=== PATIENT | male | born 1945 | race Caucasian/White ===

== ENCOUNTER 2024-08-22 10:24 | Outpatient (AMB) | payer OTHER, SELFPAY ==
--- NOTE | 2024-08-22 10:26 | MHC.OFFVIS ---
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 for Right Great toe wound Intake Note: SUSTAINABILITY PROJECT COORDINATOR/ PV Rehab referral for non-healing wounds bilateral LE, pt unsure how long he's had them General Repair Mechanic Required: No Accompanied by: ambulance drivers Allergies benzalkonium Allergy (Mild, Verified 08/22/24 10:41) Unknown brimonidine Allergy (Mild, Verified 08/22/24 10:41) Unknown clindamycin Allergy (Mild, Verified 08/22/24 10:45) Unknown dorzolamide [From Trusopt] Allergy (Mild, Verified 08/22/24 10:48) Unknown gabapentin Allergy (Mild, Verified 08/22/24 10:45) Unknown heparin Allergy (Mild, Verified 08/22/24 10:48) Unknown ketoconazole [From Nizoral] Allergy (Mild, Verified 08/22/24 10:48) unknown lamotrigine Allergy (Mild, Verified 08/22/24 10:48) Unknown penicillin G Allergy (Mild, Verified 08/22/24 10:33) Unknown prednisone Allergy (Mild, Verified 08/22/24 10:45) Unknown pyridoxine Allergy (Mild, Verified 08/22/24 10:45) Unknown rivaroxaban Allergy (Mild, Verified 08/22/24 10:45) Unknown sulfamethoxazole [From Sulfamethoxazole-Trimethoprim] Allergy (Mild, Verified 08/22/24 10:48) Unknown timolol Allergy (Mild, Verified 08/22/24 10:48) Unknown travoprost [From Travatan Z] Allergy (Mild, Verified 08/22/24 10:48) Unknown trimethoprim [From Sulfamethoxazole-Trimethoprim] Allergy (Mild, Verified 08/22/24 10:48) Unknown vancomycin Allergy (Mild, Verified 08/22/24 10:48) Unknown HPI HPI SUSTAINABILITY PROJECT COORDINATOR/PV Rehab for Right Great toe wound: Details: The patient is a 79-year-old male presenting with a nonhealing ulcer and leg swelling. The ulcer has been present for an undetermined length of time but reflects a chronic issue exacerbated by past and recent trauma. The patient's medical history includes Type 2 Diabetes Mellitus, managed with Metformin, and historical tobacco use, ceased decades ago. He recalls a history of deep vein thrombosis and pulmonary embolism, now managed with anticoagulation therapy, with Arthur. Now for evaluation regarding right great toe ulcer and leg swelling. [facility] Medical History (Updated 08/22/24 @ 12:07 by Alhaji Cool MD) Venous thrombosis and embolism Edema Anemia PTSD (post-traumatic stress disorder) Hypercholesteremia Hypothyroidism Diabetes Review of Systems Const All systems reviewed & are unremarkable except as noted in HPI and below Reports no additional complaints ENT Reports Normal hearing present Card Denies chest pain, Denies chest pain at rest, Denies chest pain with activity and Denies pedal edema Resp Denies cough GI Denies abdominal pain Musc Denies abnormal gait, Denies muscle cramps and Denies radiating pain into limb Skin/Breast Denies skin ulcer and Denies wounds Neuro Reports Normal hearing present and Denies abnormal gait Psych Reports no additional complaints Physical Exam Vital Signs: BMI result Body Mass Index 30.4 Const General: cooperative, healthy appearing and comfortable Orientation/consciousness: oriented to person, oriented to place and oriented to time HEENT Head: Yes normal to inspection Neck Neck: Yes normal visual inspection Carotids: no bruits Chest Chest palpation & inspection: normal inspection of the chest Resp Effort & Inspection: normal respiratory effort and able to speak in complete sentences Auscultation: clear to auscultation bilaterally, no crackles, no rales, no rhonchi and no wheezes Cardio Other: Palpable DP and PT pulses bilaterally Rate: regular rate Rhythm: regular rhythm Heart sounds: S1 normal heart sound present and S2 normal heart sound present Bruits: no carotid bruits Peripheral pulses: Peripheral pulses 2+ throughout GI Inspection: Yes normal to inspection Skin Other: Right great toe looks like underlying hematoma and appears to be more traumatic. Wounds: no wounds Hair: normal Neuro General: oriented to person, oriented to place and oriented to time Cranial nerves: Yes CN's II-XII intact bilaterally and Yes Normal hearing present Cognition (Neuro): normal cognition Motor exam (neuro): 5/5 motor strength present throughout Extrem Other: Plus two edema with nonhealing ulcers bilaterally. General: No clubbing, No cyanosis and Yes edema Psych Appearance: grossly normal Mental Status: mental status grossly normal Speech and movement: Normal speech and movement present Office Procedures Vascular Office Procedure Details Details: Wound debridement note: Preoperative diagnosis: Nonhealing right great toe ulcer Postoperative diagnosis: Nonhealing right great toe ulcer Procedure: Excisional debridement into muscle Anesthesia: None Estimated blood loss: Minimal Pre-procedure measurement and appearance dry necrotic eschar with hematoma 0.3 x 0.3 by 0.1 cm Postprocedure measurement and appearance: Clean granulation tissue with good bleeding 0.4 x 0.4 x 0.2 cm Procedure in detail: Excisional debridement of the right great toe was carried out.. Necrotic devitalized and nonviable tissue was removed. We debrided into muscle using pickups Metzenbaum scissors and curette. Wound was thoroughly irrigated. At the conclusion wound appeared clean with good bleeding. Hemostasis had to be achieved with silver nitrate sticks. Clean and sterile dressing was applied. Patient tolerated the procedure well. Instructions were given to the patient. Follow-up was suggested. This note is constructed using voice recognition software. While every effort has been made to ensure accuracy, aircraft life support fitter errors may have been included. Thank you for allowing me to participate in the care of your patient. Yours sincerely, Alhaji Cool MD, FACS, R.P.V.I. [id number] Debridement, muscle and or fascia (lst 20 sq cm or less) All charges added?: Procedure code (CPT) selection complete Assessment & Plan Assessment & Plan (1) Chronic ulcer of right great toe: Code(s): L97.519 - Non-pressure chronic ulcer of other part of right foot with unspecified severity Category: Medical Qualifiers: Non-pressure ulcer stage: with fat layer exposed Qualified Code(s): L97.512 - Non-pressure chronic ulcer of other part of right foot with fat layer exposed Plan: In short patient has nonhealing ulcer of right great toe. This appears to be more traumatic in nature and has developed underlying hematoma. This was debrided and cleaned. I do suspect this will heal as he does have palpable arterial pulses. (2) Varicose veins of right lower extremity with inflammation: Code(s): I83.11 - Varicose veins of right lower extremity with inflammation Category: Medical Plan: In short, the patient has evidence of venous insufficiency. I have discussed the pathophysiology with the patient. In addition I have provided informational material regarding venous disease to the patient. We have discussed conservative measures including compression, elevation, and exercise. I have also provided a handout regarding appropriate use of compression stockings and where to purchase good compression stockings as well. I have taken the liberty of ordering venous insufficiency testing with the patient. They will follow up with me after testing. The patient had an opportunity to ask questions regarding the treatment plan. All questions were answered. Imaging studies, laboratory studies and physical exam results were discussed and reviewed in detail. No major barriers to understanding were identified. The patient expressed understanding and agreement with the above treatment plan. The patient is aware they should contact our office by phone for worsening of the current condition or the appearance of new symptoms. Thank you for allowing me to participate in the vascular care of this patient. If you have any questions or concerns regarding the treatment for the above condition please do not hesitate to contact me. The office telephone contact is [phone]. This note is constructed using voice recognition software. While every effort has been made to ensure accuracy, aircraft life support fitter errors may have been included. Thank you for allowing me to participate in the care of your patient. Yours sincerely, Alhaji Cool MD, FACS, R.P.V.I. Plan Patient was informed and verbally consented to the use of an ambient scribe for clinic note documentation during this visit. Patient Instructions: - Elevate legs regularly to reduce swelling. - Continue using compression wraps as instructed. - Engage in light physical activity to maintain circulation. - Attend scheduled venous ultrasound. - Follow-up regularly with healthcare provider. - Report any worsening symptoms or new concerns to the medical team promptly. Coding Level of Care Code New Pt Level 4 (44636) Complex EM visit Add On G2211 Diagnoses Chronic ulcer of great toe of right foot with fat layer exposed L97.512 Non-pressure ulcer stage: with fat layer exposed Varicose veins of right lower extremity with inflammation I83.11
[2024-08-22 10:29] VITALS: BMI 30.4
--- OUTSIDE RECORDS SUMMARY | 2024-08-22 12:00 | XMS_ITS | Encounter Summary ---
Author Organization [facility] Address [address] [place] [address] Care Team Providers Care Search Planner Name Role Phone Sandra Horn ABHIJIT Primary Care Provider Encounter Details Date Type Department Care Team (Late st Contact Info) Description 03/11/[address] [facility] Lab [address] [facility] [place] [address] Lida Jules MD [address] [address] Hypothyroidism, unspecified Social History Tobacco Use Types Packs/Day Years Used Date Smoking Tobacco: Never Assessed Sex and Gender Information Value Date Recorded Sex Assigned at Not on file Legal Sex Male 8:12 PM EST Gender Identity Not on file Sexual Orientation Not on file documented as of this encounter Plan of Treatment Not on file documented as of this encounter Procedures Procedure Name Priority Date/Time Associated Diagnosis Comments THYROID STIMULATING HORMONE WITH REFLEX TO FREE T4 AND FREE T3 Routine 03/13/2024 7:05 AM EST Hypothyroidism, unspecified FREE THYROXINE WITH REFLEX TO FREE TRIIODOTHYRONINE Routine 03/13/2024 7:05 AM EST Hypothyroidism, unspecified TRIIODOTHYRONINE FREE Routine 03/13/2024 7:05 AM EST Hypothyroidism, unspecified FOLATE Routine 03/13/2024 7:05 AM EST Hypothyroidism, unspecified VITAMIN B12 Routine 03/13/2024 7:05 AM EST Hypothyroidism, unspecified documented in this encounter Results * Triiodothyronine free (03/13/2024 7:05 AM EST) T3, Free 412 230 - 420 pcg/dL LAB CHEMISTRY METHOD 03/13/2024 11:[address] [facility] Blood Venous blood specimen / Unknown Venipuncture / Unknown 03/13/2024 7:05 AM EST 03/13/2024 8:32 AM EST Lida Jules MD LAB BLOOD ORDERABLES Fin al Result Performing Organization Address City/[facility]/ZIP Co de Phone Number [facility] [address] [place] [address], [place] [phone] * Free thyroxine with reflex to free triiodothyronine (03/13/2024 7:05 AM EST) Free T4 1.15 0.70 - 1.80 ng/dL LAB CHEMISTRY METHOD 03/13/2024 10:[address] [facility] Blood Venous blood specimen / Unknown Venipuncture / Unknown 03/13/2024 7:05 AM EST 03/13/2024 8:32 AM EST Lida Jules MD LAB BLOOD ORDERABLES Fin al Result Performing Organization Address [facility]/ZIP Co de Phone Number [facility] [address] [place] [address], [place] [phone] * (ABNORMAL) Folate (03/13/2024 7:05 AM EST) Folate >20.0(H) 2.8 - 17.0 ng/ml LAB CHEMISTRY METHOD 03/13/2024 10:[address] [facility] Blood Venous blood specimen / Unknown Venipuncture / Unknown 03/13/2024 7:05 AM EST 03/13/2024 8:32 AM EST Lida Jules MD LAB BLOOD ORDERABLES Fin al Result Performing Organization Address [facility]/ZIP Co de Phone Number [facility] [address] [place] [address], [place] [phone] * Vitamin B12 (03/13/2024 7:05 AM EST) Vitamin B-12 464 250 - 900 pcg/mL LAB CHEMISTRY METHOD 03/13/2024 10:[address] [facility] Blood Venous blood specimen / Unknown Venipuncture / Unknown 03/13/2024 7:05 AM EST 03/13/2024 8:32 AM EST Lida Jules MD LAB BLOOD ORDERABLES Fin al Result Performing Organization Address [facility] Co de Phone Number [facility] [address] [place] [address], [place] [phone] * (ABNORMAL) Thyroid stimulating hormone with reflex to free t4 and free t3 (03/13/2024 7:05 AM EST) TSH 4.06(H) 0.40 - 4.00 mcIU/mL LAB CHEMISTRY METHOD 03/13/2024 10:[address] [facility] Blood Venous blood specimen / Unknown Venipuncture / Unknown 03/13/2024 7:05 AM EST 03/13/2024 8:32 AM EST Lida Jules MD LAB BLOOD ORDERABLES Fin al Result Performing Organization Address [facility]/ZIP Co de Phone Number [facility] [address] [place] [address], [place] [phone] documented in this encounter Visit Diagnoses Diagnosis Hypothyroidism, unspecified documented in this encounter Care Teams Search Planner Relationship Specialty Start Date End Date Sandra Horn NP [address] [place] [address] PCP - General Nurse Practitioner 06/29/24 documented as of this encounter
--- OUTSIDE RECORDS SUMMARY | 2024-08-22 12:00 | XMS_ITS | Encounter Summary ---
Author Organization [facility] Address [address] [place] [address] Care Team Providers Care Educational Psychology Teacher Name Role Phone Sandra Horn NP Primary Care Provider [phone] Encounter Details Date Type Department Care Team (Latest Contact Info) Description 06/29/2024 Lab Requisition [facility] [address] [place] [address] Sandra Horn NP [address] [place] [address] Type 2 diabetes mellitus without complications (CMS/HCC V24, CMS/HCC V28) Social History Tobacco Use Types Packs/Day Years [...] Procedure Name Priority Date/Time Associated Diagnosis Comments COMPLETE BLOOD COUNT Routine 06/29/2024 6:45 AM EST Type 2 diabetes mellitus without complications (CMS/HCC) HEMOGLOBIN A1C Routine 06/29/2024 6:45 AM EST Type 2 diabetes mellitus without complications (CMS/HCC) BASIC METABOLIC PANEL Routine 06/29/2024 6:45 AM EST Type 2 diabetes mellitus without complications (CMS/HCC) documented in this encounter Results * (ABNORMAL) Hemoglobin A1c (06/29/2024 6:45 AM EST) Hemoglobin A1C 8.2(H) <6.5 % LAB CHEMISTRY METHOD 06/29/2024 9:23 PM EST [facility] Mean Bld Glu Estim. 189 mg/dL LAB CHEMISTRY METHOD 06/29/2024 9:23 PM [facility] Blood Venous blood specimen / Unknown Venipuncture / Unknown 06/29/2024 6:45 AM EST 06/29/2024 10:45 AM EST us Sandra Horn NP LAB BLOOD ORDERABLES Final Resul t [facility] [address] [place] [address], * (ABNORMAL) Basic metabolic panel (06/29/2024 6:45 AM EST) Sodium 139 133 - 145 mmol/L LAB CHEMISTRY METHOD 06/29/2024 11:42 AM [facility] Potassium 3.8 3.5 - 5.5 mmol/L LAB CHEMISTRY METHOD 06/29/2024 11:42 AM [facility] Chloride 104 96 - 110 mmol/L LAB CHEMISTRY METHOD 06/29/2024 11:42 AM [facility] CO2 25 21 - 32 mmol/L LAB CHEMISTRY METHOD 06/29/2024 11:42 AM [facility] Anion Gap 10 3 - 11 LAB CHEMISTRY METHOD 06/29/2024 11:42 AM [facility] Glucose 179(H) 70 - 100 mg/dL LAB CHEMISTRY METHOD 06/29/2024 11:42 AM [facility] BUN 15 5 - 25 mg/dL LAB CHEMISTRY METHOD 06/29/2024 11:42 AM [facility] Creatinine 0.70 0.70 - 1.30 mg/dL LAB CHEMISTRY METHOD 06/29/2024 11:42 AM [facility] eGFR 94 >=60 mL/min/1. 73m2 LAB CHEMISTRY METHOD 06/29/2024 11:42 AM [facility] Comment:Calculation based on the??Chronic Kidney Disease Epidemiology Collaboration (CKD-EPI) equation refit??without adjustment for race. BUN/Creatinine Ratio 21.4 LAB CHEMISTRY METHOD 06/29/2024 11:42 AM [facility] Calcium 8.5 8.5 - 10.5 mg/dL LAB CHEMISTRY METHOD 06/29/2024 11:42 AM [facility] Blood Venous blood specimen / Unknown Venipuncture / Unknown 06/29/2024 6:45 AM EST 06/29/2024 10:45 AM EST us Sandra Horn INFORMATICS EDUCATOR LAB BLOOD ORDERABLES Final Resul t [facility] [address] [place] [address], * (ABNORMAL) Complete blood count (06/29/2024 6:45 AM EST) WBC 3.0(L) 4.8 - 10.8 K/mcL LAB HEMETOLOGY METHOD 06/29/2024 11:18 AM [facility] RBC 3.10(L) 4.50 - 5.50 M/mcL LAB HEMETOLOGY METHOD 06/29/2024 11:18 AM [facility] Hemoglobin 9.3(L) 13.5 - 17.5 g/dL LAB HEMETOLOGY METHOD 06/29/2024 11:18 AM [facility] Hematocrit 28.6(L) 42.0 - 54.0 % LAB HEMETOLOGY METHOD 06/29/2024 11:18 AM [facility] MCV 92.3 79.0 - 98.0 FL LAB HEMETOLOGY METHOD 06/29/2024 11:18 AM [facility] MCH 30.0 27.0 - 32.0 pcg LAB HEMETOLOGY METHOD 06/29/2024 11:18 AM [facility] MCHC 32.5 32.0 - 37.0 g/dL LAB HEMETOLOGY METHOD 06/29/2024 11:18 AM EST [facility] RDW 16.0(H) 11.0 - 15.0 % LAB HEMETOLOGY METHOD 06/29/2024 11:18 AM [facility] Platelets 114(L) 130 - 400 K/mcL LAB HEMETOLOGY METHOD 06/29/2024 11:18 AM [facility] MPV 10.9 7.0 - 11.0 FL LAB HEMETOLOGY METHOD 06/29/2024 11:18 AM EST [facility] NRBC 0.0 <1.0 % LAB HEMETOLOGY METHOD 06/29/2024 11:18 AM [facility] NRBC Absolute 0.00 <0.10 K/mcL LAB HEMETOLOGY METHOD 06/29/2024 11:18 AM [facility] Blood Venous blood specimen / Unknown Venipuncture / Unknown 06/29/2024 6:45 AM EST 06/29/2024 10:45 AM EST Sandra Horn NP LAB BLOOD ORDERABLES Final Resul t [facility] [address] [place] [address], documented in this encounter Visit Diagnoses Diagnosis Type 2 diabetes mellitus without complications (CMS/HCC V24, CMS/HCC V28) documented in this encounter Care Teams Educational Psychology Teacher Relationship Specialty Start Date End Date Sandra Horn NP [address] [place] [address] PCP - General Nurse Practitioner 06/29/24 documented as of this encounter
--- OUTSIDE RECORDS SUMMARY | 2024-08-22 12:01 | XMS_ITS | Clinical Summary ---
Author Organization [address] [facility] Address [address] [place] [address] Phone Care Team Providers Care Mc Kay Machine Operator Name Role Phone Sandra Horn NP Primary Care Provider [phone] Encounters Date Type Department Care Team Description 06/29/2024 Lab Requisition [facility] - Main Lab [address] [facility] [place] [address] Sandra Horn NP Type 2 diabetes mellitus without complications (CMS/HCC V24, CMS/HCC V28) from Last 3 Months Social History Tobacco Use Types Packs/Day Years Used Date Smoking Tobacco: Never Assessed Sex and Gender Information Value Date Recorded Sex Assigned at Not on file Legal Sex Male 8:12 PM EST Gender Identity Not on file Sexual Orientation Not on file Plan of Treatment Health Maintenance Due Date Last Done Comments Diabetes: Annual Foot Exam 1955 Diabetes: Annual Retina Eye Exam 1955 RSV Immunization Adult Patients (1 - 1-dose 75+ series) 2021 Cholesterol Screening (Lipid Panel) 05/20/2023 Depression Screening 05/20/2023 Falls Risk Assessment 05/20/2023 Hepatitis C Screening 05/20/2023 Medicare Annual Wellness Visit 05/20/2023 Social Influencers of Health Screening 05/20/2023 COVID-19 Vaccine ( season) 2023 07/31/2021, 03/08/2021, 06/12/2020, Additional history exists Diabetes: Annual Urine Albumin-Creatinine Ratio (uACR) 03/03/2024 DTaP,Tdap,and Td Vaccines (4 - Td or Tdap) 11/19/2024 11/19/2014, 12/25/2008, 11/28/2008 Diabetes: Blood Sugar Control Test (HGBA1C) 12/30/2024 06/29/2024, 03/21/2023 Diabetes: Annual GFR (Glomerular Filtration Rate) 06/29/2025 06/29/2024, 02/15/2024, 02/15/2024, Additional history exists Hypertension/CHF/CAD Annual BMP Blood Test 06/29/2025 06/29/2024, 02/15/2024, 02/15/2024, Additional history exists MMR Vaccines Aged Out 04/30/2000 No longer eligi ble based on patient's age to complete this topic Pneumococcal Vaccine: 50+ Years Completed 10/21/2015, 10/17/2014, 04/24/2010, Additional history exists Zoster Vaccines Completed 09/15/2017, 06/25, 11/19/2014, Additional history exists Influenza Vaccine Completed 02/23/2024, , 01/08/2021, Additional history exists HIB Vaccines Aged Out No longer eligi ble based on patient's age to complete this topic HPV Vaccines Aged Out No longer eligi ble based on patient's age to complete this topic Hepatitis A Vaccines Aged Out No long er eligible based on patient's age to complete this topic Hepatitis B Vaccines Aged Out No long er eligible based on patient's age to complete this topic IPV Vaccines Aged Out No longer eligi ble based on patient's age to complete this topic Meningococcal ACWY Vaccine Aged Out N o longer eligible based on patient's age to complete this topic Meningococcal B Vaccine Aged Out No l onger eligible based on patient's age to complete this topic RSV Immunization Patients Under 20 months Aged Out No longer eligible based on patient's age to complete this topic Varicella Vaccines Aged Out No longer eligible based on patient's age to complete this topic Procedures Procedure Name Priority Date/Time Associated Diagnosis Comments HEMOGLOBIN A1C Routine 06/29/2024 6:45 AM EST Type 2 diabetes mellitus without complications (CMS/HCC) BASIC METABOLIC PANEL Routine 06/29/2024 6:45 AM EST Type 2 diabetes mellitus without complications (CMS/HCC) COMPLETE BLOOD COUNT Routine 06/29/2024 6:45 AM EST Type 2 diabetes mellitus without complications (CMS/HCC) from Last 3 Months Results * (ABNORMAL) Complete blood count (06/29/2024 6:45 AM EST) [facility] WBC 3.0(L) 4.8 - 10.8 K/mcL LAB HEMETOLOGY METHOD 06/29/2024 11:18 AM [facility] RBC 3.10(L) 4.50 - 5.50 M/mcL LAB HEMETOLOGY METHOD 06/29/2024 11:18 AM [facility] Hemoglobin 9.3(L) 13.5 - 17.5 g/dL LAB HEMETOLOGY METHOD 06/29/2024 11:18 AM [facility] Hematocrit 28.6(L) 42.0 - 54.0 % LAB HEMETOLOGY METHOD 06/29/2024 11:18 AM [facility] MCV 92.3 79.0 - 98.0 FL LAB HEMETOLOGY METHOD 06/29/2024 11:18 AM [facility] MCH 30.0 27.0 - 32.0 pcg LAB HEMETOLOGY METHOD 06/29/2024 11:18 AM [facility] MCHC 32.5 32.0 - 37.0 g/dL LAB HEMETOLOGY METHOD 06/29/2024 11:18 AM [facility] RDW 16.0(H) 11.0 - 15.0 % LAB HEMETOLOGY METHOD 06/29/2024 11:18 AM [facility] Platelets 114(L) 130 - 400 K/mcL LAB HEMETOLOGY METHOD 06/29/2024 11:18 AM [facility] MPV 10.9 7.0 - 11.0 FL LAB HEMETOLOGY METHOD 06/29/2024 11:18 AM [facility] NRBC 0.0 <1.0 % LAB HEMETOLOGY METHOD 06/29/2024 11:18 AM [facility] NRBC Absolute 0.00 <0.10 [facility] LAB HEMETOLOGY METHOD 06/29/2024 11:18 AM EST [facility] Blood Venous blood specimen / Unknown Venipuncture / Unknown 06/29/2024 6:45 AM EST 06/29/2024 10:45 AM EST [facility] LAB BLOOD ORDERABLES Final Resul t Performing Organization Address [facility]/ZIP Co de Phone Number [facility] [address] [place] [address], [place] [phone] * (ABNORMAL) Hemoglobin A1c (06/29/2024 6:45 AM EST) Hemoglobin A1C 8.2(H) <6.5 % LAB CHEMISTRY METHOD 06/29/2024 9:23 PM EST [facility] Mean Bld Glu Estim. 189 mg/dL LAB CHEMISTRY METHOD 06/29/2024 9:23 PM EST [facility] Blood Venous blood specimen / Unknown Venipuncture / Unknown 06/29/2024 6:45 AM EST 06/29/2024 10:45 AM EST [facility] LAB BLOOD ORDERABLES Final Resul t Performing Organization Address [facility] Co de Phone Number [facility] [address] [place] [address], * (ABNORMAL) Basic metabolic panel (06/29/2024 6:45 AM EST) Sodium 139 133 - 145 mmol/L LAB CHEMISTRY METHOD 06/29/2024 11:42 AM EST [facility] Potassium 3.8 3.5 - 5.5 mmol/L LAB CHEMISTRY METHOD 06/29/2024 11:42 AM EST [facility] Chloride 104 96 - 110 mmol/L LAB CHEMISTRY METHOD 06/29/2024 11:42 AM EST [facility] CO2 25 21 - 32 mmol/L LAB CHEMISTRY METHOD 06/29/2024 11:42 AM [facility] Anion Gap 10 3 - 11 LAB CHEMISTRY METHOD 06/29/2024 11:42 AM [facility] Glucose 179(H) 70 - 100 mg/dL LAB CHEMISTRY METHOD 06/29/2024 11:42 AM [facility] BUN 15 5 - 25 mg/dL LAB CHEMISTRY METHOD 06/29/2024 11:42 AM [facility] Creatinine 0.70 0.70 - 1.30 mg/dL LAB CHEMISTRY METHOD 06/29/2024 11:42 AM [facility] eGFR 94 >=60 mL/min/1. 73m2 LAB CHEMISTRY METHOD 06/29/2024 11:42 AM [facility] Comment:Calculation based on the??Chronic Kidney Disease Epidemiology Collaboration (CKD-EPI) equation refit??without adjustment for race. BUN/Creatinine Ratio 21.4 LAB CHEMISTRY METHOD 06/29/2024 11:42 AM [facility] Calcium 8.5 8.5 - 10.5 mg/dL LAB CHEMISTRY METHOD 06/29/2024 11:42 AM [facility] Blood Venous blood specimen / Unknown Venipuncture / Unknown 06/29/2024 6:45 AM EST 06/29/2024 10:45 AM EST us Sandra Horn FINANCIAL PLANNING ASSISTANT LAB BLOOD ORDERABLES Final Resul t [facility] [address] [place] [address], from Last 3 Months Insurance MEDICARE MEDICAID - [place] Care Teams Mc Kay Machine Operator Relationship Specialty Start Date End Date Sandra Horn NP [address] [place] [address] PCP - General Nurse Practitioner 06/29/24
--- OUTSIDE RECORDS SUMMARY | 2024-08-22 12:01 | XMS_ITS | Encounter Summary ---
Author Name [facility] [place] Organization [facility] [place] Address [address] [place] [address] Care Team Providers Care Babbitt Spinner Name Role Phone BTETINA SMALL Primary Care Provider Unavailabl e Insurance Providers: All historical and current Section Date Range: From patient's date of to the date document was created. This section includes the names of all active insurance providers for the patient. Insurance Provider Type of Coverage Plan Name Start of Policy Coverage End of Policy Coverage Group Number Member ID Insurance Provider's Telephone Number Policy Sen's Name Patient's Relationship to Policy Sen [facility] MEDICAID MEDICAID MEDIC AID Apr 26, 2018 MEDICAI D [id number] ZAID REYNOLDS PATIENT MEDICAID MEDICAID [facility] [place] Jul 25, 2018 MEDICAI D [id number] ZAID REYNOLDS PATIENT MEDICARE (WNR) MEDICARE (M) PART B Mar 26, 2019 PART B [id number] ZAID REYNOLDS PATIENT MEDICARE (WNR) MEDICARE (M) PART B Mar 26, 2019 PART B [id number] ZAID REYNOLDS PATIENT MEDICARE (WNR) MEDICARE (M) PART A Jul 25, 2018 PART A [id number] ZAID REYNOLDS PATIENT Selected Encounter This section includes the information on record at [place] for the Encounter. Date/Time Encounter Type Encounter Description Reason Pro vider Source September 24, 2023 02:00 PM Outpatient Encounter AUDIOLOGY IHE Encounter Template Text not used by [place] Plan of Treatment: Future Appointments (+ 6 months) and Future Tests (+/- 45 days) The Plan of Treatment section includes future care activities for the patient from all [place] treatmentfacilities. This section includes future appointments and future orders which are active, pending or scheduled. Future Appointments This section includes appointments that were scheduled to occur 6 months from the date of the Encounter, up to a maximum of 20 appointments. The data comes from all [place] treatment facilities. Appointment Date/Time Appointment Type Appointme nt Facility Name Jan 06, 2024 03:00 PM AMBULATORY - MEDICINE [facility] [place] [facility] Jan 12, 2024 02:30 PM AMBULAT[facility] - [facility] Social History: Smoking Status (Most current) and Tobacco Use (All prior to encounter date) This section includes the most current, and the historical, smoking and tobacco- related health factors from the VA facility where the Encounter took place. Current Smoking Status This section includes the most current smoking, or tobacco-related health factor, from the VA facility where the Encounter took place. Date/Time Current Smoking Status Comment Facil it September 04, 2022 03:00 PM VA-TOBACCO FORMER USER IN [facility] [place] [facility] Tobacco Use History This section includes a history of the smoking, or tobacco-related health factors, that were collected on or before the date of the Encounter. The data comes from the [place] facility where the Encounter took place. Date/Time Smoking Status/Tobac co Use Comment Facility September 04, 2022 03:00 PM VA-TOBACCO QUIT 15 YRS OR MORE IN [facility] [place] [facility] September 10, 2021 01:30 PM VA-TOBACCO FORMER USER IN [facility] [place] [facility] September 10, 2021 01:30 PM VA-TOBACCO QUIT 5 TO < 15 YRS IN [facility] [place] [facility] September 10, 2020 01:00 PM VA-TOBACCO FORMER USER IN [facility] [place] [facility] September 10, 2020 01:00 PM VA-TOBACCO QUIT [facility]RS OR [facility] Mar 08, 2019 12:57 PM [facility] Mar 08, 2019 12:57 PM VA-TOBACCO QUIT 15 YRS OR MORE [facility] Jan 20, 2018 10:13 AM [facility] Jan 20, 2018 10:13 AM VA-TOBACCO QUIT 15 YRS OR MORE [facility] Jan 20, 2018 10:13 AM VA-TOBACCO QUIT 5 TO < 15 YRS [facility] Apr 23, 2017 04:20 PM QUIT TOBACCO USE > 7 YEARS AGO Vet quit 50 years ago. [facility] Mar 23, 2016 08:41 AM QUIT TOBACCO USE > 7 YEARS AGO quit in 1970 [facility] Apr 11, 2015 03:59 PM QUIT TOBACCO USE > 7 YEARS AGO He quit 40 years ago. [facility] Jan 24, 2004 02:41 PM HISTORY OF SMOKING Quit in 1970 [facility] May 24, 2002 10:31 AM HISTORY OF SMOKING Smoke free 31+years [facility] Aug 16, 2001 03:17 PM QUIT TOBACCO USE > 7 YEARS AGO [facility] May 17, 2001 03:35 PM NON-TOBACCO USER [facility] Feb 15, 2001 04:14 PM HISTORY OF SMOKING [facility] Advance Directives: All historical and current Section Date Range: From patient's date of to the date document was created. This section includes ALL of a patient's completed or amended [place] Advance and Rescinded Directives. The entries below indicate that a directive exists for the patient, but an actual copy is not included with this document. The data comes from all [place] facilities. Date Advance Directives Provider Source Aug 06, 2022 ADVANCE DIRECTIVE [facility] Mar 14, 2012 ADVANCE DIRECTIVE IGOR PIZARRO [facility] Encounter Notes: All associated encounter notes This section contains the clinical notes associated to the Encounter. Date/Time Encounter Note(s) Provider Source September 24, 2023 02:41 PM CLERICAL NOTE: LOCAL TITLE: APPOINTMENT NO SHOW STANDARD TITLE: CLERICAL NOTE DATE OF NOTE: SEPTEMBER 24, 2023@14:41 ENTRY DATE: SEPTEMBER 24, 2023@14:41:52 AUTHOR: LISA GRANADOS EXP COSIGNER: URGENCY: STATUS: COMPLETED Patient Name: ZAID REYNOLDS Patient SSN: [id number] Date and time of Appointment No show : 09/24/23 14:00 PATIENT PHONE - NONE FOUND PHONE NUMBER [CELLULAR] - Patient's medical record was reviewed. Follow-up actions were determined and initiated: Please check/complete as applies: [ ]Telephoned Directly [ ]Re-scheduled for next available appt [X]Sent a N0-show letter ( must call for appointment) [ ]Other (Emergent/Overbook, etc.): Additional Comments: Future Clinic Visits No data available /neo/ Dominique SÁNCHEZ, [facility]-A STAFF MONORAIL CHARGER OPERATOR Signed: 09/24/2023 14:42 Receipt Acknowledged By: 09/24/2023 14:51 /neo/ JANELLE JOHN LEAD CONTRACT NEGOTIATION SPECIALIST LISA GRANADOS [facility]
--- OUTSIDE RECORDS SUMMARY | 2024-08-22 12:01 | XMS_ITS | Encounter Summary ---
Author Name [facility] [place] Organization [place] Address [address] [place] [address] Care Team Providers Care Pro Shop Attendant Name Role Phone BETTINA SMALL Primary Care Provider Unavailabl e Insurance [...] Sen's Name Patient's Relationship to Policy Sen [facility] MEDICAID MEDICAID MEDIC AID Apr 26, 2018 MEDICAI D [id number] ZAID REYNOLDS PATIENT MEDICAID MEDICAID [facility] [place] Jul 25, 2018 MEDICAI D [id number] ZAID REYNOLDS PATIENT MEDICARE (WNR) MEDICARE (M) PART B Mar 26, 2019 PART B [id number] [phone] ZAID REYNOLDS PATIENT MEDICARE (WNR) MEDICARE (M) PART B Mar 26, 2019 PART B [id number] ZAID REYNOLDS PATIENT MEDICARE (WNR) MEDICARE (M) PART A Jul 25, 2018 PART A [id number] ANACATHRYN ZAID PATIENT Selected Encounter This section includes the information on record at [place] for the Encounter. Date/Time Encounter Type Encounter Description Reason Pro vider Source IHE Encounter Template Text not used by [place] Advance Directives: All historical and current Section Date Range: From patient's date of to the date document was created. This section includes ALL of a patient's completed or amended [place] Advance and Rescinded Directives. The entries below indicate that a directive exists for the patient, but an actual copy is not included with this document. The data comes from all [place] facilities. Date Advance Directives Provider Source Aug 06, 2022 ADVANCE DIRECTIVE MYNOR AVENDANO [place] [facility] Mar 14, 2012 ADVANCE DIRECTIVE IGOR PIZARRO
--- OUTSIDE RECORDS SUMMARY | 2024-08-22 12:02 | XMS_ITS ---
Author Name [facility] [place] Organization [facility] [place] Address [address] [place] [address] Care Team Providers Care Postdoctoral Research Associate Name Role Phone BETTINA SMALL Primary Care [...] Sen's Name Patient's Relationship to Policy Sen [facility] MEDICAID MEDICAID MEDIC AID Apr 26, 2018 MEDICAI D [id number] ZAID REYNOLDS PATIENT MEDICAID MEDICAID [facility] [place] Jul 25, 2018 MEDICAI D [id number] ZAID REYNOLDS PATIENT MEDICARE (WNR) MEDICARE (M) PART B Mar 26, 2019 PART B [id number] ZAID REYNOLDS PATIENT MEDICARE (WNR) MEDICARE (M) PART B Mar 26, 2019 PART B [id number] ZAID REYNOLDS PATIENT MEDICARE (WNR) MEDICARE (M) PART A Jul 25, 2018 PART A [id number] ZAID REYNOLDS PATIENT Selected Encounter This section includes the information on record at [place] for the Encounter. Date/Time Encounter Type Encounter Description Reason Pro vider Source Feb 14, 2024 11:00 AM Outpatient Encounter AUDIOLOGY IHE Encounter Template Text not used by MD Social History: Smoking Status (Most current) and Tobacco Use (All prior to encounter date) This section includes the most current, and the historical, smoking and tobacco- related health factors from the [place] facility where the Encounter took place. Current Smoking Status This section includes the most current smoking, or tobacco-related health factor, from the [place] facility where the Encounter took place. Date/Time Current Smoking Status Comment [facility] September 04, 2022 03:00 PM VA-TOBACCO FORMER USER [place] [facility] [place] [facility] Tobacco Use History This section includes a history of the smoking, or tobacco-related health factors, that were collected on or before the date of the Encounter. The data comes from the [place] facility where the Encounter took place. Date/Time Smoking Status/Tobac co Use Comment Facility September 04, 2022 03:00 PM VA-TOBACCO QUIT 15 YRS OR MORE [facility] [place] [facility] September 10, 2021 01:30 PM VA-TOBACCO FORMER USER [facility] [place] [facility] September 10, 2021 01:30 PM VA-TOBACCO QUIT 5 TO < 15 YRS [facility] [place] [facility] September 10, 2020 01:00 PM VA-TOBACCO FORMER USER [facility] [place] [facility] September 10, 2020 01:00 PM VA-TOBACCO QUIT 15 YRS OR MORE [facility] [place] [facility] Mar 08, 2019 12:57 PM VA-TOBACCO FORMER USER [facility] [place] [facility] Mar 08, 2019 12:57 PM VA-TOBACCO QUIT 15 YRS OR MORE [facility] [place] [facility] Jan 20, 2018 10:13 AM VA-TOBACCO FORMER USER [facility] [place] [facility] Jan 20, 2018 10:13 AM VA-TOBACCO QUIT 15 YRS OR MORE [facility] [place] [facility] Jan 20, 2018 10:13 AM VA-TOBACCO QUIT 5 TO < 15 YRS [facility] [place] [facility] Apr 23, 2017 04:20 PM QUIT TOBACCO USE > 7 YEARS AGO Vet quit 50 years ago. [facility] Mar 23, 2016 08:41 AM QUIT TOBACCO USE > 7 YEARS AGO quit in 1970 [facility] Apr 11, 2015 03:59 PM QUIT TOBACCO USE > 7 YEARS AGO He quit 40 years ago. [facility] Jan 24, 2004 02:41 PM HISTORY OF SMOKING Quit in 1970 [facility] May 24, 2002 10:31 AM HISTORY OF SMOKING Smoke free 31+years [facility] Aug 16, 2001 03:17 PM QUIT TOBACCO USE > 7 YEARS AGO [facility] May 17, 2001 03:35 PM NON-TOBACCO USER [facility] Feb 15, 2001 04:14 PM HISTORY OF SMOKING [facility] Advance Directives: All historical and current Section Date Range: From patient's date of to the date document was created. This section includes ALL of a patient's completed or amended [place] Advance and Rescinded Directives. The entries below indicate that a directive exists for the patient, but an actual copy is not included with this document. The data comes from all [place] facilities. Date Advance Directives Provider Source Aug 06, 2022 ADVANCE DIRECTIVE MYNOR AVENDANO [facility] Mar 14, 2012 ADVANCE DIRECTIVE IGOR PIZARRO [facility] Encounter Notes: All associated encounter notes This section contains the clinical notes associated to the Encounter. Date/Time Encounter Note(s) Provider Source Feb 14, 2024 11:35 AM CLERICAL NOTE: LOCAL TITLE: APPOINTMENT NO SHOW STANDARD TITLE: CLERICAL NOTE DATE OF NOTE: FEB 14, 2024@11:35 ENTRY DATE: FEB 14, 2024@11:36:04 AUTHOR: LISA GRANADOS COSIGNER: URGENCY: STATUS: COMPLETED APPOINTMENT NO SHOW Has ADDENDA Patient Name: ZAID REYNOLDS Patient SSN: [id number] Date and time of Appointment No show : 02/14/24 11:00 PATIENT PHONE - PHONE NUMBER [CELLULAR] - Patient's medical record was reviewed. Follow-up actions were determined and initiated: Please check/complete as applies: [ ]Telephoned Directly [ ]Re-scheduled for next available appt [X]Sent a N0-show letter ( must call for appointment) [ ]Other (Emergent/Overbook, etc.): Additional Comments: Future Clinic Visits 05/01/2024 14:00 CWM/NO/PACT TIMOTEO /Dominique Ferrara, [facility]-A STAFF RESEARCH QUALITY ASSURANCE SPECIALIST Signed: 02/14/2024 11:36 Receipt Acknowledged By: 02/14/2024 14:21 /neo/ JOY PABLO SUPERVISORY ENDOSCOPY TECHNICAN 02/14/2024 ADDENDUM STATUS: COMPLETED left voicemail at 1:30 pm unable to make appointment today. Called and no voicemail on his line. Sending letter. /neo/ JOY PABLO SUPERVISORY ENDOSCOPY TECHNICAN Signed: 02/14/2024 14:21 LISA GRANADOS [facility]
--- OUTSIDE RECORDS SUMMARY | 2024-08-22 12:02 | XMS_ITS ---
Author Name [facility] [place] Organization [place] Address [address] [place] [address] Care Team Providers Care Reed Polisher Name Role Phone BETTINA SMALL Primary Care [...] Sen's Name Patient's Relationship to Policy Sen [facility] MEDICAID MEDICAID MEDIC AID Apr 26, 2018 MEDICAI D [id number] ZAID REYNOLDS PATIENT MEDICAID MEDICAID [facility] [place] Jul 25, 2018 MEDICAI D [id number] ZAID REYNOLDS PATIENT MEDICARE (WNR) MEDICARE (M) PART B Mar 26, 2019 PART B [id number] ZAID REYNOLDS PATIENT MEDICARE (WNR) MEDICARE (M) PART B Mar 26, 2019 PART B [id number] [phone] [id number] ZAID REYNOLDS PATIENT MEDICARE (WNR) MEDICARE (M) PART A Jul 25, 2018 PART A [id number] [phone] [id number] ZAID REYNOLDS PATIENT Selected Encounter This section includes the information on record at [place] for the Encounter. Date/Time Encounter Type Encounter Description Reason Pro vider Source Oct 08, 2023 12:59 PM Outpatient Encounter PRIMARY CARE/MEDICINE IHE Encounter Template Text not used by [place] Plan of Treatment: Future Appointments (+ 6 months) and Future Tests (+/- 45 days) The Plan of Treatment section includes future care activities for the patient from all [place] treatmentfacilities. This section includes future appointments and future orders which are active, pending or scheduled. Future Appointments This section includes appointments that were scheduled to occur 6 months from the date of the Encounter, up to a maximum of 20 appointments. The data comes from all [place] treatment facilities. Appointment Date/Time Appointment Type Appointme nt Facility Name Jan 06, 2024 03:00 PM AMBULATORY - MEDICINE [facility] [place] [facility] Jan 12, 2024 02:30 PM AMBULATORY - REHAB MEDICIN E [place] [facility] [place] [facility] Social History: Smoking Status (Most current) and Tobacco Use (All prior to encounter date) This section includes the most current, and the historical, smoking and tobacco- related health factors from the [facility] facility where the Encounter took place. Current Smoking Status This section includes the most current smoking, or tobacco-related health factor, from the [place] facility where the Encounter took place. Date/Time Current Smoking Status Comment Facil it September 04, 2022 03:00 PM VA-TOBACCO FORMER USER [place] [facility] [place] [facility] Tobacco Use History This section includes a history of the smoking, or tobacco-related health factors, that were collected on or before the date of the Encounter. The data comes from the [place] facility where the Encounter took place. Date/Time Smoking Status/Tobac co Use Comment Facility September 04, 2022 03:00 PM VA-TOBACCO QUIT 15 YRS OR MORE [place] [facility] [place] [facility] September 10, 2021 01:30 PM VA-TOBACCO FORMER USER [place] [facility] [place] [facility] September 10, 2021 01:30 PM VA-TOBACCO QUIT 5 TO < 15 YRS [place] [facility] [place] [facility] September 10, 2020 01:00 PM VA-TOBACCO FORMER USER [place] [facility] [place] [facility] September 10, 2020 01:00 PM VA-TOBACCO QUIT 15 YRS OR MORE [facility] Mar 08, 2019 12:57 PM [facility] Mar 08, 2019 12:57 PM VA-TOBACCO QUIT 15 YRS OR MORE [facility] Jan 20, 2018 10:13 AM [facility] Jan 20, 2018 10:13 AM VA-TOBACCO QUIT 15 YRS OR MORE [facility] Jan 20, 2018 10:13 AM VA-TOBACCO QUIT 5 TO < 15 YRS [facility] Apr 23, 2017 04:20 PM QUIT TOBACCO USE > 7 YEARS AGO [facility]et [facility] 50 years [facility]. [facility] Mar 23, 2016 08:41 AM QUIT TOBACCO USE > 7 YEARS AGO quit in 1970 [facility] Apr 11, 2015 03:59 PM QUIT TOBACCO USE > 7 YEARS AGO He [facility] 40 years ago. [facility] Jan 24, 2004 02:41 PM HISTORY OF SMOKING Quit in 1971 [facility] May 24, 2002 10:31 AM HISTORY OF SMOKING Smoke free 31+years [facility] Aug 16, 2001 03:17 PM QUIT TOBACCO USE > 7 YEARS AGO [facility] May 17, 2001 03:35 PM NON-TOBACCO USER [facility] Feb 15, 2001 04:14 PM HISTORY OF SMOKING [facility] Advance Directives: All historical and current Section Date Range: From patient's date of to the date document was created. This section includes ALL of a patient's completed or amended [place] Advance and Rescinded Directives. The entries below indicate that a directive exists for the patient, but an actual copy is not included with this document. The data comes from all [place] facilities. Date Advance Directives Provider Source Aug 06, 2022 ADVANCE DIRECTIVE [facility] Mar 14, 2012 ADVANCE DIRECTIVE IGOR PIZARRO [facility] Encounter Notes: All associated encounter notes This section contains the clinical notes associated to the Encounter. Date/Time Encounter Note(s) Provider Source Oct 08, 2023 12:59 PM SOCIAL WORK NOTE: LOCAL TITLE: SOCIAL WORK NOTE STANDARD TITLE: SOCIAL WORK NOTE DATE OF NOTE: OCT 08, 2023@12:59 ENTRY DATE: OCT 08, 2023@12:59:44 AUTHOR: EVE ABAD EXP COSIGNER: URGENCY: STATUS: COMPLETED SOCIAL WORK NOTE Has ADDENDA Cardiothoracic Icu Rn spoke with Ivory (shiraz) who reported he is aware they empty, clean or refill liter box, he had a crisis and that would contribute to his crisis. I will deal with cat issue we have someone that will take care of this she continued my brother has a cat that is sickly and the cat is living a good life, I can't see changing that right now as in my brother going into assisted living where he could not have his cat. I just can't do that but I will take your suggestion and talk to [employer] service officre about [employer] terminologist care application .Verbalized appreciation. Encouraged to contact marketing copywriter and VA prn. /neo/ SATNAM PLATA LICENSED INDEPENDENT CLINICAL SUPERANNUATION CLERK Signed: 10/08/2023 13:37 10/11/2023 ADDENDUM STATUS: COMPLETED correction Ivory (shiraz) stated he is aware they do not empty, clean or fill litter box /es/ SATNAM PLATA LICENSED INDEPENDENT CLINICAL SUPERANNUATION CLERK Signed: 10/11/2023 12:52 EVE ABAD [place] [facility]
--- OUTSIDE RECORDS SUMMARY | 2024-08-22 12:02 | XMS_ITS | Encounter Summary ---
Author Name Department [place] Organization Department of [place] Address [address] [place] [address] Care Team Prov[address] Care [address] Design Draftsperson Name Role Phone BETTINA SMALL Primary Care [...] Sen's Name Patient's Relationship to Policy Sen [facility] MEDICAID MEDICAID MEDIC AID Apr 26, 2018 MEDICAI D [id number] ZAID REYNOLDS PATIENT MEDICAID MEDICAID [facility] [place] Jul 25, 2018 MEDICAI D [id number] ZAID REYNOLDS PATIENT MEDICARE (WNR) MEDICARE (M) PART B Mar 26, 2019 PART B [id number] ZAID REYNOLDS PATIENT MEDICARE (WNR) MEDICARE (M) PART B Mar 26, 2019 PART B [id number] ZAID REYNOLDS PATIENT MEDICARE (WNR) MEDICARE (M) PART A Jul 25, 2018 PART A [id number] RODOLFO ZAID PATIENT Selected Encounter This section includes the information on record at [place] for the Encounter. Date/Time Encounter Type Encounter Description Reason Pro vider Source Jan 12, 2024 02:30 PM Outpatient Encounter AUDIOLOGY IHE Encounter Template Text not used by [place] Social History: Smoking Status (Most current) and Tobacco Use (All prior to encounter date) This section includes the most current, and the historical, smoking and tobacco- related health factors from the [place] facility where the Encounter took place. Current Smoking Status This section includes the most current smoking, or tobacco-related health factor, from the [place] facility where the Encounter took place. Date/Time Current Smoking Status Comment [facility] it September 04, 2022 03:00 PM VA-TOBACCO FORMER USER [place] [facility] [place] [facility] Tobacco Use History This section includes a history of the smoking, or tobacco-related health factors, that were collected on or before the date of the Encounter. The data comes from the [place] facility where the Encounter took place. Date/Time Smoking Status/Tobac co Use Comment Facility September 04, 2022 03:00 PM VA-TOBACCO QUIT 15 YRS OR MORE [facility] [place] [facility] September 10, 2021 01:30 PM VA-TOBACCO FORMER USER [facility] [place] [facility] September 10, 2021 01:30 PM VA-TOBACCO QUIT 5 TO < 15 YRS [facility] [place] [facility] September 10, 2020 01:00 PM VA-TOBACCO FORMER USER [facility] [place] [facility] September 10, 2020 01:00 PM VA-TOBACCO QUIT 15 YRS OR MORE [facility] [place] [facility] Mar 08, 2019 12:57 PM VA-TOBACCO FORMER USER [facility] [place] [facility] Mar 08, 2019 12:57 PM VA-TOBACCO QUIT 15 YRS OR MORE [facility] [place] [facility] Jan 20, 2018 10:13 AM VA-TOBACCO FORMER USER [facility] [place] [facility] Jan 20, 2018 10:13 AM VA-TOBACCO QUIT 15 YRS OR MORE [facility] [place] [facility] Jan 20, 2018 10:13 AM VA-TOBACCO QUIT 5 TO < 15 YRS [facility] [place] [facility] Apr 23, 2017 04:20 PM QUIT TOBACCO USE > 7 YEARS AGO Vet quit 50 years ago. [facility] Mar 23, 2016 08:41 AM QUIT TOBACCO USE > 7 YEARS AGO quit in 1970 [facility] Apr 11, 2015 03:59 PM QUIT TOBACCO USE > 7 YEARS AGO He quit 40 years ago. [facility] Jan 24, 2004 02:41 PM HISTORY OF SMOKING [facility] May 24, 2002 10:31 AM HISTORY OF SMOKING Smoke free 31+years [facility] Aug 16, 2001 03:17 PM QUIT TOBACCO USE > 7 YEARS AGO [facility] May 17, 2001 03:35 PM NON-TOBACCO USER [facility] Feb 15, 2001 04:14 PM HISTORY OF SMOKING [facility] Advance Directives: All historical and current Section Date Range: From patient's date of to the date document was created. This section includes ALL of a patient's completed or amended [place] Advance and Rescinded Directives. The entries below indicate that a directive exists for the patient, but an actual copy is not included with this document. The data comes from all [place] facilities. Date Advance Directives Provider Source Aug 06, 2022 ADVANCE DIRECTIVE MYNOR AVENDANO [facility] Mar 14, 2012 ADVANCE DIRECTIVE [facility] Encounter Notes: All associated encounter notes This section contains the clinical notes associated to the Encounter. Date/Time Encounter Note(s) Provider Source Jan 12, 2024 02:54 PM CLERICAL NOTE: LOCAL TITLE: APPOINTMENT NO SHOW STANDARD TITLE: CLERICAL NOTE DATE OF NOTE: JAN 12, 2024@14:54 ENTRY DATE: JAN 12, 2024@14:55:04 AUTHOR: MERI FLORENCE COSIGNER: URGENCY: STATUS: COMPLETED Patient Name: ZAID REYNOLDS Patient SSN: [id number] Date and time of Appointment No show : 01/12/24 14:30 PATIENT PHONE - PHONE NUMBER [CELLULAR] - Patient's medical record was reviewed. Follow-up actions were determined and initiated: Please check/complete as applies: [ ]Telephoned Directly [ ]Re-scheduled for next available appt [X]Sent a N0-show letter ( must call for appointment) [ ]Other (Emergent/Overbook, etc.): Additional Comments: Future Clinic Visits 01/26/2024 13:30 CWM/NO/PACT EIGHT /es/ Ashia Tubbs, [facility]-A Web Operations Specialist Signed: 01/12/2024 14:55 Receipt Acknowledged By: 01/12/2024 15:05 /neo/ JANELLE JOHN LEAD DIELECTRIC MACHINE OPERATOR MERI FLORENCE [place] [facility]
--- OUTSIDE RECORDS SUMMARY | 2024-08-22 12:02 | XMS_ITS | Encounter Summary ---
Author Name Department of Vetera [place] Organization Department of [place] Address [address] [place] [address] Care Team Providers Care Equipment Services Associate Name Role Phone BETTINA SMALL Primary [...] Sen's Name Patient's Relationship to Policy Sen [facility] MEDICAID MEDICAID MEDIC AID Apr 26, 2018 MEDICAI D [id number] ZAID REYNOLDS PATIENT MEDICAID MEDICAID [facility] [place] Jul 25, 2018 MEDICAI D [id number] ZAID REYNOLDS PATIENT MEDICARE (WNR) MEDICARE (M) PART B Mar 26, 2019 PART B [id number] ZAID REYNOLDS PATIENT MEDICARE (WNR) MEDICARE (M) PART B Mar 26, 2019 PART B [id number] ZAID REYNOLDS PATIENT MEDICARE (WNR) MEDICARE (M) PART A Jul 25, 2018 PART A [id number] ZAID REYNOLDS PATIENT Selected Encounter This section includes the information on record at [place] for the Encounter. Date/Time Encounter Type Encounter Description Reason Provider Source Dec 31, 2023 03:56 PM CASE MANAGEMENT PRIMARY CARE/MEDICINE ICD-10-CM Z71.9 Counseling, unspecified NICHOLAS ABAD IHMarissa Encounter Template Text not used by [place] Assessments - Encounter Diagnoses This section includes the primary and secondary diagnoses documented for the Encounter. Date/Time Primary/Secondary Diagnosis Diagnosis Name Provider Source Dec 31, 2023 04:05 PM PRIMARY Counseling, unspecified SHENA ABAD [facility] Plan of Treatment: Future Appointments (+ 6 months) and Future Tests (+/- 45 days) The Plan of Treatment section includes future care activities for the patient from all [place] treatmentfacilities. This section includes future appointments and future orders which are active, pending or scheduled. Future Appointments This section includes appointments that were scheduled to occur 6 months from the date of the Encounter, up to a maximum of 20 appointments. The data comes from all [place] treatment facilities. Appointment Date/Time Appointment Type Appointme nt Facility Name Jan 06, 2024 03:00 PM [facility] Jan 12, 2024 02:30 PM AMBULATORY - RE[facility]AB MEDIC[facility] E [facility] Social History: Smoking Status (Most current) and Tobacco Use (All prior to encounter date) This section includes the most current, and the historical, smoking and tobacco- related health factors from the [place] facility where the Encounter took place. Current Smoking Status This section includes the most current smoking, or tobacco-related health factor, from the [place] facility where the Encounter took place. Date/Time Current Smoking Status Comment [facility] it September 04, 2022 03:00 PM VA-TOBACCO FORMER USER [facility] Tobacco Use History This section includes a history of the smoking, or tobacco-related health factors, that were collected on or before the date of the Encounter. The data comes from the [place] facility where the Encounter took place. Date/Time Smoking Status/Tobac co Use Comment Facility September 04, 2022 03:00 PM PR-TOBACCO QUIT 15 YRS OR MORE [facility] September 10, 2021 01:30 PM VA-TOBACCO FORMER USER [place] [facility] [place] [facility] September 10, 2021 01:30 PM VA-TOBACCO QUIT 5 TO < 15 YRS [place] [facility] [place] [facility] September 10, 2020 01:00 PM VA-TOBACCO FORMER USER [place] [facility] [place] [facility] September 10, 2020 01:00 PM VA-TOBACCO QUIT 15 YRS OR MORE [place] [facility] [place] [facility] Mar 08, 2019 12:57 PM VA-TOBACCO FORMER USER [place] [facility] [place] [facility] Mar 08, 2019 12:57 PM VA-TOBACCO QUIT 15 YRS OR MORE [place] [facility] [place] [facility] Jan 20, 2018 10:13 AM VA-TOBACCO FORMER USER [place] [facility] [place] [facility] Jan 20, 2018 10:13 AM VA-TOBACCO QUIT 15 YRS OR MORE [place] [facility] [place] [facility] Jan 20, 2018 10:13 AM VA-TOBACCO QUIT 5 TO < 15 YRS [place] [facility] [place] [facility] Apr 23, 2017 04:20 PM QUIT TOBACCO USE > 7 YEARS AGO Vet quit 50 years ago. [place] [facility] [place] [facility] Mar 23, 2016 08:41 AM QUIT TOBACCO USE > 7 YEARS AGO quit in 1970 [place] [facility] [place] [facility] Apr 11, 2015 03:59 PM QUIT TOBACCO USE > 7 YEARS AGO He quit 40 years ago. [place] [facility] [place] [facility] Jan 24, 2004 02:41 PM HISTORY OF SMOKING Quit in 1970 [place] [facility] [place] [facility] May 24, 2002 10:31 AM HISTORY OF SMOKING Smoke free 31+years [place] [facility] [place] [facility] Aug 16, 2001 03:17 PM QUIT TOBACCO USE > 7 YEARS AGO [place] [facility] [place] [facility] May 17, 2001 03:35 PM NON-TOBACCO USER [place] [facility] [place] [facility] Feb 15, 2001 04:14 PM HISTORY OF SMOKING [facility] [place] [facility] Advance Directives: All historical and current Section Date Range: From patient's date of to the date document was created. This section includes ALL of a patient's completed or amended [place] Advance and Rescinded Directives. The entries below indicate that a directive exists for the patient, but an actual copy is not included with this document. The data comes from all [place] facilities. Date Advance Directives Provider Source Aug 06, 2022 ADVANCE DIRECTIVE MYNOR AVENDANO [facility] Mar 14, 2012 ADVANCE DIRECTIVE IGOR PIZARRO [facility] Encounter Notes: All associated encounter notes This section contains the clinical notes associated to the Encounter. Date/Time Encounter Note(s) Provider Source Dec 31, 2023 03:56 PM SOCIAL WORK NOTE: LOCAL TITLE: SOCIAL WORK NOTE STANDARD TITLE: SOCIAL WORK NOTE DATE OF NOTE: DEC 31, 2023@15:56 ENTRY DATE: DEC 31, 2023@15:57:11 AUTHOR: EVE ABAD EXP COSIGNER: URGENCY: STATUS: COMPLETED Thread Puller reached out to check in. [place] seemed confused after self introcduction asking where do I know you from? . Reviewed the notes. [place] reported I spoke t my sister once, twice a week.e talked a few days ago . Talkative about life events, , family and travel. Verbalized appreciation for call. Encouraged to contact [place] prn. /neo/ SATNAM PLATA LICENSED INDEPENDENT CLINICAL MARKETING SUPPORT MANAGER Signed: 12/31/2023 16:05 EVE ABAD [place] [facility]
--- OUTSIDE RECORDS SUMMARY | 2024-08-22 12:03 | XMS_ITS ---
Author Name [facility] [place] [facility] [place] Address [address] [place] [address] Care Team Providers Care Marketing And Public Relations Manager Name Role Phone BETTINA SMALL Primary Care [...] Sen's Name Patient's Relationship to Policy Sen [facility] MEDICAID MEDICAID MEDIC AID Apr 26, 2018 MEDICAI D [id number] ZAID ELLIS PATIENT MEDICAID MEDICAID [facility] Jul 25, 2018 MEDICAI D [id number] ZAID ELLIS PATIENT MEDICARE (WNR) MEDICARE (M) PART B Mar 26, 2019 PART B [id number] ZAID ELLIS PATIENT MEDICARE (WNR) MEDICARE (M) PART B Mar 26, 2019 PART B [id number] ZAID ELLIS PATIENT MEDICARE (WNR) MEDICARE (M) PART A Jul 25, 2018 PART A [id number] ZAID ELLIS PATIENT Selected Encounter This section includes the information on record at [place] for the Encounter. Date/Time Encounter Type Encounter Description Reason Pro vider Source Jan 26, 2024 01:30 PM Outpatient Encounter PRIMARY CARE/MEDICINE IHE Encounter Template Text not used by PA Social History: Smoking Status (Most current) and Tobacco Use (All prior to encounter date) This section includes the most current, and the historical, smoking and tobacco- related health factors from the [place] facility where the Encounter took place. Current Smoking Status This section includes the most current smoking, or tobacco-related health factor, from the [place] facility where the Encounter took place. Date/Time Current Smoking Status Comment [facility] it September 04, 2022 03:00 PM VA-TOBACCO FORMER USER [place] [facility] [place] [facility] Tobacco Use History This section includes a history of the smoking, or tobacco-related health factors, that were collected on or before the date of the Encounter. The data comes from the [place] facility where the Encounter took place. Date/Time Smoking Status/Tobac co Use Comment Facility September 04, 2022 03:00 PM VA-TOBACCO QUIT 15 YRS OR MORE [facility] [place] [facility] September 10, 2021 01:30 PM VA-TOBACCO FORMER USER [facility] [place] [facility] September 10, 2021 01:30 PM VA-TOBACCO QUIT 5 TO < 15 YRS [facility] [place] [facility] September 10, 2020 01:00 PM VA-TOBACCO FORMER USER [facility] [place] [facility] September 10, 2020 01:00 PM VA-TOBACCO QUIT 15 YRS OR MORE [facility] [place] [facility] Mar 08, 2019 12:57 PM VA-TOBACCO FORMER USER [facility] [place] [facility] Mar 08, 2019 12:57 PM VA-TOBACCO QUIT 15 YRS OR MORE [facility] [place] [facility] Jan 20, 2018 10:13 AM VA-TOBACCO FORMER USER [facility] [place] [facility] Jan 20, 2018 10:13 AM VA-TOBACCO QUIT 15 YRS OR MORE [facility] [place] [facility] Jan 20, 2018 10:13 AM VA-TOBACCO QUIT 5 TO < 15 YRS [facility] [place] [facility] Apr 23, 2017 04:20 PM QUIT TOBACCO USE > 7 YEARS AGO Vet quit 50 years ago. [facility] Mar 23, 2016 08:41 AM QUIT TOBACCO USE > 7 YEARS AGO quit in 1970 [facility] Apr 11, 2015 03:59 PM QUIT TOBACCO USE > 7 YEARS AGO He quit 40 years ago. [facility] Jan 24, 2004 02:41 PM HISTORY OF SMOKING Quit in 1971 [facility] May 24, 2002 10:31 AM HISTORY OF SMOKING Smoke free 31+years [facility] Aug 16, 2001 03:17 PM QUIT TOBACCO USE > 7 YEARS AGO [facility] May 17, 2001 03:35 PM NON-TOBACCO USER [facility] Feb 15, 2001 04:14 PM HISTORY OF SMOKING [facility] Advance Directives: All historical and current Section Date Range: From patient's date of to the date document was created. This section includes ALL of a patient's completed or amended [place] Advance and Rescinded Directives. The entries below indicate that a directive exists for the patient, but an actual copy is not included with this document. The data comes from all [place] facilities. Date Advance Directives Provider Source Aug 06, 2022 ADVANCE DIRECTIVE MYNOR AVENDANO [facility] Mar 14, 2012 ADVANCE DIRECTIVE IGOR PIZARRO [facility] Encounter Notes: All associated encounter notes This section contains the clinical notes associated to the Encounter. Date/Time Encounter Note(s) Provider Source Jan 21, 2024 08:14 AM ADDENDUM: LOCAL TITLE: Addendum STANDARD TITLE: ADDENDUM DATE OF NOTE: JAN 21, 2024@08:14:19 ENTRY DATE: JAN 21, 2024@08:14:20 AUTHOR: BETTINA SMALL EXP COSIGNER: URGENCY: STATUS: COMPLETED please fax letter to [facility]: FAX [phone] /neo/ BETTINA SMALL D.O. PHYSICIAN Signed: 01/21/2024 08:14 Receipt Acknowledged By: 01/21/2024 08:30 /neo/ JOJO Daniel COREAS AMSA --- Original Document --- 01/14/24 PATIENT LETTER (T): Date: 01/14/24 To: [facility], KEENAN Monica Jas FAX: [phone] Re: Zaid Ellis, [address] [address] I have been the Primary Care Provider for Mr. Ellis at [facility] since Jan 2023. He has advanced dementia and lives at home with home health aides and home-based primary care services through [facility]. His health care proxy has been invoked and his HCP is his sister Ivory Ellis, who lives out of state. It is my medical opinion that his needs are progressing and he needs intermediate designer care that is able to provide 24 hour care. He frequently refuses to let home health aides in his home or is combative with them and they refuse to be involved in his care. He is not safe to be alone and will frequently call our office multiple times in an agitated state with confusion and fear. This letter is to support moving Mr. Ellis to a higher level of care. Thank you for your consideration in this matter. Dr. Bettina Small [facility] Tele: [phone] BETTINA SMALL [facility] Jan 14, 2024 02:18 PM LETTERS: LOCAL TITLE: PATIENT LETTER (T) STANDARD TITLE: LETTERS DATE OF NOTE: JAN 14, 2024@14:18 ENTRY DATE: JAN 14, 2024@14:18:55 AUTHOR: BETTINA SMALL EXP COSIGNER: URGENCY: STATUS: COMPLETED PATIENT LETTER (T) Has ADDENDA DEPARTMENT OF [facility] Toll Free Number Primary Care Telephone Assistance can be reached at extension [phone] [facility] scheduling can be reached at extension [phone] [facility] scheduling can be reached at ext [phone] Date: 01/14/24 To: [facility], KEENAN Mark FAX: [phone] Re: Zaid Ellis, [address] [facility] I have been the Primary Care Provider for Mr. Ellis at [facility] since Jan 2023. He has advanced dementia and lives at home with home health aides and home-based primary care services through [facility] [employer]. His health care proxy has been invoked and his HCP is his sister Ivory Ellis, who lives out of state. It is my medical opinion that his needs are progressing and he needs usp care that is able to provide 24 hour care. He frequently refuses to let home health aides in his home or is combative with them and they refuse to be involved in his care. He is not safe to be alone and will frequently call our office multiple times in an agitated state with confusion and fear. This letter is to support moving Mr. Ellis to a higher level of care. Thank you for your consideration in this matter. Dr. Bettina Small [facility] Tele: [phone] 01/21/2024 ADDENDUM STATUS: COMPLETED please fax letter to [facility]: FAX [phone] /es/ BETTINA SMALL D.O. PHYSICIAN Signed: 01/21/2024 08:14 Receipt Acknowledged By: * AWAITING SIGNATURE * JOJO COREAS Sincerely, Your Primary Care Team [facility] [address] [facility] [address] [place] [address] [place] [address] [phone] [facility] [address] [place] [address] [place] [address] [phone] [facility] [address] [facility] [place] [address] [place], [place] [id number] [phone] BETTINA SMALL [facility]
--- OUTSIDE RECORDS SUMMARY | 2024-08-22 12:03 | XMS_ITS | Clinical Summary ---
Author Organization [facility] Address [address] [place] [address] Care Team Providers Care Fermenter Name Role Phone Karin London MD Primary Care Provider [phone] Allergies Active Allergy Reactions Criticality Noted Date Comments Sulfamethoxazole-Trim ethoprim Thrombocytopenia High 03/22/2023 Benzalkonium Unknown/Patient and Family Unable to Define Medium 03/22/2017 Other reaction(s): Itching of eye Brimonidine Unknown/Patient and Family Unable to Define Medium 02/02/2017 Other reaction(s): Itching of eye Cephalosporins Unknown/Patient and Family Unable to Define Medium 08/31/1995 Clindamycin Itching Low 03/21/2023 Dorzolamide Unknown/Patient and Family Unable to Define Medium 09/13/2008 Other reaction(s): Itching of eye, Red eye, Watery eye Gabapentin Unknown/Patient and Family Unable to Define,Nausea And Vomiting Medium 12/24/2016 Other reaction(s): Drowsy Heparin Unknown/Patient and Family Unable to Define Medium 03/31/2012 Other reaction(s): Weakness present Other reaction(s): Weakness present Ketoconazole Unknown/Patient and Family Unable to Define Medium 09/03/2016 Lamotrigine Palpitations High 05/17/2014 Other reaction(s): Tachycardia Penicillins Unknown/Patient and Family Unable to Define Medium 03/21/2023 Prednisone Delirium/Confusion/P syc hosis Low 04/11/2014 Other reaction(s): Altered mental status Rivaroxaban Itching Low 04/20/2012 Timolol Unknown/Patient and Family Unable to Define Medium 10/31/2008 Other reaction(s): Itching of eye Travoprost Unknown/Patient and Family Unable to Define,Other (See Comments) Medium 09/13/2008 Other reaction(s): Itching of eye, Red eye, Watery eye Pyridoxine Unknown/Patient and Family Unable to Define Medium 03/21/2023 Warfarin Unknown/Patient and Family Unable to Define Medium 03/31/2012 Medications atorvastatin (LIPITOR) 40 MG tablet Take 0.5 tablets (20 mg total) by mouth. Active acetaminophen (TYLENOL) 325 MG tablet Take 2 tablets (650 mg total) by mouth 4 times daily (every 6 hours) as needed for mild pain. Active latanoprost (XALATAN) 0.005 % ophthalmic solution Administer 1 drop to both eyes nightly. Active diclofenac (VOLTAREN) 1 % gel Apply 4 g topically 4 (four) times a day. Use dosing card to measure dose. Apply to entire affect area. Active lidocaine (LIDODERM) 5 % patch Place 2 patches on the skin daily. Apply patch for shoulder pain and leave on for 12 hours then remove. Patch may remain on skin for 12 hours per day. Active albuterol (PROAIR RESPICLICK) 108 (90 Base) MCG/ACT inhaler Inhale 2 puffs 4 times daily (every 6 hours) as needed for wheezing. Active ascorbic acid (VITAMIN C) 500 MG tablet Take 1 tablet (500 mg total) by mouth 2 (two) times a day. Active QUEtiapine (SEROquel) 25 MG tablet Take 0.5 tablets (12.5 mg total) by mouth nightly. Active venlafaxine (EFFEXOR-XR) 150 MG 24 hr capsuleIndicatio ns:Depression, unspecified depression type Take 1 capsule (150 mg total) by mouth daily. 3 Active levothyroxine (SYNTHROID, LEVOTHROID) 137 MCG tabletIndication s:Hypothyroidism , unspecified type Take 137 mcg by mouth daily on an empty stomach. 3 Active Active Problems Problem Noted Date Diagnosed Date GI bleed 03/21/2023 Social History Tobacco Use Types Packs/Day Years Used Date Smoking Tobacco: Never Assessed [facility] Utilities Answer Date Recorded In the past 12 months has [employer], oil, or water uFaber threatened to shut off services in your home? No 03/22/2023 AUDIT-C Answer Date Recorded Q1: How often do you have a drink containing alcohol? Never 03/21/2023 Q2: How many drinks containi ng alcohol do you have on a typical day when you are drinking? Patient does not drink Q3: How often do you have si x or more drinks on one occasion? Never 03/21/2023 Hunger Vital Sign Answer Date Recorded Within the past 12 months, y ou worried that your food would run out before you got the money to buy more. Never true 03/22/20 23 Within the past 12 months, t he food you bought just didn't last and you didn't have money to get more. Never true 03/22/2023 PRAPARE - Transportation Answer Date Re corded In the past 12 months, has l ack of transportation kept you from medical appointments or from getting medications? No 02/25 In the past 12 months, has l ack of transportation kept you from meetings, work, or from getting things needed for daily living? No 03/22/2023 Housing Stability Vital Sign Answer Ashu e Recorded In the last 12 months, was t here a time when you were not able to pay the mortgage or rent on time? No 03/22/2023 In the last 12 months, how many places have you lived? 1 03/22/2023 In the last 12 months, was t here a time when you did not have a steady place to sleep or slept in a long-term (including now)? No 03/22/2023 Sex and Gender Information Value Date Recorded Sex Assigned at Male 03/21/2023 3:04 PM EST Legal Sex Male 12:47 PM EST Gender Identity Male 03/21/2023 3:04 PM EST Sexual Orientation Choose not to disclose 2022 3:04 PM EST Last Filed Vital Signs Vital Sign Reading Time Taken Comments Blood Pressure 122/74 03/25/2023 12:37 PM EST Pulse 86 03/25/2023 12:37 PM EST Temperature 36.4 ??C (97.5 ??F) 03/25/2023 8:11 AM ES T Respiratory Rate 18 03/25/2023 4:00 AM EST Oxygen Saturation 96% 03/25/2023 12:37 PM EST Inhaled Oxygen Concentration - - Weight 116 kg (256 lb 2.8 oz) 03/25/2023 6:23 AM EST Height 177.8 cm (5' 10 ) 03/21/2023 9:00 PM EST Body Mass Index 36.76 03/21/2023 9:00 PM EST Plan of Treatment Health Maintenance Due Date Last Done Comments Hepatitis C Virus Screening 1945 DTaP/Tdap/Td Vaccines (1 - Tdap) 1965 Pneumococcal Vaccines 50+ (1 of 1 - PCV) 1996 Zoster (Shingles) Vaccine (1 of 2) 1996 RSV Vaccine 60 years and older and Patients (1 - 1-dose 75+ series) 2021 Influenza Vaccine 11/25/2023 01/08/2021, , 06/09/2019, Additional history exists COVID-19 Vaccine ( season) 2023 07/31/2021, 03/08/2021, 06/12/2020, Additional history exists Hemoglobin A1C Discontinued 03/21/2023, 02/25, 12/03/2021 Hepatitis B Vaccines Aged Out No long er eligible based on patient's age to complete this topic Procedures Procedure Name Priority Date/Time Associated Diagnosis Comments HEMOGLOBIN A1C WITH ESTIMATED AVERAGE GLUCOSE Routine 03/21/2023 8:21 PM EST from Last 3 Months or Most Recently Relevant to Health Maintenance Results * Hemoglobin A1c with Estimated Average Glucose (Routine) (03/21/2023 8:21 PM EST) Hemoglobin A1C Specimen clotted. Test not performed. <5.7 % 03/21/2023 9:33 PM EST [facility] Estimated Average Glucose Specimen clotted. Test not performed. mg/dL 03/21/2023 9:33 PM EST [facility] Blood specimen (specimen) Blood specimen / Unknown 03/21/2023 8:21 PM EST 03/21/2023 9:17 PM EST us [facility] BLOOD ORDERABLES Evie gonzalez Result [facility] [address] [place] [address], [facility] [address] [place] [address] from Last 3 Months or Most Recently Relevant to Health Maintenance Insurance [facility] MEDICARE PART A & B [facility]IC[place] [address] [facility] Advance Directives Documents on File Type Date Recorded Patient Mussel Farmer Expl anation Advance Directive-Scan 03/23/2023 Healt h Care Proxy ([place]) * Full Code (Latest Code Status on File) Date Activated Date Inactivated Comments 03/21/2023 5:42 PM Healthcare Agents on File Name Relationship Healthcare Agent Relationshi p Communication Ivory Ellis Adult sibling 1. Health Care Represent ative Care Teams Fermenter Relationship Specialty Start Date End Date Karin London MD [address] [place] [address] PCP - General Family Medicine 03/21/23
--- OUTSIDE RECORDS SUMMARY | 2024-08-22 12:03 | XMS_ITS | Continuity of Care Document ---
Author Name [facility] Organization [facility] Care Team Providers Care It Integration Architect Name Role Phone [facility] Unavailable Unavailable Problems Combined list of problems from Department of Defense and Veterans Affairs facilities. It does not include entries that were removed or entered in error. Problem Status Onset Date Problem Type Date of Resolution Comments Source History of polyp of colon Inactive 04/26/18 99 Condition 04/06/2023 May 25, 2022 Entered By: JACQUELINE ECHEVARRIA Comment: Last Colonoscopy 2008, declined scheduling efforts for 10 year f/u in 2019. [facility] Acute Venous Embolism and Thrombosis of Deep Vessels of Proximal lower Extremity Active Condition [facility] Acute Venous Embolism and Thrombosis of unspecified Deep Vessels of lower Extrem Active Condition [facility] Asthma (SNOMED CT 651617788) Active Condition Jul 15, 2017 Entered By: MAURIZIO SINHA Comment: 02/09 pfts mild restrictive disease. [facility] Attention deficit hyperactivity disorder (SNOMED CT 824610633) Active Condition [facility] Chronic post-traumatic stress disorder Active Condition [facility] Complex posttraumatic stress disorder Active [facility] Cyclothymia Active [facility] Deep vein thrombosis Active Condition [facility] Dementia Active Condition May 24 Entered By: BETTINA SMALL Comment: HCP INVOKED: Ivory Ellis ([facility] in 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 [facility] Low testosterone Active [facility] Morbid Obesity * (ICD-9-CM 278.01) Active Condition [facility] Neutropenia Active Condition [facility] Neutropenia, unspecified (ICD-9-CM 288.00) Active [facility] Obesity Active Condition [facility] Osteoarthritis (SNOMED CT 471387910) Active Condition Mar 23, 2016 Entered By: MAURIZIO SINHA Comment: advanced R shoulder degen changes 02/2016 xray [facility] 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 in [facility]- home based elderly care. [facility]. 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: Rusty [phone] an 2023 Entered By: BETTINA SMALL Comment: [place] ordered home health aides M-F 12: [facility] Pulmonary embolism Active Condition S ep 2020 Entered By: ANTONIO JAVIER Comment: b/l PE 12/29/20 [facility] Pulmonary embolism Active Condition [facility] SENSORNEUR HEARING LOSS Active Condition [facility] Supraventricular tachycardia Active Condition August 28, 2016 Entered By: MAURIZIO SINHA Comment: 09/09 need ablationMay 2016 Entered By: MAURIZIO SINHA Comment: echo 08/27/16 - nl systolic fxn EF60-65%, mildly abnl diastolic function. trace TR [facility] TINNITUS Active Condition [facility] Treatment Compliance Problem * (ICD-9-CM V62.6) Active Condition [facility] Type 2 diabetes mellitus Active Condition [facility] Unspecified idiopathic peripheral neuropathy (ICD-9-CM 356.9) Active Condition [facility] Venous Insufficiency * (ICD-9-CM 459.81) Active Condition [facility] Allergic Rhinitis NEC Inactive Condition 04/06/2023 [facility] Animal Bite (ICD-9-CM E906.3) Inactive Condition 12/16/2012 [facility] BIPOL AFF, MIXED-UNSPEC Inactive Condition 12/07/2002 [facility] Bipolar 11 disorder Inactive Condition 12/07/2002 [facility] BIPOLAR AFFEC, DEPR-MOD Inactive Condition 12/07/2002 [facility] Cataract, Cortical (Senile) Inactive Condition 12/16/2012 Oct 01, 2004 Entered By: DAVID ECKERT OD Comment: left eye [facility] 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 Inactive Condition 04/06/2023 [facility] DEPRESSIVE DISORDER NEC Inactive Condition 12/07/2002 [facility] NEUROTIC DEPRESSION Inactive Condition 12/07/2002 [facility] 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 Inactive Condition 04/16/2008 [facility] Open Angle, Glaucoma Unspec Inactive Condition 12/16/2012 [facility] Prostatitis * (ICD-9-CM 601.9) Inactive Condition 04/02/2013 [facility] Thrombosis, Venous (ICD-9-CM 453.9) Inactive Condition 03/14/2013 [facility] Diagnosis: ICD-10-CM F03.90 Unsp dementia, unsp severity, without beh/psych/mood/anx Active Diagnosis [facility] Diagnosis: ICD-10-CM F32.A Depression, unspecified Active Diagnosis [facility] Diagnosis: ICD-10-CM Z71.9 Counseling, unspecified [facility] Diagnosis: ICD-10-CM Z71.89 Other specified counseling Active Diagnosis [facility] Diagnosis: ICD-10-CM F39 Unspecified mood [affective] disorder Active Diagnosis [facility] Diagnosis: ICD-10-CM R41.3 Other amnesia Active Diagnosis [facility] Diagnosis: ICD-10-CM F43.12 Post-traumatic stress disorder, chronic Active Diagnosis [facility] Diagnosis: ICD-10-CM I95.9 Hypotension, unspecified Active Diagnosis [facility] Diagnosis: ICD-10-CM 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 Medication Details Route Status Patient Instructions Prescription Expires Prescription Number Last Dispense Date Ordering Provider Order Date Order Qty Source ACETAMINOPH EN 325MG TAB TAKE TWO TABLETS BY MOUTH THREE TIMES A DAY NEEDED ORAL ACTIVE DIA MCFARLANE 2018 [facility] APIXABAN 5MG TAB TAKE ONE TABLET BY MOUTH EVERY 12 HOURS ORAL ACTIVE FURCOLO,T TREV 2023 [facility] ATORVASTATI N CA 40MG TAB TAKE ONE-HALF TABLET BY MOUTH ONCE DAILY ORAL ACTIVE FURCOLO,T TREV 2023 [facility] DEXTROAMPHE TAMINE SO4 5MG TAB TAKE ONE TABLET BY MOUTH THREE TIMES A DAY ORAL ACTIVE FURCOLO,T TREV 2023 [facility] DULAGLUTIDE 0.75MG/0.5M L INJ,SOLN,PE N INJECT 0.75MG SUBCUTAN EOUSLY ONCE A WEEK SUBCUT ANEOUS ACTIVE FURCOLO,T TREV 2023 [facility] LEVOTHYROXI NE NA 25MCG TAB (SYNTHROID) TAKE ONE TABLET BY MOUTH EVERY MORNING 30 MINUTES BEFORE BREAKFAS T ORAL ACTIVE FURCOLO,T 2023 [facility] LISINOPRIL 5MG TAB TAKE ONE TABLET BY MOUTH ONCE DAILY ORAL ACTIVE FURCOLO,T 2023 [facility] METFORMIN HCL 1000MG TAB TAKE ONE TABLET BY MOUTH TWICE DAILY ORAL ACTIVE FURCOLO,T TREV 2023 [facility] MULTIVITAMI NS CAP/TAB TAKE ONE TABLET BY MOUTH ONCE DAILY ORAL ACTIVE DIA MCFARLANE 2018 [facility] QUETIAPINE FUMARATE 25MG TAB TAKE ONE-HALF TABLET BY MOUTH TWICE DAILY (1/2 TABLET AT 5 PM, AND 1/2 TABLETS AT BEDTIME) ORAL 03/24/2024 [id number] CARMEN MUNIZ 2023 15 [facility] QUETIAPINE FUMARATE 25MG TAB TAKE ONE-HALF TABLET BY MOUTH AT BEDTIME ORAL ACTIVE FURCOLO,T 2023 [facility] SULFAMETHOX AZOLE 800MG/TRIME THOPRIM 160MG TAB TAKE 1 TABLET BY MOUTH TWICE DAILY FOR 10 DAYS ORAL DISCONT INUED 07/28/2023 [id number] ESTRELLA,WILL ANA 2023 20 [facility] TAMSULOSIN HCL 0.4MG CAP TAKE 1 CAPSULE BY MOUTH ONCE DAILY ORAL ACTIVE FURCOLO,T TREV 2023 [facility] TESTOSTERON E (EQV-ANDROG EL) 1% 5GM/PKT GEL,TOP APPLY 1 PACKET TOPICALL Y ONCE DAILY TOPICA L ACTIVE FURCOLO,T TREV 2023 [facility] VENLAFAXINE HCL 37.5MG 24HR CAP,SA TAKE 1 CAPSULE BY MOUTH ONCE DAILY ORAL ACTIVE FURCOLO,T TREV 2023 [facility] VITAMIN B COMPLEX CAP TAKE 1 CAPSULE BY MOUTH ONCE DAILY ORAL ACTIVE DIA MCFARLANE 2018 [facility] Allergies, Adverse Reactions, Alerts Combined list of allergies from Department of Defense and Veterans Affairs facilities. It does not include entries that were removed or entered in error. Substance Category Reaction Severity Reaction type Status Date Reported Comments Source BENZALKONIUM Propensity to adverse reactions to drug (finding) Itching of eye active 7 [facility] BRIMONIDINE Propensity to adverse reactions to drug (finding) Itching of eye active 7 [facility] CEPHALOSPORI N 1ST GENERATION Propensity to adverse reactions to drug (finding) Erythema active 2 [facility] CEPHALOSPORI NS Propensity to adverse reactions to drug (finding) active 6 [facility] CLINDAMYCIN Propensity to adverse reactions to drug (finding) Itching, Anxiety active 4 [facility] GABAPENTIN Propensity to adverse reactions to drug (finding) Drowsy, Nausea and vomiting active 7 [facility] HEPARIN Propensity to adverse reactions to drug (finding) Weakness present active 2 [facility] [place] IBUPROFEN Propensity to adverse reactions to drug (finding) Nausea and vomiting active 9 [facility] [place] KETOCONAZOLE Propensity to adverse reactions to drug (finding) Erythema active 2 [facility] KETOCONAZOLE Propensity to adverse reactions to drug (finding) active 7 [facility] LAMICTAL Propensity to adverse reactions to drug (finding) Tachycardia SEVERE active 5 [facility] LOVENOX Propensity to adverse reactions to drug (finding) Itching active 2 [facility] METFORMIN Propensity to adverse reactions to drug (finding) Diarrhea active 9 [facility] PENICILLIN Propensity to adverse reactions to drug (finding) active 6 [facility] PENICILLIN Propensity to adverse reactions to drug (finding) Eruption active 1 [facility] PENICILLIN Propensity to adverse reactions to drug (finding) Erythema active 2 [facility] PREDNISONE Propensity to adverse reactions to drug (finding) Altered mental status active 4 [facility] RIVAROXABAN Propensity to adverse reactions to drug (finding) Itching active 2 [facility] TIMOLOL Propensity to adverse reactions to drug (finding) Itching of eye active 9 [facility] TRAVATAN 0.004% OPTH Propensity to adverse reactions to drug (finding) Red eye, Watery eye active 9 [facility] TRAVATAN Z Propensity to adverse reactions to drug (finding) Red eye, Watery eye active 9 [facility] TRAVOPROST Propensity to adverse reactions to drug (finding) Itching of eye active 9 [facility] TRUSOPT 2% EYE DROP Propensity to adverse reactions to drug (finding) Red eye, Watery eye active 9 [facility] TRUSOPT 2% EYE DROP Propensity to adverse reactions to drug (finding) Itching of eye active 9 [facility] VITAMIN B6 100MG SUSTAINED ACTION Propensity to adverse reactions to drug (finding) active 3 [facility] WARFARIN Propensity to adverse reactions to drug (finding) Weakness present active 2 [facility] Immunizations Combined list of available immunizations from the Department of Defense and Veterans Affairs facilities. Immunization Series Date Given Administered By Site Reaction Lot Number CVX Code Drug Venue Manager Status Comments Source COVID-19 (MODERNA), MRNA, LNP-S, PF, 100 MCG/0.5ML DOSE OR 50 MCG/0.25ML DOSE 4 2021 207 complet ed MOD; [id number]; 2 [facility] COVID-19 (MODERNA), MRNA, LNP-S, PF, 100 MCG/0.5 ML DOSE 3 2020 207 complet ed MOD; [id number]; 1 [facility] INFLUENZA VACCINE, QUADRIVALENT, ADJUVANTED 2020 205 complet ed [facility] COVID-19 (MODERNA), MRNA, LNP-S, PF, 100 MCG/0.5 ML DOSE 2 2020 207 complet ed MOD; [id number]; 1 [facility] COVID-19 (MODERNA), MRNA, LNP-S, PF, 100 MCG/0.5 ML DOSE 1 2020 207 complet ed MOD; [id number]; 1 [facility] INFLUENZA, INJECTABLE, QUADRIVALENT, PRESERVATIVE FREE 2019 150 complet ed [facility] INFLUENZA, INJECTABLE, QUADRIVALENT, PRESERVATIVE FREE 2019 150 complet ed Site: Left Deltoid [facility] INFLUENZA, SEASONAL, INJECTABLE 2017 141 complet ed Site: Left Deltoid [facility] ZOSTER RECOMBINANT 2 2017 187 complet ed [facility] ZOSTER RECOMBINANT 1 2017 187 complet ed [facility] INFLUENZA, SEASONAL, INJECTABLE 2016 141 complet ed Site: Left Deltoid [facility] FLU,3 YRS (HISTORICAL) 2015 88 complet ed Site: Left Deltoid [facility] PNEUMOCOCCAL POLYSACCHARID E PPV23 2015 33 complet ed [facility] FLU,3 YRS (HISTORICAL) 2014 88 complet ed Site: Left Deltoid [facility] DTAP, UNSPECIFIED FORMULATION 2014 107 complet ed Site: Right Deltoid [facility] ZOSTER (SHINGLES) (HISTORICAL) 2014 121 complet ed Proximal Left Arm [facility] PNEUMOCOCCAL CONJUGATE PCV 13 2014 133 complet ed [facility] FLU,3 YRS (HISTORICAL) 2013 88 complet ed Site: Left Deltoid [facility] FLU,3 YRS (HISTORICAL) 2012 88 complet ed [facility] FLU,3 YRS (HISTORICAL) 2011 88 complet ed Site: Left Deltoid [facility] FLU,3 YRS (HISTORICAL) 2011 88 complet ed [facility] FLU,3 YRS (HISTORICAL) 2009 88 complet ed Site: Left Deltoid [facility] PNEUMOCOCCAL, UNSPECIFIED FORMULATION 2009 109 complet ed Site: Right Deltoid [facility] ZOSTER LIVE 2009 DALIA GONZALEZ 121 complet ed [facility] NOVEL INFLUENZA-H1N 1-09, ALL FORMULATIONS 2008 128 complet ed [facility] DTAP, UNSPECIFIED FORMULATION 2008 107 complet ed [facility] FLU,3 YRS (HISTORICAL) 2008 88 complet ed [facility] TD(ADULT) UNSPECIFIED FORMULATION 2008 139 complet ed [facility] FLU,3 YRS (HISTORICAL) 2007 88 complet ed Site: Right Deltoid [facility] FLU,3 YRS (HISTORICAL) 2006 88 complet ed Site: Right Deltoid [facility] FLU VACCINE (HISTORICAL) 2005 88 complet ed [facility] FLU,3 YRS (HISTORICAL) 2004 JAYLYN LOPES 88 complet ed [facility] FLU,3 YRS (HISTORICAL) 2003 JAYLYN LOPES 88 complet ed [facility] FLU,3 YRS (HISTORICAL) 2002 JAYLYN LOPES 88 complet ed [facility] FLU,3 YRS (HISTORICAL) 2000 JENNIFER BURGOS 88 complet ed [facility] RABIES, INTRAMUSCULAR INJECTION 2000 JENNIFER BURGOS 18 complet ed [facility] PNEUMOCOCCAL, UNSPECIFIED FORMULATION 2000 ARJUN MANZANO 109 complet ed [facility] MMR 2000 AUDREY HARE T 03 complet ed [facility] FLU,3 YRS (HISTORICAL) 1999 DALIA GONZALEZ 88 complet ed [facility] FLU,3 YRS (HISTORICAL) 1998 ASHISH BHARDWAJ 88 complet ed [facility] INFLUENZA, UNSPECIFIED FORMULATION 1997 LORE ROSAS 88 complet ed [facility] INFLUENZA, UNSPECIFIED FORMULATION 1996 KENY GONZALEZ MD 88 complet ed [facility] INFLUENZA, UNSPECIFIED FORMULATION 1995 AUDREY HARE 88 complet ed [facility] Results Combined list of recent chemistry, hematology and other laboratory results from Department of Defense and Veterans Affairs, ranging from 15 months to all on record, depending upon the facility. Order Name Results Value Reference Range Date Interpretation Specimen Comments Source MAGNSHAHBAZU M MAGNESIUM [MASS/VOLU ME] IN SERUM OR PLASMA 1.6 mg/dL 1.6 - 2.6 05/06 Specimen Type: SERUM No comment entered. Ordering Provider: FURCOLO,TIN A Report Released Date/Time: Apr 15, 2023 03:36 PM Reporting Lab: [facility] [place] [facility] [address] [facility] [address] Performing Lab: [facility] [place] [address] [address] [facility] HEMOGLOB IN A1C PANEL HEMOGLOBIN A1C/HEMOGL OBIN.TOTAL IN BLOOD BY HPLC 8.8 4.0 - 5.6 05/06 H Specimen Type: BLOOD Comment: Values obtained from A1C measurement s can vary. For atypical A1C assays, a reported value of 7.0 could actually be between 6.72 and 7.28 if measured by a reference method. A reported value of 9.0 could actually be between 8.73 and 9.27. Ref: http://www. ngsp.org/[place] Pdata.asp Ordering Provider: ASHLEY SMALL Report Released Date/Time: May 05, 2023 09:37 AM Reporting Lab: [facility] [place] [address] [address] Performing Lab: [facility] [place] [address] [address] [facility] LIVER FUNCTION PROTEIN [MASS/VOLU ME] IN SERUM OR PLASMA 6.7 g/dL 6.0 - 8.3 05/06 Specimen Type: SERUM No comment entered. Ordering Provider: ASHLEY SMALL Report Released Date/Time: May 05, 2023 09:37 AM Reporting Lab: [facility] [place] [facility] [address] [facility] [address] Performing Lab: [facility] [place] [address] [address] [facility] LIVER FUNCTION ALBUMIN [MASS/VOLU ME] IN SERUM OR PLASMA 4.1 g/dL 3.5 - 5.0 05/06 Specimen Type: SERUM No comment entered. Ordering Provider: ASHLEY SMALL Report Released Date/Time: May 05, 2023 09:37 AM Reporting Lab: [facility] [place] [address] [address] Performing Lab: [facility] [place] [facility] [address] [facility] [address] [facility] LIVER FUNCTION ALKALINE PHOSPHATAS E [ENZYMATIC ACTIVITY/V OLUME] IN SERUM OR PLASMA 77 U/L 40 - 150 05/06 Specimen Type: SERUM No comment entered. Ordering Provider: ASHLEY SMALL Report Released Date/Time: May 05, 2023 09:37 AM Reporting Lab: [facility] [place] [facility] [address] [facility] [address] Performing Lab: [facility] [place] [facility] [address] [facility] [address] [facility] [place] [facility] LIVER FUNCTION ASPARTATE AMINOTRANS FERASE [ENZYMATIC ACTIVITY/V OLUME] IN SERUM OR PLASMA 10 U/L 5 - 34 05/06 Specimen Type: SERUM No comment entered. Ordering Provider: ASHLEY SMALL Report Released Date/Time: May 05, 2023 09:37 AM Reporting Lab: [facility] [place] [facility] [address] [facility] [address] Performing Lab: [facility] [place] [address] [address] [facility] [place] [facility] LIVER FUNCTION ALANINE AMINOTRANS FERASE [ENZYMATIC ACTIVITY/V OLUME] IN SERUM OR PLASMA 13 U/L 05/06 Specimen Type: SERUM No comment entered. Ordering Provider: ASHLEY SMALL Report Released Date/Time: May 05, 2023 09:37 AM Reporting Lab: [facility] [place] [facility] [address] [facility] [address] Performing Lab: [facility] [place] [address] [address] [facility] [place] [facility] LIVER FUNCTION BILIRUBIN. TOTAL [MASS/VOLU ME] IN SERUM OR PLASMA 0.9 mg/dL 0.2 - 1.2 05/06 Specimen Type: SERUM No comment entered. Ordering Provider: ASHLEY SMALL Report Released Date/Time: May 05, 2023 09:37 AM Reporting Lab: [facility] [place] [facility] [address] [facility] [address] Performing Lab: [facility] [place] [facility] [address] [facility] [address] [facility] [place] [facility] LIPID PANEL FASTING CHOLESTERO L [MASS/VOLU ME] IN SERUM OR PLASMA 99 mg/dL 05/06 Specimen Type: SERUM No comment entered. Ordering Provider: ASHLEY SMALL Report Released Date/Time: May 05, 2023 09:37 AM Reporting Lab: [facility] [place] [facility] [address] [facility] [address] Performing Lab: [facility] [place] [facility] [address] [facility] [address] [facility] [place] [facility] LIPID PANEL FASTING TRIGLYCERI DE [MASS/VOLU ME] IN SERUM OR PLASMA 203 mg/dL 0 - 150 05/06 H Specimen Type: SERUM No comment entered. Ordering Provider: ASHLEY SMALL Report Released Date/Time: May 05, 2023 09:37 AM Reporting Lab: [facility] [place] [facility] [address] [facility] [address] Performing Lab: [facility] [place] [facility] [address] [facility] [address] [facility] [place] [facility] LIPID PANEL FASTING CHOLESTERO L IN LDL [MASS/VOLU ME] IN SERUM OR PLASMA BY ALEX Barillas 32 mg/dL 0 - 129 05/06 Specimen Type: SERUM No comment entered. Ordering Provider: ASHLEY SMALL Report Released Date/Time: May 05, 2023 09:37 AM Reporting Lab: [facility] [place] [facility] [address] [facility] [address] Performing Lab: [facility] [place] [facility] [address] [facility] [address] [facility] [place] [facility] LIPID PANEL FASTING CHOLESTERO L.TOTAL/CH OLESTEROL IN HDL [MASS RATIO] IN SERUM OR PLASMA 3.8 05/06 Specimen Type: SERUM No comment entered. Ordering Provider: ASHLEY SMALL Report Released Date/Time: May 05, 2023 09:37 AM Reporting Lab: [facility] [place] [facility] [address] [facility] [address] Performing Lab: [facility] [place] [facility] [address] [facility] [address] [facility] [place] [facility] LIPID PANEL FASTING CHOLESTERO L IN HDL [MASS/VOLU ME] IN SERUM OR PLASMA 26 mg/dL 40 - 60 05/06 L Specimen Type: SERUM No comment entered. Ordering Provider: ASHLEY SMALL Report Released Date/Time: May 05, 2023 09:37 AM Reporting Lab: [facility] [place] [facility] [address] [facility] [address] Performing Lab: [facility] [place] [address] [address] [facility] [place] [facility] BASIC METABOLI C PANEL (fasting ) UREA NITROGEN [MASS/VOLU ME] IN SERUM OR PLASMA 14 mg/dL 7 - 25 05/06 Specimen Type: SERUM No comment entered. Ordering Provider: ASHLEY SMALL Report Released Date/Time: May 05, 2023 09:37 AM Reporting Lab: [facility] [place] [facility] [address] [facility] [address] Performing Lab: [facility] [place] [facility] [address] [facility] [address] [facility] [place] [facility] BASIC METABOLI C PANEL (fasting ) GLUCOSE [MASS/VOLU ME] IN SERUM OR PLASMA 325 mg/dL 65 - 100 05/06 H Specimen Type: SERUM No comment entered. Ordering Provider: ASHLEY SMALL Report Released Date/Time: May 05, 2023 09:37 AM Reporting Lab: [facility] [place] [facility] [address] [facility] [address] Performing Lab: [facility] [place] [address] [address] [facility] [place] [facility] BASIC METABOLI C PANEL (fasting ) SODIUM [MOLES/VOL UME] IN SERUM OR PLASMA 134 mmol/L 135 - 145 05/06 L Specimen Type: SERUM No comment entered. Ordering Provider: ASHLEY SMALL Report Released Date/Time: May 05, 2023 09:37 AM Reporting Lab: [facility]TRN [facility]ENTERUSETS [facility] [address] [facility] [address] Performing Lab: [facility] [address] [address] [facility]ITALRLAUREL [facility]ENTERTRN [facility]ENTERUSE [facility] BASIC METABOLI C PANEL (fasting ) POTASSIUM [MOLES/VOL UME] IN SERUM OR PLASMA 4.4 mmol/L 3.5 - 5.0 05/06 Specimen Type: SERUM No comment entered. Ordering Provider: ASHLEY SMALL Report Released Date/Time: May 05, 2023 09:37 AM Reporting Lab: [facility]N [address] [address] Performing Lab: [facility]ITALRLAUREL [facility] CENTERTRN [facility] CENTERUSE[address] [address] [facility] BASIC METABOLI C PANEL (fasting ) CHLORIDE [MOLES/VOL UME] IN SERUM OR PLASMA 102 mmol/L 100 - 110 05/06 Specimen Type: SERUM No comment entered. Ordering Provider: ASHLEY SMALL Report Released Date/Time: May 05, 2023 09:37 AM Reporting Lab: [facility]OS[facility]ITALN [facility]ENTERUSE[address] [address] Performing Lab: [facility]ITALRLAUREL [facility] CENTERTRN [facility]ENTERUSE[address] [address] [facility]ITAL[facility]OSPITALN [facility]ENTERUSE [facility] BASIC METABOLI C PANEL (fasting ) CARBON DIOXIDE, TOTAL [MOLES/VOL UME] IN SERUM OR PLASMA 21 meq/L 20 - 30 05/06 Specimen Type: SERUM No comment entered. Ordering Provider: ASHLEY SMALL Report Released Date/Time: May 05, 2023 09:37 AM Reporting Lab: [facility]ITALN [address] [address] Performing Lab: [facility]ITAL[facility]OSPITALN [facility] [address] [facility] BASIC METABOLI C PANEL (fasting ) CREATININE [MASS/VOLU ME] IN SERUM OR PLASMA 0.94 mg/dL 0.50 - 1.40 05/06 Specimen Type: SERUM No comment entered. Ordering Provider: ASHLEY SMALL Report Released Date/Time: May 05, 2023 09:37 AM Reporting Lab: [facility] [address] [address] Performing Lab: [facility] [address] [address] [facility] BASIC METABOLI C PANEL (fasting ) GLOMERULAR FILTRATION RATE/1.73 SQ M.PREDICTE D [VOLUME RATE/AREA] IN SERUM, PLASMA OR BLOOD BY CREATININE -BASED FORMULA (CKD-EPI 2020) 83 mL/min 60 05/06 Specimen Type: SERUM No comment entered. Ordering Provider: ASHLEY SMALL Report Released Date/Time: May 05, 2023 09:37 AM Reporting Lab: [address] [address] Performing Lab: [address] [address] [facility] CBC AND DIFF (AUTO) LEUKOCYTES [#/VOLUME] IN BLOOD BY AUTOMATED COUNT 3.82 10*3/uL 4.50 - 11.00 05/06 L Specimen Type: BLOOD No comment entered. Ordering Provider: ASHLEY SMALL Report Released Date/Time: May 05, 2023 09:37 AM Reporting Lab: [address] [address] Performing Lab: [address] [address] [facility] CBC AND DIFF (AUTO) ERYTHROCYT ES [#/VOLUME] IN BLOOD BY AUTOMATED COUNT 3.79 10*6/uL 4.23 - 5.66 05/06 L Specimen Type: BLOOD No comment entered. Ordering Provider: ASHLEY SMALL Report Released Date/Time: May 05, 2023 09:37 AM Reporting Lab: [facility] [place] [facility] [address] [facility] [address] Performing Lab: [facility] [place] [facility] [address] [facility] [address] [facility] [place] [facility] CBC AND DIFF (AUTO) HEMOGLOBIN [MASS/VOLU ME] IN BLOOD 11.9 g/dL 12.8 - 17 05/06 L Specimen Type: BLOOD No comment entered. Ordering Provider: ASHLEY SMALL Report Released Date/Time: May 05, 2023 09:37 AM Reporting Lab: [facility] [place] [facility] [address] [facility] [address] Performing Lab: [facility] [place] [facility] [address] [facility] [address] [facility] [place] [facility] CBC AND DIFF (AUTO) HEMATOCRIT [VOLUME FRACTION] OF BLOOD BY AUTOMATED COUNT 34.9 39.2 - 50.4 05/06 L Specimen Type: BLOOD No comment entered. Ordering Provider: ASHLEY SMALL Report Released Date/Time: May 05, 2023 09:37 AM Reporting Lab: [facility] [place] [facility] [address] [facility] [address] Performing Lab: [facility] [place] [facility] [address] [facility] [address] [facility] [place] [facility] CBC AND DIFF (AUTO) MCV [ENTITIC VOLUME] BY AUTOMATED COUNT 92.1 fL 82 - 99 05/06 Specimen Type: BLOOD No comment entered. Ordering Provider: ASHLEY SMALL Report Released Date/Time: May 05, 2023 09:37 AM Reporting Lab: [facility] [place] [facility] [address] [facility] [address] Performing Lab: [facility] [place] [facility] [address] [facility] [address] [facility] [place] [facility] CBC AND DIFF (AUTO) MCHC [MASS/VOLU ME] BY AUTOMATED COUNT 34.1 g/dL 30.8 - 35.1 05/06 Specimen Type: BLOOD No comment entered. Ordering Provider: ASHLEY SMALL Report Released Date/Time: May 05, 2023 09:37 AM Reporting Lab: [facility] [place] [facility] [address] [facility] [address] Performing Lab: [facility] [place] [facility] [address] [facility] [address] [facility] [place] [facility] CBC AND DIFF (AUTO) PLATELETS [#/VOLUME] IN BLOOD BY AUTOMATED COUNT 133 10*3/uL 140 - 360 05/06 L Specimen Type: BLOOD No comment entered. Ordering Provider: ASHLEY SMALL Report Released Date/Time: May 05, 2023 09:37 AM Reporting Lab: [facility] [place] [facility] [address] [facility] [address] Performing Lab: [facility] [place] [address] [address] [facility] TS [facility] CBC AND DIFF (AUTO) ERYTHROCYT E DISTRIBUTI ON WIDTH [RATIO] BY AUTOMATED COUNT 16.1 12.0 - 16.0 05/06 H Specimen Type: BLOOD No comment entered. Ordering Provider: ASHLEY SMALL Report Released Date/Time: May 05, 2023 09:37 AM Reporting Lab: [facility] [place] [place] [address] [address] Performing Lab: [facility] [place] [facility] [address] [facility] [address] [facility] [place] [facility] CBC AND DIFF (AUTO) MONOCYTES [#/VOLUME] IN BLOOD BY AUTOMATED COUNT 0.79 10*3/uL 0.30 - 1.10 05/06 Specimen Type: BLOOD No comment entered. Ordering Provider: ASHLEY SMALL Report Released Date/Time: May 05, 2023 09:37 AM Reporting Lab: [facility] [place] [place] [address] [address] Performing Lab: [facility] [place] [place] [address] [address] [facility] [place] [facility] CBC AND DIFF (AUTO) MCH [ENTITIC MASS] BY AUTOMATED COUNT 31.4 pg 26.2 - 32.6 05/06 Specimen Type: BLOOD No comment entered. Ordering Provider: ASHLEY SMALL Report Released Date/Time: May 05, 2023 09:37 AM Reporting Lab: [facility] [place] [facility] [address] [facility] [address] Performing Lab: [facility] [place] [facility] [address] [facility] [address] [facility] [place] [facility] CBC AND DIFF (AUTO) NEUTROPHIL S/100 LEUKOCYTES IN BLOOD BY AUTOMATED COUNT 49.2 43.7 - 75.8 05/06 Specimen Type: BLOOD No comment entered. Ordering Provider: ASHLEY SMALL Report Released Date/Time: May 05, 2023 09:37 AM Reporting Lab: [facility] [place] [facility] [address] [place] [address] Performing Lab: [facility] [place] [address] [address] [facility] [place] [facility] CBC AND DIFF (AUTO) LYMPHOCYTE S/100 LEUKOCYTES IN BLOOD BY AUTOMATED COUNT 26.7 14.0 - 42.3 05/06 Specimen Type: BLOOD No comment entered. Ordering Provider: ASHLEY SMALL Report Released Date/Time: May 05, 2023 09:37 AM Reporting Lab: [facility] [place] [address] [address] Performing Lab: [facility] [place] [facility] [address] [facility] [address] [facility] [place] [facility] CBC AND DIFF (AUTO) MONOCYTES/ 100 LEUKOCYTES IN BLOOD BY AUTOMATED COUNT 20.7 5.1 - 13.7 05/06 H Specimen Type: BLOOD No comment entered. Ordering Provider: ASHLEY SMALL Report Released Date/Time: May 05, 2023 09:37 AM Reporting Lab: [facility] [place] [facility] [address] [place] [address] Performing Lab: [facility] [place] [facility] [address] [facility] [address] [facility] [place] [place] [facility] CBC AND DIFF (AUTO) EOSINOPHIL S/100 LEUKOCYTES IN BLOOD BY AUTOMATED COUNT 1.0 0.4 - 6.8 05/06 Specimen Type: BLOOD No comment entered. Ordering Provider: ASHLEY SMALL Report Released Date/Time: May 05, 2023 09:37 AM Reporting Lab: [facility] [place] [facility] [address] [facility] [address] Performing Lab: [facility] [place] [facility] [address] [facility] [address] [facility] [place] [facility] CBC AND DIFF (AUTO) BASOPHILS/ 100 LEUKOCYTES IN BLOOD BY AUTOMATED COUNT 0.3 0.1 - 2.0 05/06 Specimen Type: BLOOD No comment entered. Ordering Provider: ASHLEY SMALL Report Released Date/Time: May 05, 2023 09:37 AM Reporting Lab: [facility] [place] [address] [address] Performing Lab: [facility] [place] [facility] [address] [facility] [address] [facility] [place] [facility] CBC AND DIFF (AUTO) NEUTROPHIL S [#/VOLUME] IN BLOOD BY AUTOMATED COUNT 1.88 10*3/uL 2.20 - 7.60 05/06 L Specimen Type: BLOOD No comment entered. Ordering Provider: ASHLEY SMALL Report Released Date/Time: May 05, 2023 09:37 AM Reporting Lab: [facility] [place] [facility] [address] [facility] [address] Performing Lab: [facility] [place] [address] [address] [facility] [place] [facility] CBC AND DIFF (AUTO) LYMPHOCYTE S [#/VOLUME] IN BLOOD BY AUTOMATED COUNT 1.02 10*3/uL 1.00 - 3.20 05/06 Specimen Type: BLOOD No comment entered. Ordering Provider: ASHLEY SMALL Report Released Date/Time: May 05, 2023 09:37 AM Reporting Lab: [facility] [place] [facility] [address] [facility] [address] Performing Lab: [facility] [place] [facility] [address] [facility] [address] [facility] [place] [facility] CBC AND DIFF (AUTO) EOSINOPHIL S [#/VOLUME] IN BLOOD BY AUTOMATED COUNT 0.04 10*3/uL 0.03 - 0.44 05/06 Specimen Type: BLOOD No comment entered. Ordering Provider: ASHLEY SMALL Report Released Date/Time: May 05, 2023 09:37 AM Reporting Lab: [facility] [place] [place] [facility] [address] [facility] [address] Performing Lab: [facility] [place] [place] [facility] [address] [facility] [address] [facility] [place] [place] [facility] CBC AND DIFF (AUTO) BASOPHILS [#/VOLUME] IN BLOOD BY AUTOMATED COUNT 0.01 10*3/uL 0.01 - 0.13 05/06 Specimen Type: BLOOD No comment entered. Ordering Provider: ASHLEY SMALL Report Released Date/Time: May 05, 2023 09:37 AM Reporting Lab: [facility] [place] [facility] [address] [facility] [address] Performing Lab: [facility] [place] [address] [address] [facility] [place] [facility] CBC AND DIFF (AUTO) IMMATURE GRANULOCYT ES/100 LEUKOCYTES IN BLOOD BY AUTOMATED COUNT 2.1 0.0 - 0.7 05/06 H Specimen Type: BLOOD No comment entered. Ordering Provider: ASHLEY SMALL Report Released Date/Time: May 05, 2023 09:37 AM Reporting Lab: [facility] [place] [place] [facility] [address] [facility] [address] Performing Lab: [facility] [place] [facility] [address] [facility] [address] [facility] [place] [facility] CBC AND DIFF (AUTO) IMMATURE GRANULOCYT ES [#/VOLUME] IN BLOOD 0.08 10*3/uL 0.00 - 0.06 05/06 H Specimen Type: BLOOD No comment entered. Ordering Provider: ASHLEY SMALL Report Released Date/Time: May 05, 2023 09:37 AM Reporting Lab: [address] [address] Performing Lab: [address] [address] [facility] TSH THYROTROPI N [UNITS/VOL UME] IN SERUM OR PLASMA 9.46 u[IU]/mL 0.35 - 5.00 05/06 H Specimen Type: SERUM No comment entered. Ordering Provider: ASHLEY SMALL Report Released Date/Time: May 06, 2023 03:44 PM Reporting Lab: [address] [address] Performing Lab: [address] [address] [facility] VITAMIN B12 COBALAMIN (VITAMIN B12) [MASS/VOLU ME] IN SERUM OR PLASMA 621 pg/mL 200 - 900 05/06 Specimen Type: SERUM No comment entered. Ordering Provider: ASHLEY SMALL Report Released Date/Time: May 06, 2023 03:44 PM Reporting Lab: [address] [address] Performing Lab: [address] [address] [facility] COVID-19 FLU/RSV DIAGNOST IC PANEL SARS-COV-2 (COVID-19) RNA [PRESENCE] IN RESPIRATOR Y SPECIMEN BY FELIPA WITH PROBE DETECTION POSITIVE 04/06 Specimen Type: NASOPHARYNX Comment: This test is authorized for emergency use only. False negative results may occur if virus is present at levels below the analytical limit of detection.N egative results do not preclude SARS-CoV-2, influenza or RSV infection and should not be used as the sole basis for treatment or other patient management decisions.C epheid FLUVID: HCPs: https://www .[facility].gov/ky bhaskar/354540/ download. Patients: https://www .fda.gov/me bhaskar/145024/ download NOTIFIED DR DORADO 04/06/23@16 48 BY Ordering Provider: RYAN DORADO Report Released Date/Time: Apr 06, 2023 03:39 PM Reporting Lab: [address] [address] Performing Lab: [address] [address] [facility] COVID-19 FLU/RSV DIAGNOST IC PANEL FLU A PCR (FLUVID) NEGATIVE 04/06 Specimen Type: NASOPHARYNX Comment: This test is authorized for emergency use only. False negative results may occur if virus is present at levels below the analytical limit of detection.N egative results do not preclude SARS-CoV-2, influenza or RSV infection and should not be used as the sole basis for treatment or other patient management decisions.C epheid FLUVID: HCPs: https://www .[facility].gov/ky bhaskar/831744/ download. Patients: https://www .fda.gov/me bhaskar/197476/ download NOTIFIED DR DORADO 04/06/23@16 48 BY Ordering Provider: RYAN DORADO Report Released Date/Time: Apr 06, 2023 03:39 PM Reporting Lab: [address] [address] Performing Lab: [address] [address] [facility] COVID-19 FLU/RSV DIAGNOST IC PANEL FLU B PCR (FLUVID) NEGATIVE 04/06 Specimen Type: NASOPHARYNX Comment: This test is authorized for emergency use only. False negative results may occur if virus is present at levels below the analytical limit of detection.N egative results do not preclude SARS-CoV-2, influenza or RSV infection and should not be used as the sole basis for treatment or other patient management decisions.C epheid FLUVID: HCPs: https://www .fda.gov/me bhaskar/185577/ download. Patients: https://www .fda.gov/me bhaskar/855606/ download NOTIFIED DR DORADO 04/06/23@16 48 BY Ordering Provider: RYAN DORADO Report Released Date/Time: Apr 06, 2023 03:39 PM Reporting Lab: [facility] [address] [facility] [address] Performing Lab: [facility] [address] [facility] [address] [facility] COVID-19 FLU/RSV DIAGNOST IC PANEL RSV PCR (FLUVID) NEGATIVE 04/06 Specimen Type: NASOPHARYNX Comment: This test is authorized for emergency use only. False negative results may occur if virus is present at levels below the analytical limit of detection.N egative results do not preclude SARS-CoV-2, influenza or RSV infection and should not be used as the sole basis for treatment or other patient management decisions.C epheid FLUVID: HCPs: https://www .fda.gov/ky bhaskar/997797/ download. Patients: https://www .fda.gov/ky bhaskar/173879/ download NOTIFIED DR DORADO 04/06/23@16 48 BY Ordering Provider: RYAN DORADO Report Released Date/Time: Apr 06, 2023 03:39 PM Reporting Lab: [facility] [address] [facility] [address] Performing Lab: [facility] [address] [facility] [address] [facility] SARS-COV -2 VARIANT SEQ PNL(WHV) SARS-COV-2 (COVID-19) LINEAGE [IDENTIFIE R] IN SPECIMEN BY MOLECULAR GENETICS METHOD JN.1 04/06 Specimen Type: NASOPHARYNX Comment: -Pangolin version 4.3.1 (data version ) -Nextclade version 2.14.0 (data version 2023-03-28) https://www .cdc.gov/co ronavirus/2 019-ncov/ca ses-updates /variant- surveillanc e/variant-i nfo.html The healthfinch AmpliSeq SARS CoV 2 Insight Research Assay-GX is a next-genera tion sequencing (NGS) assay that determines the complete genome sequence of the SARS-CoV-2 virus. The assay contains variant-kaleb erant primers to broaden and improve the coverage for variant detection and increase the sensitivity of the panel to enable detection from lower viral titer samples. The assay is run on the Linksify Sequencer, which performs automated library preparation , sequencing, analysis, and reporting. The sequence analysis includes determinati on of viral phylogeneti c lineage by comparison to the reference strain Wuhan-Hu-1, GenBank: [id number]. Sequence determinati on may not be possible owing to inadequate quantity or quality of the viral RNA in the original specimen. Sequencing will not be attempted if the SARS-CoV-2 PCR assay result has a Ct > 30. Note that phylogeneti c lineage assignment in some cases may blemish remover time for the same sequence as the virus continues to evolve and new sub lineages are created. The reported result will reflect the lineage assignment only at the time of initial sequence determinati on. This test was developed, and its performance characteris tics determined by the [facility], which is certified under the Clinical Laboratory Improvement Amendments (CLIA) as qualified to perform high complexity clinical laboratory testing. This test is validated for clinical use at [facility] and should not be regarded as investigati onal or for research. The FDA does not require this test to go through premarket FDA review, and therefore it has not been cleared or approved by the FDA. This report was reviewed and approved by the on-service pathologist . Ordering Provider: RYAN DORADO Report Released Date/Time: Apr 08, 2023 12:00 PM Reporting Lab: [facility] [address] [facility] [address] Performing Lab: [facility] [address] [address] [facility] SARS-COV -2 VARIANT SEQ PNL(WHV) SARS-COV-2 (COVID-19) CLADE [TYPE] IN SPECIMEN BY MOLECULAR GENETICS METHOD 23I (Wheretoget ) 04/06 Specimen Type: NASOPHARYNX Comment: -Pangolin version 4.3.1 (data version ) -Nextclade version 2.14.0 (data version 2023-03-28) https://www .cdc.gov/co ronavirus/2 019-ncov/ca ses-updates /variant- surveillanc e/variant-i nfo.html The HypeSpark SARS CoV 2 MYOMO Research Assay-GX is a next-genera tion sequencing (NGS) assay that determines the complete genome sequence of the SARS-CoV-2 virus. The assay contains variant-kaleb erant primers to broaden and improve the coverage for variant detection and increase the sensitivity of the panel to enable detection from lower viral titer samples. The assay is run on the Linksify Sequencer, which performs automated library preparation , sequencing, analysis, and reporting. The sequence analysis includes determinati on of viral phylogeneti c lineage by comparison to the reference strain Wuhan-Hu-1, GenBank: [id number]. Sequence determinati on may not be possible owing to inadequate quantity or quality of the viral RNA in the original specimen. Sequencing will not be attempted if the SARS-CoV-2 PCR assay result has a Ct > 30. Note that phylogeneti c lineage assignment in some cases may blemish remover time for the same sequence as the virus continues to evolve and new sub lineages are created. The reported result will reflect the lineage assignment only at the time of initial sequence determinati on. This test was developed, and its performance characteris tics determined by the [facility], which is certified under the Clinical Laboratory Improvement Amendments (CLIA) as qualified to perform high complexity clinical laboratory testing. This test is validated for clinical use at [facility] and should not be regarded as investigati onal or for research. The FDA does not require this test to go through premarket FDA review, and therefore it has not been cleared or approved by the FDA. This report was reviewed and approved by the on-service pathologist . Ordering Provider: RYAN DORADO Report Released Date/Time: Apr 08, 2023 12:00 PM Reporting Lab: [facility] [address] [facility] [address] Performing Lab: [address] [address] [facility] Encounters Combined list of: 1) Encounters from [facility] facilities going backup to the last 18 months, not all [facility] inpatient encounters are included; 2) Encounters from the Department of Defense facilities going backup to 280 months. Location Location Details Encounter Type Encounter Number Reason For Visit Attending Provider ADM Date DC Date Status Disposition Source [facility] Encounter [id number] 02[facility]15 [facility] [id number] Diagnos is: ICD-10- CM Z74.1 Need for assista nce with persona NADJA Carranza SE 02[facility]22 [facility] En[facility] [id number] 02/22 [facility] [id number] 02/24 [facility] [id number] 02/24 [facility] En[facility] [id number] 02/24 [facility] En[facility] [id number] 02/24 [facility] [id number] 02/25 [facility] En[facility] [id number] 02/25 [facility] Outpatient Encounter [id number] 03/01 [facility] QNHP OL DIG ASSMT&MGMT 5-10 [id number] Diagnos is: ICD-10- CM 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 KELLIE Ramirez 03/01 [facility] Outpatient Encounter [id number] 03/01 [facility] Out[facility]counter [id number] 03/02 [facility] Outpatient [facility]counter [id number] 03/04 [facility] Out[facility]counter [id number] 03/08 [facility] Out[facility]counter [id number] 03/09 [facility] Out[facility] Encounter [id number] MALOU MADDOX 03/09 [facility] Outpatient Encounter [id number] 03/11 [facility] Out[facility]counter [id number] 03[facility]11 [facility] Outpatient Encounter [id number] 03/11 [facility] Out[facility]counter [id number] 03/12 [facility] Out[facility]counter [id number] 03/15 [facility] Out[facility]counter [id number] 03/17 [facility] Out[facility]counter [id number] 03/21 [facility] Outpatient Encounter [id number] 03/22 [facility] Out[facility]counter [id number] 03/23 [facility] En[facility] [id number] CHARLES COREAS 03/23 [facility] Out[facility] Encounter [id number] 03/24 [facility] Out[facility]counter [id number] 03/25 [facility] Out[facility]counter [id number] 03/29 [facility] Out[facility]counter [id number] 03/29 [facility] Out[facility]counter [id number] 03/31 [facility] Outpatient [facility]counter [id number] 04/01 [facility] Out[facility]counter [id number] 04/01 [facility] Out[facility] Encounter [id number] 04/02 [facility] Out[facility] Encounter [id number] 04/05 [facility] PSYTX W PT 45 MINUTES [id number] Diagnos is: ICD-10- CM F43.12 Post-tr aumatic stress disorde r, chronic COOK,ALLIS ON A 04/05 [facility] Out[facility] Encounter [id number] 04/06 [facility] OFF/OP EST MAY X REQ PHY/QHP [id number] Diagnos is: ICD-10- CM I95.9 Hypoten shiraz, unspeci fiRIGOBERTO Borja 04/06 [facility] Outpatient Encounter [id number] 04/06 [facility] Out[facility]counter [id number] 04/07 [facility] Out[facility]counter [id number] 04/07 [facility] Outpatient [facility]counter [id number] 04/07 [facility] Outpatient [facility]counter [id number] 04/08 [facility] Out[facility]counter [id number] 04/09 [facility] Outpatient Encounter [id number] 04/12 [facility] Outpatient Encounter [id number] 04/12 [facility] Outpatient Encounter [id number] 04/12 [facility] Out[facility]counter [id number] 04/13 [facility] Out[facility]counter [id number] 04/13 [facility] HC PRO PHONE CALL 5-10 MIN [id number] Diagnos is: ICD-10- CM 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 SHAWANDA Pardo 04/14 [facility] Out[facility] Encounter [id number] 04/14 [facility] Outpatient Encounter [id number] Diagnos is: ICD-10- CM F43.12 Post-tr aumatic stress disorde r, chronic BROWN,GEOF LINDA 04/15 [facility] HC PRO PHONE CALL 5-10 MIN [id number] Diagnos is: ICD-10- CM 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 CHSAIDY Vicente 04/15 [facility] Outpatient Encounter [id number] 04[facility]15 [facility] Outpatient [facility]counter [id number] 04/21 [facility] Outpatient Encounter [id number] 04/22 [facility] Out[facility]counter [id number] 04/22 [facility] Out[facility]counter [id number] 04/28 [facility] Outpatient Encounter [id number] [place] 05/04 [facility] Outpatient Encounter [id number] 05/04 [facility] Out[facility]counter [id number] 05/04 [facility] Outpatient Encounter [id number] 05/05 [facility] HC PRO PHONE CALL 11-20 MIN [id number] Diagnos is: ICD-10- CM 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 DANTE Ibrahim 05/05 [facility] OFFICE O/P EST HI 40 MIN [id number] Diagnos is: ICD-10- CM R41.3 Other amnesia FURCOLO,TI NA 05/06 [facility] Out[facility]counter [id number] 05[facility]07 [facility] Outpatient Encounter [id number] 05/10 [facility] Out[facility]counter [id number] 05[facility]11 [facility] Outpatient Encounter [id number] 05/13 [facility] Outpatient Encounter [id number] 05/13 [facility] Out[facility] Encounter [id number] 05[facility]13 [facility] Outpatient [facility]counter [id number] 05/24 [facility] Out[facility]counter [id number] 05[facility]25 [facility] Out[facility]counter [id number] 05/26 [facility] Out[facility]counter [id number] 05/26 [facility] Out[facility] Encounter [id number] 05/28 [facility] PSYTX W PT 30 MINUTES [id number] Diagnos is: ICD-10- CM F39 Unspeci fied mood [affect chaz] disorde LEXIE Cullen ON A 06/02 [facility] PRO PHONE CALL 5-10 MIN [id number] Diagnos is: ICD-10- CM 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, 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 EVE ABAD 06/02 [facility] Out[facility] Encounter [id number] 06/03 [facility] Out[facility]counter [id number] 06/09 [facility] Out[facility]counter [id number] 06/15 [facility] Out[facility] Encounter [id number] 06/21 [facility] OFFICE O/[place] HI 40 MIN [id number] Diagnos is: ICD-10- CM F03.90 Unsp dementi a, unsp severit y, without beh/psy ch/mood /anx FURCOLO,TI NA [facility] CASE MANAGEMENT [id number] Diagnos is: ICD-10- CM F03.90 Unsp dementi a, unsp severit y, without beh/psy ch/mood /anx HENDERSON,JANNETTE N [facility] Outpatient Encounter [id number] Rebecca MONTALVO 06/25 [facility] Out[facility]counter [id number] 06/27 [facility] Outpatient Encounter [id number] 06/28 [facility] HC PRO PHONE CALL 21-30 MIN [id number] Diagnos is: ICD-10- CM 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 ELIZABET Pennington TATA 06/29 [facility] HC PRO PHONE CALL 21-30 MIN [id number] Diagnos is: ICD-10- CM F03.90 Unsp dementi a, unsp severit y, without beh/psy ch/mood /anx HENDERSON,JANNETTE N 06/30 [facility] Outpatient Encounter [id number] 07/05 [facility] HC PRO PHONE CALL 5-10 MIN [id number] Diagnos is: ICD-10- CM 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 ELIZABET Pennington 07/05 [facility] Out[facility] Encounter [id number] 07/18 [facility] Outpatient Encounter [id number] 07/20 [facility] CASE MANAGEMENT [id number] Diagnos is: ICD-10- CM F03.90 Unsp dementi a, unsp severit y, without beh/psy ch/mood /anx SANTIAGO,JANNETTE N 08/09 [facility] [id number] Brady RODRIGUEZ 08/16 [facility] Out[facility] Encounter [id number] 08/29 [facility] HC PRO PHONE CALL 21-30 MIN [id number] Diagnos is: ICD-10- CM F03.90 Unsp dementi a, unsp severit y, without beh/psy ch/mood /anx HENDERSON,JANNETTE N 09/16 [facility] HC PRO PHONE CALL 21-30 MIN [id number] Diagnos is: ICD-10- CM F03.90 Unsp dementi a, unsp severit y, without beh/psy ch/mood /anx HENDERSON,JANNETTE N 09/16 [facility] Outpatient Encounter [id number] 09/22 [facility] Out[facility]counter [id number] 09/23 [facility] Out[facility] Encounter [id number] 09/23 [facility] Outpatient [facility]counter [id number] 09/27 [facility] Outpatient [facility]counter [id number] 09/27 [facility] Outpatient [facility]counter [id number] 09/27 [facility] Outpatient [facility]counter [id number] 09/27 [facility] HC PRO PHONE CALL 21-30 MIN [id number] Diagnos is: ICD-10- CM F03.90 Unsp dementi a, unsp severit y, without beh/psy ch/mood /anx JANNETTE HENDERSON N 09/27 [facility] Out[facility] Encounter [id number] 09/28 [facility] Out[facility] Encounter [id number] 10/07 [facility] Outpatient [facility]counter [id number] 10/07 [facility] Outpatient Encounter [id number] 10/07 [facility] HC PRO PHONE CALL 11-20 MIN [id number] Diagnos is: ICD-10- CM F03.90 Unsp dementi a, unsp severit y, without beh/psy ch/mood /anx JANNETTE HENDERSON N 10/10 [facility] Outpatient Encounter [id number] 10/10 [facility] Out[facility]counter [id number] 10/17 [facility] Outpatient [facility]counter [id number] 10/25 [facility] Outpatient [facility]counter [id number] 11/01 [facility] Outpatient [facility]counter [id number] 11/02 [facility] Outpatient [facility]counter [id number] 11[facility]02 [facility] Out[facility]counter [id number] 11/03 [facility] Outpatient Encounter [id number] 11/21 [facility] Out[facility] Encounter [id number] 11/27 [facility] HC PRO PHONE CALL 11-20 MIN [id number] 1. 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 SHAWANDA Pardo 12/08 [facility] Outpatient Encounter [id number] 1.12/19 [facility] Outpatient Encounter [id number] 1.12/19 [facility] Out[facility] Encounter [id number] 1.12/19 [facility] Outpatient Encounter [id number] 1.12/20 [facility] Outpatient [facility]counter [id number] 12/27 [facility] Outpatient Encounter [id number] 1.12/27 [facility] HC PRO PHONE CALL 11-20 MIN [id number] Diagnos is: ICD-10- CM F03.90 Unsp dementi a, unsp severit y, without beh/psy ch/mood /anx JANNETTE HENDERSON N 12/29 [facility] Outpatient Encounter [id number]/29 [facility] Outpatient Encounter [id number] 12/30 [facility] CASE MANAGEMENT [id number] Diagnos is: ICD-10- CM 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, 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 EVE ABAD 12/30 [facility] HC PRO PHONE CALL 5-10 MIN [id number] Diagnos is: ICD-10- CM F03.90 Unsp dementi a, unsp severit y, without beh/psy ch/mood /anx HENDERSON,JANNETTE N 01/04 [facility] Outpatient Encounter [id number] 01/04 [facility] Outpatient Encounter [id number] 01/04 [facility] HC PRO PHONE CALL 11-20 MIN [id number] Diagnos is: ICD-10- CM F03.90 Unsp dementi a, unsp severit y, without beh/psy ch/mood /anx HENDERSON,JANNETTE N 01/05 [facility] Outpatient Encounter [id number] Diagnos is: ICD-10- CM F32.A Depress ion, 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,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 01/05 [facility] Out[facility] Encounter [id number]/06 [facility] Outpatient [facility]counter [id number] 01/11 [facility] Outpatient [facility]counter [id number] 01/13 [facility] Out[facility]counter [id number] 01/16 [facility] Outpatient Encounter [id number] 01/24 [facility] Outpatient [facility]counter [id number] 01/25 [facility] Outpatient [facility]counter [id number] 02/07 [facility] Outpatient Encounter [id number] 02/10 [facility] Outpatient [facility]counter [id number] 02/13 [facility] HC PRO PHONE CALL 5-10 MIN [id number] Diagnos is: ICD-10- CM F03.90 Unsp dementi a, unsp severit y, without beh/psy ch/mood /anx JANNETTE HENDERSON N 02/14 [facility] Out[facility]counter [id number] 02/16 [facility] Out[facility] Encounter [id number] 04/11 [facility] Social History Combined list of available smoking, tobacco, and other social history from Department of Defense and Veterans Affairs facilities. Social History Type Response Date Comment Source Tobacco smoking status [facility] VA-TOBACCO FORMER USER 09/04/2022 [facility] History [facility] tobacco use VA-TOBACCO QUIT 15 YRS OR MORE 09/04/2022 [facility] History of tobacco use VA-TOBACCO FORMER USER 09/10/2021 [facility] History of tobacco use AL-TOBACCO FORMER USER 09/10/2020 [facility]/20[facility]2018 [facility] History of tobacco use QUIT TOBACCO USE > 7 YEARS AGO 04/23/2017 Vet quit 50 years ago. [facility] History of tobacco use QUIT TOBACCO USE > 7 YEARS AGO 03/23/2016 quit in 1971 [facility] History of tobacco use QUIT TOBACCO USE > 7 YEARS AGO 04/11/2015 He quit 40 years ago. [facility] History of tobacco use QUIT TOBACCO USE > 7 YEARS AGO 04/10/2015 [facility] History of tobacco use HISTORY OF SMOKING 01/24/2004 Quit in 1971 [facility] History of tobacco use HISTORY OF SMOKING 05/24/2002 Smoke free 31+years [facility] History of tobacco use QUIT TOBACCO USE > 7 YEARS AGO 08/16/2001 [facility] History of tobacco use NON-TOBACCO USER 05/17/2001 [facility] History of tobacco use HISTORY OF SMOKING 02/15/2001 [facility] Advance Directives List of completed, amended, or rescinded Advance Directives on record at [facility] facilities. An actual copy of the Directive is not included. Date Advance Directive Provider Source 08/06/2022 [facility] MYNOR AVENDANO [facility] 03/14/2012 ADVANCE DIRECTIVE IGOR PIZARRO
--- OUTSIDE RECORDS SUMMARY | 2024-08-22 12:03 | XMS_ITS ---
Author Name [facility] Organization Unknown Encounters Encounter Type Encounter Reason Primary Diagnosis Location Date Inpatient Anemia, unspecified Anemia, unspecified [facility] [place] 03/21/[address] [facility] 03/21/[address] [facility] 03/21/2023 Care Team Organization Name Specialty Phone Email Start Date End [place] [facility] [place] 03/21/2023 07/12/2024 [facility] [employer] KRAIG JAVIER Primary Care 03/21/20232022
== END 2024-08-22 10:59 | disposition home or self-care (01) ==
LOC: HO.HVS 10:25
PROVIDERS: PCP Family Medicine; Visit Provider Surgery Vascular Surgery
DX: L97.512 Non-pressure chronic ulcer of other part of right foot with fat layer exposed (principal); I83.11 Varicose veins of right lower extremity with inflammation
CPT/HCPCS: 99204; G2211

== ENCOUNTER → 2024-08-22 10:24 | Outpatient (BNVA) | payer OTHER, SELFPAY | PROVIDERS: PCP Family Medicine; Visit Provider Surgery Vascular Surgery | DX: I83.11 Varicose veins of right lower extremity with inflammation (principal); L97.512 Non-pressure chronic ulcer of other part of right foot with fat layer exposed | CPT/HCPCS: 99202 ==

== ENCOUNTER 2024-09-20 13:13 | Outpatient (REF) | payer OTHER, MEDICARE, SELFPAY ==
--- NOTE | ~2024-09-20 | US_ITS ---
EXAMINATION: US LOWER EXTREMITY VENOUS (REFLUX EXAM), BILATERAL CLINICAL INFORMATION: Varices. COMPARISON: None. TECHNIQUE: Color flow triplex imaging and compression Doppler was performed to evaluate both the deep and the superficial systems bilaterally. To evaluate the superficial system, the examination was performed in the upright position. Color-flow Doppler ultrasound and compression ultrasound were utilized. In addition, maneuvers were utilized to demonstrate reflux. FINDINGS: 1. DEEP VENOUS ULTRASOUND OF THE RIGHT LOWER EXTREMITY: Common Femoral Vein: Compressible, normal respiratory variation and augmented flow. Femoral Vein: Compressible, normal color flow and augmentation. Popliteal Vein: Compressible, normal augmentation. Deep Reflux: There is no evidence of reflux in the deep system in either the common femoral vein, superficial femoral or the popliteal vein. There is a lobulated well-defined 4 cm anechoic lesion in the popliteal fossa without septations or flow on color Doppler interrogation. 2. SUPERFICIAL ULTRASOUND WITH DOPPLER OF RIGHT LOWER EXTREMITY: GREAT SAPHENOUS VEIN: Saphenofemoral Junction: 0.6 cm; Reflux: 0 ms Proximal Thigh: 0.5 cm; Reflux: 0 ms Mid Thigh: 0.4 cm; Reflux: 0 ms Distal Thigh: 0.3 cm; Reflux: 0 ms At Knee: 0.3 cm; Reflux: 0 ms Proximal Calf: 0.2 cm; Reflux: 0 ms Mid Calf: Not evaluated. Distal Calf: Not evaluated. DUPLICATED MEDIAL GREAT SAPHENOUS VEIN: Diameter: None imaged Reflux: NA DUPLICATED LATERAL GREAT SAPHENOUS VEIN: Diameter: 0.3 cm. Reflux: NA SMALL SAPHENOUS VEIN: Saphenopopliteal Junction: 0.3 cm; Reflux: 0 ms Proximal: 0.2 cm; Reflux: 0 ms Distal: Not seen. VEIN OF GIACOMINI: Size: NA Reflux: NA PERFORATORS: Location: Mid thigh. Size: 0.2 cm. Reflux: NA VARICOSITIES: Location: None imaged. Size: NA Reflux: NA 3. DEEP VENOUS ULTRASOUND OF THE LEFT LOWER EXTREMITY: Common Femoral Vein: Compressible, normal respiratory variation and augmented flow. Femoral Vein: Compressible, normal color flow and augmentation. Popliteal Vein: Compressible, normal augmentation. Deep Reflux: There is 1248 ms reflux, common femoral vein. There is a 2228 ms reflux, the popliteal vein. There is a 4.7 cm lobulated anechoic lesion with probable minimal septations and no flow on color Doppler interrogation centered at the popliteal fossa. 4. SUPERFICIAL ULTRASOUND WITH DOPPLER OF LEFT LOWER EXTREMITY: GREAT SAPHENOUS VEIN: Saphenofemoral Junction: 0.6 cm; Reflux: 0 ms Proximal Thigh: 0.3 cm; Reflux: 0 ms Mid Thigh: 0.2 cm; Reflux: 0 ms Distal Thigh: 0.3 cm; Reflux: 0 ms At Knee: 0.3 cm; Reflux: 0 ms Proximal Calf: 0.4 cm; Reflux: 0 ms Mid Calf: Not seen. Distal Calf: Not seen. DUPLICATED MEDIAL GREAT SAPHENOUS VEIN: Diameter: None imaged Reflux: NA DUPLICATED LATERAL GREAT SAPHENOUS VEIN: Diameter: 0.4 cm. Reflux: NA SMALL SAPHENOUS VEIN: Saphenopopliteal Junction: 0.3 cm; Reflux: 0 ms Proximal: 0.3 cm; Reflux: 0 ms Distal: Not seen. VEIN OF GIACOMINI: Size: NA Reflux: NA PERFORATORS: Location: None imaged Size: NA Reflux: NA VARICOSITIES: Location: None Imaged Size: NA Reflux: NA US/US venous insuf bilat IMPRESSION: Right: No venous insufficiency. No gross varices. Perforators without reflux, mid thigh. 4 cm right popliteal cyst. Left: Deep venous reflux in the common femoral vein and popliteal vein. No varices. No perforators. 4.7 cm complex popliteal cyst. Electronically signed by: Willian Da Silva MD 09/20/2024 02:34 PM EDT
== END 2024-09-20 13:14 | disposition home or self-care (01) ==
LOC: HO.US 13:13
PROVIDERS: PCP Family Medicine; Visit Provider Surgery Vascular Surgery
DX: I83.11 Varicose veins of right lower extremity with inflammation (principal)
CPT/HCPCS: 93970

== ENCOUNTER → 2024-09-20 13:14 | Outpatient (BNV) | payer MEDICARE, MEDICAID, SELFPAY | PROVIDERS: PCP Family Medicine; Visit Provider Radiology Diagnostic Radiology | DX: I83.11 Varicose veins of right lower extremity with inflammation (principal) | CPT/HCPCS: 93970 ==

== ENCOUNTER 2024-09-26 09:34 | Outpatient (AMB) | payer MEDICARE, MEDICAID, SELFPAY ==
[2024-09-26 09:55] VITALS: BMI 30.4
--- NOTE | 2024-09-26 09:55 | MHC.OFFVIS ---
Vital Signs 09/26/24 09:55 Height 5 ft 10 in Weight 212 lb BMI 30.4 Intake Visit Reasons: follow up s/p [facility] 09/20/24 Intake Note: follow up [facility] 09/20/24 Flight Technician Required: No Accompanied by: Self / Same As Patient Allergies benzalkonium Allergy (Mild, Verified 09/26/24 10:00) Unknown brimonidine Allergy (Mild, Verified 09/26/24 10:00) Unknown clindamycin Allergy (Mild, Verified 09/26/24 10:00) Unknown dorzolamide [From Trusopt] Allergy (Mild, Verified 09/26/24 10:00) Unknown gabapentin Allergy (Mild, Verified 09/26/24 10:00) Unknown heparin Allergy (Mild, Verified 09/26/24 10:00) Unknown ketoconazole [From Nizoral] Allergy (Mild, Verified 09/26/24 10:00) unknown lamotrigine Allergy (Mild, Verified 09/26/24 10:00) Unknown penicillin G Allergy (Mild, Verified 09/26/24 10:00) Unknown prednisone Allergy (Mild, Verified 09/26/24 10:00) Unknown pyridoxine Allergy (Mild, Verified 09/26/24 10:00) Unknown rivaroxaban Allergy (Mild, Verified 09/26/24 10:00) Unknown sulfamethoxazole [From Sulfamethoxazole-Trimethoprim] Allergy (Mild, Verified 09/26/24 10:00) Unknown timolol Allergy (Mild, Verified 09/26/24 10:00) Unknown travoprost [From Travatan Z] Allergy (Mild, Verified 09/26/24 10:00) Unknown trimethoprim [From Sulfamethoxazole-Trimethoprim] Allergy (Mild, Verified 09/26/24 10:00) Unknown vancomycin Allergy (Mild, Verified 09/26/24 10:00) Unknown HPI HPI follow up s/p [facility] 09/20/24: Details: Arnaud is presenting today on a follow up to [facility], performed on 09/20/24 due to a nonhealing ulcer on the right great toe. He had an in-office debridement of the right great toe on 08/[address] Cool. The pt has no complaints/concerns today. He denies any pain in the right leg/foot. He states the right toe ulcer is completely healed. [facility] Medical History Venous thrombosis and embolism Edema Anemia PTSD (post-traumatic stress disorder) Hypercholesteremia Hypothyroidism Diabetes Review of Systems Const Reports as per HPI and Denies weakness ENT Reports Normal hearing present and Denies dizziness Card Reports as per HPI, Denies chest pain, Denies chest pain at rest, Denies chest pain with activity, Denies dyspnea and Denies dyspnea on exertion Resp Reports as per HPI, Denies cough, Denies dyspnea and Denies dyspnea on exertion GI Reports as per HPI, Denies abdominal pain, Denies nausea and Denies vomiting Musc Denies numbness Skin/Breast Reports as per HPI, Denies erythema and Denies wounds Neuro Reports Normal hearing present, Denies dizziness, Denies numbness, Denies Sensory deficit (Neuro) and Denies weakness Psych Reports no additional complaints Endo Reports no additional complaints Physical Exam Vital Signs: BMI result Body Mass Index 30.4 Const General: healthy appearing and no acute distress Orientation/consciousness: patient oriented x3 HEENT Head: Yes normal to inspection Ears: hearing grossly normal bilaterally Mouth: Normal oral and palatal mucosa present Resp Effort & Inspection: normal respiratory effort and able to speak in complete sentences Auscultation: clear to auscultation bilaterally Cardio Jugular venous distension: no JVD Rate: regular rate Rhythm: regular rhythm Heart sounds: S1 normal heart sound present and S2 normal heart sound present Bruits: no abdominal aortic bruits, no carotid bruits, no femoral bruits and no renal bruits Peripheral pulses: Peripheral pulses 2+ throughout GI Inspection: Yes normal to inspection Palpation (GI): No Abdominal aortic bruit present Skin General skin exam: no rashes or lesions noted Wounds: no wounds Hair: normal Neuro General: patient oriented x3 Cranial nerves: Yes Normal hearing present Cognition (Neuro): normal cognition Gait exam (Neuro): Normal gait present Motor exam (neuro): 5/5 motor strength present throughout Sensory Exam: No Sensory deficit (Neuro) Extrem Other: Right great toe: small amount of dry eschar on the tip of the toe. Not painful to palpation. Unable to peel off. Slight erythema noted throughout the toe, but no wounds/ulcers noted. Not warm to the touch. General: Yes normal to inspection, Yes full ROM, Yes capillary refill normal and Yes normal gait Results Reviewed Results Reviewed: Brief summary of venous insufficiency testing is as follows: right great saphenous vein: negative right small saphenous vein: negative right accessory vein: none present left great saphenous vein: negative left small saphenous vein: negative left accessory vein: none present Please note there is no evidence of any venous aneurysms or significant tortuosity Per US, they are unable to evaluate bilaterally in the mid/distal calves due to wound wrapping. Assessment & Plan Assessment & Plan (1) Varicose veins of right lower extremity with inflammation: Code(s): I83.11 - Varicose veins of right lower extremity with inflammation Category: Medical Plan: Arnaud is presenting today on a follow up to US, performed on 09/20/24. There was no insufficiency found on the US. The pt is s/p debridement of the right great toe ulcer by Dr Cool on 08/22. The ulcer has since completely healed and there is only a small amt of dry eschar at the tip of the toe. The pt denies any pain or discomfort in the right foot. The ulcer has healed. We discussed that he will not need to follow up with us again, unless there are any vascular concerns that occur. Thank you for allowing us to participate in the patient's care. If there are any questions or concerns, please do not hesitate to reach out to us. Coding Level of Care Code Est Pt Level 4 (93781) Diagnoses Varicose veins of right lower extremity with inflammation I83.11 Comment review of US
--- OUTSIDE RECORDS SUMMARY | 2024-09-26 10:41 | XMS_ITS | Encounter Summary ---
Author Organization [facility] Address [address] [place] [address] Care Team Providers Care Acute Care Registered Nurse Name Role Phone Sandra Horn NP Primary Care Provider [phone] Encounter Details Date Type Department Care Team (Latest Contact Info) Description 06/29/2024 Lab Requisition [facility] Lab [address] [place] [address] Sandra Horn NP [address] [place] [address] Type 2 diabetes mellitus without [...] LAB CHEMISTRY METHOD 06/29/2024 9:23 PM EST [facility] Mean Bld Glu Estim. 189 mg/dL LAB CHEMISTRY METHOD 06/29/2024 9:23 PM [facility] Blood Venous blood specimen / Unknown Venipuncture / Unknown 06/29/2024 6:45 AM EST 06/29/2024 10:45 AM EST us Sandra Horn NP LAB BLOOD ORDERABLES Final Resul t [facility] [address] [place] [address], * (ABNORMAL) Basic metabolic panel (06/29/2024 6:45 AM EST) Sodium 139 133 - 145 mmol/L LAB CHEMISTRY METHOD 06/29/2024 11:42 AM [facility] Potassium 3.8 3.5 - 5.5 mmol/L LAB CHEMISTRY METHOD 06/29/2024 11:42 AM [facility] Chloride 104 96 - 110 mmol/L LAB CHEMISTRY METHOD 06/29/2024 11:42 AM [facility] CO2 25 21 - 32 mmol/L LAB CHEMISTRY METHOD 06/29/2024 11:42 AM [facility] Anion Gap 10 3 - 11 LAB CHEMISTRY METHOD 06/29/2024 11:42 AM [facility] Glucose 179(H) 70 - 100 mg/dL LAB CHEMISTRY METHOD 06/29/2024 11:42 AM [facility] BUN 15 5 - 25 mg/dL LAB CHEMISTRY METHOD 06/29/2024 11:42 AM [facility] Creatinine 0.70 0.70 - 1.30 mg/dL LAB CHEMISTRY METHOD 06/29/2024 11:42 AM [facility] eGFR 94 >=60 mL/min/1. 73m2 LAB CHEMISTRY METHOD 06/29/2024 11:42 AM [facility] Comment:Calculation based on the??Chronic Kidney Disease Epidemiology Collaboration (CKD-EPI) equation refit??without adjustment for race. BUN/Creatinine Ratio 21.4 LAB CHEMISTRY METHOD 06/29/2024 11:42 AM [facility] Calcium 8.5 8.5 - 10.5 mg/dL LAB CHEMISTRY METHOD 06/29/2024 11:42 AM [facility] Blood Venous blood specimen / Unknown Venipuncture / Unknown 06/29/2024 6:45 AM EST 06/29/2024 10:45 AM EST us Sandra Horn [employer] LAB BLOOD ORDERABLES Final Resul t [facility] [address] [place] [address], * (ABNORMAL) Complete blood count (06/29/2024 6:45 AM EST) WBC 3.0(L) 4.8 - 10.8 K/mcL LAB HEMETOLOGY METHOD 06/29/2024 11:18 AM [facility] RBC 3.10(L) 4.50 - 5.50 M/mcL LAB HEMETOLOGY METHOD 06/29/2024 11:18 AM [facility] Hemoglobin 9.3(L) 13.5 - 17.5 g/dL LAB HEMETOLOGY METHOD 06/29/2024 11:18 AM [facility] Hematocrit 28.6(L) 42.0 - 54.0 % LAB HEMETOLOGY METHOD 06/29/2024 11:18 AM [facility] MCV 92.3 79.0 - 98.0 FL LAB HEMETOLOGY METHOD 06/29/2024 11:18 AM [facility] MCH 30.0 27.0 - 32.0 pcg LAB HEMETOLOGY METHOD 06/29/2024 11:18 AM [facility] MCHC 32.5 32.0 - 37.0 g/dL LAB HEMETOLOGY METHOD 06/29/2024 11:18 AM EST [facility] RDW 16.0(H) 11.0 - 15.0 % LAB HEMETOLOGY METHOD 06/29/2024 11:18 AM [facility] Platelets 114(L) 130 - 400 K/mcL LAB HEMETOLOGY METHOD 06/29/2024 11:18 AM [facility] MPV 10.9 7.0 - 11.0 FL LAB HEMETOLOGY METHOD 06/29/2024 11:18 AM EST [facility] NRBC 0.0 <1.0 % LAB HEMETOLOGY METHOD 06/29/2024 11:18 AM [facility] NRBC Absolute 0.00 <0.10 K/mcL LAB HEMETOLOGY METHOD 06/29/2024 11:18 AM [facility] Blood Venous blood specimen / Unknown Venipuncture / Unknown 06/29/2024 6:45 AM EST 06/29/2024 10:45 AM EST Sandra Horn NP LAB BLOOD ORDERABLES Final Resul t [facility] [address] [place] [address], documented in this encounter Visit Diagnoses Diagnosis Type 2 diabetes mellitus without complications (CMS/HCC V24, CMS/HCC V28) documented in this encounter Care Teams Acute Care Registered Nurse Relationship Specialty Start Date End Date Sandra Horn NP [address] [place] [address] PCP - General Nurse Practitioner 06/29/24 documented as of this encounter
== END 2024-09-26 10:16 | disposition home or self-care (01) ==
LOC: HO.HVS 09:35
PROVIDERS: PCP Family Medicine; Visit Provider Physician Assistant Surgical
DX: I83.11 Varicose veins of right lower extremity with inflammation (principal)
CPT/HCPCS: 99214

== ENCOUNTER → 2024-09-26 09:34 | Outpatient (BNVA) | payer MEDICARE, SELFPAY | PROVIDERS: PCP Family Medicine; Visit Provider Physician Assistant Surgical | DX: I83.11 Varicose veins of right lower extremity with inflammation (principal) | CPT/HCPCS: 99212 ==

== ENCOUNTER 2025-02-21 12:52 | Emergency (ER) | payer MEDICARE, MEDICAID, SELFPAY ==
[2025-02-21] VITALS (9 sets, daily range): BP systolic 98–140; BP diastolic 49–82; PULSE 70–85; RESP 14–20; TEMP 36.4–37; O2SAT 96–98; BMI 40.1
--- NOTE | 2025-02-21 | ECG_ITS ---
Test Reason : fatigue Blood Pressure : */* mmHG Vent. Rate : 84 BPM Atrial Rate : * BPM P-R Int : * ms QRS Dur : 100 ms QT Int : 388 ms P-R-T Axes : * -5 2 degrees QTcB Int : 458 ms Normal sinus rhythm Low voltage QRS Borderline ECG No previous ECGs available Referred By: Generic ED Physician Electronically Signed By: NELI CORONA
[2025-02-21 14:22] LABS: Hematocrit 24.7 % (42.0-52.0); Hemoglobin 7.4 g/dl (14.0-18.0); Imm Gran Abs Auto 0.11 X10*3/uL (0.00-0.03); Imm Gran Pct Auto 4.2 % (0.0-0.4); Lymphocytes Absolute Auto 0.6 X10*3/uL (1.2-4.9); MANUAL DIFF FLAG SCAN; Mean Corpuscular HGB Conc 30.0 g/dl (31.0-36.0); Mean Corpuscular Hemoglobin 25.1 pg (27.0-33.0); Mean Corpuscular Volume 83.7 fL (80.0-98.0); NRBC Abs Auto 0.000 X10*3/uL (0.0-0.012); NRBC Pct Auto 0.0 /100WBC (0.0-0.2); Platelet Count 121 X10*3/uL (160-400); Red Blood Count 2.95 X10*6/uL (4.60-5.80); SCAN SMEAR FLAG 1; White Blood Count 2.6 X10*3/uL (4.8-10.8)
[2025-02-21 14:35] LABS: Anion Gap 11 (12-20); Blood Urea Nitrogen 15 mg/dL (9-16); Calcium 8.6 mg/dL (8.4-10.2); Carbon Dioxide 24 mmol/L (22-29); Chloride 106 mmol/L (96-108); Creatinine Clr Calc Pharmacy 115.8; Estimated Glomerular Filt Rate > 60; Magnesium 1.8 mg/dL (1.6-2.6); Potassium 4.1 mmol/L (3.3-5.1); Sodium 137 mmol/L (135-145)
--- NOTE | 2025-02-21 14:59 | ED_ITS ---
HPI - General Adult General Chief complaint: Recheck/Abnormal Lab/Rx Stated complaint: coming from snf, abnormal labs Time Seen by Provider: 02/21/25 14:42 Source: EMS Mode of arrival: EMS Limitations: other (dementia) History of Present Illness HPI narrative: This is 79 years old with history of dementia sent from intermediate because of anemia. the intermediate documented in the his hemoglobin was 6.9. No reported bleeding. The patient is unable to give any history because of the dementia Onset (ago): day(s) (1) Radiation: non-radiation Severity: moderate Relieving factors: none Exacerbating factors: none Associated symptoms: denies other symptoms Related Data Home Medications ?Medication ?Instructions ?Recorded ?Confirmed apixaban 5 mg tablet (Eliquis) 5 mg PO BID 08/22/24 atorvastatin 20 mg tablet 20 mg PO DAILY 08/22/24 doxycycline hyclate 100 mg tablet 100 mg PO BID duloxetine 20 mg capsule,delayed 20 mg PO BID 08/22/24 release insulin glargine 100 unit/mL unit subcut 08/22/24 subcutaneous solution (Lantus U-100 Insulin) insulin lispro 100 unit/mL subcut 08/22/24 subcutaneous pen (Humalog KwikPen (U-100) Insulin) levothyroxine 137 mcg tablet 137 mcg PO DAILY 08/22/24 metformin 1,000 mg tablet 1,000 mg PO BID 08/22/24 tamsulosin 0.4 mg capsule mg PO 08/22/24 topiramate 25 mg tablet 25 mg PO BID 08/22/24 venlafaxine 37.5 mg mg PO 08/22/24 capsule,extended release 24 hr Allergies Allergy/AdvReac Type Severity Reaction Status Date / Time benzalkonium Allergy Mild Unknown Verified 02/21/25 13:35 brimonidine Allergy Mild Unknown Verified 02/21/25 13:35 clindamycin Allergy Mild Unknown Verified 02/21/25 13:35 dorzolamide (From Trusopt) Allergy Mild Unknown Verified 02/21/25 13:35 gabapentin Allergy Mild Unknown Verified 02/21/25 13:35 heparin Allergy Mild Unknown Verified 02/21/25 13:35 ketoconazole (From Nizoral) Allergy Mild unknown Verified 02/21/25 13:35 lamotrigine Allergy Mild Unknown Verified 02/21/25 13:35 penicillin G Allergy Mild Unknown Verified 02/21/25 13:35 prednisone Allergy Mild Unknown Verified 02/21/25 13:35 pyridoxine Allergy Mild Unknown Verified 09/26/24 10:00 rivaroxaban Allergy Mild Unknown Verified 09/26/24 10:00 sulfamethoxazole (From Allergy Mild Unknown Verified 09/26/24 10:00 Sulfamethoxazole-Trimethoprim) timolol Allergy Mild Unknown Verified 09/26/24 10:00 travoprost (From Travatan Z) Allergy Mild Unknown Verified 09/26/24 10:00 trimethoprim (From Allergy Mild Unknown Verified 09/26/24 10:00 Sulfamethoxazole-Trimethoprim) vancomycin Allergy Mild Unknown Verified 09/26/24 10:00 Review of Systems 2 Review of Systems: Yes Unobtainable due to mental status (dementia) [facility] Past Medical History [facility] Narrative: Patient has a history of alcohol abuse in the past, he has a history of BPH, he has a history of hypothyroidism he has a history of frequent fall and he has a history of anemia. He has a an order for DNR DNI Do not transfer to the hospital Medical History Venous thrombosis and embolism Edema Anemia PTSD (post-traumatic stress disorder) Hypercholesteremia Hypothyroidism Diabetes Social History Social History Smoked in Last 30 Days: No Use of substances other than those prescribed or required for medical reasons: No Advance Directives: No Advance Directives Information Provided: Yes Do you have a plan to hurt others: No Plan Physical Exam ED Exam Exam: No no acute distress awake and alert Vital Signs: Vital Signs - 24 hr 02/21/25 13:32 02/21/25 14:00 02/21/25 16:43 Temperature 98.1 F 97.5 F Pulse Rate 85 85 79 Respiratory Rate 14 20 16 Blood Pressure 117/62 124/53 L 121/76 Pulse Oximetry 97 97 97 Oxygen Delivery Method Room Air Room Air Room Air 02/21/25 18:14 02/21/25 18:27 02/21/25 18:43 Temperature 98.1 F 97.5 F 98.6 F Pulse Rate 79 75 72 Respiratory Rate 16 16 16 Blood Pressure 115/61 115/61 123/59 L Pulse Oximetry 98 Oxygen Delivery Method Room Air 02/21/25 18:48 02/21/25 23:50 02/22/25 00:06 Temperature 98.1 F 98.1 F Pulse Rate 76 70 70 Respiratory Rate 16 20 18 Blood Pressure 110/53 L 98/49 L 120/60 Pulse Oximetry 96 96 96 Oxygen Delivery Method Room Air Room Air Room Air 02/22/25 00:07 Temperature 98.1 F Pulse Rate 70 Respiratory Rate 18 Blood Pressure 120/60 Pulse Oximetry 96 Oxygen Delivery Method Room Air BMI result Body Mass Index 40.1 Const General: cooperative and comfortable Nutritional Appearance: average body habitus [facility] Head: Yes normal to inspection Ears: hearing grossly normal bilaterally General nose exam: Normal external nose present Mouth: Normal oral and palatal mucosa present Neck Neck: Yes normal visual inspection and Yes full ROM Chest Chest palpation & inspection: normal inspection of the chest Resp Effort & Inspection: normal respiratory effort Auscultation: clear to auscultation bilaterally Cardio Jugular venous distension: no JVD Rate: regular rate Rhythm: regular rhythm GI Inspection: Yes normal to inspection Palpation (GI): Soft to palpation and not firm Auscultation: normal bowel sounds Rectal Exam - Male: Yes visual inspection normal, Yes heme negative stool and Yes other (His stools are brown heme negative) Skin General skin exam: no rashes or lesions noted Course Reevaluation(s) Reevaluation #1: I spoke with the sister [facility] proxy she gave me verbal consent for blood transfusion, she confirmed that the patient is DNR DNI Time: 15:04 Reevaluation #2: Time: 00:15 Date: 02/22/25 Provider: Ryan Vasquez MD I assumed care of this patient from my colleague, Dr. Hawthorne at 16:00 hours, pending completion of the patient's transfusion of 1 packed red blood cells. Patient was transfused without any complications. The patient was discharged back to his nursing facility. Medical Decision Making Medical Decision Making MDM Narrative: Patient was sent by the intermediate because of anemia 6.9 hemoglobin here is 7.4, it is reasonable to give the patient a blood transfusion. He is no bleeding rectal exam showed brown stool heme negative, I spoke with the sister Ivory she gave me consent for blood transfusion Differential Diagnosis Differential Diagnoses: The differential diagnosis associated with the presentation includes Anemia/GI bleeding Admission/Observation Consideration of admission/observation: Escalation of care including admission/observation considered Lab Data MDM Lab Attestation statement: I reviewed the patient's lab results. 02/21/25 14:09 02/21/25 14:09 Labs: Lab Results 02/21/25 Range/Units 14:09 WBC 2.6 L (4.8-10.8) X10*3/uL RBC 2.95 L (4.60-5.80) X10*6/uL Hgb 7.4 L (14.0-18.0) g/dl Hct 24.7 L (42.0-52.0) % MCV 83.7 (80.0-98.0) fL MCH 25.1 L (27.0-33.0) pg MCHC 30.0 L (31.0-36.0) g/dl RDW 17.2 H (11.0-16.0) % Plt Count 121 L (160-400) X10*3/uL MPV 10.9 (9.4-12.4) fL Immature Gran % (Auto) 4.2 H (0.0-0.4) % Neut % (Auto) 41.9 L (45-73) % Lymph % (Auto) 23.5 (20-40) % Clark % (Auto) 29.6 H (2-11) % Eos % (Auto) 0.8 (0-4) % Baso % (Auto) 0.0 (0-2) % Lymph # (Auto) 0.6 L (1.2-4.9) X10*3/uL Clark # (Auto) 0.8 (0.1-1.2) X10*3/uL Eos # (Auto) 0.0 (0.0-0.4) X10*3/uL Baso # (Auto) 0.0 (0.0-0.2) X10*3/uL Abs Immat Gran (auto) 0.11 H (0.00-0.03) X10*3/uL Absolute Neuts (auto) 1.1 L (2.0-8.3) x10*3/uL Absolute Nucleated RBC 0.000 (0.0-0.012) X10*3/uL Nucleated RBC % (auto) 0.0 (0.0-0.2) /100WBC Smear Tech's Comments VERIFIED Sodium 137 (135-145) mmol/L Potassium 4.1 (3.3-5.1) mmol/L Chloride 106 (96-108) mmol/L Carbon Dioxide 24 (22-29) mmol/L Anion Gap 11 L (12-20) BUN 15 (9-16) mg/dL Creatinine 0.64 (0.5-1.4) mg/dL Estim Creat Clear Calc 115.8 Estimated GFR > 60 Random Glucose 123 H (60-115) mg/dL Calcium 8.6 (8.4-10.2) mg/dL Magnesium 1.8 (1.6-2.6) mg/dL Blood Type O Positive Antibody Screen NEGATIVE Crossmatch See Detail Critical Care Time Critical Care Time Critical Care Time: Yes Total Critical Care Time: 60 Attestation: blood transfusion Discharge Plan Discharge Clinical Impression: Anemia Qualifiers: Anemia type: unspecified type Qualified Code(s): D64.9 - Anemia, unspecified Dementia Qualifiers: Dementia type: unspecified type Dementia severity: unspecified severity D ementia behavioral or psychological symptom: without behavioral, psychotic, or mood disturbance or anxiety Qualified Code(s): F03.90 - Unspecified dementia, unspecified severity, without behavioral disturbance, psychotic disturbance, mood disturbance, and anxiety Patient Disposition: Home, Self-Care Additional Instructions: You were transfused 1 unit of packed red blood cells Continue taking medications as prescribed by your providers. Follow-up with your doctor in 2 days. Please return to the emergency department if your symptoms get worse or if you develop any symptoms that are concerning to you. Prescriptions: No Action Eliquis 5 mg tablet 5 mg PO BID duloxetine 20 mg capsule,delayed release(DR/EC) 20 mg PO BID atorvastatin 20 mg tablet 20 mg PO DAILY insulin glargine [Lantus U-100 Insulin] 100 unit/mL solution subcut tamsulosin 0.4 mg capsule PO metformin 1,000 mg tablet 1,000 mg PO BID levothyroxine 137 mcg tablet 137 mcg PO DAILY topiramate 25 mg tablet 25 mg PO BID insulin lispro [Humalog KwikPen Insulin] 100 unit/mL insulin pen subcut venlafaxine 37.5 mg capsule,extended release 24hr PO doxycycline hyclate 100 mg tablet 100 mg PO BID Interventions: ED Discharge Assessment Last Done: 02/22/25 00:07 Discharge Date/Time: 02/22/25 00:14 Print Language: Slovak
--- OUTSIDE RECORDS SUMMARY | 2025-02-21 18:16 | XMS_ITS | Encounter Summary ---
Author Organization Located Within [facility] Address [address] [facility] [address] [place] [address] Phone Care Team Providers Care Automotive Designer Name Role Phone Jovanna London MD Unavailable [phone] Manolo Tamayo MD Primary Care Provider [phone] Aleja Madrid NP Primary Care Provider [phone] Encounter Details Date Type Department Care Team (Late st Contact Info) Description 10/31/2023 Procedure Pass [facility], Ct Scan - [address] [id number] Social History Tobacco Use Types Packs/Day Years Used Date Smoking Tobacco: Former Cigarettes Q uit: 1973 Smokeless Tobacco: Never Alcohol Use Standard Drinks/Week Comments Not Currently 0 (1 standard drink = 0.6 oz pur e alcohol) Home Health Assessment: Transportation Answer Date Recorded Lack of Transportation (Medical) No 08/22/2022 Lack of Transportation (Non-Medical) No 08/22/2022 Patient Unable or Declines to Respond No 08/22/2022 Education Answer Date Recorded Are you interested in more education? Not on desi e 08/20/2022 Are you concerned about learning? Not on file 08/20/2022 No 08/20/2022 No 08/20/2022 Digital Access Answer Date Recorded No 09/19/2022 No 09/19/2022 Reliable internet access at home? Not on file 09/19/2022 Device with a working camera? 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 Wish to be (Past 1 Month) No 10/31/2023 1:02 AM EDT Aure Kerr RN 2. Non-Specific Active Suicidal Thoughts (Past 1 Month) No 10/31/2023 1:02 AM EDT Aure Kerr RN 6. Suicidal Behavior (Lifetime) No 10/31/2023 1:02 AM EDT Aure Kerr RN documented as of this encounter Plan of Treatment Not on file documented as of this encounter Visit Diagnoses Not on filedocumented in this encounter Additional Health Concerns Infection Onset Date Last Indicated Resolved Time CoV-Risk 10/31/2023 10/31/2023 11/01/2023 11:2 1 AM EDT documented as of this encounter Care Teams Automotive Designer Relationship Specialty Start Date End Date Manolo Tamayo MD [address] [place] [address] [email or web address] PCP - General Internal Medicine 03/26/2311/02/23 Aleja Madrid NP [address] [address] PCP - General Nurse Practitioner 11/03/23 Jovanna London MD [facility] [place] [address] Family Medicine 03/21/23 documented as of this encounter Additional Source Comments The information contained in this document represents components of the legal health record. It is not the complete legal health record.Located Within [facility]
--- OUTSIDE RECORDS SUMMARY | 2025-02-21 18:16 | XMS_ITS | Encounter Summary ---
Author Organization [facility] Address [address] [facility] [address] [place] [address] Phone Care Team Providers Care Plate Developer Name Role Phone Jovanna London MD Unavailable [phone] Manolo Meléndez MD Primary Care Provider + Manolo Tamayo MD Primary Care Provider [phone] Aleja Madrid NP Primary Care Provider [phone] Encounter Details Date Type Department Care Team (Late st Contact Info) Description 03/21/2023 Procedure Pass [facility], Ct Scan - [facility] [address] [place] [address] Social History Tobacco Use Types Packs/Day Years [...] Job Start Date Job End Date 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 Wish to be (Past 1 Month) No 03/21/2023 4:24 AM Emerald Damian RN 2. Non-Specific Active Suici will Thoughts (Past 1 Month) No 03/21/2023 4:24 AM Emerald Damian RN 6. Suicidal Behavior (Lifetime) No 4:24 AM Emerald Damian, VASILIY documented as of this encounter Plan of Treatment Not on file documented as of this encounter Visit Diagnoses Not on filedocumented in this encounter Additional Health Concerns Infection Onset Date Last Indicated Resolved Time CoV-Risk Comment:Neg covid 03/21/2023 03/21/2023 03/26/2023 6:[address] CoV-Risk 04/06/2023 04/06/2023 04/06/2023 5:27 PM EST COVID-19 04/06/2023 04/06/2023 04/27/2023 1:22 AM EST CoV-Risk 10/31/2023 10/31/2023 11/01/2023 11:2 1 AM EDT documented as of this encounter Care Teams Plate Developer Relationship Specialty Start Date End Date Manolo Meléndez MD [address] [place] [address] [email or web address] PCP - General Rheumatology 03/21/23 03/25/23 Manolo Tamayo MD [address] [address] [email or web address] PCP - General Internal Medicine 03/26/2311/02/23 Aleja Madrid NP [address] [id number] PCP - General Nurse Practitioner 11/03/23 Jovanna London MD [address] [place] [address] Family Medicine 03/21/23 documented as of this encounter Additional Source Comments The information contained in this document represents components of the legal health record. It is not the complete legal health record.[facility]
--- OUTSIDE RECORDS SUMMARY | 2025-02-21 18:16 | XMS_ITS | Clinical Summary ---
Author Organization [address] [facility] Address [address] [place] [address] Phone Care Team Providers Care Dye And Chemical Coordinator Name Role Phone Sandra Horn ABHIJIT Primary Care Provider [phone] Encounters Date Type Department Care Team Description 02/21/2025 Lab Requisition [facility] [address] [place] [address] Lida Jules MD Anemia, unspecified 02/19/2025 Lab Requisition [facility] [address] [place] [address] Lida Jules MD Essential (primary) hypertension; Type 2 diabetes mellitus with unspecified complications (CMS/HCC V24, CMS/HCC V28) from Last [...] Patients (1 - 1-dose 75+ series) 2021 Falls Risk Assessment 05/20/2023 Hepatitis C Screening 05/20/2023 Medicare Annual Wellness Visit 05/20/2023 Social Influencers of Health Screening 05/20/2023 Diabetes: Annual Urine Albumin-Creatinine Ratio (uACR) 03/03/2024 Depression Screening 04/26/2024 DTaP,Tdap,and Td Vaccines (4 - Td or Tdap) 11/19/2024 11/19/2014, 12/25/2008, 11/28/2008 COVID-19 Vaccine ( season) 2024 07/31/2021, 03/08/2021, 06/12/2020, Additional history exists Influenza Vaccine (#1) 2024 , 03/27/2023, 01/08/2021, Additional history exists Diabetes: Blood Sugar Control Test (HGBA1C) 08/20/2025 02/19/2025, 06/29/2024, 03/21/2023 Diabetes: Annual GFR (Glomerular Filtration Rate) 02/19/2026 02/19/2025, 06/29/2024, 02/15/2024, Additional history exists Hypertension/CHF/CAD Annual BMP Blood Test 02/19/2026 02/19/2025, 06/29/2024, 02/15/2024, Additional history exists Cholesterol Screening (Lipid Panel) 02/19/2030 02/19/2025 MMR Vaccines Aged Out 04/30/2000 No longer eligi ble based on patient's age to complete this topic Pneumococcal Vaccine: 50+ Years Completed 10/21/2015, 10/17/2014, 04/24/2010, Additional history exists Zoster Vaccines Completed 09/15/2017, 06/25, 11/19/2014, Additional history exists HIB Vaccines Aged Out [...] Associated Diagnosis Comments COMPLETE BLOOD COUNT Routine 02/21/2025 4:50 AM EDT Anemia, unspecified THYROXINE FREE Routine 02/19/2025 8:42 AM EDT Essential (primary) hypertension Type 2 diabetes mellitus with unspecified complications (CMS/HCC V24, CMS/HCC V28) THYROID STIMULATING HORMONE Routine 02/19/2025 8:42 AM EDT Essential (primary) hypertension Type 2 diabetes mellitus with unspecified complications (CMS/HCC V24, CMS/HCC V28) HEMOGLOBIN A1C Routine 02/19/2025 8:42 AM EDT Essential (primary) hypertension Type 2 diabetes mellitus with unspecified complications (CMS/HCC V24, CMS/HCC V28) LIPID PANEL WITH REFLEX TO DIRECT LDL Routine 02/19/2025 8:42 AM EDT Essential (primary) hypertension Type 2 diabetes mellitus with unspecified complications (CMS/HCC V24, CMS/HCC V28) COMPREHENSIVE METABOLIC PANEL Routine 02/19/2025 8:42 AM EDT Essential (primary) hypertension Type 2 diabetes mellitus with unspecified complications (CMS/HCC V24, CMS/HCC V28) COMPLETE BLOOD COUNT Routine 02/19/2025 8:42 AM EDT Essential (primary) hypertension Type 2 diabetes mellitus with unspecified complications (CMS/HCC V24, CMS/HCC V28) from Last 3 Months Results * (ABNORMAL) Complete blood count (02/21/2025 4:50 AM EDT) Only the most recent of2 resultswithin the time period is included. WBC 2.8(L) 4.8 - 10.8 K/mcL LAB HEMETOLOGY METHOD 02/21/2025 11:27 AM EDT [facility] RBC 2.60(L) 4.50 - 5.50 M/mcL LAB HEMETOLOGY METHOD 02/21/2025 11:27 AM EDT [facility] Hemoglobin 6.6(L) 13.5 - 17.5 g/dL LAB HEMETOLOGY METHOD 02/21/2025 11:27 AM [facility] Hematocrit 21.9(L) 42.0 - 54.0 % LAB HEMETOLOGY METHOD 02/21/2025 11:27 AM [facility] MCV 83.3 79.0 - 98.0 FL LAB HEMETOLOGY METHOD 02/21/2025 11:27 AM [facility] MCH 25.1(L) 27.0 - 32.0 pcg LAB HEMETOLOGY METHOD 02/21/2025 11:27 AM [facility] MCHC 30.1(L) 32.0 - 37.0 g/dL LAB HEMETOLOGY METHOD 02/21/2025 11:27 AM [facility] RDW 17.5(H) 11.0 - 15.0 % LAB HEMETOLOGY METHOD 02/21/2025 11:27 AM [facility] Platelets 118(L) 130 - 400 K/mcL LAB HEMETOLOGY METHOD 02/21/2025 11:27 AM [facility] MPV 10.9 7.0 - 11.0 FL LAB HEMETOLOGY METHOD 02/21/2025 11:27 AM [facility] NRBC 0.0 <1.0 % LAB HEMETOLOGY METHOD 02/21/2025 11:27 AM [facility] NRBC Absolute 0.00 <0.10 K/mcL LAB HEMETOLOGY METHOD 02/21/2025 11:27 AM [facility] Blood Venous blood specimen / Unknown Venipuncture / Unknown 02/21/2025 4:50 AM EDT 02/21/2025 10:24 AM EDT us Lida Jules MD LAB BLOOD ORDERABLES Fin al Result [facility] [address] [place] [address], [place] [phone] * (ABNORMAL) Lipid panel with reflex to direct LDL (02/19/2025 8:42 AM EDT) Cholesterol 80 0 - 200 mg/dL LAB CHEMISTRY METHOD 02/19/2025 12:12 PM EDT [facility] Triglycerides 95 0 - 150 mg/dL LAB CHEMISTRY METHOD 02/19/2025 12:12 PM EDT [facility] HDL 22(L) >=40 mg/dL LAB CHEMISTRY METHOD 02/19/2025 12:12 PM EDT [facility] LDL Calculated 39 0 - 100 mg/dL LAB CHEMISTRY METHOD 02/19/2025 12:12 PM EDT [facility] Comment:Estimated LDL Calcul ated using equation: Total cholesterol - HDL cholesterol - (Triglycerides/5) VLDL Cholesterol Steven 19 mg/dL LAB CHEMISTRY METHOD 02/19/2025 12:12 PM EDT [facility] Non HDL Chol. (LDL+VLDL) 58 <145 mg/dL LAB CHEMISTRY METHOD 02/19/2025 12:12 PM EDT [facility] Chol/HDL Ratio 3.6 0.0 - 4.4 LAB CHEMISTRY METHOD 02/19/2025 12:12 PM [facility] Blood Venous blood specimen / Unknown Venipuncture / Unknown 02/19/2025 8:42 AM EDT 02/19/2025 10:48 AM EDT us Lida Jules MD LAB BLOOD ORDERABLES Fin al Result [facility] [address] [place] [address], [place] [phone] * (ABNORMAL) Thyroid stimulating hormone (02/19/2025 8:42 AM EDT) TSH 4.99(H) 0.40 - 4.00 mcIU/mL LAB CHEMISTRY METHOD 02/19/2025 1:25 PM EDT [facility] Blood Venous blood specimen / Unknown Venipuncture / Unknown 02/19/2025 8:42 AM EDT 02/19/2025 10:48 AM EDT Lida Jules MD LAB BLOOD ORDERABLES Fin al Result Performing Organization Address City/[facility]/ZIP Co de Phone Number [facility] [address] [place] [address], [place] [phone] * Thyroxine free (02/19/2025 8:42 AM EDT) Free T4 0.82 0.70 - 1.80 ng/dL LAB CHEMISTRY METHOD 02/19/2025 1:25 PM EDT [facility] Blood Venous blood specimen / Unknown Venipuncture / Unknown 02/19/2025 8:42 AM EDT 02/19/2025 10:48 AM EDT Lida Jules MD LAB BLOOD ORDERABLES Fin al Result Performing Organization Address [facility] de Phone Number [facility] [address] [place] [address], [place] [phone] * Hemoglobin A1c (02/19/2025 8:42 AM EDT) Hemoglobin A1C 6.1 <6.5 % LAB CHEMISTRY METHOD 02/19/2025 9:42 PM EDT [facility] Mean Bld Glu Estim. 128 mg/dL LAB CHEMISTRY METHOD 02/19/2025 9:42 PM EDT [facility] Blood Venous blood specimen / Unknown Venipuncture / Unknown 02/19/2025 8:42 AM EDT 02/19/2025 10:48 AM EDT Lida Jules MD LAB BLOOD ORDERABLES Fin al Result [facility] [address] [place] [address], * (ABNORMAL) Comprehensive metabolic panel (02/19/2025 8:42 AM EDT) Sodium 136 133 - 145 mmol/L LAB CHEMISTRY METHOD 02/19/2025 12:12 PM [facility] Potassium 4.0 3.5 - 5.5 mmol/L LAB CHEMISTRY METHOD 02/19/2025 12:12 PM [facility] Chloride 104 96 - 110 mmol/L LAB CHEMISTRY METHOD 02/19/2025 12:12 PM [facility] CO2 25 21 - 32 mmol/L LAB CHEMISTRY METHOD 02/19/2025 12:12 PM [facility] Anion Gap 7 3 - 11 LAB CHEMISTRY METHOD 02/19/2025 12:12 PM [facility] Glucose 155(H) 70 - 100 mg/dL LAB CHEMISTRY METHOD 02/19/2025 12:12 PM [facility] BUN 15 5 - 25 mg/dL LAB CHEMISTRY METHOD 02/19/2025 12:12 PM [facility] Creatinine 0.81 0.70 - 1.30 mg/dL LAB CHEMISTRY METHOD 02/19/2025 12:12 PM [facility] eGFR 90 >=60 mL/min/1. 73m2 LAB CHEMISTRY METHOD 02/19/2025 12:12 PM [facility] Comment:Calculation based on the Chronic Kidney Disease Epidemiology Collaboration (CKD-EPI) equation refit without adjustment for race. BUN/Creatinine Ratio 18.5 LAB CHEMISTRY METHOD 02/19/2025 12:12 PM [facility] Calcium 8.7 8.5 - 10.5 mg/dL LAB CHEMISTRY METHOD 02/19/2025 12:12 PM [facility] AST (SGOT) 8(L) 10 - 42 unit/L LAB CHEMISTRY METHOD 02/19/2025 12:12 PM EDT [facility] ALT (SGPT) 8(L) 10 - 60 unit/L LAB CHEMISTRY METHOD 02/19/2025 12:12 PM EDT [facility] Alkaline Phosphatase 75 42 - 121 unit/L LAB CHEMISTRY METHOD 02/19/2025 12:12 PM EDT [facility] Total Protein 6.0 6.0 - 8.0 g/dL LAB CHEMISTRY METHOD 02/19/2025 12:12 PM EDT [facility] Albumin 3.2 3.2 - 5.0 g/dL LAB CHE[facility]STRY METHOD 02/19/2025 [facility] Total Bilirubin 0.4 0.0 - 1.4 mg/dL LAB CHEMISTRY METHOD 02/19/2025 12:12 PM EDT [facility] Blood Venous blood specimen / Unknown Venipuncture / Unknown 02/19/2025 8:42 AM EDT 02/19/2025 10:48 AM EDT Lida Jules MD LAB BLOOD ORDERABLES Fin al Result [facility] [address] [place] [address], from Last 3 Months Insurance MEDICARE MEDICAID - [place] Care Teams Dye And Chemical Coordinator Relationship Specialty Start Date End Date Sandra Horn NP [address] [place] [id number] PCP - General Nurse Practitioner 06/29/24
--- OUTSIDE RECORDS SUMMARY | 2025-02-21 18:16 | XMS_ITS | Encounter Summary ---
Author Organization [facility] Address [address] [place] [address] Care Team Providers Care Pig Iron Loader Name Role Phone Sandra Horn ABHIJIT Primary Care Provider [phone] Encounter Details Date Type Department Care Team (Late st Contact Info) Description 03/11/2024 Lab Requisition [facility] [address] [facility] [place] [address] Lida Jules MD [address] [id number] Hypothyroidism, unspecified Social History Tobacco Use Types [...] LAB CHEMISTRY METHOD 03/13/2024 11:04 AM EST [facility] Blood Venous blood specimen / Unknown Venipuncture / Unknown 03/13/2024 7:05 AM EST 03/13/2024 8:32 AM EST Lida Jules MD LAB BLOOD ORDERABLES Fin al Result Performing Organization Address [facility]/ZIP Co de Phone Number [facility] [address] [place] [address], [place] [phone] * Free thyroxine with reflex to free triiodothyronine (03/13/2024 7:05 AM EST) Free T4 1.15 0.70 - 1.80 ng/dL LAB CHEMISTRY METHOD 03/13/2024 10:38 AM EST [facility] Blood Venous blood specimen / Unknown Venipuncture / Unknown 03/13/2024 7:05 AM EST 03/13/2024 8:32 AM EST Lida Jules MD LAB BLOOD ORDERABLES Fin al Result Performing Organization Address City/[facility]/ZIP Co de Phone Number [facility] [address] [place] [address], [place] [phone] * (ABNORMAL) Folate (03/13/2024 7:05 AM EST) Folate >20.0(H) 2.8 - 17.0 ng/ml LAB CHEMISTRY METHOD 03/13/2024 10:28 AM EST [facility] Blood Venous blood specimen / Unknown Venipuncture / Unknown 03/13/2024 7:05 AM EST 03/13/2024 8:32 AM EST Lida Jules MD LAB BLOOD ORDERABLES Fin al Result Performing Organization Address [facility]/ZIP Co de Phone Number [facility] [address] [place] [address], * Vitamin B12 (03/13/2024 7:05 AM EST) Vitamin B-12 464 250 - 900 pcg/mL LAB CHEMISTRY METHOD 03/13/2024 10:28 AM EST [facility] Blood Venous blood specimen / Unknown Venipuncture / Unknown 03/13/2024 7:05 AM EST 03/13/2024 8:32 AM EST Lida Jules MD LAB BLOOD ORDERABLES Fin al Result Performing Organization Address [facility] de Phone Number [facility] [address] [place] [address], * (ABNORMAL) Thyroid stimulating hormone with reflex to free t4 and free t3 (03/13/2024 7:05 AM EST) TSH 4.06(H) 0.40 - 4.00 mcIU/mL LAB CHEMISTRY METHOD 03/13/2024 10:11 AM EST [facility] Blood Venous blood specimen / Unknown Venipuncture / Unknown 03/13/2024 7:05 AM EST 03/13/2024 8:32 AM EST Lida Jules MD LAB BLOOD ORDERABLES Fin al Result Performing Organization Address [facility] Co de Phone Number [facility] [address] [place] [address], documented in this encounter Visit Diagnoses Diagnosis Hypothyroidism, unspecified documented in this encounter Additional Health Concerns Infection Onset Date Last Indicated Resolved Time Respiratory Rule-Out 10/20/2024 10/20/2024 025 2:54 PM EDT documented as of this encounter Care Teams Pig Iron Loader Relationship Specialty Start Date End Date Sandra Horn NP [address] [place] [address] PCP - General Nurse Practitioner 06/29/24 documented as of this encounter
--- OUTSIDE RECORDS SUMMARY | 2025-02-21 18:16 | XMS_ITS | Encounter Summary ---
Author Organization [facility] Address [address] [place] [address] Care Team Providers Care Budget Examiner Name Role Phone Sandra Horn PROPERTY INSURANCE AGENT Primary Care Provider [phone] Encounter Details Date Type Department Care Team (Latest Contact Info) Description 06/29/2024 Lab Requisition [facility] - Main Lab [address] [facility] [place] [address] Sandra Horn NP [address] [place] [address] Type 2 diabetes mellitus without [...] EST Type 2 diabetes mellitus without complications ([facility]/HCC) HEMOGLOBIN A1C Routine 06/29/2024 6:45 AM EST Type 2 diabetes mellitus without complications ([facility]/HCC) BASIC METABOLIC PANEL Routine 06/29/2024 6:45 AM EST Type 2 diabetes mellitus without complications (CMS/HCC) documented in this encounter Results * (ABNORMAL) Hemoglobin A1c (06/29/2024 6:45 AM EST) Hemoglobin A1C 8.2(H) <6.5 % LAB CHEMISTRY METHOD 06/29/2024 9:[address] [facility] Mean Bld Glu Estim. 189 mg/dL LAB CHEMISTRY METHOD 06/29/2024 9:23 PM [facility] Blood Venous blood specimen / Unknown Venipuncture / Unknown 06/29/2024 6:45 AM EST 06/29/2024 10:45 AM EST us Sandra Horn PROPERTY INSURANCE AGENT LAB BLOOD ORDERABLES Final Resul t [facility] [address] [place] [address], * (ABNORMAL) Basic metabolic panel (06/29/2024 6:45 AM EST) Sodium 139 133 - 145 mmol/L LAB CHEMISTRY METHOD 06/29/2024 11:42 AM [facility] Potassium 3.8 3.5 - 5.5 mmol/L LAB CHEMISTRY METHOD 06/29/2024 11:42 AM [facility] Chloride 104 96 - 110 mmol/L LAB CHEMISTRY METHOD 06/29/2024 11:42 AM [facility] CO2 25 21 - 32 mmol/L LAB CHEMISTRY METHOD 06/29/2024 11:42 AM [facility] Anion Gap 10 3 - 11 LAB CHEMISTRY METHOD 06/29/2024 11:42 AM [facility] Glucose 179(H) 70 - 100 mg/dL LAB CHEMISTRY METHOD 06/29/2024 11:42 AM [facility] BUN 15 5 - 25 mg/dL LAB CHEMISTRY METHOD 06/29/2024 11:42 AM [facility] Creatinine 0.70 0.70 - 1.30 mg/dL LAB CHEMISTRY METHOD 06/29/2024 11:42 AM [facility] eGFR 94 >=60 mL/min/1. 73m2 LAB CHEMISTRY METHOD 06/29/2024 11:42 AM [facility] Comment:Calculation based on the Chronic Kidney Disease Epidemiology Collaboration (CKD-EPI) equation refit without adjustment for race. BUN/Creatinine Ratio 21.4 LAB CHEMISTRY METHOD 06/29/2024 11:42 AM [facility] Calcium 8.5 8.5 - 10.5 mg/dL LAB CHEMISTRY METHOD 06/29/2024 11:42 AM [facility] Blood Venous blood specimen / Unknown Venipuncture / Unknown 06/29/2024 6:45 AM EST 06/29/2024 10:45 AM EST us Sandra Horn PROPERTY INSURANCE AGENT LAB BLOOD ORDERABLES Final Resul t [facility] [address] [place] [address], * (ABNORMAL) Complete blood count (06/29/2024 6:45 AM EST) WBC 3.0(L) 4.8 - 10.8 K/mcL LAB HEMETOLOGY METHOD 06/29/2024 11:18 AM [facility] RBC 3.10(L) 4.50 - 5.50 M/mcL LAB HEMETOLOGY METHOD 06/29/2024 11:18 AM [facility] Hemoglobin 9.3(L) 13.5 - 17.5 g/dL LAB HEMETOLOGY METHOD 06/29/2024 11:18 AM [facility] Hematocrit 28.6(L) 42.0 - 54.0 % LAB HEMETOLOGY METHOD 06/29/2024 11:18 AM [facility] MCV 92.3 79.0 - 98.0 FL LAB HEMETOLOGY METHOD 06/29/2024 11:18 AM [facility] MCH 30.0 27.0 - 32.0 pcg LAB HEMETOLOGY METHOD 06/29/2024 11:18 AM [facility] MCHC 32.5 32.0 - 37.0 g/dL LAB HEMETOLOGY METHOD 06/29/2024 11:18 AM [facility] RDW 16.0(H) 11.0 - 15.0 % LAB HEMETOLOGY METHOD 06/29/2024 11:18 AM [facility] Platelets 114(L) 130 - 400 K/mcL LAB HEMETOLOGY METHOD 06/29/2024 11:18 AM [facility] MPV 10.9 7.0 - 11.0 FL LAB HEMETOLOGY METHOD 06/29/2024 11:18 AM [facility] NRBC 0.0 <1.0 % LAB HEMETOLOGY METHOD 06/29/2024 11:18 AM [facility] NRBC Absolute 0.00 <0.10 K/mcL LAB HEMETOLOGY METHOD 06/29/2024 11:18 AM [facility] Blood Venous blood specimen / Unknown Venipuncture / Unknown 06/29/2024 6:45 AM EST 06/29/2024 10:45 AM EST Sandra Horn NP LAB BLOOD ORDERABLES Final Resul t [facility] [address] [place] [address], documented in this encounter Visit Diagnoses Diagnosis Type 2 diabetes mellitus without complications (CMS/HCC V24, CMS/HCC V28) documented in this encounter Additional Health Concerns Infection Onset Date Last Indicated Resolved Time Respiratory Rule-Out 10/20/2024 10/20/2024 025 2:54 PM EDT documented as of this encounter Care Teams Budget Examiner Relationship Specialty Start Date End Date Sandra Horn NP [address] [place] [address] PCP - General Nurse Practitioner 06/29/24 documented as of this encounter
--- OUTSIDE RECORDS SUMMARY | 2025-02-21 18:16 | XMS_ITS ---
Author Name [facility] ([place], [place]) Organization Unknown Encounters Encounter Type Encounter Reason Primary Diagnosis Location Date Inpatient Anemia, unspecified Anemia, unspecified [facility] 03/21/2023 [facility] 03/21/2023 [facility] 03/21/2023 Care Team Organization Name Specialty Phone Email Start Date End [facility] 05/16/2023 [facility] 03/21/2023 07/12/2024 [facility] [employer] KRAIG JAVIER Primary Care 03/21/20232022
--- OUTSIDE RECORDS SUMMARY | 2025-02-21 18:17 | XMS_ITS | Encounter Summary ---
Author Organization [facility] Address [address] [address] Phone Care Team Providers Care Geriatric Physician Name Role Phone Mirna Sanchez Primary Care Provider [phone] Arnaud Spence NP Primary Care Provide r Jovanna London MD Primary Care Provider + [phone] Jovanna London MD Unavailable [phone] Manolo Meléndez MD Primary Care Provider + Manolo Tamayo MD Primary Care Provider [phone] Aleja Madrid NP Primary Care Provider [phone] Reason for Referral * Cardiac Rehab (Elective) - Closed Specialty Diagnoses / Procedures Referred By Contac t Referred To Contact Cardiac Rehabilitation Diagnoses Dyspnea on exertion Carlos Patel MD Phone: tel: fax: [address] [address] Phone: tel: Referral ID Status Reason Start Date Expiration Date Visits Re quested Visits Authorized [id number] Closed 05/13/2017 08/23/2017 36 36 Encounter Details Date Type Department Care Team (Latest Contact Info) Description 05/13/2017 Transcribe Orders Virtual Department [address] [place] [address] Carlos Patel MD [address] [place] [id number] Dyspnea on exertion (Primary Dx) Social History Tobacco Use Types Packs/Day Years Used Date Smoking Tobacco: Never Assessed Sex and Gender Information Value Date Recorded Sex Assigned at Male 12/09/2018 12:10 AM EDT Legal Sex Male 10:07 PM EDT Gender Identity Male 12/09/2018 12:10 AM EDT Sexual Orientation Straight 12/09/2018 12 :10 AM EDT documented as of this encounter Plan of Treatment Scheduled Referrals Name Type Priority Associated Diagnoses Order Schedule Ambulatory referral to [facility] Cardiac Rehab Outpatient Referral Routine Dyspnea on exertion Ordered: 05/13/2017 documented as of this encounter Visit Diagnoses Diagnosis Dyspnea on exertion- Primary Other dyspnea and respiratory abnormality documented in this encounter Additional Health Concerns Infection Onset Date Last Indicated Resolved Time CoV-Risk Comment:Per note documentation 12/29/2020 12/29/2020 2:45 AM EDT CoV-Risk 05/04/2021 05/04/2021 05/04/2021 9:46 PM EST COVID-19 05/04/2021 05/04/2021 05/25/2021 1:22 AM EST CoV-Risk 07/04/2022 07/04/2022 07/05/2022 9:31 AM EDT Influenza A 07/04/2022 07/04/2022 07/18/2022 1:22 AM EDT CoV-Risk Comment:Per note documentation 07/11/2022 07/11/2022 8:00 AM EDT CoV-Risk Comment:Neg covid 03/21/2023 03/21/2023 03/26/2023 6:[address] CoV-Risk 04/06/2023 04/06/2023 04/06/2023 5:27 PM EST COVID-19 04/06/2023 04/06/2023 04/27/2023 1:22 AM EST CoV-Risk 10/31/2023 10/31/2023 11/01/2023 11:2 1 AM EDT documented as of this encounter Care Teams Geriatric Physician Relationship Specialty Start Date End Date Mirna Sanchez DO [address] [place] [address] PCP - General Internal Medicine 03/05/17 01/02/18 Arnaud Spence NP [address] [place] [address] PCP - General Family Medicine 01/03/18 09/29/18 Jovanna London MD [address] [place] [address] PCP - General Family Medicine 09/30/18 03/20/23 Manolo Meléndez MD [address] [place] [address] [email or web address] PCP - General Rheumatology 03/21/23 03/25/23 Manolo Tamayo MD [address] [place] [address] [email or web address] PCP - General Internal Medicine 03/26/2311/02/23 Aleja Madrid NP [address] [address] PCP - General Nurse Practitioner 11/03/23 Jovanna London MD [address] [place] [address] Family Medicine 03/21/23 documented as of this encounter Additional Source Comments The information contained in this document represents components of the legal health record. It is not the complete legal health record.[facility]
--- OUTSIDE RECORDS SUMMARY | 2025-02-21 18:17 | XMS_ITS | Encounter Summary ---
Author Organization [facility] Address [address] [address] Phone Care Team Providers Care Electronics Scale Tester Name Role Phone Arnaud Spence NP Primary Care Provide r Jovanna London MD Primary Care Provider [phone] Jovanna London MD Unavailable Manolo Meléndez MD Primary Care Provider + Manolo Tamayo MD Primary Care Provider [phone] Aleja Madrid RURAL CARRIER Primary Care Provider Encounter Details Date Type Department Care Team (Latest Contact Info) Description 01/03/2018 Transcribe Orders Virtual Department [address] [place] [address] Destiny Jain MD [address] [place] [address] [email or web address] Encounter for cardiac rehabilitation (Primary Dx) Social History Tobacco Use Types [...] on file documented as of this encounter Results * ECG 12-LEAD (01/03/2018 2:51 PM EDT) Ventricular Rate EKG/MIN 89 BPM [facility] Atrial Rate 89 BPM [facility] RI Interval 170 ms [facility] QRS Duration 90 ms [facility] QT Interval 350 ms [facility] QTC Interval 425 ms [facility] P [place] 51 degrees [facility] R Wave [place] 6 degrees [facility] T Wave [place] 20 degrees [facility] 01/03/2018 2:51 PM EDT 01/04/2018 9:04 AM EDT Narrative [facility] - 01/04/2018 9:04 AM EDT Normal sinus rhythm 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) Abnormal ECG When compared with ECG of 12-FEB-2017 12:41, No significant change was found Confirmed by DESTINY JAIN MD ([id number]) on 01/04/2018 9:04:15 AM us Destiny Jain MD ECG ORDERABLES Final Res ult [facility] documented in this encounter Visit Diagnoses Diagnosis Encounter for cardiac rehabilitation Encounter for cardiac rehabilitation- Primary documented in this encounter Additional Health Concerns [...] documented as of this encounter Care Teams Electronics Scale Tester Relationship Specialty Start Date End Date Arnaud Spence NP [address] [place] [address] PCP - General Family Medicine 01/03/18 09/29/18 Jovanna London MD [address] [place] [address] PCP - General Family Medicine 09/30/18 03/20/23 Manolo Meléndez MD [address] [place] [address] [email or web address] PCP - General Rheumatology 03/21/23 03/25/23 Manolo Tamayo MD [address] [place] [address] [email or web address] PCP - General Internal Medicine 03/26/2311/02/23 Aleja Madrid NP [address] [address] PCP - General Nurse Practitioner 11/03/23 Jovanna London MD [address] [place] [address] Family Medicine 03/21/23 documented as of this encounter Additional Source Comments The information contained in this document represents components of the legal health record. It is not the complete legal health record.[facility]
--- OUTSIDE RECORDS SUMMARY | 2025-02-21 18:17 | XMS_ITS | Encounter Summary ---
Author Organization [facility] Address [address] [employer] [facility] [address] [place] [address] Phone Care Team Providers Care Air Grinder Name Role Phone Jovanna London MD Unavailable [phone] Aleja Madrid NP Primary Care Provider [phone] Encounter Details Date Type Department Care Team (Latest Contact Info) Description 11/10/2023 Transcribe Orders [facility] Specimen Processing [address] [place] [address] [email or web address] [email or web address] Type 2 diabetes mellitus with hyperosmolarity without coma, without long-term current use of insulin (Primary Dx); Weakness generalized Social History Tobacco Use Types Packs/Day Years [...] you interested in more education? Not on dsei e 08/20/2022 Are you concerned about learning? 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 Not on file Not on file Not on file documented as of this encounter Plan of Treatment Not on file documented as of this encounter Results * (ABNORMAL) Hemoglobin A1c (11/10/2023 7:14 AM EDT) HEMOGLOBIN A1C 11.0(H) 4.3 - 5.8 % [facility] Blood 11/10/2023 7:14 AM EDT 11/10/2023 9:50 AM EDT Felicia Zepeda MD LAB BLOOD ORDERABLES Evie gonzalez Result [facility] [address] [place] [address] * (ABNORMAL) CBC (11/10/2023 7:14 AM EDT) WBC 2.49(L) 4.00 - 11.00 K/uL [facility] RBC 3.61(L) 3.90 - 5.69 M/uL [facility] HGB 10.7(L) 12.4 - 17.3 g/dL [facility] HCT 32.7(L) 37.0 - 51.0 % [facility] PLT 156 140 - 430 K/uL [facility] MCV 90.6 78.0 - 97.0 fL [facility] MCH 29.6 25.0 - 33.0 pg [facility] MCHC 32.7 32.0 - 36.0 g/dL [facility] RDW 16.5(H) 11.0 - 15.0 % [facility] MPV 10.9 8.4 - 12.8 fl [facility] Blood 11/10/2023 7:14 AM EDT 11/10/2023 9:50 AM EDT us Felicia Zepeda MD LAB BLOOD ORDERABLES Evie gonzalez Result [facility] [address] [place] [address] * (ABNORMAL) Comprehensive metabolic panel (11/10/2023 7:14 AM EDT) SODIUM 137 133 - 146 mmol/L [facility] POTASSIUM 4.3 3.3 - 5.1 mmol/L [facility] CHLORIDE 101 96 - 108 mmol/L [facility] CO2 26 21 - 35 mmol/L [facility] BUN 15 6 - 19 mg/dL [facility] CREATININE 0.70 0.5 - 1.5 mg/dL [facility] GLUCOSE 141(H) 70 - 99 mg/dL [facility] ALBUMIN 3.6(L) 3.9 - 4.8 g/dL [facility] TOTAL PROTEIN 5.8(L) 6.5 - 8.0 g/dL [facility] CALCIUM 9.0 8.4 - 10.3 mg/dL [facility] ALKALINE PHOSPHATASE 86 39 - 117 U/L [facility] TOTAL BILIRUBIN 0.6 0.0 - 1.2 mg/dL [facility] AST 9 0 - 37 U/L [facility] ALT <5 0 - 40 U/L [facility] GLOBULIN 2.2 1 - 4.8 g/dL [facility] EGFR 95 >59 mL/min/1.7 3m2 [facility] Comment:Estimated glomerular filtration rate calculated using the CKD-EPI refit equation. ANION GAP 14 10 - 20 mmol/L [facility] Blood 11/10/2023 7:14 AM EDT 11/10/2023 9:50 AM EDT Felicia Zepeda MD LAB BLOOD ORDERABLES Evie gonzalez Result [address] [address] documented in this encounter Visit Diagnoses Diagnosis Type 2 diabetes mellitus with hyperosmolarity without coma, without long-term current use of insulin- Primary Weakness generalized Other malaise and fatigue documented in this encounter Care Teams Air Grinder Relationship Specialty Start Date End Date Aleja Madrid NP [address] [address] PCP - General Nurse Practitioner 11/03/23 Jovanna London MD [facility] [place] [address] Family Medicine 03/21/23 documented as of this encounter Additional Source Comments The information contained in this document represents components of the legal health record. It is not the complete legal health record.[facility]
--- OUTSIDE RECORDS SUMMARY | 2025-02-21 18:17 | XMS_ITS | Clinical Summary ---
Author Organization [facility] Address [address] [address] Phone Care Team Providers Care Reporting Process Consultant Name Role Phone Jovanna London MD Unavailable [phone] Aleja Madrid SUBSCRIPTION CLERK Primary Care Provider [phone] Allergies Active Allergy Reactions Criticality Noted Date Comments Benzalkonium 03/22/2017 Other reaction(s): Itching of eye Brimonidine 02/02/2017 Other reaction(s): Itching of eye Clindamycin Anxiety,Itching Low 01/05/2014 Gabapentin Nausea And Vomiting 12/24/2016 Other reaction(s): Drowsy Heparin 03/31/2012 Other reaction(s): Weakness present Lamotrigine High 05/17/2014 Other reaction(s): Tachycardia Ketoconazole 05/20/2018 Penicillins 01/30/2018 Prednisone 04/11/2014 Other reaction(s): Altered mental status Rivaroxaban Itching 04/20/2012 Sulfamethoxazole-Tri methoprim Thrombocytopenia High 06/29/2023 Timolol 10/31/2008 Other reaction(s): Itching of eye Travoprost (Benzalkonium) 09/13/2008 Other reaction(s): Red eye, Watery eye Travoprost 09/13/2008 Other reaction(s): Itching of eye, Red eye, Watery eye Dorzolamide 09/13/2008 Other reaction(s): Itching of eye, Red eye, Watery eye Vancomycin Nausea and/or Vomiting 02/15/2024 02/15/2024 severe nausea 5 minutes after IV vanco started Vitamin B6 Preparations - Pyridoxine 04/11/2013 Medications atorvastatin (LIPITOR) 40 MG tablet Take 20 mg by mouth daily. Active albuterol 90 mcg/actuation inhaler Inhale 2 puffs into the lungs every 6 (six) hours as needed for wheezing. 1 g 8 2 Active ascorbic acid, vitamin C, (VITAMIN C) 500 MG tablet Take 500 mg by mouth 2 (two) times a day. Active metFORMIN (GLUCOPHAGE) 500 MG tablet Take 2 tablets (1,000 mg total) by mouth 2 (two) times a day with meals. 3 Active tamsulosin (FLOMAX) 0.4 mg Cap Take 1 capsule (0.4 mg total) by mouth daily. 3 Active apixaban (ELIQUIS) 5 mg tablet Take 5 mg by mouth 2 (two) times a day. Active venlafaxine (EFFEXOR-XR) 37.5 MG 24 hr capsule Take 112.5 mg by mouth daily. Take 3 capsules (112.5) mg with breakfast daily for mood Active insulin glargine (LANTUS) 100 unit/mL injection vial Inject 40 Units under the skin nightly at bedtime. 4 Active ferrous gluconate 324 mg (38 mg elemental) tablet Take 1 tablet (324 mg total) by mouth daily. 4 Active QUEtiapine (SEROQUEL) 25 MG tablet Take 0.5 tablets (12.5 mg total) by mouth nightly at bedtime. 12.5 mg once daily at 5 pm for mood 15 tablet 4 Active levothyroxine (SYNTHROID, LEVOTHROID) 137 MCG tablet Take 1 tablet (137 mcg total) by mouth every morning. Take 1 tablet daily 4 Active cloNIDine HCL (CATAPRES) 0.1 MG tabletIndicatio ns:hypertension Take 0.1 mg by mouth daily. Once daily in AM for BP Indications: high blood pressure 12/06/19 22 Discontinu ed(Therapy Completed/ No Longer Necessary) Active Problems Problem Noted Date Diagnosed Date Acute memory impairment 02/14/2024 Peripheral edema 11/01/2023 Assessment & Plan (11/08/2023 4:43 PM EDT): - exacerbated by IV hydration here - UA did not show protein - LFTS only mild hypoalbuminemia - echo was essentially normal, EF 65% but diastolic function not well determined so remains a possibility - lasix 40mg IV on 11/01 helped with hand edema, legs still edematous Edema is down to trace amounts with no further diuresis. - Encourage leg elevation. Type 2 diabetes mellitus wit h hyperosmolarity without coma, without long-term current use of insulin 10/31/2023 Assessment & Plan (02/20/2024 9:47 AM EDT): Difficult to determine if patient is currently on metformin/Trulicity/and Lantus. According to the last discharge summary, he was discharged on Lantus 40 units nightly. -Will continue basal bolus insulin regimen. -Lantus started at lower dose on admission, slowly increasing while monitoring POC. Lantus increased to 30 units oxigwqs05/25, with further increased to 35 units on 02/19. Continuing low-dose insulin sliding scale with [id number] testing. -Consistent carb/cardiac diet -Hold metformin -Hgb A1c 8.6% Assessment & Plan (11/08/2023 4:41 PM EDT): HYPEROSMOLAR HYPERGLYCEMIC STATE - with metabolic encephalopathy (baseline unknown) Presented with weakness, falls, thirst and blood glucose was over 713 - has been on trulicity,has not been taking prescribed metformin recently - hemoglobin Ac1 11.8 - Now on 40 units of Lantus at bedtime and metformin 1000 mg twice daily. Blood sugars are now well-controlled - aside from med compliance, considered other etiologies for hyperglycemia, no fevers, covid swab negative, check troponin flat, utox negative - head CT no acute changes Discharge planning issues 03/26/2023 Assessment & Plan (02/18/2024 10:16 AM EDT): Patient's healthcare proxy questions his ability to live independently and care for himself. He does have frequent home care but she does not think it is sufficient. Patient asks repetitive questions and does not seem to recall events of the prior day during admission. - HCP was activated at admission, his sister Ivory - As per Ivory patient has been struggling with the [facility] program managing his medications and he calls her 20-30 times a day. - Ivory has to order meals to be delivered to him as well. Pt with poor personal hygiene. - CM/SW consulted plan for LTC placement. Assessment & Plan (11/08/2023 4:43 PM EDT): From previous admissions there were questions about whether he was able to care for himself and was unable to manage his meds - HCP was activated at admission, his sister Ivory - see CM note, has been struggling with [facility] program managing his medications - PT/OT/CM/SW involved--PT recs STR - pt now does not want STR, given his risk at home and inability to care for himself with diabetes his healthcare proxy Sister Ivory has been involved and agrees with short-term rehab. - Medically ready when available. Assessment & Plan (03/26/2023 2:51 PM EST): Initially transferred back to [facility] for case management/placement, however he is much better today and PT thinks he may be able to be discharged home by tomorrow with home PT Atrial flutter 12/12/2022 Assessment & Plan (02/20/2024 9:45 AM EDT): Rate controlled. Also has a history of DVT. Continue Eliquis 5 mg twice daily. Assessment & Plan (12/12/2022 10:14 PM EDT): Patient was noted to be in symptomatic tachycardia suspected atypical a flutter with RVR with heart rates in the 130s. Improved with IV diltiazem 15 mg x 1 along with 120 mg of extended release diltiazem. Initially mild hypotension with systolics in the 90s improved with IV fluid and rate control. No signs or symptoms of acute infection contributing to his heart rate. Upon reviewing his PDMP it appears that he is being prescribed dextroamphetamine 5 mg 3 times daily which may contribute to his tachycardia. Unfortunately I am unable to confirm his other home medications at this time. -Patient will be observed on telemetry -Patient tolerated diltiazem and may consider discharging on diltiazem 120 mg daily -Continue Eliquis 5 mg twice daily (although unclear if patient is taking it). -Echocardiogram in the morning -Cardiology consult History of DVT (deep vein thrombosis) 12/12/2022 Assessment & Plan (11/08/2023 4:42 PM EDT): Previously on Eliquis, but this was held in the setting of thrombocytopenia in 2022. Platelet count now normalized. - appears eliquis was resumed in outpatient setting, continued on admission. Assessment & Plan (03/26/2023 2:50 PM EST): -Eliquis on hold due to profound thrombocytopenia and anemia -Can potentially resume at DC now that plts are improving Assessment & Plan (12/12/2022 9:38 PM EDT): Continue Eliquis 5 mg twice daily Mild cognitive impairment 12/12/2022 Assessment & Plan (02/22/2024 4:45 PM EDT): According to previous records, patient has a history of cognitive impairment with poor memory and difficult recall. As it appears he cannot form any new short- term memories. Patient has a history of mild cognitive impairment who presented for antegrade amnesia. Patient had no recollection of day events on admission and was very repetitive in his questioning. No focal neurological deficits appreciated on exam. Patient's healthcare proxy endorses that these memory issues date back several years and have been steadily worsening over the past year. Seen by psych who determined that he does not have capacity to make placement decision. CT head: No acute intracranial abnormality Pt unable to tolerate MRI brain due to claustrophobia discussed with teleneurology will need outpatient follow up with neurology EEG normal TSH, B12, folate wnl RPR non reactive - Pt will need outpatient valdemar psych follow up - Case management and social work teams involved. PASSR likely needed. Healthcare proxy activated. Awaiting placement decisions. -He DOES NOT have capacity to make placement decision per psych -Continue his home Seroquel 12.5 mg nightly -Delirium protocol with frequent reorientation, avoid excessive overnight interruptions. Assessment & Plan (03/26/2023 2:55 PM EST): Interactions with him today reveal some degree of cognitive impairment. Will need VNA upon discharge and would suggest outpatient geriatrics consult. Assessment & Plan (12/12/2022 9:42 PM EDT): Patient has significant cognitive impairment as patient has poor memory and cannot recall recent events. Chart review noted previous admission in June for cellulitis noted concern for sundowning in the evening. He was prescribed Seroquel 12.5 mg nightly. -We will continue Seroquel 12.5 mg nightly for now -Frequent reorientation, avoid frequent interruptions overnight -Social work consultation and concern for inability to care for himself appropriately. Penicillin allergy 06/27/2022 Assessment & Plan (06/27/2022 2:26 PM EST): Consider antibiotic test dose to ceftriaxone based on penicillin allergy protocol. Sleep apnea 06/24/2022 Assessment & Plan (06/27/2022 2:12 PM EST): Patient reports he does not use CPAP Cellulitis of right lower extremity 06/24/2022 Assessment & Plan (02/22/2024 4:41 PM EDT): Resolved Initially started on Vancomycin for RLE cellulitis 02/14 but he developed severe nausea and vomiting causing a vagal event. Pt changed to Doxycycline which he tolerated well. He has completed 7 days of Doxy. - ESR nrml, CRP downtrending - MRSA negative - US RLE no DVT Assessment & Plan (06/29/2022 3:16 PM EST): Continue on vancomycin. Surgical consult for evaluation of draining wound placed. Patient has been tentatively scheduled for a washout in the OR tomorrow. Encouraged patient to elevate leg. Assessment & Plan (07/14/2022 11:18 AM EDT): Severe right lower extremity cellulitis with purulence from anterior arrington wound. Also large toe ingrown toenail and wound and paronychia. Underwent I&D on 07/[address] Villagomez. Golshan wounds had tunneling. He has paronychia of the right first toe Cardiology consulted for vascular eval. they did not think there was any arterial disease Suggested Doppler to rule out DVT. This was ordered and neg. They will arrange for outpatient evaluation for venous disease Completed antibiotics 07/04/2022 West issue at this point is wound healing. There continues to be a significant amount of drainage. He would benefit from compression wraps but will not be a safe option if he is trying to remove them -- Continue wound care as scheduled. We are trialing Coban 2 compression wraps to see if patient able to tolerate, he has taken them off once or twice --Keep legs elevated when up --Case management working on discharge plan that will allow him to have wound care at home. This is complicated by recent cognitive decline as well as the fact that the [facility]and [facility] cannot provide [facility] care) Homicidal thoughts 12/03/2021 Assessment & Plan (12/03/2021 8:17 AM EDT): Concerning thoughts expressed to the computer applications developer, regarding the patient's sister, which was communicated to the nurse. Social work team now involved with [facility] consult requested. Sister is afar in [place] with no urgent threat. Generalized weakness 12/01/2021 Assessment & Plan (12/03/2021 11:10 AM EDT): Unclear etiology of the patient's weakness but he does have thrombocytopenia as well as a leukopenia and he was hypothermic raising the suspicion for potential infection. Tickborne illness also on the differential. Contributing factors include cardiac dysrhythmia, insomnia, depression. Still with downtrending leukopenia and thrombocytopenia, slight increase in LFTs today. High concern for anaplasmosis. Infectious disease consult appreciated. -Started on IV doxycycline today twice daily. Levaquin discontinued -Anaplasmosis smear requested. Patient very suspicious about this diagnosis with little exposure to nature. Pet (cat) never leaves the house. -Hematology consult requested -Following blood cultures which are so far negative. -D-dimer was elevated but CTPA showed no evidence of PE. 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 -No DVT on bilateral lower extremity venous duplex study. -CT abdomen pelvis negative for acute abdominal pelvic findings. -Continue daily CBC, LFT and BMP monitoring -Echocardiogram pending, troponins not indicated per cardiology. Brief SVT suspected by cardiology, not likely contributing to his symptoms. -IV fluids discontinued 12/02 with concern for mild volume overload on exam. -Social work consult requested -PT/OT evaluations ongoing Anemia 12/31/2020 Assessment & Plan (02/20/2024 9:44 AM EDT): Chronic anemia since 2022 with intermittent leukopenia as far back as 2020 - Also intermittent thrombocytopenia back to 2017 - Iron studies ferritin 39, Fe sat low Fe supplementation ordered - Retic count elevated 4.5%, will need outpatient hematology. - FIT test pending, no bowel movement on 02/18 Assessment & Plan (03/25/2023 4:56 PM EST): -Patient initially presented with hemoglobin of 4.7 and received 3 units of blood in the ED at [facility] and over the course of his hospitalization at [place] received 3 more units. He was evaluated by GI and it was felt that he did not require EGD/colonoscopy but should have follow-up with outpatient GI Assessment & Plan (07/07/2022 11:32 AM EDT): Mild pancytopenia, chronic -- Has been seen by Dr. Ruiz in the past. Plan surveillance Hypothyroidism 12/30/2020 Assessment & Plan (10/31/2023 1:41 PM EDT): - tsh elevated, med compliance unclear, cont current levothyroxine dose, will need follow up labs in 4 weeks Assessment & Plan (12/12/2022 9:40 PM EDT): We will need to confirm his dosage in the morning. Obtaining TSH with reflex Assessment & Plan (07/06/2022 11:45 AM EDT): TSH 19 in April, rechecked TSH, now 8. He may be missing doses of medication at home -- Sister working on getting him additional supervision Assessment & Plan (12/03/2021 12:16 PM EDT): TSH elevated, free T4 normal -Continue levothyroxine. Will need outpatient follow-up with his PCP for repeat monitoring and possible up titration of his levothyroxine dose as an outpatient. Acute pain of right shoulder 10/03/2018 Assessment & Plan (02/20/2024 9:44 AM EDT): Chronic right shoulder pain likely rotator cuff. -Lidocaine patch, Tylenol as needed, heat as needed Assessment & Plan (11/08/2023 4:42 PM EDT): Initially had complaints of right shoulder and elbow xrays - no acute fractures. Patient notes right shoulder pain is has improved is able to rotate it and use it without difficulties today. Assessment & Plan (03/25/2023 4:53 PM EST): -Chronic from an injury 20 years ago, continue lidocaine patch Resolved Problems Problem Noted Date Diagnosed Date Resolved Date Amnesia 02/14/2024 02/21/2024 Assessment & Plan (02/20/2024 10:59 AM EDT): Patient has a history of mild cognitive impairment who presented for antegrade amnesia. Patient had no recollection of day events on admission and was very repetitive in his questioning. No focal neurological deficits appreciated on exam. Patient's healthcare proxy endorses that these memory issues date back several years and have been steadily worsening over the past year. - Patient observed on telemetry, no concerning ectopy - Cardiac/consistent carb diet well-tolerated - CT head: No acute intracranial abnormality - Pt unable to tolerate MRI brain due to claustrophobia discussed with teleneurology will need outpatient follow up with neurology - EEG normal - TSH, B12, folate wnl - RPR non reactive - Pt will need outpatient valdemar psych follow up - Case management and social work teams involved. PASSR likely needed. Healthcare proxy activated. Awaiting placement decisions. Hypomagnesemia 10/31/2023 11/05/2023 Assessment & Plan (11/04/2023 11:27 AM EDT): - repleted - improved to 1.8 Thrombocytopenia 03/25/2023 10/31/2023 Assessment & Plan (03/26/2023 2:51 PM EST): -Patient was transfused a total of 4 units of platelets between the ED at [facility] and [facility]. -Eliquis on hold for now, may be able to resume at [facility] -Thrombocytopenia likely secondary to Bactrim, now improving Ingrown nail 08/14/2022 10/31/2023 Multiple open wounds of lower leg 07/20/2022 10/31/2023 Fever 07/11/2022 10/31/2023 Assessment & Plan (07/14/2022 11:18 AM EDT): After several days with no antibiotics, and having completed treatment for influenza, he has once again spiking fevers. By morning of 07/11 had rigors and profound chills. No symptoms to help localize a possible source of infection. Wound is continuing to heal well without any concerns for repeat infection, no new respiratory symptoms and he denies urinary symptoms as well. Repeat UA and covid negative, no chest symptoms to be concerned about viral illness. No diarrhea. Is now afebrile off of antibiotics Will monitor for now Influenza A 07/05/2022 10/31/2023 Assessment & Plan (07/11/2022 1:42 PM EDT): 07/04 influenza a positive started Tamiflu on 07/05 He is subjectively feeling better. Afebrile Completed oseltamavir x5-day course Atrial tachycardia 12/01/2021 Assessment & Plan (07/06/2022 11:41 AM EDT): Patient admitted 11/2021 had an atypical atrial flutter,. He was already on anticoagulation at that time due to prior VTE/PE history. Echocardiogram in 11/2021 normal LV and RV function, EF 60 to 65%, no hemodynamically significant valvular heart disease. No new concerns -Eliquis was held for surgery and has been restarted Assessment & Plan (12/03/2021 8:20 AM EDT): Cardiology consult appreciated. EKG monitoring reviewed. Patient felt to have sudden onset, sudden offset tachycardia, most likely SVT rather than a junctional rhythm. Fixed rate suggestive of atrial flutter. Most consistent with an atypical left- sided atrial flutter. He is appropriately anticoagulated due to prior VTE history, with elevated [id number] score of 2. -Echocardiogram planned for today -Continued on apixaban 5 mg twice daily, both for VTE management and for added indication of potential atrial flutter -30-day event monitor recommended at discharge Acute pulmonary embolism 12/30/202010/2023 Hypertensive disorder 12/30/20202023 Assessment & Plan (02/14/2024 10:47 PM EDT): Assessment & Plan (03/26/2023 2:50 PM EST): -Blood pressure is currently controlled and in fact on the lower side with SBP of 102. He is not currently on any antihypertensive medications but was previously on lisinopril 5 mg daily and clonidine 0.1 mg daily these were held during his hospitalization at [place] due to hypotension -continue to hold Assessment & Plan (07/11/2022 1:41 PM EDT): Holding antihypertensives due to normal to low blood pressures. Assessment & Plan (12/03/2021 8:28 AM EDT): Patient remains relatively hypotensive with systolic blood pressure 107-113. -Holding IV fluids for now as patient does appear mildly volume overloaded. Concern for cardiomyopathy with echocardiogram pending. -Hold clonidine -Encourage oral fluids, closely monitor vital signs per unit protocol Acute hypoxemic respiratory failure 12/30/2020 10/31/2023 Acute deep vein thrombosis ( DVT) of distal vein of right lower extremity 12/30/2020 10/31/2023 Assessment & Plan (12/02/2021 10:57 AM EDT): Chronic history of DVT/PE, Eliquis continued. Immunizations Immunization Administration Dates Next Due COVID-19 (Pre-02/15) Moderna Vaccine, mRNA, PF 06/12/2020,05/15/2020 DTaP, unspecified formulation 11/19/2014, 009 [id number] FORMULATION 03/26/2009 INFLUENZA, SPLIT VIRUS, TRIV ALENT W/ PRESERVATIVE IM 01/19/2018,02/10/2017,01/25/2016 Influenza High-Dose Quadriva lent Preservative Free IM 03/27/2023 Influenza High-Dose Trivalen t Preservative Free IM 02/23/2024 Influenza Quadrivalent Prese rvative Free IM 02/09/2020,06/09/2019 Influenza, Unspecified Formulation 01/26,01/17/2015,04/13/2014,01/24,01/05/2012,04/26/2011,04/24/2010 ,12/25/2008,02/06/2008,01/26/2007,02/24,03/06/2005,03/06/2004, 3,02/15/2001,02/03/2000,02/07/1999,,02/15/1997,02/21/1996 MMR 04/30/2000 Pneumococcal conjugate PCV13 10/17/2014 Pneumococcal polysaccharide PPSV23 10/21/2015 Pneumococcal, Unspecified Formulation 04/24/2010 ,08/19/2000 Rabies-im 02/15/2001 Td, unspecified formulation 11/28/2008 Zoster live 11/19/2014,05/16/2009 Zoster recombinant 09/15/2017,07/15/2017 Family History Medical History Relation Comments CV disease Father Diabetes mellitus Father Diabetes mellitus Mother Relation Status Comments Father Mother Social History Tobacco Use Types Packs/Day Years Used Date Smoking Tobacco: Former Cigarettes Q uit: 1973 Smokeless Tobacco: Never Tobacco Cessation:Counseling Given: Not Answered Alcohol Use Standard Drinks/Week Comments Not Currently [...] on file 08/20/2022 No 08/20/2022 No 08/20/2022 Food Answer Date Recorded Within the past 6 months we worried whether our food would run out before we got money to buy more. Never True 02/14/2024 Within the past 6 months the food we bought just didn't last and we didn't have enough money to get more. Never True Residential Stability Answer Date Recor ded What is your housing situation today? I have olegario sing 02/14/2024 How many times have you move d in the past 12 months? Zero (I did not move) 02/14/2024 Paying for Meds Answer Date Recorded Do you have trouble paying for medicines? No 02/14/2024 Paying Utility Bills Answer Date Record ed Do you have trouble paying your heating or elect ricity bill? No 02/14/2024 Transportation Answer Date Recorded Has the lack of transportati on kept you from medical appointments or from getting medications? No 02/14/2024 Digital Access Answer Date Recorded No 02/14/2024 Yes 02/14/2024 Do you have reliable internet access at home? Ye s 02/14/2024 Do you have a device (e.g., phone, tablet, computer) with a working camera? Yes 02/14/2024 Intimate Partner Violence Answer Date R ecorded Are you denied basic needs s uch as food, clothing, or medical care? Patient unable to respond 02/14/2024 In the past 12 months have y ou been in a relationship with a person who hurts, threatens, or tries to control you? Patient unable to respond 02/14/2024 Are you denied basic needs s uch as food, clothing, or medical care? Patient unable to respond 02/14/2024 In the past 12 months have y ou been in a relationship with a person who hurts, threatens, or tries to control you? 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 Not on file Not on file Not on file Last Filed Vital Signs Vital Sign Reading Time Taken Comments Blood Pressure 115/73 02/23/2024 10:00 AM EDT Pulse 67 02/23/2024 10:00 AM EDT Temperature 36.7 C (98.1 F) 02/23/2024 10:00 AM EDT Respiratory Rate 18 02/23/2024 10:0 0 AM EDT Oxygen Saturation 93% 02/23/2024 10: 00 AM EDT Inhaled Oxygen Concentration - - Weight 113.4 kg (250 lb 1.6 oz) 02/22/2024 4:10 AM EDT Height 177.8 cm (5' 10 ) 02/14/2024 9:58 PM EDT Body Mass Index 35.89 02/14/2024 9:58 PM EDT Plan of Treatment Health Maintenance Due Date Last Done Comments DEPRESSION SCREENING 1958 SMOKING Hx and SMOKELESS TOBACCO SCREENING 1959 HEPATITIS C SCREENING 1964 Adult Td,Tdap Booster 11/28/2018 11/28/2008 DIABETIC EYE EXAM 12/30/2020 URINE MICROALBUMIN/CREATININE RATIO 12/30/2020 RSV VACCINE (1 - 1-dose 75+ series) 2021 BLOOD PRESSURE 02/21/2023 08/22/2022 HEMOGLOBIN A1C 05/20/2024 02/18/2024, 07/1 10/2023, 10/31/2023, Additional history exists INFLUENZA VACCINE (#1) 2024 , 03/27/2023, 01/08/2021, Additional history exists COVID-19 VACCINE ( season) 2024 07/31/2021, 03/08/2021, 06/12/2020, Additional history exists TSH LEVEL 02/15/2025 02/16/2024, 07/0 10/2023, 03/21/2023, Additional history exists CREATININE LEVEL 02/21/2025 02/22/2024, , 02/18/2024, Additional history exists PNEUMOCOCCAL VACCINES (50+ years) Completed 10/21/2015, 10/17/2014 ZOSTER VACCINES Completed 09/15/2017, 06/25, 11/19/2014, Additional history exists HEPATITIS A VACCINES Aged Out No long er eligible based on patient's age to complete this topic HIB VACCINES Aged Out No longer eligi ble based on patient's age to complete this topic MENINGOCOCCAL VACCINES (ACWY) Aged Out No longer eligible based on patient's age to complete this topic MENINGOCOCCAL VACCINES (B) Aged Out N o longer eligible based on patient's age to complete this topic Medical Devices Not on file Procedures Procedure Name Priority Date/Time Associated Diagnosis Comments BASIC METABOLIC PANEL Routine 02/22/2024 6:03 AM EDT HEMOGLOBIN A1C Routine 02/18/2024 6:16 AM EDT TSH WITH REFLEX Routine 02/16/2024 6:13 AM EDT from Last 3 Months or Most Recently Relevant to Health Maintenance Results * (ABNORMAL) Basic metabolic panel (02/22/2024 6:03 AM EDT) SODIUM 140 133 - 146 mmol/L [facility] CHLORIDE 104 96 - 108 mmol/L [facility] POTASSIUM 3.8 3.3 - 5.1 mmol/L [facility] CO2 24 21 - 35 mmol/L [facility] BUN 13 6 - 19 mg/dL [facility] CREATININE 0.60 0.5 - 1.5 mg/dL [facility] GLUCOSE 139(H) 70 - 99 mg/dL [facility] CALCIUM 8.8 8.4 - 10.3 mg/dL [facility] EGFR 99 >59 mL/min/1.7 3m2 [facility] Comment:Estimated glomerular filtration rate calculated using the CKD-EPI refit equation. ANION GAP 16 10 - 20 mmol/L [facility] Blood 02/22/2024 6:03 AM EDT 02/22/2024 6:24 AM EDT Liv Brady Sheikh DO LAB BLOOD ORDERABLES Final Result Performing Organization Address [facility] Co de Phone Number [address] [address] * (ABNORMAL) Hemoglobin A1c (02/18/2024 6:16 AM EDT) HEMOGLOBIN A1C 8.6(H) 4.3 - 5.8 % [facility] 02/18/2024 6:16 AM EDT 02/18/2024 6:39 AM EDT Chandrika Medina Everette SUBSCRIPTION CLERK LAB BLOOD ORDERABLES Fin al Result Performing Organization Address [facility] Co de Phone Number [address] [address] * TSH with reflex (02/16/2024 6:13 AM EDT) TSH 2.23 0.27 - 4.20 uIU/mL [facility] Blood 02/16/2024 6:13 AM EDT 02/16/2024 6:17 AM EDT Chandrika Medina Everette SUBSCRIPTION CLERK LAB BLOOD ORDERABLES Fin al Result Performing Organization Address [facility] Co de Phone Number [address] [address] from Last 3 Months or Most Recently Relevant to Health Maintenance [place] [address] [place] [address] [employer] GENERIC MEDICARE REPLACEMENT [place] [address] GENERIC MEDICARE REPLACEMENT [facility] GENERIC MEDICARE REPLACEMENT [facility] GENERIC MEDICARE REPLACEMENT [facility] GENERIC MEDICARE REPLACEMENT [place] [address] GENERIC MEDICARE REPLACEMENT [facility] Advance Directives For more information, please contact: [phone] (9AM - 5PM [place], Wednesday-Wednesday) Documents on File Type Date Recorded Patient Planner Intern Expl anation Healthcare Proxy 01/03/2021 4:55 PM * Full Code (Latest Code Status on File) Date Activated Date Inactivated Comments 02/14/2024 9:52 PM Question Answer Comments Code Status Confirmed With: Patient Code Status Communicated To: Inpatient Attending * Full Code Date Activated Date Inactivated Comments 10/31/2023 2:39 AM 02/14/2024 9:52 PM Question Answer Comments Code Status Confirmed With: Patient * Full Code Date Activated Date Inactivated Comments 03/25/2023 4:48 PM 10/31/2023 2:39 AM Question Answer Comments Code Status Confirmed With: Patient * Full Code Date Activated Date Inactivated Comments 12/12/2022 9:33 PM 03/25/2023 4:48 PM Question Answer Comments Code Status Confirmed With: Patient Code Status Communicated To: Inpatient Attending * Full Code Date Activated Date Inactivated Comments 06/24/2022 6:36 PM 12/12/2022 9:33 PM Question Answer Comments Code Status Confirmed With: Patient Healthcare Agents on File Name Relationship Healthcare Agent Relationshi p Communication Ivory Ellis Sister .Primary Health Care Agent (Proxy form on file) Jarek Carroll Friend Alternate Health care Agent (Proxy form on file) Care Teams Reporting Process Consultant Relationship Specialty Start Date End Date Aleja Madrid NP [address] [address] PCP - General Nurse Practitioner 11/03/23 Jovanna London MD [address] [place] [address] Family Medicine 03/21/23 Additional Source Comments The information contained in this document represents components of the legal health record. It is not the complete legal health record.[facility]
--- OUTSIDE RECORDS SUMMARY | 2025-02-21 18:17 | XMS_ITS | Encounter Summary ---
Author Organization [facility] Address [address] [place] [address] Care Team Providers Care Air Commodore Name Role Phone Sandra Horn ABHIJIT Primary Care Provider [phone] Encounter Details Date Type Department Care Team (Late st Contact Info) Description 02/21/2025 Lab Requisition [facility] - Main Lab [address] [facility] [place] [address] Lida Jules MD [address] [id number] Anemia, unspecified Social History Tobacco Use Types Packs/Day [...] Routine 02/21/2025 4:50 AM EDT Anemia, unspecified documented in this encounter Results * (ABNORMAL) Complete blood count (02/21/2025 4:50 AM EDT) WBC 2.8(L) 4.8 - 10.8 K/mcL LAB HEMETOLOGY METHOD 02/21/2025 11:27 AM EDT [facility] RBC 2.60(L) 4.50 - 5.50 M/mcL LAB HEMETOLOGY METHOD 02/21/2025 11:27 AM EDT [facility] Hemoglobin 6.6(L) 13.5 - 17.5 g/dL LAB HEMETOLOGY METHOD 02/21/2025 11:27 AM [facility] Hematocrit 21.9(L) 42.0 - 54.0 % LAB HEMETOLOGY METHOD 02/21/2025 11:27 AM [facility] MCV 83.3 79.0 - 98.0 FL LAB HEMETOLOGY METHOD 02/21/2025 11:27 AM [facility] MCH 25.1(L) 27.0 - 32.0 pcg LAB HEMETOLOGY METHOD 02/21/2025 11:27 AM [facility] MCHC 30.1(L) 32.0 - 37.0 g/dL LAB HEMETOLOGY METHOD 02/21/2025 11:27 AM [facility] RDW 17.5(H) 11.0 - 15.0 % LAB HEMETOLOGY METHOD 02/21/2025 11:27 AM [facility] Platelets 118(L) 130 - 400 K/mcL LAB HEMETOLOGY METHOD 02/21/2025 11:27 AM [facility] MPV 10.9 7.0 - 11.0 FL LAB HEMETOLOGY METHOD 02/21/2025 11:27 AM [facility] NRBC 0.0 <1.0 % LAB HEMETOLOGY METHOD 02/21/2025 11:27 AM [facility] NRBC Absolute 0.00 <0.10 K/mcL LAB HEMETOLOGY METHOD 02/21/2025 11:27 AM [facility] Blood Venous blood specimen / Unknown Venipuncture / Unknown 02/21/2025 4:50 AM EDT 02/21/2025 10:24 AM EDT us Lida Jules MD LAB BLOOD ORDERABLES Fin al Result [facility] [address] [place] [address], documented in this encounter Visit Diagnoses Diagnosis Anemia, unspecified documented in this encounter Care Teams Air Commodore Relationship Specialty Start Date End Date Sandra Horn NP [address] [place] [id number] PCP - General Nurse Practitioner 06/29/24 documented as of this encounter
--- OUTSIDE RECORDS SUMMARY | 2025-02-21 18:17 | XMS_ITS | Encounter Summary ---
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 Not on file Not on file documented as of this encounter Plan of Treatment Not on file documented as of this encounter Visit Diagnoses Not on filedocumented in this encounter Additional Health Concerns Infection Onset Date Last Indicated Resolved Time CoV-Risk 10/31/2023 10/31/2023 11/01/2023 11:2 1 AM EDT documented as of this encounter Care Teams Fence Setter Relationship Specialty Start Date End Date Manolo Tamayo MD [address] [place] [address] [email or web address] PCP - General Internal Medicine 03/26/2311/02/23 Aleja Madird NP [address] [address] PCP - General Nurse Practitioner 11/03/23 Jovanna London MD [address] [place] [address] Family Medicine 03/21/23 documented as of this encounter Additional Source Comments The information contained in this document represents components of the legal health record. It is not the complete legal health record.[facility]
--- OUTSIDE RECORDS SUMMARY | 2025-02-21 18:17 | XMS_ITS | Encounter Summary ---
Author Organization [facility] Address [address] [address] Phone Care Team Providers Care Trench Digging Machine Operator Name Role Phone Mirna Sanchez Primary Care Provider [phone] Arnaud Spence NP Primary Care Provide r Jovanna London MD Primary Care Provider + [phone] Jovanna London MD Unavailable [phone] Manolo Meléndez MD Primary Care Provider + Manolo Tamayo MD Primary Care Provider [phone] Aleja Madrid NP Primary Care Provider [phone] Reason for Referral * Consultation (Routine) - Closed Specialty Diagnoses / Procedures Referred By Contalbina t Referred To Contact Cardiac Rehabilitation Diagnoses Calf pain, unspecified laterality Carlos Patel MD Phone: tel: fax: [address] [address] Phone: tel: Referral ID Status Reason Start Date Expiration Date Visits Re quested Visits Authorized [id number] Closed 12/09/2017 05/26/2018 36 36 Encounter Details Date Type Department Care Team (Latest Contact Info) Description 12/31/2017 Transcribe Orders Virtual Department [address] [place] [address] Carlos Patel MD [address] [place] [address] Calf pain, unspecified laterality (Primary Dx) Social History Tobacco Use Types [...] Scheduled Referrals Name Type Priority Associated Diagnoses Orde r Schedule Ambulatory referral to [facility] Cardiac Rehab Outpatient Referral Routine Calf pain, unspecified laterality Ordered: 12/31/2017 documented as of this encounter Visit Diagnoses Diagnosis Calf pain, unspecified laterality- Primary documented in this encounter Additional Health [...] documented as of this encounter Care Teams Trench Digging Machine Operator Relationship Specialty Start Date End Date Mirna Sanchez DO [address] [place] [address] PCP - General Internal Medicine 03/05/17 01/02/18 Arnaud Spence NP [address] [place] [address] PCP - General Family Medicine 01/03/18 09/29/18 Jovanna London MD [address] [place] [address] PCP - General Family Medicine 09/30/18 03/20/23 Manolo Meléndez MD [address] [place] [address] [email or web address] PCP - General Rheumatology 03/21/23 03/25/23 Manolo Tamayo MD [address] [place] [address] [email or web address] PCP - General Internal Medicine 03/26/2311/02/23 Aleja Madrid, ABHIJIT [address] [address] PCP - General Nurse Practitioner 11/03/23 Jovanna London MD [address] [place] [address] (work) Family Medicine 03/21/23 documented as of this encounter Additional Source Comments The information contained in this document represents components of the legal health record. It is not the complete legal health record.[facility]
--- OUTSIDE RECORDS SUMMARY | 2025-02-21 18:17 | XMS_ITS | Encounter Summary ---
Author Organization [facility] Address [address] [employer] [facility] [address] [place] [address] Phone Care Team Providers Care Housing Installer Name Role Phone Jovanna London MD Primary Care Provider [phone] Jovanna London MD Unavailable Manolo Meléndez MD Primary Care Provider + Manolo Tamayo MD Primary Care Provider [phone] Aleja Madrid NP Primary Care Provider [phone] Encounter Details Date Type Department Care Team (Late st Contact Info) Description 12/02/2021 Procedure Pass [facility] [address] [place] [address] Social History Tobacco Use Types Packs/Day Years Used Date Smoking Tobacco: Former Smokeless Tobacco: Never Alcohol Use Standard Drinks/Week Comments No 0 (1 standard drink = 0.6 oz pur e alcohol) Sex and Gender Information Value Date Recorded [...] Onset Date Last Indicated Resolved Time CoV-Risk 07/04/2022 07/04/2022 07/05/2022 9:31 AM EDT Influenza A 07/04/2022 07/04/2022 07/18/2022 1:22 AM EDT CoV-Risk Comment:Per note documentation 07/11/2022 07/11/2022 8:00 AM EDT CoV-Risk Comment:Neg covid 03/21/2023 03/21/2023 03/26/2023 6:[address] CoV-Risk 04/06/2023 04/06/2023 04/06/2023 5:27 PM EST COVID-19 04/06/2023 04/06/2023 04/27/2023 1:22 AM EST CoV-Risk 10/31/2023 10/31/2023 11/01/2023 11:2 1 AM EDT documented as of this encounter Care Teams Housing Installer Relationship Specialty Start Date End Date Jovanna London MD [address] [place] [address] PCP - General Family Medicine 09/30/18 03/20/23 Manolo Meléndez MD [address] [place] [address] [email or web address] PCP - General Rheumatology 03/21/23 03/25/23 Manolo Tamayo MD [address] [place] [address] [email or web address] PCP - General Internal Medicine 03/26/2311/02/23 Aleja Madrid NP [address] [address] PCP - General Nurse Practitioner 11/03/23 Jovanna London MD [address] [place] [address] Family Medicine 03/21/23 documented as of this encounter Additional Source Comments The information contained in this document represents components of the legal health record. It is not the complete legal health record.[facility]
--- OUTSIDE RECORDS SUMMARY | 2025-02-21 18:17 | XMS_ITS | Encounter Summary ---
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 Wish to be (Past 1 Month) No 02/14/2024 4:56 PM EDT Sarah Ridley RN 2. Non-Specific Active Suici will Thoughts (Past 1 Month) No 02/14/2024 4:56 PM EDT Sarai Ridley RN 6. Suicidal Behavior (Lifetime) No 4:56 PM EDT Sharlene Ridley RN documented as of this encounter Plan of Treatment Not on file documented as of this encounter Visit Diagnoses Not on filedocumented in this encounter Care Teams Cage Shift Manager Relationship Specialty Start Date End Date Aleja Madrid NP [address] [address] PCP - General Nurse Practitioner 11/03/23 Jovanna London MD [address] [place] [address] Family Medicine 03/21/23 documented as of this encounter Additional Source Comments The information contained in this document represents components of the legal health record. It is not the complete legal health record.[facility]
--- OUTSIDE RECORDS SUMMARY | 2025-02-21 18:17 | XMS_ITS | Encounter Summary ---
Author Organization [facility] Address [address] [employer] [facility] [address] [place] [address] Phone Care Team Providers Care Mirror Painter Name Role Phone Jovanna London MD Primary Care Provider [phone] Jovanna London MD Unavailable Manolo Meléndez MD Primary Care Provider + Manolo Tamayo MD Primary Care Provider [phone] Aleja Madrid NP Primary Care Provider [phone] Encounter Details Date Type Department Care Team (Late st Contact Info) Description 11/16/2021 Procedure Pass [facility], Ct Scan - [address] [address] Social History Tobacco Use Types Packs/Day Years [...] AM EDT documented as of this encounter Functional Status * Calculated C-SSRS Risk Score (Lifetime/Recent) Answer Date of Assessment Author No Risk Indicated 11/16/2021 7:49 AM EDT yRlan Herrera RN * [place] Suicide Severity Rating Scale (Screener/Recent Self-Report) Question Answer Date of Assessment Author 1. Wish to be (Past 1 Month) No 022 7:49 AM EDT Rylan Herrera RN 2. Non-Specific Active Suici will Thoughts (Past 1 Month) No 11/16/2021 7:49 AM EDT Rylan Herrera RN 6. Suicidal Behavior (Lifetime) No 7:49 AM EDT Rylan Herrera RN documented as of this encounter Plan [...] documented as of this encounter Care Teams Mirror Painter Relationship Specialty Start Date End Date Jovanna London MD [address] [place] [address] PCP - General Family Medicine 09/30/18 03/20/23 Manolo Meléndez MD [address] [place] [address] [email or web address] PCP - General Rheumatology 03/21/23 03/25/23 Manolo Tamayo MD [address] [address] [email or web address] PCP - General Internal Medicine 03/26/2311/02/23 Aleja Madrid NP [address] [address] PCP - General Nurse Practitioner 11/03/23 Jovanna London MD [address] [place] [address] Family Medicine 03/21/23 documented as of this encounter Additional Source Comments The information contained in this document represents components of the legal health record. It is not the complete legal health record.[facility]
--- OUTSIDE RECORDS SUMMARY | 2025-02-21 18:17 | XMS_ITS | Encounter Summary ---
Author Organization [facility] Address [address] [employer] [facility] [address] [place] [address] Phone Care Team Providers Care Detonator Assembler Name Role Phone Jovanna London MD Primary Care Provider [phone] Jovanna London MD Unavailable [phone] Manolo Meléndez MD Primary Care Provider + Manolo Tamayo MD Primary Care Provider [phone] Aleja Madrid NP Primary Care Provider [phone] Encounter Details Date Type Department Care Team (Late st Contact Info) Description 07/24/2022 Transcribe Orders [facility] [address] [place] [address] Jovanna London MD [address] [place], [place] [id number] Dysuria Social History Tobacco Use Types Packs/Day Years [...] 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 file Not on file Not on file documented as of this encounter Plan of Treatment Not on file documented as of this encounter Results * (ABNORMAL) Urinalysis w/reflex Urine Culture (07/24/2022 12:25 PM EDT) COLOR Yellow Yellow [facility] CLARITY Clear [facility] GLUCOSE 1+(A) Negative [facility] BILI Negative Negative [facility] KETONES Negative Negative [facility] SPECIFIC GRAVITY 1.015 1.005 - 1.030 [facility] BLOOD Negative Negative [facility] PH 5.5 5.0 - 8.0 [facility] Protein-UA Negative Negative [facility] NITRITE Negative Negative [facility] Leukocyte esterase, ur Negative Negative [facility] Urine (Urine) 07/24/2022 12: 25 PM EDT 07/24/2022 12:27 PM EDT us Jovanna London MD URINE ORDERABLES Final Res ult Performing Organization Address [facility] Co de Phone Number [address] [address] * Urine culture (07/24/2022 12:25 PM EDT) Special Requests None 07/24/2022 12:25 PM EDT [facility] Urine Culture NO GROWTH 48HRS 07/26/2022 8:03 AM EDT [facility] Urine (Urine) 07/24/2022 12: 25 PM EDT 07/24/2022 12:26 PM EDT Comment:URINE us Jovanna London MD MICROBIOLOGY - GENERAL ORD ERABLES Final Result Performing Organization Address City/[facility]/ZIP Co de Phone Number [address] [address] documented in this encounter Visit Diagnoses Diagnosis Dysuria documented in this encounter Additional Health Concerns Infection Onset Date Last Indicated Resolved Time CoV-Risk Comment:Neg covid 03/21/2023 03/21/2023 03/26/2023 6:[address] CoV-Risk 04/06/2023 04/06/2023 04/06/2023 5:27 PM EST COVID-19 04/06/2023 04/06/2023 04/27/2023 1:22 AM EST CoV-Risk 10/31/2023 10/31/2023 11/01/2023 11:2 1 AM EDT documented as of this encounter Care Teams Detonator Assembler Relationship Specialty Start Date End Date Jovanna London MD [address] [place] [address] PCP - General Family Medicine 09/30/18 03/20/23 Manolo Meléndez MD [address] [place] [address] [email or web address] PCP - General Rheumatology 03/21/23 03/25/23 Manolo Tamayo MD [address] [place] [address] [email or web address] PCP - General Internal Medicine 03/26/2311/02/23 Aleja Madrid NP [address] [address] PCP - General Nurse Practitioner 11/03/23 Jovanna London MD [address] [place] [address] Family Medicine 03/21/23 documented as of this encounter Additional Source Comments The information contained in this document represents components of the legal health record. It is not the complete legal health record.[facility]
--- OUTSIDE RECORDS SUMMARY | 2025-02-21 18:17 | XMS_ITS | Encounter Summary ---
Author Organization [facility] Address [address] [employer] [facility] [address] [place] [address] Phone Care Team Providers Care Cream Tester Name Role Phone Jovanna London MD Primary Care Provider [phone]- [phone] Jovanna London MD Unavailable [phone] Manolo Meléndez MD Primary Care Provider + Manolo Tamayo MD Primary Care Provider [phone] Aleja Madrid NP Primary Care Provider [phone] Encounter Details Date Type Department Care Team (Late st Contact Info) Description 12/01/2021 Procedure Pass [facility], Ct Scan - [address] [address] Social History Tobacco Use Types Packs/Day Years [...] Date of Assessment Author No Risk Indicated 12/01/2021 3:20 PM EDT Gaston Fontanez CNP * [place] Suicide Severity Rating Scale (Screener/Recent Self-Report) Question Answer Date of Assessment Author 1. Wish to be (Past 1 Month) No 12/01/2021 3:20 PM EDT Gaston Fontanez CNP 2. Non-Specific Active Suicidal Thoughts (Past 1 Month) No 12/01/2021 3:20 PM EDT Gaston Fontanez CNP 6. Suicidal Behavior (Lifetime) No 12/01/2021 3:20 PM EDT Gaston Fontanez CNP documented as of this encounter Plan of [...] documented as of this encounter Care Teams Cream Tester Relationship Specialty Start Date End Date Jovanna London MD [address] [place] [address] PCP - General Family Medicine 09/30/18 03/20/23 Manolo Meléndez MD [address] [place] [address] [email or web address] PCP - General Rheumatology 03/21/23 03/25/23 Manolo Tamayo MD [address] [address] [email or web address] PCP - General Internal Medicine 03/26/2311/02/23 Aleja Madrid NP [address] [id number] PCP - General Nurse Practitioner 11/03/23 Jovanna London MD [address] [place] [address] Family Medicine 03/21/23 documented as of this encounter Additional Source Comments The information contained in this document represents components of the legal health record. It is not the complete legal health record.[facility]
--- OUTSIDE RECORDS SUMMARY | 2025-02-21 18:17 | XMS_ITS | Encounter Summary ---
Author Organization [facility] Address [address] [address] Phone Care Team Providers Care Freelance Displayer Name Role Phone Mirna Sanchez Primary Care Provider Arnaud Spence NP Primary Care Provide r Jovanna London MD Primary Care Provider [phone] Jovanna London MD Unavailable Manolo Meléndez MD Primary Care Provider + Manolo Tamayo MD Primary Care Provider [phone] Aleja Madrid NP Primary Care Provider Encounter Details Date Type Department Care Team (Late st Contact Info) Description 07/07/2017 Transcribe Orders Non-Invasive Cardiology [address] [place] [address] Ricardo Watson MD [address] [facility], [address] [place] [address] [email or web address] Social History Tobacco Use Types Packs/Day Years [...] documented as of this encounter Care Teams Freelance Displayer Relationship Specialty Start Date End Date Mirna Sanchez DO [address] [place] [address] PCP - General Internal Medicine 03/05/17 01/02/18 Arnaud Spence NP [address] [place] [address] PCP - General Family Medicine 01/03/18 09/29/18 Jovanna London MD [address] [place] [address] PCP - General Family Medicine 09/30/18 03/20/23 Manolo Meléndez MD [address] [place] [address] [email or web address] PCP - General Rheumatology 03/21/23 03/25/23 Manolo Tamayo MD [address] [place] [address] [email or web address] PCP - General Internal Medicine 03/26/2311/02/23 Aleja Madrid NP [address] [address] PCP - General Nurse Practitioner 11/03/23 Jovanna London MD [address] [place] [address] Family Medicine 03/21/23 documented as of this encounter Additional Source Comments The information contained in this document represents components of the legal health record. It is not the complete legal health record.[facility]
--- OUTSIDE RECORDS SUMMARY | 2025-02-21 18:17 | XMS_ITS | Encounter Summary ---
Author Organization [facility] Address [address] [address] Phone Care Team Providers Care Roundsman Name Role Phone Jovanna London MD Primary Care Provider [phone] Jovanna London MD Unavailable [phone] Manolo Meléndez MD Primary Care Provider + Manolo Tamayo MD Primary Care Provider [phone] Aleja Madrid NP Primary Care Provider [phone] Encounter Details Date Type Department Care Team (Late st Contact Info) Description 12/20/2018 Ancillary Orders [facility] Orthopedics & Sports Medicine [address] [place] [address] Ryan Bullard DO 4 [facility] Orthopedics & Sports Medicine, [facility] [place] [address] [email or web address] Social History Tobacco Use Types Packs/Day Years [...] documented as of this encounter Care Teams Roundsman Relationship Specialty Start Date End Date Jovanna London MD [address] [facility] [place] [address] PCP - General Family Medicine 09/30/18 03/20/23 Manolo Meléndez MD [address] [place] [facility] [place] [address] [email or web address] PCP - General Rheumatology 03/21/23 03/25/23 Manolo Tamayo MD [address] [place] [address] [email or web address] PCP - General Internal Medicine 03/26/2311/02/23 Aleja Madrid NP [address] [address] PCP - General Nurse Practitioner 11/03/23 Jovanna London MD [address] [place] [address] Family Medicine 03/21/23 documented as of this encounter Additional Source Comments The information contained in this document represents components of the legal health record. It is not the complete legal health record.[facility]
--- OUTSIDE RECORDS SUMMARY | 2025-02-21 18:17 | XMS_ITS | Encounter Summary ---
Author Organization [facility] Address [address] [address] Phone Care Team Providers Care Environmental Scientist Name Role Phone Jovanna London MD Primary Care Provider [phone] Jovanna London MD Unavailable [phone] Manolo Meléndez MD Primary Care Provider + Manolo Tamayo MD Primary Care Provider [phone] Aleja Madrid NP Primary Care Provider [phone] Encounter Details Date Type Department Care Team (Late st Contact Info) Description 12/20/2018 Ancillary Orders [address] [address] Ryan Bullard DO [address] [place] [address] Orthopedics & Sports Medicine, [place] [address] [email or web address] Right shoulder pain, unspecified chronicity Social History Tobacco Use Types Packs/Day Years [...] as of this encounter Plan of Treatment Pending Results Name Type Priority Associated Diagnoses Date /Time FL Guidance Needle Placement Non-Spine Imaging Routine Right shoulder pain, unspecified chronicity 12/21/2018 8:09 AM EDT Scheduled Orders Name Type Priority Associated Diagnoses Orde r Schedule FL Guidance Needle Placement Non-Spine Imaging Routine Right shoulder pain, unspecified chronicity 1 Occurrences starting 12/20/2018 until 03/22/2019 documented as of this encounter Visit Diagnoses Diagnosis Right shoulder pain, unspecified chronicity documented in this encounter Additional Health Concerns [...] documented as of this encounter Care Teams Environmental Scientist Relationship Specialty Start Date End Date Jovanna London MD [address] [place] [address] PCP - General Family Medicine 09/30/18 03/20/23 Manolo Meléndez MD [address] [place] [address] [email or web address] PCP - General Rheumatology 03/21/23 03/25/23 Manolo Tamayo MD [address] [place] [address] [email or web address] PCP - General Internal Medicine 03/26/2311/02/23 Aleja Madrid NP [address] [id number] PCP - General Nurse Practitioner 11/03/23 Jovanna London MD [address] [place] [address] Family Medicine 03/21/23 documented as of this encounter Additional Source Comments The information contained in this document represents components of the legal health record. It is not the complete legal health record.[facility]
--- OUTSIDE RECORDS SUMMARY | 2025-02-21 18:17 | XMS_ITS | Encounter Summary ---
Author Organization [facility] Address 399 [employer] [facility] [address] [place] [address] Phone Care Team Providers Care Pe Manager Name Role Phone Jovanna London MD Primary Care Provider [phone] Jovanna London MD Unavailable Manolo Meléndez MD Primary Care Provider + Manolo Tamayo MD Primary Care Provider [phone] Aleja Madrid NP Primary Care Provider [phone] Encounter Details Date Type Department Care Team (Late st Contact Info) Description 12/03/2021 Procedure Pass Non-Invasive Cardiology [address] [place] [address] Social History Tobacco Use Types Packs/Day Years [...] documented as of this encounter Care Teams Pe Manager Relationship Specialty Start Date End Date Jovanna London MD [address] [place] [address] PCP - General Family Medicine 09/30/18 03/20/23 Manolo Meléndez MD [address] [place] [address] [email or web address] PCP - General Rheumatology 03/21/23 03/25/23 Manolo Tamayo MD [address] [place] [address] [email or web address] PCP - General Internal Medicine 03/26/2311/02/23 Aleja Madrid NP [address] [address] PCP - General Nurse Practitioner 11/03/23 Jovanna London MD [address] [place] [address] Family Medicine 03/21/23 documented as of this encounter Additional Source Comments The information contained in this document represents components of the legal health record. It is not the complete legal health record.[facility]
--- OUTSIDE RECORDS SUMMARY | 2025-02-21 18:17 | XMS_ITS | Encounter Summary ---
Author Organization [facility] Address [address] [employer] [address] [address] Phone Care Team Providers Care Stationary Engineer Refrigeration Name Role Phone Jovanna London MD Primary Care Provider [phone] Jovanna London MD Unavailable [phone] Manolo Meléndez MD Primary Care Provider + Manolo Tamayo MD Primary Care Provider [phone] Aleja Madrid NP Primary Care Provider [phone] Encounter Details Date Type Department Care Team (Late st Contact Info) Description 07/01/2022 Procedure Pass [place] Admitting Dept - Virtual Department [address] [place] [address] Social History Tobacco Use Types Packs/Day Years [...] 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 Date 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 Not on file Not on file Not [...] documented as of this encounter Care Teams Stationary Engineer Refrigeration Relationship Specialty Start Date End Date Jovanna London MD [address] [place] [address] PCP - General Family Medicine 09/30/18 03/20/23 Manolo Meléndez MD [address] [place] [address] [email or web address] PCP - General Rheumatology 03/21/23 03/25/23 Manolo Tamayo MD [address] [place] [address] [email or web address] PCP - General Internal Medicine 03/26/2311/02/23 Aleja Madrid NP [address] [address] PCP - General Nurse Practitioner 11/03/23 Jovanna London MD [address] [place] [address] Family Medicine 03/21/23 documented as of this encounter Additional Source Comments The information contained in this document represents components of the legal health record. It is not the complete legal health record.[facility]
--- OUTSIDE RECORDS SUMMARY | 2025-02-21 18:17 | XMS_ITS | Encounter Summary ---
Author Organization [facility] Address 399 [employer] [facility] [address] [place] [address] Phone Care Team Providers Care Customer Resolution Specialist Name Role Phone Jovanna London MD Primary Care Provider [phone] Jovanna London MD Unavailable Manolo Meléndez MD Primary Care Provider + Manolo Tamayo MD Primary Care Provider [phone] Aleja Madrid NP Primary Care Provider [phone] Encounter Details Date Type Department Care Team (Late st Contact Info) Description 12/01/2021 Procedure Pass [facility], Ct Scan - [address] [address] Social History Tobacco Use Types Packs/Day Years [...] 3:20 PM EDT Gaston Fontanez CNP * [place] Suicide Severity Rating Scale (Screener/Recent Self-Report) Question [...] documented as of this encounter Care Teams Customer Resolution Specialist Relationship Specialty Start Date End Date Jovanna London MD [address] [place] [address] PCP - General Family Medicine 09/30/18 03/20/23 Manolo Meléndez MD [address] [place] [address] [email or web address] PCP - General Rheumatology 03/21/23 03/25/23 Manolo Tamayo MD [address] [address] [email or web address] PCP - General Internal Medicine 03/26/2311/02/23 Aleja Madrid NP [address] [id number] PCP - General Nurse Practitioner 11/03/23 Jovanna London MD [address] [place] [address] Family Medicine 03/21/23 documented as of this encounter Additional Source Comments The information contained in this document represents components of the legal health record. It is not the complete legal health record.[facility]
--- OUTSIDE RECORDS SUMMARY | 2025-02-21 18:17 | XMS_ITS | Encounter Summary ---
Author Organization [facility] Address [address] [place] [address] Care Team Providers Care Residential Construction Instructor Name Role Phone Sandra Horn [email or web address] Primary Care Provider [phone] Encounter Details Date Type Department Care Team (Late st Contact Info) Description 02/19/2025 Lab Requisition [facility] [address] [facility] [place] [address] Lida Jules MD [address] [id number] Essential (primary) hypertension; Type 2 diabetes mellitus with unspecified complications (CMS/HCC V24, CMS/HCC V28) Social History [...] Procedure Name Priority Date/Time Associated Diagnosis Comments LIPID PANEL WITH REFLEX TO DIRECT LDL [...] with unspecified complications (CMS/HCC V24, CMS/HCC V28) THYROXINE FREE Routine 02/19/2025 8:42 AM EDT [...] with unspecified complications (CMS/HCC V24, CMS/HCC V28) documented in this encounter Results * Thyroxine free (02/19/2025 8:42 AM EDT) Free T4 0.82 0.70 - 1.80 ng/dL LAB CHEMISTRY METHOD 02/19/2025 1:25 PM EDT [facility] Blood Venous blood specimen / Unknown Venipuncture / Unknown 02/19/2025 8:42 AM EDT 02/19/2025 10:48 AM EDT Lida Jules MD LAB BLOOD ORDERABLES Fin al Result [facility] [address] [place] [address], * (ABNORMAL) Thyroid stimulating hormone (02/19/2025 8:42 AM EDT) TSH 4.99(H) 0.40 - 4.00 mcIU/mL LAB CHEMISTRY METHOD 02/19/2025 1:25 PM EDT [facility] Blood Venous blood specimen / Unknown Venipuncture / Unknown 02/19/2025 8:42 AM EDT 02/19/2025 10:48 AM EDT Lida Jules MD LAB BLOOD ORDERABLES Fin al Result Performing Organization Address [facility]/ZIP Co de Phone Number [facility] [address] [place] [address], [place] [phone] * Hemoglobin A1c (02/19/2025 8:42 AM EDT) [facility] Hemoglobin A1C 6.1 <6.5 % LAB CHEMISTRY METHOD 02/19/2025 9:42 PM EDT [facility] Mean Bld Glu Estim. 128 mg/dL LAB CHEMISTRY METHOD 02/19/2025 9:42 PM EDT [facility] Blood Venous blood specimen / Unknown Venipuncture / Unknown 02/19/2025 8:42 AM EDT 02/19/2025 10:48 AM EDT Lida Jules MD LAB BLOOD ORDERABLES Fin al Result Performing Organization Address [facility]/ZIP Co de Phone Number [facility] [address] [place] [address], [place] [phone] * (ABNORMAL) Lipid panel with reflex to direct LDL (02/19/2025 8:42 AM EDT) [facility] Cholesterol 80 0 - 200 mg/dL LAB CHEMISTRY METHOD 02/19/2025 12:12 PM EDT [facility] Triglycerides 95 0 - 150 mg/dL LAB CHEMISTRY METHOD 02/19/2025 12:12 PM EDT [facility] HDL 22(L) >=40 mg/dL LAB CHEMISTRY METHOD 02/19/2025 12:12 PM EDT [facility] LDL Calculated 39 0 - 100 mg/dL LAB CHEMISTRY METHOD 02/19/2025 12:12 PM EDT [facility] Comment:Estimated LDL Calcul ated using equation: Total cholesterol - HDL cholesterol - (Triglycerides/5) VLDL Cholesterol Steven 19 mg/dL LAB CHEMISTRY METHOD 02/19/2025 12:12 PM EDT [facility] Non HDL Chol. (LDL+VLDL) 58 <145 mg/dL LAB CHEMISTRY METHOD 02/19/2025 12:12 PM [facility] Chol/HDL Ratio 3.6 0.0 - 4.4 LAB CHEMISTRY METHOD 02/19/2025 12:12 PM [facility] Blood Venous blood specimen / Unknown Venipuncture / Unknown 02/19/2025 8:42 AM EDT 02/19/2025 10:48 AM EDT us Lida Jules MD LAB BLOOD ORDERABLES Fin al Result [facility] [address] [place] [address], * (ABNORMAL) Comprehensive metabolic panel (02/19/2025 8:42 AM EDT) Sodium 136 133 - 145 mmol/L LAB CHEMISTRY METHOD 02/19/2025 12:12 PM [facility] Potassium 4.0 3.5 - 5.5 mmol/L LAB CHEMISTRY METHOD 02/19/2025 12:12 PM [facility] Chloride 104 96 - 110 mmol/L LAB CHEMISTRY METHOD 02/19/2025 12:12 PM [facility] CO2 25 21 - 32 mmol/L LAB CHEMISTRY METHOD 02/19/2025 12:12 PM [facility] Anion Gap 7 3 - 11 LAB CHEMISTRY METHOD 02/19/2025 12:12 PM [facility] Glucose 155(H) 70 - 100 mg/dL LAB CHEMISTRY METHOD 02/19/2025 12:12 PM [facility] BUN 15 5 - 25 mg/dL LAB CHEMISTRY METHOD 02/19/2025 12:12 PM [facility] Creatinine 0.81 0.70 - 1.30 mg/dL LAB CHEMISTRY METHOD 02/19/2025 12:12 PM [facility] eGFR 90 >=60 mL/min/1. 73m2 LAB CHEMISTRY METHOD 02/19/2025 12:12 PM [facility] Comment:Calculation based on the Chronic Kidney Disease Epidemiology Collaboration (CKD-EPI) equation refit without adjustment for race. BUN/Creatinine Ratio 18.5 LAB CHEMISTRY METHOD 02/19/2025 12:12 PM [facility] Calcium 8.7 8.5 - 10.5 mg/dL LAB CHEMISTRY METHOD 02/19/2025 12:12 PM [facility] AST (SGOT) 8(L) 10 - 42 unit/L LAB CHEMISTRY METHOD 02/19/2025 12:12 PM [facility] ALT (SGPT) 8(L) 10 - 60 unit/L LAB CHEMISTRY METHOD 02/19/2025 12:12 PM [facility] Alkaline Phosphatase 75 42 - 121 unit/L LAB CHEMISTRY METHOD 02/19/2025 12:12 PM [facility] Total Protein 6.0 6.0 - 8.0 g/dL LAB CHEMISTRY METHOD 02/19/2025 12:12 PM [facility] Albumin 3.2 3.2 - 5.0 g/dL LAB CHEMISTRY METHOD 02/19/2025 12:12 PM [facility] Total Bilirubin 0.4 0.0 - 1.4 mg/dL LAB CHEMISTRY METHOD 02/19/2025 12:12 PM [facility] Blood Venous blood specimen / Unknown Venipuncture / Unknown 02/19/2025 8:42 AM EDT 02/19/2025 10:48 AM EDT us Lida Jules MD LAB BLOOD ORDERABLES Fin al Result [facility] [address] [place] [address], * (ABNORMAL) Complete blood count (02/19/2025 8:42 AM EDT) [facility] Signature WBC 2.4(L) 4.8 - 10.8 K/mcL LAB HEMETOLOGY [facility] RBC 2.80(L) 4.50 - 5.50 M/mcL LAB HEMETOLOGY METHOD [facility]2025 [facility] Hemoglobin 6.9(L) 13.5 - 17.5 g/dL LAB HEMETOLOGY METHOD 02/19/2025 11:24 AM [facility] Hematocrit 23.4(L) 42.0 - 54.0 % LAB HEMETOLOGY METHOD 02/19/2025 11:24 AM [facility] MCV 83.9 79.0 - 98.0 FL LAB HEMETOLOGY METHOD 02/19/2025 11:24 AM [facility] MCH 24.7(L) 27.0 - 32.0 pcg LAB HEMETOLOGY METHOD 02/19/2025 11:24 AM [facility] MCHC 29.5(L) 32.0 - 37.0 g/dL LAB HEMETOLOGY METHOD 02/19/2025 11:24 AM [facility] RDW 17.5(H) 11.0 - 15.0 % LAB HEMETOLOGY METHOD 02/19/2025 11:24 AM [facility] Platelets 108(L) 130 - 400 K/mcL LAB HEMETOLOGY METHOD 02/19/2025 11:24 AM [facility] MPV 10.4 7.0 - 11.0 FL LAB HEMETOLOGY METHOD 02/19/2025 11:24 AM [facility] NRBC 0.0 <1.0 % LAB HEMETOLOGY METHOD 02/19/2025 11:24 AM EDT [facility] NRBC Absolute 0.00 <0.10 K/mcL LAB HEMETOLOGY METHOD 02/19/2025 11:24 AM EDT [facility] Blood Venous blood specimen / Unknown Venipuncture / Unknown 02/19/2025 8:42 AM EDT 02/19/2025 10:48 AM EDT us Lida Jules MD LAB BLOOD ORDERABLES Fin al Result [facility] [address] [place] [address], documented in this encounter Visit Diagnoses Diagnosis Essential (primary) hypertension Unspecified essential hypertension Type 2 diabetes mellitus with unspecified complications (CMS/HCC V24, CMS/HCC V28) documented in this encounter Care Teams Residential Construction Instructor Relationship Specialty Start Date End Date Sandra Horn NP [address] [place] [address] PCP - General Nurse Practitioner 06/29/24 documented as of this encounter
--- OUTSIDE RECORDS SUMMARY | 2025-02-21 18:17 | XMS_ITS | Encounter Summary ---
Author Organization [facility] Address [address] [place] [address] Care Team Providers Care Railway Signal Electrician Name Role Phone Sandra Horn COCOA MILL OPERATOR Primary Care Provider [phone] Encounter Details Date Type Department Care Team (Late st Contact Info) Description 10/20/2024 Lab Requisition [facility] - Main Lab [address] [place] [address] Lida Jules MD [address] [id number] Fever, unspecified; Cough, unspecified; Weakness Social History Tobacco Use Types Packs/Day Years [...] Procedure Name Priority Date/Time Associated Diagnosis Comments [id number], RSV, FLU A AND B QUALITATIVE RT-PCR, LOCAL REFERENCE LAB Routine 10/20/2024 11:28 AM EDT Fever, unspecified Cough, unspecified Weakness documented in this encounter Results * [id number], RSV, Influenza A and B qualitative RT-PCR (10/20/2024 11:28 AM EDT) SARS COV-2 Not Detected Not Detected LAB MOLECULAR DIAGNOSTICS METHOD 10/20/2024 2:54 PM EDT [facility] Comment: Disclaimer: The manner in which this information is used to guide patient care is the responsibility of the healthcare provider. Testing was performed using the [employer] m SARS-CoV-2 test. This test has been authorized by FDA under an Emergency Use Authorization (EUA). This test is only authorized for the duration of time the declaration that circumstances exist justifying the authorization of the emergency use of in vitro diagnostic tests for detection of SARS-CoV-2 virus and/or diagnosis of COVID-19 infection under section 564(b)(1) of the Act, 21 U.S.C. 360bbb- 3(b)(1), unless the authorization is terminated or revoked sooner. Fact sheet for Healthcare Providers can be found at: https://www.fda.gov/media/377719/download Fact sheet for Patients can be found at: https://www.fda.gov/media/381791/download Influenza A PCR Not Detected Not Detected LAB MOLECULAR DIAGNOSTICS METHOD 10/20/2024 2:54 PM EDT [facility] Influenza B PCR Not Detected Not Detected LAB MOLECULAR DIAGNOSTICS METHOD 10/20/2024 2:54 PM EDT [facility] RSV PCR Not Detected Not Detected LAB MOLECULAR DIAGNOSTICS METHOD 10/20/2024 2:54 PM EDT [facility] Swab Nasopharyngeal structure / Unknown Non-blood Collection / Unknown 10/20/2024 11:28 AM EDT 10/20/2024 11:35 AM EDT Lida Jules MD LAB MICROBIOLOGY - [facility] AL ORDERABLES Final Result Performing Organization Address City/State/[facility] Co de Phone Number [facility] [address] [place] [address], documented in this encounter Visit Diagnoses Diagnosis Fever, unspecified Cough, unspecified Weakness Other malaise and fatigue documented in this encounter Additional Health Concerns Infection Onset Date Last Indicated Resolved Time Respiratory Rule-Out 10/20/2024 10/20/2024 025 2:54 PM EDT documented as of this encounter Care Teams Railway Signal Electrician Relationship Specialty Start Date End Date Sandra Horn NP [address] [place] [address] PCP - General Nurse Practitioner 06/29/24 documented as of this encounter
--- OUTSIDE RECORDS SUMMARY | 2025-02-21 18:18 | XMS_ITS | Clinical Summary ---
Author Organization [facility] Address [address] [place] [address] Care Team Providers Care Visual Coordinator Name Role Phone Karin London MD Primary Care Provider [phone] Allergies Active Allergy Reactions Criticality Noted Date [...] Years Used Date Smoking Tobacco: Never Assessed [facility] Utilities Answer Date Recorded In the past 12 months has [employer], oil, or water [employer] threatened to shut off services in your [...] place to sleep or slept in a usp (including now)? No 03/22/2023 Sex and Gender [...] 87 03/25/2023 12:37 PM EST Temperature 36.4 C (97.5 F) 03/25/2023 8:11 AM EST Respiratory Rate 18 03/25/2023 4:00 AM EST [...] Vaccine (1 of 2) 1996 RSV Vaccine 50 years and older and Patients (1 - 1-dose 75+ series) 2021 Influenza Vaccine 11/24/2024 01/08/2021, , 06/09/2019, Additional history exists COVID-19 Vaccine ( - season) 2024 07/31/2021, 03/08/2021, 06/12/2020, Additional history exists Hemoglobin A1C Discontinued 03/21/2023, 02/25, 12/03/2021 Advance Care Planning Completed 03/23/2023 Hepatitis B Vaccines Aged Out No long [...] performed. <5.7 % 03/21/2023 9:33 PM EST [facility] Estimated Average Glucose Specimen clotted. Test not performed. mg/dL 03/21/2023 9:33 PM EST [facility] Blood specimen (specimen) Blood specimen / Unknown 03/21/2023 8:21 PM EST 03/21/2023 9:17 PM EST Marge WILLINGHAM LAB BLOOD ORDERABLES Evie gonzalez Result [facility] [address] [place] [address], [facility] [address] [place] [address] from Last 3 Months or Most Recently Relevant to Health Maintenance Insurance 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 Health Care Represent ative Care Teams Visual Coordinator Relationship Specialty Start Date End Date Karin London MD [address] [place] [address] PCP - General Family Medicine 03/21/23
--- OUTSIDE RECORDS SUMMARY | 2025-02-21 18:18 | XMS_ITS | Encounter Summary ---
Author Organization [facility] Address [address] [facility] [address] [place] [address] Phone Care Team Providers Care Operator Helper Name Role Phone Jovanna London MD Primary Care Provider [phone] Jovanna London MD Unavailable Manolo Meléndez MD Primary Care Provider + Manolo Tamayo MD Primary Care Provider [phone] Aleja Madrid NP Primary Care Provider [phone] Encounter Details Date Type Department Care Team (Late st Contact Info) Description 12/12/20[address] Procedure [address] [facility], Ct Scan - [address] [address] Social History Tobacco Use Types Packs/Day Years [...] 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 Wish to be (Past 1 Month) No 023 9:07 PM EDT Maria Bell RN 2. Non-Specific Active Suici will Thoughts (Past 1 Month) No 12/12/2022 9:07 PM EDT Pipe Bell RN 6. Suicidal Behavior (Lifetime) No 9:07 PM EDT Maria Bell RN documented as of this encounter Plan [...] documented as of this encounter Care Teams Operator Helper Relationship Specialty Start Date End Date Jovanna London MD [address] [place] [address] PCP - General Family Medicine 09/30/18 03/20/23 Manolo Meléndez MD [address] [place] [address] [email or web address] PCP - General Rheumatology 03/21/23 03/25/23 Manolo Tamayo MD [address] [place] [address] [email or web address] PCP - General Internal Medicine 03/26/2311/02/23 Aleja Madrid NP [address] [address] PCP - General Nurse Practitioner 11/03/23 Jovanna London MD [address] [place] [address] Family Medicine 03/21/23 documented as of this encounter Additional Source Comments The information contained in this document represents components of the legal health record. It is not the complete legal health record.[facility]
--- OUTSIDE RECORDS SUMMARY | 2025-02-21 18:18 | XMS_ITS | Encounter Summary ---
Author Organization [facility] Address [address] [facility] [address] [place] [address] Phone Care Team Providers Care Surgical Assistant Certified Name Role Phone Jovanna London MD Primary Care Provider [phone] Jovanna London MD Unavailable [phone] Manolo Meléndez MD Primary Care Provider + Manolo Tamayo MD Primary Care Provider [phone] Aleja Madrid NP Primary Care Provider [phone] Encounter Details Date Type Department Care Team (Late st Contact Info) Description 12/30/2020 Procedure Pass [facility] [address] [place] [address] Social History Tobacco Use Types Packs/Day Years [...] documented as of this encounter Care Teams Surgical Assistant Certified Relationship Specialty Start Date End Date Jovanna London MD [address] [place] [address] PCP - General Family Medicine 09/30/18 03/20/23 Manolo Meléndez MD [address] [place] [address] [email or web address] PCP - General Rheumatology 03/21/23 03/25/23 Manolo Tamayo MD [address] [place] [address] [email or web address] PCP - General Internal Medicine 03/26/2311/02/23 Aleja Madrid NP [address] [address] PCP - General Nurse Practitioner 11/03/23 Jovanna London MD [address] [place] [address] Family Medicine 03/21/23 documented as of this encounter Additional Source Comments The information contained in this document represents components of the legal health record. It is not the complete legal health record.[facility]
--- OUTSIDE RECORDS SUMMARY | 2025-02-21 18:18 | XMS_ITS | Encounter Summary ---
Author Organization [facility] Address [address] [facility] [address] [place] [address] Phone Care Team Providers Care Silk Folder Name Role Phone Jovanna London MD Primary Care Provider [phone] Jovanna London MD Unavailable Manolo Meléndez MD Primary Care Provider + Manolo Tamayo MD Primary Care Provider [phone] Aleja Madrid NP Primary Care Provider [phone] Encounter Details Date Type Department Care Team (Late st Contact Info) Description 12/14/2019 Procedure Pass [facility], Ct Scan - [address] [address] Social History Tobacco Use Types Packs/Day Years [...] documented as of this encounter Care Teams Silk Folder Relationship Specialty Start Date End Date Jovanna London MD [address] [place] [address] PCP - General Family Medicine 09/30/18 03/20/23 Manolo Meléndez MD [address] [place] [address] [email or web address] PCP - General Rheumatology 03/21/23 03/25/23 Manolo Tamayo MD [address] [address] [email or web address] PCP - General Internal Medicine 03/26/2311/02/23 Aleja Madrid NP [address] [address] PCP - General Nurse Practitioner 11/03/23 Jovanna London MD [address] [place] [address] Family Medicine 03/21/23 documented as of this encounter Additional Source Comments The information contained in this document represents components of the legal health record. It is not the complete legal health record.[facility]
--- OUTSIDE RECORDS SUMMARY | 2025-02-21 18:18 | XMS_ITS | Encounter Summary ---
Author Organization [facility] Address [address] [facility] [address] [place] [address] Phone Care Team Providers Care Pan Shover Name Role Phone Jovanna London MD Primary Care Provider [phone] Jovanna London MD Unavailable [phone] Manolo Meléndez MD Primary Care Provider + Manolo Tamayo MD Primary Care Provider [phone] Aleja Madrid NP Primary Care Provider [phone] Encounter Details Date Type Department Care Team (Late st Contact Info) Description 12/29/2020 Procedure Pass [facility], Ct Scan - [address] [address] Social History Tobacco Use Types Packs/Day Years [...] Date of Assessment Author No Risk Indicated 12/29/2020 7:34 PM EDT Jerardo Prado RN * [place] Suicide Severity Rating Scale (Screener/Recent Self-Report) Question Answer Date of Assessment Author 1. Wish to be (Past 1 Month) No 021 7:34 PM EDT Jerardo Prado RN 2. Non-Specific Active Suici will Thoughts (Past 1 Month) No 12/29/2020 7:34 PM EDT Joselo Prado RN 6. Suicidal Behavior (Lifetime) No 7:34 PM EDT Jerardo Prado RN documented as of this encounter Plan [...] documented as of this encounter Care Teams Pan Shover Relationship Specialty Start Date End Date Jovanna London MD [address] [place] [address] PCP - General Family Medicine 09/30/18 03/20/23 Manolo Meléndez MD [address] [place] [address] [email or web address] PCP - General Rheumatology 03/21/23 03/25/23 Manolo Tamayo MD [address] [place] [address] [email or web address] PCP - General Internal Medicine 03/26/2311/02/23 Aleja Madrid NP [address] [address] PCP - General Nurse Practitioner 11/03/23 Jovanna London MD [address] [place] [address] Family Medicine 03/21/23 documented as of this encounter Additional Source Comments The information contained in this document represents components of the legal health record. It is not the complete legal health record.[facility]
--- NOTE | 2025-02-21 23:53 | PC.NURSE ---
This RN assumed pt care @2300. Pt a&ox4, no signs of distress Pt denies pain at this time, besides my bottom from lying in this bed Plan of care ongoing.
[2025-02-22 00:06] VITALS: BP 120/60; PULSE 70; RESP 18; TEMP 36.7; O2SAT 96
[2025-02-22 00:07] VITALS: BP 120/60; PULSE 70; RESP 18; TEMP 36.7; O2SAT 96
--- NOTE | 2025-02-22 00:14 | PC.NURSE ---
[facility] called and nurse to nurse report given to
== END 2025-02-22 00:14 | disposition home or self-care (01) ==
PROVIDERS: Emergency Medicine; Emergency Provider Emergency Medicine Emergency Medical Services; PCP Internal Medicine
DX: D64.9 Anemia, unspecified (principal); F03.90 Unspecified dementia, unspecified severity, without behavioral disturbance, psychotic disturbance, mood disturbance, and anxiety; E11.9 Type 2 diabetes mellitus without complications; E03.9 Hypothyroidism, unspecified; Z91.81 History of falling; Z79.899 Other long term (current) drug therapy
CPT/HCPCS: 36415; 36430; 80048; 83735; 85025; 86850; 86900; 86901; 86923; 93005; 99285; P9016

== ENCOUNTER → 2025-02-21 14:02 | Outpatient (BNV) | payer MEDICARE, MEDICAID, SELFPAY | PROVIDERS: Emergency Provider Emergency Medicine Emergency Medical Services; PCP Internal Medicine; Visit Provider Internal Medicine | DX: R53.83 Other fatigue (principal) | CPT/HCPCS: 93010 ==

== ENCOUNTER 2025-03-03 01:48 | Emergency (ER) | payer MEDICARE, MEDICAID, SELFPAY ==
[2025-03-03 01:58] VITALS: BP 100/55; BP 111/57; PULSE 82; PULSE 85; RESP 17; TEMP 36.8; O2SAT 98; BMI 35.2
--- NOTE | 2025-03-03 02:02 | ED.GENADULT ---
HPI - General Adult General Chief complaint: Recheck/Abnormal Lab/Rx Stated complaint: Low Hemoglobin, HX Dementia, +Blood thinners Time Seen by Provider: 03/03/25 01:53 Source: EMS Mode of arrival: EMS Limitations: altered mental status (Baseline dementia) History of Present Illness ED Provider: Kemar WILLINGHAM HPI narrative: The patient is a 79-year-old male with a history of dementia presenting to the ED via EMS from [facility] for a report of ?low hemoglobin?. The patient is a poor historian secondary to dementia, unable to provide a reliable HPI. Majority of HPI was obtained from EMS and a phone call to the rehab facility. The patient arrived to the ED with reports of low hemoglobin, however labs demonstrating low hemoglobin were from February 19, patient was seen here on February 21 for evaluation of those labs. On 02/21 the patient had no source of bleeding, was transfused with 1 unit of blood, and discharged back to his facility. Upon call to the patient's facility by RN, it was clarify the patient has not had any repeat labs since the recent ED visit, however patient reportedly was noted to have tachycardia in the 130s around 22:00 tonight. It is unclear if the patient had any persistent tachycardia or was still tachycardic at time of EMS activation around 01:00. The patient arrives to the ED without any somatic complaint, in no acute distress, normotensive, without tachycardia, tachypnea, fever, or hypoxia. The patient denies any sources of bleeding. Related Data Home Medications ?Medication ?Instructions ?Recorded ?Confirmed apixaban 5 mg tablet (Eliquis) 5 mg PO BID 08/22/24 atorvastatin 20 mg tablet 20 mg PO DAILY 08/22/24 doxycycline hyclate 100 mg tablet 100 mg PO BID 08/22/24 duloxetine 20 mg capsule,delayed 20 mg PO BID 08/22/24 release insulin glargine 100 unit/mL unit subcut 08/22/24 subcutaneous solution (Lantus U-100 Insulin) insulin lispro 100 unit/mL subcut 08/22/24 subcutaneous pen (Humalog KwikPen (U-100) Insulin) levothyroxine 137 mcg tablet 137 mcg PO DAILY 08/22/24 metformin 1,000 mg tablet 1,000 mg PO BID 08/22/24 tamsulosin 0.4 mg capsule mg PO 08/22/24 topiramate 25 mg tablet 25 mg PO BID 08/22/24 venlafaxine 37.5 mg mg PO 08/22/24 capsule,extended release 24 hr Allergies Allergy/AdvReac Type Severity Reaction Status Date / Time benzalkonium Allergy Mild Unknown Verified 03/03/25 02:00 brimonidine Allergy Mild Unknown Verified 03/03/25 02:00 clindamycin Allergy Mild Unknown Verified 03/03/25 02:00 dorzolamide (From Trusopt) Allergy Mild Unknown Verified 03/03/25 02:00 gabapentin Allergy Mild Unknown Verified 03/03/25 02:00 heparin Allergy Mild Unknown Verified 03/03/25 02:00 ketoconazole (From Nizoral) Allergy Mild unknown Verified 03/03/25 02:00 lamotrigine Allergy Mild Unknown Verified 03/03/25 02:00 penicillin G Allergy Mild Unknown Verified 03/03/25 02:00 prednisone Allergy Mild Unknown Verified 03/03/25 02:00 pyridoxine Allergy Mild Unknown Verified 03/03/25 02:00 rivaroxaban Allergy Mild Unknown Verified 03/03/25 02:00 sulfamethoxazole (From Allergy Mild Unknown Verified 03/03/25 02:00 Sulfamethoxazole-Trimethoprim) timolol Allergy Mild Unknown Verified 03/03/25 02:00 travoprost (From Travatan Z) Allergy Mild Unknown Verified 03/03/25 02:00 trimethoprim (From Allergy Mild Unknown Verified 03/03/25 02:00 Sulfamethoxazole-Trimethoprim) vancomycin Allergy Mild Unknown Verified 03/03/25 02:00 Review of Systems Review of Systems: Yes all other systems are reviewed and are negative PMFSH Past Medical History Medical History Venous thrombosis and embolism Edema Anemia PTSD (post-traumatic stress disorder) Hypercholesteremia Hypothyroidism Diabetes Social History Social History Advance Directives: Yes Advance Directives on File: Yes Advance Directives Date on File: 02/21/25 Do you have a plan to hurt others: No Plan Physical Exam ED Vital Signs: Vital Signs - 24 hr 03/03/25 01:58 Temperature 98.3 F Pulse Rate 85 Respiratory Rate 17 Blood Pressure 111/57 L Pulse Oximetry 98 Oxygen Delivery Method Room Air BMI result Body Mass Index 35.2 CONSTITUTIONAL: The patient appears non-toxic, well nourished and in no acute distress. Vital signs as documented. HEAD: Atraumatic, normocephalic. EYES: EOMs grossly intact, pupils equal, conjunctiva clear, no exudate. ENT: Nares patent, no discharge. Airway patent, no audible stridor, visible mucosa is pink and moist without noted lesions. NECK: Trachea is midline, no obvious masses or gross abnormalities. CHEST: Symmetric movement, normal appearance. LUNGS: LS present and CTAB, no w/r/r. Non-labored work of breathing. CARDIAC: Regular Rhythm, S1/S2 appreciated, no murmurs, rubs or gallops. ABDOMEN: Abdomen soft and non-tender x4 quadrants, no palpable masses or organomegaly. : Deferred. EXTREMITIES: Normal tone, moves all extremities spontaneously without reported pain. No obvious acute injury or deformity noted. NEURO: Alert and pleasantly confused, CN II-XII appear grossly intact. Cerebellar Functioning grossly intact. No obvious sensory or motor deficits. Speech clear and appropriate. PSYCH: normal affect, appropriate eye contact, fluid speech, with appropriate response to questioning. No reported suicidality or homicidality. SKIN: Warm, dry, color appropriate, normal turgor. No rashes noted. Medical Decision Making Medical Decision Making MDM Narrative: 2:34 AM 03/03/2025 (Filemon WILLINGHAM): The patient is a 79-year-old male with a history of dementia presenting to the ED via EMS from [facility] for a report of ?low hemoglobin?. The patient is a poor historian secondary to dementia, unable to provide a reliable HPI. Majority of HPI was obtained from EMS and a phone call to the rehab facility. The patient arrived to the ED with reports of low hemoglobin, however labs demonstrating low hemoglobin were from February 19, patient was seen here on February 21 for evaluation of those labs. On 02/21 the patient had no source of bleeding, was transfused with 1 unit of blood, and discharged back to his facility. Upon call to the patient's facility by RN, it was clarify the patient has not had any repeat labs since the recent ED visit, however patient reportedly was noted to have tachycardia in the 130s around 22:00 tonight. It is unclear if the patient had any persistent tachycardia or was still tachycardic at time of EMS activation around 01:00. The patient arrives to the ED without any somatic complaint, in no acute distress, normotensive, without tachycardia, tachypnea, fever, or hypoxia. The patient denies any sources of bleeding. Exam is benign. The patient's labs were drawn and have now resulted with H&H of 8.6 and 27.6, markedly improved from previous of 7.4 and 24.7. Chemistry reveals no electrolyte abnormality or MARTINA, no LFT abnormalities. Seeing as patient's labs are improved compared to previous, and the patient does not have any active bleeding or vital sign abnormalities, the patient does not meet criteria for additional blood transfusion at this time. Seeing as the patient has no acute somatic complaint, blood counts are improved, patient has no active bleeding, and is hemodynamically stable, the patient will be discharged back to his facility for outpatient follow up. Lab Data 03/03/25 02:10 03/03/25 02:10 Labs: Lab Results 03/03/25 Range/Units 02:10 WBC 2.9 L (4.8-10.8) X10*3/uL RBC 3.36 L (4.60-5.80) X10*6/uL Hgb 8.6 L (14.0-18.0) g/dl Hct 27.6 L (42.0-52.0) % MCV 82.1 (80.0-98.0) fL MCH 25.6 L (27.0-33.0) pg MCHC 31.2 (31.0-36.0) g/dl RDW 18.8 H (11.0-16.0) % Plt Count 102 L (160-400) X10*3/uL MPV 10.5 (9.4-12.4) fL Discharge Plan Discharge Clinical Impression: Sinus tachycardia, Encounter for laboratory test Patient Disposition: Home, Self-Care Instructions: Tachycardia (ED) Additional Instructions: Thank you for choosing [facility]'s Emergency Department for your care today. Thankfully your high heart rate reported by your fpc resolved prior to arrival in the ED. Your heart rate today in the emergency department was normal. Additionally your laboratory evaluation shows a significant improvement in your blood levels compared to your most recent lab work. At this time there is no indication for a blood transfusion, admission to the hospital, or continued ED observation, and it is safe to discharge you home. Please stay well hydrated and get plenty of rest. Please follow up with your primary care physician for re-evaluation, additional management of your symptoms, and continued preventative care. If you do not have a primary care physician, please call the [facility] at [phone] to establish a new primary care physician. While waiting to establish your new primary care physician, you can call our Walk-in Care Clinic at [phone] for non-emergency needs. Please return to the emergency department if you develop a severe or sudden change in your symptoms, a fever over 100.4 that does not improve with Tylenol or Ibuprofen, recurrent vomiting, or any other new or worsening symptoms or concerns. Prescriptions: No Action Eliquis 5 mg tablet 5 mg PO BID duloxetine 20 mg capsule,delayed release(DR/EC) 20 mg PO BID atorvastatin 20 mg tablet 20 mg PO DAILY insulin glargine [Lantus U-100 Insulin] 100 unit/mL solution subcut tamsulosin 0.4 mg capsule PO metformin 1,000 mg tablet 1,000 mg PO BID levothyroxine 137 mcg tablet 137 mcg PO DAILY topiramate 25 mg tablet 25 mg PO BID insulin lispro [Humalog KwikPen Insulin] 100 unit/mL insulin pen subcut venlafaxine 37.5 mg capsule,extended release 24hr PO doxycycline hyclate 100 mg tablet 100 mg PO BID Referrals: Lida Jules MD [Primary Care Provider, Physical Medicine and Rehab] Clinical Impression: Sinus tachycardia; Encounter for laboratory test Print Language: Telugu
[2025-03-03 02:16] LABS: Hematocrit 27.6 % (42.0-52.0); Hemoglobin 8.6 g/dl (14.0-18.0); Imm Gran Abs Auto 0.11 X10*3/uL (0.00-0.03); Imm Gran Pct Auto 3.8 % (0.0-0.4); Lymphocytes Absolute Auto 0.8 X10*3/uL (1.2-4.9); MANUAL DIFF FLAG SCAN; Mean Corpuscular HGB Conc 31.2 g/dl (31.0-36.0); Mean Corpuscular Hemoglobin 25.6 pg (27.0-33.0); Mean Corpuscular Volume 82.1 fL (80.0-98.0); NRBC Abs Auto 0.000 X10*3/uL (0.0-0.012); NRBC Pct Auto 0.0 /100WBC (0.0-0.2); Platelet Count 102 X10*3/uL (160-400); Red Blood Count 3.36 X10*6/uL (4.60-5.80); SCAN SMEAR FLAG 1; White Blood Count 2.9 X10*3/uL (4.8-10.8)
--- OUTSIDE RECORDS SUMMARY | 2025-03-03 02:28 | XMS_ITS | Clinical Summary ---
Author Organization [facility] Address [address] [place] [address] Phone Care Team Providers Care Dining Room Attendant Name Role Phone Sandra Horn ABHIJIT Primary Care Provider [phone] Encounters Date Type Department Care Team Description 02/21/2025 Lab Requisition [facility] Lab [address] [place] [address] Lida Jules MD Anemia, unspecified 02/19/2025 Lab Requisition [facility] Lab [address] [place] [address] Lida Jules MD Essential (primary) [...] Tdap) 11/19/2024 11/19/2014, 12/25/2008, 11/28/2008 COVID-19 Vaccine (3 - 2024- season) 2024 06/12/2020, 05/15/2020 Influenza Vaccine (#1) 2024 , 03/27/2023, 02/09/2020, Additional history exists Diabetes: Blood Sugar Control [...] LAB HEMETOLOGY METHOD 02/21/2025 11:27 AM EDT [facility] RBC 2.60(L) 4.50 - 5.50 M/mcL LAB HEMETOLOGY METHOD 02/21/2025 11:27 AM T [facility] Hemoglobin 6.6(L) 13.5 - 17.5 g/dL LAB HEMETOLOGY METHOD 02/21/2025 11:27 AM T [facility] Hematocrit 21.9(L) 42.0 - 54.0 % LAB HEMETOLOGY METHOD 02/21/2025 11:27 AM EDT [facility] MCV 83.3 79.0 - 98.0 FL LAB HEMETOLOGY METHOD 02/21/2025 11:27 AM [facility] MCH 25.1(L) 27.0 - 32.0 pcg LAB HEMETOLOGY METHOD 02/21/2025 11:27 AM EDT [facility] MCHC 30.1(L) 32.0 - 37.0 g/dL LAB HEMETOLOGY METHOD 02/21/2025 11:27 AM [facility] RDW 17.5(H) 11.0 - 15.0 % LAB HEMETOLOGY METHOD 02/21/2025 11:27 AM [facility] Platelets 118(L) 130 - 400 K/mcL LAB HEMETOLOGY METHOD 02/21/2025 11:27 AM T [facility] MPV 10.9 7.0 - 11.0 FL LAB HEMETOLOGY METHOD 02/21/2025 11:27 AM [facility] NRBC 0.0 <1.0 % LAB HEMETOLOGY METHOD 02/21/2025 11:27 AM [facility] NRBC Absolute 0.00 <0.10 K/mcL LAB HEMETOLOGY METHOD 02/21/2025 11:27 AM [facility] Blood Venous blood specimen / Unknown Venipuncture / Unknown 02/21/2025 4:50 AM EDT 02/21/2025 10:24 AM EDT us Lida Jules MD LAB BLOOD ORDERABLES Fin al Result [facility] [address] [place] [address], * (ABNORMAL) Lipid panel with reflex to direct LDL (02/19/2025 8:42 AM EDT) Cholesterol 80 0 - 200 mg/dL LAB CHEMISTRY METHOD 02/19/2025 12:12 PM T [facility] Triglycerides 95 0 - 150 mg/dL LAB CHEMISTRY METHOD 02/19/2025 12:12 PM EDT [facility] HDL 22(L) >=40 mg/dL LAB CHEMISTRY METHOD 02/19/2025 12:12 PM EDT [facility] LDL Calculated 39 0 - 100 mg/dL LAB CHEMISTRY METHOD 02/19/2025 12:12 PM EDT [facility] Comment:Estimated LDL Calcul ated using equation: Total cholesterol - HDL cholesterol - (Triglycerides/5) VLDL Cholesterol Steven 19 mg/dL LAB CHEMISTRY METHOD 02/19/2025 12:12 PM EDT [facility] Non HDL Chol. (LDL+VLDL) 58 <145 mg/dL LAB CHEMISTRY METHOD 02/19/2025 12:12 PM [facility] Chol/HDL Ratio 3.6 0.0 - 4.4 LAB CHEMISTRY METHOD 02/19/2025 12:12 PM [facility] Blood Venous blood specimen / Unknown Venipuncture / Unknown 02/19/2025 8:42 AM EDT 02/19/2025 10:48 AM EDT us Lida Jules MD LAB BLOOD ORDERABLES Fin al Result [facility] [address] [place] [address], * (ABNORMAL) Thyroid stimulating hormone (02/19/2025 8:42 AM EDT) TSH 4.99(H) 0.40 - 4.00 mcIU/mL LAB CHEMISTRY METHOD 02/19/2025 1:25 PM EDT [facility] Blood Venous blood specimen / Unknown Venipuncture / Unknown 02/19/2025 8:42 AM EDT 02/19/2025 10:48 AM EDT Lida Jules MD LAB BLOOD ORDERABLES Fin al Result Performing Organization Address City/[facility]/ZIP Co de Phone Number [facility] [address] [place] [address], * Thyroxine free (02/19/2025 8:42 AM EDT) Free T4 0.82 0.70 - 1.80 ng/dL LAB CHEMISTRY METHOD 02/19/2025 1:25 PM EDT [facility] Blood Venous blood specimen / Unknown Venipuncture / Unknown 02/19/2025 8:42 AM EDT 02/19/2025 10:48 AM EDT Lida Jules MD LAB BLOOD ORDERABLES Fin al Result Performing Organization Address [facility] Co de Phone Number [facility] [address] [place] [address], * Hemoglobin A1c (02/19/2025 8:42 AM EDT) Hemoglobin A1C 6.1 <6.5 % LAB CHEMISTRY METHOD 02/19/2025 9:42 PM EDT [facility] Mean Bld Glu Estim. 128 mg/dL LAB CHEMISTRY METHOD 02/19/2025 9:42 PM EDT [facility] Blood Venous blood specimen / Unknown Venipuncture / Unknown 02/19/2025 8:42 AM EDT 02/19/2025 10:48 AM EDT Lida Jules MD LAB BLOOD ORDERABLES Fin al Result [facility] [address] [place] [address], * (ABNORMAL) Comprehensive metabolic panel (02/19/2025 8:42 AM EDT) Sodium 136 133 - 145 mmol/L LAB CHE[facility]STRY [facility] Potassium 4.0 3.5 - 5.5 mmol/L LAB CHEMISTRY METHOD 02/19/2025 12:12 PM [facility] Chloride 104 96 - 110 mmol/L LAB CHEMISTRY METHOD 02/19/2025 12:12 PM [facility] CO2 25 21 - 32 mmol/L LAB CHEMISTRY METHOD 02/19/2025 12:12 PM [facility] Anion Gap 7 3 - 11 LAB CHEMISTRY METHOD 02/19/2025 12:12 PM [facility] Glucose 155(H) 70 - 100 mg/dL LAB CHEMISTRY METHOD 02/19/2025 12:12 PM [facility] BUN 15 5 - 25 mg/dL LAB CHEMISTRY METHOD 02/19/2025 12:12 PM [facility] Creatinine 0.81 0.70 - 1.30 mg/dL LAB CHEMISTRY METHOD 02/19/2025 12:12 PM [facility] eGFR 90 >=60 mL/min/1. 73m2 LAB CHEMISTRY METHOD 02/19/2025 12:12 PM [facility] Comment:Calculation based on the Chronic Kidney Disease Epidemiology Collaboration (CKD-EPI) equation refit without adjustment for race. BUN/Creatinine Ratio 18.5 LAB CHEMISTRY METHOD 02/19/2025 12:12 PM [facility] Calcium 8.7 8.5 - 10.5 mg/dL LAB CHEMISTRY METHOD 02/19/2025 12:12 PM [facility] AST (SGOT) 8(L) 10 - 42 unit/L LAB CHEMISTRY METHOD 02/19/2025 12:12 PM EDT [facility] ALT (SGPT) 8(L) 10 - 60 unit/L LAB CHEMISTRY METHOD 02/19/2025 12:12 PM EDT [facility] Alkaline Phosphatase 75 42 - 121 unit/L LAB CHEMISTRY METHOD 02/19/2025 12:12 PM EDT [facility] Total Protein 6.0 6.0 - 8.0 g/dL LAB CHEMISTRY METHOD 02/19/2025 12:12 PM EDT [facility] Albumin 3.2 3.2 - 5.0 g/dL LAB CHEMISTRY METHOD 02/19/2025 12:12 PM EDT [facility] Total Bilirubin 0.4 0.0 - 1.4 mg/dL LAB CHEMISTRY METHOD 02/19/2025 12:12 PM EDT [facility] Blood Venous blood specimen / Unknown Venipuncture / Unknown 02/19/2025 8:42 AM EDT 02/19/2025 10:48 AM EDT Lida Jules MD LAB BLOOD ORDERABLES Fin al Result [facility] [address] [place] [address], from Last 3 Months Insurance MEDICARE MEDICAID - [place] Care Teams Dining Room Attendant Relationship Specialty Start Date End Date Sandra Horn NP [address] [place] [address] PCP - General Nurse Practitioner 06/29/24
--- OUTSIDE RECORDS SUMMARY | 2025-03-03 02:28 | XMS_ITS | Encounter Summary ---
Author Organization [facility] Address [address] [place] [address] Care Team Providers Care Executive Assistant Name Role Phone Sandra Horn ABHIJIT Primary Care Provider [phone] Encounter Details Date Type Department Care Team (Late st Contact Info) Description 03/11/2024 Lab Requisition [facility] - Main Lab [address] [facility] [place] [address] Lida Jules MD [address] [id number] Hypothyroidism, unspecified Social History Tobacco Use Types [...] LAB CHEMISTRY METHOD 03/13/2024 11:04 AM EST [facility] Blood Venous blood specimen / Unknown Venipuncture / Unknown 03/13/2024 7:05 AM EST 03/13/2024 8:32 AM EST Lida Jules MD LAB BLOOD ORDERABLES Fin al Result Performing Organization Address [facility]/ZIP Co de Phone Number [facility] [address] [place] [address], [place] [phone] * Free thyroxine with reflex to free triiodothyronine (03/13/2024 7:05 AM EST) Free T4 1.15 0.70 - 1.80 ng/dL LAB CHEMISTRY METHOD 03/13/2024 10:38 AM EST [facility] Blood Venous blood specimen / Unknown Venipuncture / Unknown 03/13/2024 7:05 AM EST 03/13/2024 8:32 AM EST Lida Jules MD LAB BLOOD ORDERABLES Fin al Result Performing Organization Address City/[facility]/ZIP Co de Phone Number [facility] [address] [place] [address], [place] [phone] * (ABNORMAL) Folate (03/13/2024 7:05 AM EST) Folate >20.0(H) 2.8 - 17.0 ng/ml LAB CHEMISTRY METHOD 03/13/2024 10:28 AM EST [facility] Blood Venous blood specimen / Unknown Venipuncture / Unknown 03/13/2024 7:05 AM EST 03/13/2024 8:32 AM EST Lida Jules MD LAB BLOOD ORDERABLES Fin al Result Performing Organization Address [facility]/ZIP Co de Phone Number [facility] [address] [place] [address], * Vitamin B12 (03/13/2024 7:05 AM EST) Vitamin B-12 464 250 - 900 pcg/mL LAB CHEMISTRY METHOD 03/13/2024 10:28 AM EST [facility] Blood Venous blood specimen / Unknown Venipuncture / Unknown 03/13/2024 7:05 AM EST 03/13/2024 8:32 AM EST Lida Jules MD LAB BLOOD ORDERABLES Fin al Result Performing Organization Address [facility] de Phone Number [facility] [address] [place] [address], * (ABNORMAL) Thyroid stimulating hormone with reflex to free t4 and free t3 (03/13/2024 7:05 AM EST) TSH 4.06(H) 0.40 - 4.00 mcIU/mL LAB CHEMISTRY METHOD 03/13/2024 10:11 AM EST [facility] Blood Venous blood specimen / Unknown Venipuncture / Unknown 03/13/2024 7:05 AM EST 03/13/2024 8:32 AM EST Lida Jules MD LAB BLOOD ORDERABLES Fin al Result Performing Organization Address [facility] Co de Phone Number [facility] [address] [place] [address], documented in this encounter Visit Diagnoses Diagnosis Hypothyroidism, unspecified documented in this encounter Additional Health Concerns Infection Onset Date Last Indicated Resolved Time Respiratory Rule-Out 10/20/2024 10/20/2024 025 2:54 PM EDT documented as of this encounter Care Teams Executive Assistant Relationship Specialty Start Date End Date Sandra Horn NP [address] [place] [address] PCP - General Nurse Practitioner 06/29/24 documented as of this encounter
--- OUTSIDE RECORDS SUMMARY | 2025-03-03 02:28 | XMS_ITS | Encounter Summary ---
Author Organization [facility] Address [address] [place] [address] Care Team Providers Care Lead Manufacturing Engineering Tech Name Role Phone Sandra Horn WRAPPER LAYER AND EXAMINER SOFT WORK Primary Care Provider [phone] Encounter Details Date Type Department Care Team (Latest Contact Info) Description 06/29/2024 Lab Requisition [facility] - Main Lab [address] [facility] [place] [address] Sandra Horn NP [address] [place] [address] Type 2 diabetes mellitus without [...] EST Type 2 diabetes mellitus without complications ([facility]/HCC) HEMOGLOBIN A1C Routine 06/29/2024 6:45 AM EST Type 2 diabetes mellitus without complications ([facility]/HCC) BASIC METABOLIC PANEL Routine 06/29/2024 6:45 AM EST Type 2 diabetes mellitus without complications (CMS/HCC) documented in this encounter Results * (ABNORMAL) Hemoglobin A1c (06/29/2024 6:45 AM EST) Hemoglobin A1C 8.2(H) <6.5 % LAB CHEMISTRY METHOD 06/29/2024 9:23 PM EST [facility] Mean Bld Glu Estim. 189 mg/dL LAB CHEMISTRY METHOD 06/29/2024 9:23 PM [facility] Blood Venous blood specimen / Unknown Venipuncture / Unknown 06/29/2024 6:45 AM EST 06/29/2024 10:45 AM EST us Sandra Horn WRAPPER LAYER AND EXAMINER SOFT WORK LAB BLOOD ORDERABLES Final Resul t [facility] [address] [place] [address], * (ABNORMAL) Basic metabolic panel (06/29/2024 6:45 [...] [facility] Comment:Calculation based on the Chronic [...] 06/29/2024 10:45 AM EST us Sandra Horn WRAPPER LAYER AND EXAMINER SOFT WORK LAB BLOOD ORDERABLES Final Resul t [facility] [address] [place] [address], * (ABNORMAL) Complete blood count (06/29/2024 6:45 [...] 11:18 AM [facility] RDW 16.0(H) 11.0 - 15.0 % LAB HEMETOLOGY METHOD 06/29/2024 11:18 AM [facility] Platelets 114(L) 130 - 400 K/mcL LAB HEMETOLOGY METHOD 06/29/2024 11:18 AM [facility] MPV 10.9 7.0 - 11.0 FL LAB HEMETOLOGY METHOD 06/29/2024 11:18 AM [facility] NRBC 0.0 <1.0 % LAB HEMETOLOGY METHOD 06/29/2024 11:18 AM [facility] NRBC Absolute 0.00 <0.10 K/mcL LAB HEMETOLOGY METHOD 06/29/2024 11:18 AM [facility] Blood Venous blood specimen / Unknown Venipuncture / Unknown 06/29/2024 6:45 AM EST 06/29/2024 10:45 AM EST Sandra Horn NP LAB BLOOD ORDERABLES Final Resul t [facility] [address] [place] [address], documented in this encounter Visit Diagnoses Diagnosis Type 2 diabetes mellitus without complications (CMS/HCC V24, CMS/HCC V28) documented in this encounter Additional Health Concerns Infection Onset Date Last Indicated Resolved Time Respiratory Rule-Out 10/20/2024 10/20/2024 025 2:54 PM EDT documented as of this encounter Care Teams Lead Manufacturing Engineering Tech Relationship Specialty Start Date End Date Sandra Horn NP [address] [place] [address] PCP - General Nurse Practitioner 06/29/24 documented as of this encounter
--- OUTSIDE RECORDS SUMMARY | 2025-03-03 02:28 | XMS_ITS | Encounter Summary ---
Author Organization [facility] Address [address] [email or web address] [facility] [address] [place] [address] Phone Care Team Providers Care Surgical Instrument Repair Specialist Name Role Phone Jovanna London MD Unavailable [phone] Manolo Tamayo MD Primary Care Provider [phone] Aleja Madrid NP Primary Care Provider [phone] Encounter Details Date Type Department Care Team (Late st Contact Info) Description 10/31/2023 Procedure Pass [facility], Ct Scan - [address] [id number] Social History Tobacco Use Types Packs/Day Years [...] 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 Not on file Not on file documented as of this encounter Functional Status * Calculated C-SSRS Risk Score (Lifetime/Recent) Answer Date of Assessment Author No Risk Indicated 10/31/2023 1:02 AM EDT Aure Caro RN * [place] Suicide Severity Rating Scale (Screener/Recent Self-Report) Question [...] as of this encounter Care Teams Surgical Instrument Repair Specialist Relationship Specialty Start Date End Date Manolo Tamayo MD [address] [place] [address] [email or web address] PCP - General Internal Medicine 03/26/2311/02/23 Aleja Madrid NP [address] [address] PCP - General Nurse Practitioner 11/03/23 Jovanna London MD [facility] [place] [address] Family Medicine 03/21/23 documented as of this encounter Additional Source Comments The information contained in this document represents components of the legal health record. It is not the complete legal health record.[facility]
--- OUTSIDE RECORDS SUMMARY | 2025-03-03 02:28 | XMS_ITS | Encounter Summary ---
Author Organization [facility] Address [address] [employer] [facility] [address] [place] [address] Phone Care Team Providers Care Synchronizer Name Role Phone Jovanna London MD Unavailable [phone] Manolo Meléndez MD Primary Care Provider + Manolo Tamayo MD Primary Care Provider [phone] Aleja Madrid NP Primary Care Provider [phone] Encounter Details Date Type Department Care Team (Late st Contact Info) Description 03/21/2023 Procedure Pass [facility], Ct Scan - [address] [address] Social History Tobacco Use Types Packs/Day Years [...] 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 Not on file Not on file documented as of this encounter Functional Status * Calculated C-SSRS Risk Score (Lifetime/Recent) Answer Date of Assessment Author No Risk Indicated 03/21/2023 4:24 AM Emerald Damian RN * [place] Suicide Severity Rating Scale (Screener/Recent Self-Report) Question [...] documented as of this encounter Care Teams Synchronizer Relationship Specialty Start Date End Date Manolo Meléndez MD [address] [place] [address] [email or web address] PCP - General Rheumatology 03/21/23 03/25/23 Manolo Tamayo MD [address] [address] [email or web address] PCP - General Internal Medicine 03/26/2311/02/23 Aleja Madrid NP [address] [place] [id number] PCP - General Nurse Practitioner 11/03/23 Jovanna London MD [address] [place] [address] Family Medicine 03/21/23 documented as of this encounter Additional Source Comments The information contained in this document represents components of the legal health record. It is not the complete legal health record.[facility]
--- OUTSIDE RECORDS SUMMARY | 2025-03-03 02:29 | XMS_ITS | Encounter Summary ---
Author Organization [facility] Address [address] [employer] [facility] [address] [place] [address] Phone Care Team Providers Care Air Hoist Operator Name Role Phone Jovanna London MD Primary Care Provider [phone] Jovanna London MD Unavailable [phone] Manolo Meléndez MD Primary Care Provider + Manolo Tamayo MD Primary Care Provider [phone] Aleja Madrid NP Primary Care Provider [phone] Encounter Details Date Type Department Care Team (Late st Contact Info) Description 12/14/2019 Procedure Pass [facility], Ct Scan - [address] [address] Social History Tobacco Use Types Packs/Day Years [...] documented as of this encounter Care Teams Air Hoist Operator Relationship Specialty Start Date End Date Jovanna London MD [address] [place] [address] PCP - General Family Medicine 09/30/18 03/20/23 Manolo Meléndez MD [address] [place] [address] [email or web address] PCP - General Rheumatology 03/21/23 03/25/23 Manolo Tamayo MD [address] [address] [email or web address] PCP - General Internal Medicine 03/26/2311/02/23 Aleja Madrid NP [address] [address] PCP - General Nurse Practitioner 11/03/23 Jovanna London MD [address] [place] [address] Family Medicine 03/21/23 documented as of this encounter Additional Source Comments The information contained in this document represents components of the legal health record. It is not the complete legal health record.[facility]
--- OUTSIDE RECORDS SUMMARY | 2025-03-03 02:29 | XMS_ITS | Encounter Summary ---
Author Organization [facility] Address [address] [employer] [address] [address] Phone Care Team Providers Care Dope And Fabric Worker Name Role Phone Jovanna London MD Primary Care Provider [phone] Jovanna London MD Unavailable Manolo Meléndez MD Primary Care Provider + Manolo Tamayo MD Primary Care Provider [phone] Aleja Madrid NP Primary Care Provider [phone] Encounter Details Date Type Department Care Team (Late st Contact Info) Description 07/24/2022 Transcribe Orders [address] [address] Jovanna London MD [address] [place] [address] Dysuria Social History Tobacco Use Types Packs/Day [...] 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 Not on file Not on file documented as of this encounter Plan of Treatment Not on file documented as of this encounter Results * (ABNORMAL) Urinalysis w/reflex Urine Culture (07/24/2022 12:25 PM EDT) COLOR Yellow Yellow [facility] CLARITY Clear [facility] GLUCOSE 1+(A) Negative [facility] BILI Negative Negative [facility] KETONES Negative Negative [facility] SPECIFIC GRAVITY 1.015 1.005 - 1.030 [facility] BLOOD Negative Negative [facility] PH 5.5 5.0 - 8.0 [facility] Protein-UA Negative Negative [facility] NITRITE Negative Negative [facility] Leukocyte esterase, ur Negative Negative [facility] Urine (Urine) 07/24/2022 12: 25 PM EDT 07/24/2022 12:27 PM EDT Jovanna London MD LAB URINE ORDERABLES Final Result Performing Organization Address [facility] Co de Phone Number [address] [address] * Urine culture (07/24/2022 12:25 PM EDT) Special Requests None 07/24/2022 12:25 PM EDT [facility] Urine Culture NO GROWTH 48HRS 07/26/2022 8:03 AM EDT [facility] Urine (Urine) 07/24/2022 12: 25 PM EDT 07/24/2022 12:26 PM EDT Comment:URINE Jovanna London MD LAB MICROBIOLOGY CULTURE O RDERABLES Final Result Performing Organization Address City/[facility]/ZIP Co de Phone Number [address] [address] documented in this encounter Visit Diagnoses Diagnosis Dysuria documented in this encounter Additional Health Concerns Infection Onset Date Last Indicated Resolved Time CoV-Risk Comment:Neg covid 03/21/2023 03/21/2023 03/26/2023 6:[address] CoV-Risk 04/06/2023 04/06/2023 04/06/2023 5:27 PM EST COVID-19 04/06/2023 04/06/2023 04/27/2023 1:22 AM EST CoV-Risk 10/31/2023 10/31/2023 11/01/2023 11:2 1 AM EDT documented as of this encounter Care Teams Dope And Fabric Worker Relationship Specialty Start Date End Date Jovanna London MD [address] [place] [address] PCP - General Family Medicine 09/30/18 03/20/23 Manolo Meléndez MD [address] [place] [address] [email or web address] PCP - General Rheumatology 03/21/23 03/25/23 Manolo Tamayo MD [address] [place] [address] [email or web address] PCP - General Internal Medicine 03/26/2311/02/23 Aleja Madrid NP [address] [phone] PCP - General Nurse Practitioner 11/03/23 Jovanna London MD [address] [place] [address] Family Medicine 03/21/23 documented as of this encounter Additional Source Comments The information contained in this document represents components of the legal health record. It is not the complete legal health record.[facility]
--- OUTSIDE RECORDS SUMMARY | 2025-03-03 02:29 | XMS_ITS | Encounter Summary ---
Author Organization [facility] Address 399 [employer] [facility] [address] [place] [address] Phone Care Team Providers Care Accessories Repairer Name Role Phone Jovanna London MD Primary Care Provider [phone]- [phone] Jovanna London MD Unavailable [phone] Manolo Meléndez MD Primary Care Provider + Manolo Tamayo MD Primary Care Provider [phone] Aleja Madrid NP Primary Care Provider [phone] Encounter Details Date Type Department Care Team (Late st Contact Info) Description 12/01/2021 Procedure Pass [facility], Ct Scan - [address] [address] Social History Tobacco Use Types Packs/Day Years [...] 3:20 PM EDT Gaston Fontanez CNP * [place] Suicide Severity Rating Scale (Screener/Recent Self-Report) Question [...] documented as of this encounter Care Teams Accessories Repairer Relationship Specialty Start Date End Date Jovanna London MD [address] [place] [address] PCP - General Family Medicine 09/30/18 03/20/23 Manolo Meléndez MD [address] [place] [address] [email or web address] PCP - General Rheumatology 03/21/23 03/25/23 Manolo Tamayo MD [address] [address] [email or web address] PCP - General Internal Medicine 03/26/2311/02/23 Aleja Madrid NP [address] [id number] PCP - General Nurse Practitioner 11/03/23 Jovanna London MD [address] [place] [address] Family Medicine 03/21/23 documented as of this encounter Additional Source Comments The information contained in this document represents components of the legal health record. It is not the complete legal health record.[facility]
--- OUTSIDE RECORDS SUMMARY | 2025-03-03 02:29 | XMS_ITS | Encounter Summary ---
Author Organization [facility] Address [address] [employer] [facility] [address] [place] [address] Phone Care Team Providers Care Blanchard Grinder Operator Name Role Phone Jovanna London MD Primary Care Provider [phone] Jovanna London MD Unavailable Manolo Meléndez MD Primary Care Provider + Manolo Tamayo MD Primary Care Provider [phone] Aleja Madrid NP Primary Care Provider Encounter Details Date Type Department Care Team (Late st Contact Info) Description 11/16/2021 Procedure Pass [facility], Ct Scan - [address] [address] Social History Tobacco Use Types Packs/Day Years [...] No Risk Indicated 11/16/2021 7:49 AM EDT Rylan Herrera RN * [place] Suicide Severity Rating Scale (Screener/Recent Self-Report) Question Answer Date of Assessment Author 1. Wish to be (Past 1 Month) No 022 7:49 AM EDT Rylan Herrera RN 2. Non-Specific Active Suici will Thoughts (Past 1 Month) No 11/16/2021 7:49 AM EDT Rylan eHrrera RN 6. Suicidal Behavior (Lifetime) No 7:49 [...] documented as of this encounter Care Teams Blanchard Grinder Operator Relationship Specialty Start Date End Date Jovanna London MD [address] [place] [address] PCP - General Family Medicine 09/30/18 03/20/23 Manolo Meléndez MD [address] [place] [address] [email or web address] PCP - General Rheumatology 03/21/23 03/25/23 Manolo Tamayo MD [address] [address] [email or web address] PCP - General Internal Medicine 03/26/2311/02/23 Aleja Madrid NP [address] [address] PCP - General Nurse Practitioner 11/03/23 Jovanna London MD [address] [place] [address] Family Medicine 03/21/23 documented as of this encounter Additional Source Comments The information contained in this document represents components of the legal health record. It is not the complete legal health record.[facility]
--- OUTSIDE RECORDS SUMMARY | 2025-03-03 02:29 | XMS_ITS | Encounter Summary ---
Author Organization [facility] Address 399 [employer] [facility] [address] [place] [address] Phone Care Team Providers Care Ice Skating Coach Name Role Phone Jovanna London MD Primary Care Provider [phone] Jovanna London MD Unavailable Manolo Meléndez MD Primary Care Provider + Manolo Tamayo MD Primary Care Provider [phone] Aleja Madrid NP Primary Care Provider [phone] Encounter Details Date Type Department Care Team (Late st Contact Info) Description 12/03/2021 Procedure Pass Non-Invasive Cardiology [address] [place] [address] Social History Tobacco Use Types Packs/Day Years [...] documented as of this encounter Care Teams Ice Skating Coach Relationship Specialty Start Date End Date Jovanna London MD [address] [place] [address] PCP - General Family Medicine 09/30/18 03/20/23 Manolo Meléndez MD [address] [place] [address] [email or web address] PCP - General Rheumatology 03/21/23 03/25/23 Manolo Tamayo MD [address] [place] [address] [email or web address] PCP - General Internal Medicine 03/26/2311/02/23 Aleja Madrid NP [address] [address] PCP - General Nurse Practitioner 11/03/23 Jovanna London MD [address] [place] [address] Family Medicine 03/21/23 documented as of this encounter Additional Source Comments The information contained in this document represents components of the legal health record. It is not the complete legal health record.[facility]
--- OUTSIDE RECORDS SUMMARY | 2025-03-03 02:29 | XMS_ITS | Encounter Summary ---
Author Organization [facility] Address [address] [address] Phone Care Team Providers Care Outpatient Coordinator Name Role Phone Arnaud Spence NP Primary Care Provide r Jovanna London MD Primary Care Provider [phone] Jovanna London MD Unavailable Manolo Meléndez MD Primary Care Provider + Manolo Tamayo MD Primary Care Provider [phone] Aleja Madrid SOLAR FABRICATION TECHNICIAN Primary Care Provider Encounter Details Date Type Department Care Team (Latest Contact Info) Description 01/03/2018 Transcribe Orders Virtual Department [address] [place] [address] Destiny Jain MD [address] [place] [address] [email or web address] Encounter for cardiac rehabilitation (Primary [...] BPM [facility] Atrial Rate 89 BPM [facility] CO Interval 170 ms [facility] QRS Duration 90 ms [facility] QT Interval 350 ms [facility] QTC Interval 425 ms [facility] P [place] 51 degrees [facility] R Wave [place] 6 degrees [facility] T Wave [place] 20 degrees [facility]USE_[facility] 01/03/2018 2:51 PM EDT [...] documented as of this encounter Care Teams Outpatient Coordinator Relationship Specialty Start Date End Date Arnaud Spence NP [address] [place] [address] PCP - General Family Medicine 01/03/18 09/29/18 Jovanna London MD [address] [place] [address] PCP - General Family Medicine 09/30/18 03/20/23 Manolo Meléndez MD [address] [place] [address] [email or web address] PCP - General Rheumatology 03/21/23 03/25/23 Manolo Tamayo MD [address] [place] [address] [email or web address] PCP - General Internal Medicine 03/26/2311/02/23 Aleja Madrid NP [address] [address] PCP - General Nurse Practitioner 11/03/23 Jovanna London MD [address] [place] [address] Family Medicine 03/21/23 documented as of this encounter Additional Source Comments The information contained in this document represents components of the legal health record. It is not the complete legal health record.[facility]
--- OUTSIDE RECORDS SUMMARY | 2025-03-03 02:29 | XMS_ITS | Encounter Summary ---
Author Organization [facility] Address 399 [facility] [address] [place] [address] Phone Care Team Providers Care Hardware Developer Name Role Phone Jovanna London MD Primary Care Provider [phone] Jovanna London MD Unavailable Manolo Meléndez MD Primary Care Provider + Manolo Tamayo MD Primary Care Provider [phone] Aleja Madrid NP Primary Care Provider [phone] Encounter Details Date Type Department Care Team (Late st Contact Info) Description 12/30/2020 Procedure Pass [facility] [address] [place] [address] Social History Tobacco Use Types Packs/Day Years [...] documented as of this encounter Care Teams Hardware Developer Relationship Specialty Start Date End Date Jovanna London MD [address] [place] [address] PCP - General Family Medicine 09/30/18 03/20/23 Manolo Meléndez MD [address] [place] [address] [email or web address] PCP - General Rheumatology 03/21/23 03/25/23 Manolo Tamayo MD [address] [place] [address] [email or web address] PCP - General Internal Medicine 03/26/2311/02/23 Aleja Madrid NP [address] [address] PCP - General Nurse Practitioner 11/03/23 Jovanna London MD [address] [place] [address] Family Medicine 03/21/23 documented as of this encounter Additional Source Comments The information contained in this document represents components of the legal health record. It is not the complete legal health record.[facility]
--- OUTSIDE RECORDS SUMMARY | 2025-03-03 02:29 | XMS_ITS | Encounter Summary ---
Author Organization [facility] Address [address] [address] Phone Care Team Providers Care Inclusion Intern Name Role Phone Mirna Sanchez Primary Care Provider [phone] Arnaud Spence NP Primary Care Provide r Jovanna London MD Primary Care Provider + [phone] Jovanna London MD Unavailable [phone] Manolo Meléndez MD Primary Care Provider + Manolo Tamayo MD Primary Care Provider [phone] Aleja Madrid NP Primary Care Provider [phone] Reason for Referral * Cardiac Rehab (Elective) - Closed Specialty Diagnoses / Procedures Referred By Contac t Referred To Contact Cardiac Rehabilitation Diagnoses Dyspnea on exertion Carlos Patel MD Phone: tel: fax: [address] [address] Phone: tel: Referral ID Status Reason Start Date Expiration Date Visits Re quested Visits Authorized [id number] Closed 05/13/2017 08/23/2017 36 36 Encounter Details Date Type Department Care Team (Latest Contact Info) Description 05/13/2017 Transcribe Orders Virtual Department [address] [place] [address] Carlos Patel MD [address] [place] [address] Dyspnea on exertion (Primary Dx) Social History [...] Associated Diagnoses Order Schedule Ambulatory referral to [facility] Cardiac Rehab Outpatient Referral Routine Dyspnea on [...] documented as of this encounter Care Teams Inclusion Intern Relationship Specialty Start Date End Date Mirna Sanchez DO [address] [place] [address] PCP - General Internal Medicine 03/05/17 01/02/18 Arnaud Spence NP [address] [place] [address] PCP - General Family Medicine 01/03/18 09/29/18 Jovanna London MD [address] [place] [address] PCP - General Family Medicine 09/30/18 03/20/23 Manolo Meléndez MD [address] [place] [address] [email or web address] PCP - General Rheumatology 03/21/23 03/25/23 Manolo Tamayo MD [address] [place] [address] [email or web address] PCP - General Internal Medicine 03/26/2311/02/23 Aleja Madrid NP [address] [address] PCP - General Nurse Practitioner 11/03/23 Jovanna London MD [address] [place] [address] Family Medicine 03/21/23 documented as of this encounter Additional Source Comments The information contained in this document represents components of the legal health record. It is not the complete legal health record.[facility]
--- OUTSIDE RECORDS SUMMARY | 2025-03-03 02:29 | XMS_ITS | Encounter Summary ---
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 file Not on file Not on file documented as of this encounter Functional Status * Calculated C-SSRS Risk Score (Lifetime/Recent) Answer Date of Assessment Author No Risk Indicated 02/14/2024 4:56 PM EDT Sharlene Martines RN * [place] Suicide Severity Rating Scale (Screener/Recent Self-Report) Question [...] on filedocumented in this encounter Care Teams 8Th Grade Teacher Relationship Specialty Start Date End Date Aleja Madrid NP [address] [address] PCP - General Nurse Practitioner 11/03/23 Jovanna London MD [address] [place] [address] Family Medicine 03/21/23 documented as of this encounter Additional Source Comments The information contained in this document represents components of the legal health record. It is not the complete legal health record.[facility]
--- OUTSIDE RECORDS SUMMARY | 2025-03-03 02:29 | XMS_ITS | Encounter Summary ---
Author Organization [facility] Address [address] [facility] [address] [place] [address] Phone Care Team Providers Care Organ Grinder Name Role Phone Jovanna London MD Primary Care Provider [phone] Jovanna London MD Unavailable [phone] Manolo Meléndez MD Primary Care Provider + Manolo Tamayo MD Primary Care Provider [phone] Aleja Madrid NP Primary Care Provider [phone] Encounter Details Date Type Department Care Team (Late st Contact Info) Description 12/02/2021 Procedure Pass [facility] [address] [place] [address] Social History Tobacco Use Types Packs/Day Years [...] documented as of this encounter Care Teams Organ Grinder Relationship Specialty Start Date End Date Jovanna London MD [address] [place] [address] PCP - General Family Medicine 09/30/18 03/20/23 Manolo Meléndez MD [address] [place] [address] [email or web address] PCP - General Rheumatology 03/21/23 03/25/23 Manolo Tamayo MD [address] [place] [address] [email or web address] PCP - General Internal Medicine 03/26/2311/02/23 Aleja Madrid NP [address] [address] PCP - General Nurse Practitioner 11/03/23 Jovanna London MD [address] [place] [address] Family Medicine 03/21/23 documented as of this encounter Additional Source Comments The information contained in this document represents components of the legal health record. It is not the complete legal health record.[facility]
--- OUTSIDE RECORDS SUMMARY | 2025-03-03 02:29 | XMS_ITS | Encounter Summary ---
Author Organization [facility] Address 399 [employer] [facility] [address] [place] [address] Phone Care Team Providers Care Field Marketer Name Role Phone Jovanna London MD Primary Care Provider [phone] Jovanna London MD Unavailable Manolo Meléndez MD Primary Care Provider + Manolo Tamayo MD Primary Care Provider [phone] Aleja Madrid NP Primary Care Provider [phone] Encounter Details Date Type Department Care Team (Late st Contact Info) Description 12/12/2022 Procedure Pass [facility], Ct Scan - [address] [address] Social History Tobacco Use Types Packs/Day Years [...] 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 Start 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 Not on file Not on file documented as of this encounter Functional Status * Calculated C-SSRS Risk Score (Lifetime/Recent) Answer Date of Assessment Author No Risk Indicated 12/12/2022 9:07 PM EDT Maria Bell RN * [place] Suicide Severity Rating Scale (Screener/Recent Self-Report) Question [...] documented as of this encounter Care Teams Field Marketer Relationship Specialty Start Date End Date Jovanna London MD [address] [place] [address] PCP - General Family Medicine 09/30/18 03/20/23 Manolo Meléndez MD [address] [place] [address] [email or web address] PCP - General Rheumatology 03/21/23 03/25/23 Manolo Tamayo MD [address] [place] [address] [email or web address] PCP - General Internal Medicine 03/26/2311/02/23 Aleja Madrid NP [address] [address] PCP - General Nurse Practitioner 11/03/23 Jovanna London MD [address] [place] [address] Family Medicine 03/21/23 documented as of this encounter Additional Source Comments The information contained in this document represents components of the legal health record. It is not the complete legal health record.[facility]
--- OUTSIDE RECORDS SUMMARY | 2025-03-03 02:29 | XMS_ITS | Encounter Summary ---
Author Organization [facility] Address [address] [address] Phone Care Team Providers Care Student Life Vice President Name Role Phone Jovanna London MD Primary Care Provider [phone] Jovanna London MD Unavailable Manolo Meléndez MD Primary Care Provider + Manolo Tamayo MD Primary Care Provider [phone] Aleja Madrid NP Primary Care Provider [phone] Encounter Details Date Type Department Care Team (Late st Contact Info) Description 12/20/2018 Ancillary Orders [facility] Orthopedics & Sports Medicine [address] [place] [address] Ryan Bullard DO 4 [facility] Orthopedics & Sports Medicine, [facility] [place] [address] [email or web address] Social History Tobacco Use Types Packs/Day Years [...] documented as of this encounter Care Teams Student Life Vice President Relationship Specialty Start Date End Date Jovanna London MD [address] [place] [facility] [place] [address] PCP - General Family Medicine 09/30/18 03/20/23 Manolo Meléndez MD [address] [place] [facility] [place] [address] [email or web address] PCP - General Rheumatology 03/21/23 03/25/23 Manolo Tamayo MD [address] [place] [address] [email or web address] PCP - General Internal Medicine 03/26/2311/02/23 Aleja Madrid NP [address] [address] PCP - General Nurse Practitioner 11/03/23 Jovanna London MD [address] [place] [address] Family Medicine 03/21/23 documented as of this encounter Additional Source Comments The information contained in this document represents components of the legal health record. It is not the complete legal health record.[facility]
--- OUTSIDE RECORDS SUMMARY | 2025-03-03 02:29 | XMS_ITS | Encounter Summary ---
Author Organization [facility] Address [address] [place] [address] Care Team Providers Care Hyperbaric Nurse Name Role Phone Sandra Horn ABHIJIT Primary Care Provider [phone] Encounter Details Date Type Department Care Team (Late st Contact Info) Description 02/21/2025 Lab Requisition [facility] - Main Lab [address] [facility] [place] [address] Lida Jules MD [address] [id number] Anemia, unspecified Social History Tobacco Use Types [...] AM EDT) WBC 2.8(L) 4.8 - 10.8 K/[facility] LAB HEMETOLOGY METHOD 02/21/2025 11:27 AM EDT [facility] RBC 2.60(L) 4.50 - 5.50 M/mcL LAB HEMETOLOGY METHOD 02/21/2025 11:27 AM EDT [facility] Hemoglobin 6.6(L) 13.5 - 17.5 g/dL LAB HEMETOLOGY METHOD 02/21/2025 11:27 AM [facility] Hematocrit 21.9(L) 42.0 - 54.0 % LAB HEMETOLOGY METHOD 02/21/2025 11:27 AM [facility] MCV 83.3 79.0 - 98.0 FL LAB HEMETOLOGY METHOD 02/21/2025 11:27 AM [facility] MCH 25.1(L) 27.0 - 32.0 pcg LAB HEMETOLOGY METHOD 02/21/2025 11:27 AM [facility] MCHC 30.1(L) 32.0 - 37.0 g/dL LAB HEMETOLOGY METHOD 02/21/2025 11:27 AM [facility] RDW 17.5(H) 11.0 - 15.0 % LAB HEMETOLOGY METHOD 02/21/2025 11:27 AM [facility] Platelets 118(L) 130 - 400 K/mcL LAB HEMETOLOGY METHOD 02/21/2025 11:27 AM [facility] MPV 10.9 7.0 - 11.0 FL LAB HEMETOLOGY METHOD 02/21/2025 11:27 AM [facility] NRBC 0.0 <1.0 % LAB HEMETOLOGY METHOD 02/21/2025 11:27 AM [facility] NRBC Absolute 0.00 <0.10 K/mcL LAB HEMETOLOGY METHOD 02/21/2025 11:27 AM [facility] Blood Venous blood specimen / Unknown Venipuncture / Unknown 02/21/2025 4:50 AM EDT 02/21/2025 10:24 AM EDT us Lida Jules MD LAB BLOOD ORDERABLES Fin al Result [facility] [address] [place] [address], documented in this encounter Visit Diagnoses Diagnosis Anemia, unspecified documented in this encounter Care Teams Hyperbaric Nurse Relationship Specialty Start Date End Date Sandra Horn NP [address] [place] [id number] PCP - General Nurse Practitioner 06/29/24 documented as of this encounter
--- OUTSIDE RECORDS SUMMARY | 2025-03-03 02:29 | XMS_ITS | Encounter Summary ---
Author Organization [facility] Address [address] [employer] [address] [address] Phone Care Team Providers Care Parking Lot Laborer Name Role Phone Jovanna London MD Primary Care Provider [phone] Jovanna London MD Unavailable Manolo Meléndez MD Primary Care Provider + Manolo Tamayo MD Primary Care Provider +[phone] Aleja Madrid NP Primary Care Provider [phone] Encounter Details Date Type Department Care Team (Late st Contact Info) Description 07/01/2022 Procedure Pass [place] Admitting Dept - Virtual Department [address] [place] [address] Social History Tobacco Use Types Packs/Day Years [...] 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[employer] Not on file Not on file Not [...] documented as of this encounter Care Teams Parking Lot Laborer Relationship Specialty Start Date End Date Jovanna London MD [address] [place] [address] PCP - General Family Medicine 09/30/18 03/20/23 Manolo Meléndez MD [address] [place] [address] [email or web address] PCP - General Rheumatology 03/21/23 03/25/23 Manolo Tamayo MD [address] [place] [address] [email or web address] PCP - General Internal Medicine 03/26/2311/02/23 Aleja Madrid NP [address] [address] PCP - General Nurse Practitioner 11/03/23 Jovanna London MD [address] [place] [address] Family Medicine 03/21/23 documented as of this encounter Additional Source Comments The information contained in this document represents components of the legal health record. It is not the complete legal health record.[facility]
--- OUTSIDE RECORDS SUMMARY | 2025-03-03 02:29 | XMS_ITS | Encounter Summary ---
Author Organization [facility] Address [address] [address] Phone Care Team Providers Care Cloth Finishing Range Operator Name Role Phone Mirna Sanchez Primary Care Provider [phone] Arnaud Spence NP Primary Care Provide r Jovanna London MD Primary Care Provider [phone] Jovanna London MD Unavailable [phone] Manolo Meléndez MD Primary Care Provider + Manolo Tamayo MD Primary Care Provider [phone] Aleja Madrid NP Primary Care Provider Encounter Details Date Type Department Care Team (Late st Contact Info) Description 07/07/2017 Transcribe Orders Non-Invasive Cardiology [address] [place] [address] Ricardo Watson MD [address] [facility], [address] [place] [address] [email or web address] Social History Tobacco Use Types Packs/Day Years [...] documented as of this encounter Care Teams Cloth Finishing Range Operator Relationship Specialty Start Date End Date Mirna Sanchez DO [address] [place] [address] PCP - General Internal Medicine 03/05/17 01/02/18 Arnaud Spence NP [address] [place] [address] PCP - General Family Medicine 01/03/18 09/29/18 Jovanna London MD [address] [place] [address] PCP - General Family Medicine 09/30/18 03/20/23 Manolo Meléndez MD [address] [place] [address] [email or web address] PCP - General Rheumatology 03/21/23 03/25/23 Manolo Tamayo MD [address] [place] [address] [email or web address] PCP - General Internal Medicine 03/26/2311/02/23 Aleja Madrid NP [address] [address] PCP - General Nurse Practitioner 11/03/23 Jovanna London MD [address] [place] [address] Family Medicine 03/21/23 documented as of this encounter Additional Source Comments The information contained in this document represents components of the legal health record. It is not the complete legal health record.[facility]
--- OUTSIDE RECORDS SUMMARY | 2025-03-03 02:29 | XMS_ITS | Encounter Summary ---
Author Organization [facility] Address [address] [place] [address] Care Team Providers Care Seismograph Supervisor Name Role Phone Sandra Horn LANDSCAPER HELPER Primary Care Provider [phone] Encounter Details Date Type Department Care Team (Late st Contact Info) Description 10/20/[address] [facility] [address] [place] [address] Lida Jules MD [address] [id number] Fever, unspecified; Cough, unspecified; Weakness Social History [...] Procedure Name Priority Date/Time Associated Diagnosis Comments [id number], RSV, FLU A AND B QUALITATIVE RT-PCR, LOCAL REFERENCE LAB Routine 10/20/2024 11:28 AM EDT Fever, unspecified Cough, unspecified Weakness documented in this encounter Results * [id number], RSV, Influenza A and B qualitative RT-PCR (10/20/2024 11:28 AM EDT) SARS COV-2 Not Detected Not Detected LAB MOLECULAR DIAGNOSTICS METHOD 10/20/2024 2:54 PM EDT [facility] ([facility] Comment: Disclaimer: The manner in which this information is used to guide patient care is the responsibility of the healthcare provider. Testing was performed using the [employer] m SARS-CoV-2 test. This test has been [...] for Healthcare Providers can be found at: https://www.fda.gov/media/688538/download Fact sheet for Patients can be found at: https://www.fda.gov/media/950329/download Influenza A PCR Not Detected Not Detected LAB MOLECULAR DIAGNOSTICS METHOD 10/20/2024 2:54 PM EDT [facility] Influenza B PCR Not Detected Not Detected LAB MOLECULAR DIAGNOSTICS METHOD 10/20/2024 2:54 PM EDT [facility] RSV PCR Not Detected Not Detected LAB MOLECULAR DIAGNOSTICS METHOD 10/20/2024 2:54 PM EDT [facility] Swab Nasopharyngeal structure / Unknown Non-blood Collection / Unknown 10/20/2024 11:28 AM EDT 10/20/2024 11:35 AM EDT Lida Jules MD LAB MICROBIOLOGY - [facility] AL ORDERABLES Final Result Performing Organization Address City/State/[facility] Co de Phone Number [facility] [address] [place] [address], documented in this encounter Visit Diagnoses Diagnosis Fever, unspecified Cough, unspecified Weakness Other malaise and fatigue documented in this encounter Additional Health Concerns Infection Onset Date Last Indicated Resolved Time Respiratory Rule-Out 10/20/2024 10/20/2024 025 2:54 PM EDT documented as of this encounter Care Teams Seismograph Supervisor Relationship Specialty Start Date End Date Sandra Horn NP [address] [place] [address] PCP - General Nurse Practitioner 06/29/24 documented as of this encounter
--- OUTSIDE RECORDS SUMMARY | 2025-03-03 02:29 | XMS_ITS | Clinical Summary ---
Author Organization [facility] Address [address] [address] Phone Care Team Providers Care Willow Machine Operator Name Role Phone Jovanna London MD Unavailable [phone] Aleja Madrid CONDITIONER TUMBLER Primary Care Provider [phone] Allergies Active Allergy Reactions Criticality Noted Date [...] monitoring POC. Lantus increased to 30 units [id number]/25, with further increased to 35 units on 02/19. Continuing low-dose insulin sliding scale with [id number] testing. -Consistent carb/cardiac diet -Hold metformin -Hgb [...] 2:51 PM EST): Initially transferred back to [facility] for case management/placement, however he is much [...] evaluation for venous disease Completed antibiotics 07/04/2022 [place] issue at this point is wound healing. [...] AM EDT): Concerning thoughts expressed to the pet nutrition specialist, regarding the patient's sister, which was communicated to the nurse. Social work team now involved with BHR consult requested. Sister is afar in [place] with no urgent threat. Generalized weakness 12/01/2021 [...] units of blood in the ED at [facility] and over the course of his hospitalization at [facility] received 3 more units. He was evaluated [...] units of platelets between the ED at [facility] and [facility]. -Eliquis on hold for now, may be able to resume at or -Thrombocytopenia likely secondary to Bactrim, now improving [...] due to prior VTE history, with elevated [id number]-DCKd score of 2. 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 Not on file Not on file Not [...] Date/Time Associated Diagnosis Comments BASIC METABOLIC PANEL (BMP) Routine 02/22/2024 6:03 AM EDT HEMOGLOBIN A1C Routine 02/18/2024 6:16 AM EDT TSH WITH REFLEX Routine 02/16/2024 6:13 AM EDT from Last 3 Months or Most Recently Relevant to Health Maintenance Results * (ABNORMAL) Basic metabolic panel (02/22/2024 6:03 AM EDT) SODIUM 140 133 - 146 mmol/L [facility] CHLORIDE 104 96 - 108 mmol/L [facility] POTASSIUM 3.8 3.3 - 5.1 mmol/L [facility] CO2 24 21 - 35 mmol/L [facility] BUN 13 6 - 19 mg/dL [facility] CREATININE 0.60 0.5 - 1.5 mg/dL [facility] GLUCOSE 139(H) 70 - 99 mg/dL [facility] CALCIUM 8.8 8.4 - 10.3 mg/dL [facility] EGFR 99 >59 mL/min/1.7 3m2 [facility] Comment:Estimated glomerular filtration rate calculated using the CKD-EPI refit equation. ANION GAP 16 10 - 20 mmol/L [facility] Blood 02/22/2024 6:03 AM EDT 02/22/2024 6:24 AM EDT us Liv Abreu Aguilar DO LAB BLOOD BKR ORDERABLES F inal Result Performing Organization Address [facility]/ZIP Co de Phone Number [address] [address] * (ABNORMAL) Hemoglobin A1c (02/18/2024 6:16 AM EDT) HEMOGLOBIN A1C 8.6(H) 4.3 - 5.8 % [facility] 02/18/2024 6:16 AM EDT 02/18/2024 6:39 AM EDT us Chandrika Collieralexei Gaviria CONDITIONER TUMBLER LAB BLOOD BKR ORDERABLES Final Result Performing Organization Address [facility] Co de Phone Number [address] [address] * TSH with reflex (02/16/2024 6:13 AM EDT) TSH 2.23 0.27 - 4.20 uIU/mL [facility] Blood 02/16/2024 6:13 AM EDT 02/16/2024 6:17 AM EDT us Chandrika Greenvel CONDITIONER TUMBLER LAB BLOOD BKR ORDERABLES Final Result Performing Organization Address [facility] Co de Phone Number [address] [address] from Last 3 Months or Most Recently Relevant to Health Maintenance Insurance [facility] GENERIC MEDICARE REPLACEMENT [address] [place] [address] GENERIC MEDICARE REPLACEMENT [facility] GENERIC MEDICARE REPLACEMENT [address] [place] [address] [place] [address] GENERIC MEDICARE REPLACEMENT [facility] GENERIC MEDICARE REPLACEMENT [place] [address] [address]IC MEDICARE REPL[address] [place] [address] Advance Directives For more information, please contact: [phone] (9AM - 5PM [place], Wednesday-Wednesday) Documents on File Type Date Recorded Patient Cleaning Supervisor Expl anation Healthcare Proxy 01/03/2021 4:55 PM [...] Care Agent (Proxy form on file) Jarek Hodges Friend Alternate Health care Agent (Proxy form on file) Care Teams Willow Machine Operator Relationship Specialty Start Date End Date Aleja Madrid NP [address] [address] PCP - General Nurse Practitioner 11/03/23 Jovanna London MD [address] [place] [address] Family Medicine 03/21/23 Additional Source Comments The information contained in this document represents components of the legal health record. It is not the complete legal health record.[facility]
--- OUTSIDE RECORDS SUMMARY | 2025-03-03 02:29 | XMS_ITS | Encounter Summary ---
Author Organization [facility] Address [address] [facility] [address] [place] [address] Phone Care Team Providers Care Health And Safety Advisor Name Role Phone Jovanna London MD Unavailable [phone] Manolo Tamayo MD Primary Care Provider [phone] Aleja Madird NP Primary Care Provider [phone] Encounter Details Date Type Department Care Team (Late st Contact Info) Description 11/01/2023 Procedure Pass [facility] Echo Lab [address] [place] [address] Social History Tobacco Use Types Packs/Day Years [...] Job Start Date 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 Not on file Not on file documented as of this encounter Plan of Treatment Not on file documented as of this encounter Visit Diagnoses Not on filedocumented in this encounter Additional Health Concerns Infection Onset Date Last Indicated Resolved Time CoV-Risk 10/31/2023 10/31/2023 11/01/2023 11:2 1 AM EDT documented as of this encounter Care Teams Health And Safety Advisor Relationship Specialty Start Date End Date Manolo Tamayo MD [address] [place] [address] [email or web address] PCP - General Internal Medicine 03/26/2311/02/23 Aleja Madrid NP [address] [address] PCP - General Nurse Practitioner 11/03/23 Jovanna London MD [address] [place] [address] Family Medicine 03/21/23 documented as of this encounter Additional Source Comments The information contained in this document represents components of the legal health record. It is not the complete legal health record.[facility]
--- OUTSIDE RECORDS SUMMARY | 2025-03-03 02:29 | XMS_ITS | Encounter Summary ---
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 Not on file Not on file Not on file documented as of this encounter Plan of Treatment Not on file documented as of this encounter Results * (ABNORMAL) Hemoglobin A1c (11/10/2023 7:14 AM EDT) HEMOGLOBIN A1C 11.0(H) 4.3 - 5.8 % [facility] Blood 11/10/2023 7:14 AM EDT 11/10/2023 9:50 AM EDT Felicia Zepeda MD LAB BLOOD BKR ORDERABLES Final Result [facility] [address] [place] [address] * (ABNORMAL) CBC (11/10/2023 7:14 AM EDT) WBC 2.49(L) 4.00 - 11.00 K/uL [facility] RBC 3.61(L) 3.90 - 5.69 M/uL [facility] HGB 10.7(L) 12.4 - 17.3 g/dL [facility] HCT 32.7(L) 37.0 - 51.0 % [facility] PLT 156 140 - 430 K/uL [facility] MCV 90.6 78.0 - 97.0 fL [facility] MCH 29.6 25.0 - 33.0 pg [facility] MCHC 32.7 32.0 - 36.0 g/dL [facility] RDW 16.5(H) 11.0 - 15.0 % [facility] MPV 10.9 8.4 - 12.8 fl [facility] Blood 11/10/2023 7:14 AM EDT 11/10/2023 9:50 AM EDT us Felicia Zepeda MD LAB BLOOD BKR ORDERABLES Final Result [facility] [address] [place] [address] * (ABNORMAL) Comprehensive metabolic panel (11/10/2023 7:14 AM EDT) SODIUM 137 133 - 146 mmol/L [facility] POTASSIUM 4.3 3.3 - 5.1 mmol/L [facility] CHLORIDE 101 96 - 108 mmol/L [facility] CO2 26 21 - 35 mmol/L [facility] BUN 15 6 - 19 mg/dL [facility] CREATININE 0.70 0.5 - 1.5 mg/dL [facility] GLUCOSE 141(H) 70 - 99 mg/dL [facility] ALBUMIN 3.6(L) 3.9 - 4.8 g/dL [facility] TOTAL PROTEIN 5.8(L) 6.5 - 8.0 g/dL [facility] CALCIUM 9.0 8.4 - 10.3 mg/dL [facility] ALKALINE PHOSPHATASE 86 39 - 117 U/L [facility] TOTAL BILIRUBIN 0.6 0.0 - 1.2 mg/dL [facility] AST 9 0 - 37 U/L [facility] ALT <5 0 - 40 U/L [facility] GLOBULIN 2.2 1 - 4.8 g/dL [facility] EGFR 95 >59 mL/min/1.7 3m2 [facility] Comment:Estimated glomerular filtration rate calculated using the CKD-EPI refit equation. ANION GAP 14 10 - 20 mmol/L [facility] Blood 11/10/2023 7:14 AM EDT 11/10/2023 9:50 AM EDT Felicia Zepeda MD LAB BLOOD BKR ORDERABLES Final Result [address] [address] documented in this encounter Visit Diagnoses Diagnosis Type 2 diabetes mellitus with hyperosmolarity without coma, without long-term current use of insulin- Primary Weakness generalized Other malaise and fatigue documented in this encounter Care Teams Hvac Project Engineer Relationship Specialty Start Date End Date Aleja Madrid NP [address] [address] PCP - General Nurse Practitioner 11/03/23 Jovanna London MD [facility] [place] [address] Family Medicine 03/21/23 documented as of this encounter Additional Source Comments The information contained in this document represents components of the legal health record. It is not the complete legal health record.[facility]
--- OUTSIDE RECORDS SUMMARY | 2025-03-03 02:29 | XMS_ITS | Encounter Summary ---
Author Organization [facility] Address [address] [address] Phone Care Team Providers Care Intensive Care Ambulance Paramedic Name Role Phone Mirna Sanchez Primary Care Provider Arnaud Spence NP Primary Care Provide r Jovanna London MD Primary Care Provider [phone] Jovanna London MD Unavailable [phone] Manolo Meléndez MD Primary Care Provider + Manolo Tamayo MD Primary Care Provider [phone] Aleja Madrid NP Primary Care Provider [phone] Reason for Referral * Consultation (Routine) - Closed Specialty Diagnoses / Procedures Referred By Contalbina t Referred To Contact Cardiac Rehabilitation Diagnoses Calf pain, unspecified laterality Carlos Patel MD Phone: tel: fax: [address] [address] Phone: tel: Referral ID Status Reason Start Date Expiration Date Visits Re quested Visits Authorized [id number] Closed 12/09/2017 05/26/2018 36 36 Encounter Details Date Type Department Care Team (Latest Contact Info) Description 12/31/2017 Transcribe Orders Virtual Department [address] [place] [address] Carlos Patel MD [address] [place] [address] Calf pain, unspecified laterality (Primary Dx) Social [...] Diagnoses Orde r Schedule Ambulatory referral to [facility] Cardiac Rehab Outpatient Referral Routine Calf pain, [...] documented as of this encounter Care Teams Intensive Care Ambulance Paramedic Relationship Specialty Start Date End Date Mirna Sanchez DO [address] [place] [address] PCP - General Internal Medicine 03/05/17 01/02/18 Arnaud Spence NP [address] [place] [address] PCP - General Family Medicine 01/03/18 09/29/18 Jovanna London MD [address] [place] [address] PCP - General Family Medicine 09/30/18 03/20/23 Manolo Meléndez MD [address] [place] [address] [email or web address] PCP - General Rheumatology 03/21/23 03/25/23 Manolo Tamayo MD [address] [place] [address] [email or web address] PCP - General Internal Medicine 03/26/2311/02/23 Aleja Madrid, ABHIJIT [address] [address] PCP - General Nurse Practitioner 11/03/23 Jovanna London MD [address] [place] [address] (work) Family Medicine 03/21/23 documented as of this encounter Additional Source Comments The information contained in this document represents components of the legal health record. It is not the complete legal health record.[facility]
--- OUTSIDE RECORDS SUMMARY | 2025-03-03 02:29 | XMS_ITS | Encounter Summary ---
Author Organization [facility] Address [address] [place] [address] Care Team Providers Care Interventional Physician Name Role Phone Sandra Horn ABHIJIT Primary Care Provider [phone] Encounter Details Date Type Department Care Team (Late st Contact Info) Description 02/19/2025 Lab Requisition [facility] - Main Lab [address] [facility] [place] [address] Lida Jules MD [address] [id number] Essential (primary) hypertension; Type 2 diabetes mellitus [...] LAB CHEMISTRY METHOD 02/19/2025 1:25 PM EDT [facility] Blood Venous blood specimen / Unknown Venipuncture / Unknown 02/19/2025 8:42 AM EDT 02/19/2025 10:48 AM EDT Lida Jules MD LAB BLOOD ORDERABLES Fin al Result [facility] [address] [place] [address], * (ABNORMAL) Thyroid stimulating hormone (02/19/2025 8:42 AM EDT) TSH 4.99(H) 0.40 - 4.00 mcIU/mL LAB CHEMISTRY METHOD 02/19/2025 1:25 PM EDT [facility] Blood Venous blood specimen / Unknown Venipuncture / Unknown 02/19/2025 8:42 AM EDT 02/19/2025 10:48 AM EDT Lida Jules MD LAB BLOOD ORDERABLES Fin al Result Performing Organization Address [facility]/ZIP Co de Phone Number [facility] [address] [place] [address], [place] [phone] * Hemoglobin A1c (02/19/2025 8:42 AM EDT) [facility] Hemoglobin A1C 6.1 <6.5 % LAB CHEMISTRY METHOD 02/19/2025 9:42 PM EDT [facility] Mean Bld Glu Estim. 128 mg/dL LAB CHEMISTRY METHOD 02/19/2025 9:42 PM EDT [facility] Blood Venous blood specimen / Unknown Venipuncture / Unknown 02/19/2025 8:42 AM EDT 02/19/2025 10:48 AM EDT Lida Jules MD LAB BLOOD ORDERABLES Fin al Result Performing Organization Address [facility]/ZIP Co de Phone Number [facility] [address] [place] [address], [place] [phone] * (ABNORMAL) Lipid panel with reflex to direct LDL (02/19/2025 8:42 AM EDT) [facility] Cholesterol 80 0 - 200 mg/dL LAB CHEMISTRY METHOD 02/19/2025 12:12 PM EDT [facility] Triglycerides 95 0 - 150 mg/dL LAB CHEMISTRY METHOD 02/19/2025 12:12 PM EDT [facility] HDL 22(L) >=40 mg/dL LAB CHEMISTRY METHOD 02/19/2025 12:12 PM EDT [facility] LDL Calculated 39 0 - 100 mg/dL LAB CHEMISTRY METHOD 02/19/2025 12:12 PM EDT [facility] Comment:Estimated LDL Calcul ated using equation: Total cholesterol - HDL cholesterol - (Triglycerides/5) VLDL Cholesterol Steven 19 mg/dL LAB CHEMISTRY METHOD 02/19/2025 12:12 PM EDT [facility] Non HDL Chol. (LDL+VLDL) 58 <145 mg/dL LAB CHEMISTRY METHOD 02/19/2025 12:12 PM [facility] Chol/HDL Ratio 3.6 0.0 - 4.4 LAB CHEMISTRY METHOD 02/19/2025 12:12 PM [facility] Blood Venous blood specimen / Unknown Venipuncture / Unknown 02/19/2025 8:42 AM EDT 02/19/2025 10:48 AM EDT us Lida Jules MD LAB BLOOD ORDERABLES Fin al Result [facility] [address] [place] [address], * (ABNORMAL) Comprehensive metabolic panel (02/19/2025 8:42 AM EDT) Sodium 136 133 - 145 mmol/L LAB CHEMISTRY METHOD 02/19/2025 12:12 PM [facility] Potassium 4.0 3.5 - 5.5 mmol/L LAB CHEMISTRY METHOD 02/19/2025 12:12 PM [facility] Chloride 104 96 - 110 mmol/L LAB CHEMISTRY METHOD 02/19/2025 12:12 PM [facility] CO2 25 21 - 32 mmol/L LAB CHEMISTRY METHOD 02/19/2025 12:12 PM [facility] Anion Gap 7 3 - 11 LAB CHEMISTRY METHOD 02/19/2025 12:12 PM [facility] Glucose 155(H) 70 - 100 mg/dL LAB CHEMISTRY METHOD 02/19/2025 12:12 PM [facility] BUN 15 5 - 25 mg/dL LAB CHEMISTRY METHOD 02/19/2025 12:12 PM [facility] Creatinine 0.81 0.70 - 1.30 mg/dL LAB CHEMISTRY METHOD 02/19/2025 12:12 PM [facility] eGFR 90 >=60 mL/min/1. 73m2 LAB CHEMISTRY METHOD 02/19/2025 12:12 PM [facility] Comment:Calculation based on the Chronic Kidney Disease Epidemiology Collaboration (CKD-EPI) equation refit without adjustment for race. BUN/Creatinine Ratio 18.5 LAB CHEMISTRY METHOD 02/19/2025 12:12 PM [facility] Calcium 8.7 8.5 - 10.5 mg/dL LAB CHEMISTRY METHOD 02/19/2025 12:12 PM [facility] AST (SGOT) 8(L) 10 - 42 unit/L LAB CHEMISTRY METHOD 02/19/2025 12:12 PM [facility] ALT (SGPT) 8(L) 10 - 60 unit/L LAB CHEMISTRY METHOD 02/19/2025 12:12 PM [facility] Alkaline Phosphatase 75 42 - 121 unit/L LAB CHEMISTRY METHOD 02/19/2025 12:12 PM [facility] Total Protein 6.0 6.0 - 8.0 g/dL LAB CHEMISTRY METHOD 02/19/2025 12:12 PM [facility] Albumin 3.2 3.2 - 5.0 g/dL LAB CHEMISTRY METHOD 02/19/2025 12:12 PM [facility] Total Bilirubin 0.4 0.0 - 1.4 mg/dL LAB CHEMISTRY METHOD 02/19/2025 12:12 PM [facility] Blood Venous blood specimen / Unknown Venipuncture / Unknown 02/19/2025 8:42 AM EDT 02/19/2025 10:48 AM EDT us Lida Jules MD LAB BLOOD ORDERABLES Fin al Result [facility] [address] [place] [address], * (ABNORMAL) Complete blood count (02/19/2025 8:42 AM EDT) [facility] Signature WBC 2.4(L) 4.8 - 10.8 K/mcL LAB HEMETOLOGY METHOD 02/19[facility]2025 11[facility] RBC 2.80(L) 4.50 - 5.50 M/mcL LAB HEMETOLOGY METHOD 02/19/2025 11:[facility] Hemoglobin 6.9(L) 13.5 - 17.5 g/dL LAB HEMETOLOGY METHOD 02/19/2025 11:24 AM [facility] Hematocrit 23.4(L) 42.0 - 54.0 % LAB HEMETOLOGY METHOD 02/19/2025 11:24 AM [facility] MCV 83.9 79.0 - 98.0 FL LAB HEMETOLOGY METHOD 02/19/2025 11:24 AM [facility] MCH 24.7(L) 27.0 - 32.0 pcg LAB HEMETOLOGY METHOD 02/19/2025 11:24 AM [facility] MCHC 29.5(L) 32.0 - 37.0 g/dL LAB HEMETOLOGY METHOD 02/19/2025 11:24 AM [facility] RDW 17.5(H) 11.0 - 15.0 % LAB HEMETOLOGY METHOD 02/19/2025 11:24 AM [facility] Platelets 108(L) 130 - 400 K/mcL LAB HEMETOLOGY METHOD 02/19/2025 11:24 AM [facility] MPV 10.4 7.0 - 11.0 FL LAB HEMETOLOGY METHOD 02/19/2025 11:24 AM [facility] NRBC 0.0 <1.0 % LAB HEMETOLOGY METHOD 02/19/2025 11:24 AM EDT [facility] NRBC Absolute 0.00 <0.10 K/mcL LAB HEMETOLOGY METHOD 02/19/2025 11:24 AM EDT [facility] Blood Venous blood specimen / Unknown Venipuncture / Unknown 02/19/2025 8:42 AM EDT 02/19/2025 10:48 AM EDT us Lida Jules MD LAB BLOOD ORDERABLES Fin al Result [facility] [address] [place] [address], documented in this encounter Visit Diagnoses Diagnosis Essential (primary) hypertension Unspecified essential hypertension Type 2 diabetes mellitus with unspecified complications (CMS/HCC V24, CMS/HCC V28) documented in this encounter Care Teams Interventional Physician Relationship Specialty Start Date End Date Sandra Horn NP [address] [place] [address] PCP - General Nurse Practitioner 06/29/24 documented as of this encounter
--- OUTSIDE RECORDS SUMMARY | 2025-03-03 02:29 | XMS_ITS | Clinical Summary ---
Author Organization [facility] Address [address] [place] [address] Care Team Providers Care Piano Regulator Name Role Phone Karin London MD Primary Care Provider [phone] Allergies Active Allergy Reactions Criticality Noted Date [...] Years Used Date Smoking Tobacco: Never Assessed [facility] Utilities Answer Date Recorded In the past 12 months has [employer], oil, or water [employer] threatened to shut off services in your [...] place to sleep or slept in a detention (including now)? No 03/22/2023 Sex and Gender [...] performed. <5.7 % 03/21/2023 9:33 PM EST [facility] Estimated Average Glucose Specimen clotted. Test not performed. mg/dL 03/21/2023 9:33 PM EST [facility] Blood specimen (specimen) Blood specimen / Unknown 03/21/2023 8:21 PM EST 03/21/2023 9:17 PM EST [facility] LAB BLOOD ORDERABLES Evie gonzalez Result [facility] [address] [place] [address], [facility] [address] [place] [address] from Last 3 Months or Most Recently Relevant to Health Maintenance Insurance [facility] MEDICARE PART A & B [facility] MEDICARE [place] [address] [facility] Advance Directives Documents on File Type Date Recorded 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 Health Care Represent ative Care Teams Piano Regulator Relationship Specialty Start Date End Date Karin London MD [address] [place] [address] PCP - General Family Medicine 03/21/23
--- OUTSIDE RECORDS SUMMARY | 2025-03-03 02:29 | XMS_ITS | Encounter Summary ---
Author Organization [facility] Address [address] [facility] [address] [place] [address] Phone Care Team Providers Care Design Engineering Manager Name Role Phone Jovanna London MD Primary Care Provider [phone] Jovanna London MD Unavailable Manolo Meléndez MD Primary Care Provider + Manolo Tamayo MD Primary Care Provider [phone] Aleja Madrid NP Primary Care Provider [phone] Encounter Details Date Type Department Care Team (Late st Contact Info) Description 12/29/2020 Procedure [facility], Ct Scan - [address] [address] Social History Tobacco Use Types Packs/Day Years [...] 7:34 PM EDT Jerardo Prado RN * [place] Suicide Severity Rating Scale (Screener/Recent Self-Report) Question [...] documented as of this encounter Care Teams Design Engineering Manager Relationship Specialty Start Date End Date Jovanna London MD [address] [place] [address] PCP - General Family Medicine 09/30/18 03/20/23 Manolo Meléndez MD [address] [place] [address] [email or web address] PCP - General Rheumatology 03/21/23 03/25/23 Manolo Tamayo MD [address] [place] [id number] [email or web address] PCP - General Internal Medicine 03/26/2311/02/23 Aleja Madrid NP [address] [address] PCP - General Nurse Practitioner 11/03/23 Jovanna London MD [address] [place] [address] Family Medicine 03/21/23 documented as of this encounter Additional Source Comments The information contained in this document represents components of the legal health record. It is not the complete legal health record.[facility]
--- OUTSIDE RECORDS SUMMARY | 2025-03-03 02:29 | XMS_ITS | Encounter Summary ---
Author Organization [facility] Address [address] [facility] [address] [place] [address] Phone Care Team Providers Care Roll Capper Name Role Phone Jovanna London MD Primary Care Provider [phone] Jovanna London MD Unavailable [phone] Manolo Meléndez MD Primary Care Provider + Manolo Tamayo MD Primary Care Provider [phone] Aleja Madrid NP Primary Care Provider [phone] Encounter Details Date Type Department Care Team (Late st Contact Info) Description 12/01/2021 Procedure Pass [facility], Ct Scan - [address] [address] Social History Tobacco Use Types Packs/Day Years [...] 3:20 PM EDT Gaston Fontanez CNP * [place] Suicide Severity Rating Scale (Screener/Recent Self-Report) Question [...] documented as of this encounter Care Teams Roll Capper Relationship Specialty Start Date End Date Jovanna London MD [address] [place] [address] PCP - General Family Medicine 09/30/18 03/20/23 Manolo Meléndez MD [address] [place] [address] [email or web address] PCP - General Rheumatology 03/21/23 03/25/23 Manolo Tamayo MD [address] [address] [email or web address] PCP - General Internal Medicine 03/26/2311/02/23 Aleja Madrid NP [address] [place] [id number] PCP - General Nurse Practitioner 11/03/23 Jovanna London MD [address] [place] [address] Family Medicine 03/21/23 documented as of this encounter Additional Source Comments The information contained in this document represents components of the legal health record. It is not the complete legal health record.[facility]
--- OUTSIDE RECORDS SUMMARY | 2025-03-03 02:29 | XMS_ITS | Encounter Summary ---
Author Organization [facility] Address [address] [address] Phone Care Team Providers Care Scrub Tech Name Role Phone Jovanna London MD Primary Care Provider [phone] Jovanna London MD Unavailable [phone] Manolo Meléndez MD Primary Care Provider + Manolo Tamayo MD Primary Care Provider [phone] Aleja Madrid NP Primary Care Provider [phone] Encounter Details Date Type Department Care Team (Late st Contact Info) Description 12/20/2018 Ancillary Orders [address] [address] Ryan Bullard DO [address] [place] [address] Orthopedics & Sports Medicine, [place] [address] [email or web address] Right shoulder pain, unspecified chronicity Social History [...] documented as of this encounter Care Teams Scrub Tech Relationship Specialty Start Date End Date Jovanna London MD [address] [place] [address] PCP - General Family Medicine 09/30/18 03/20/23 Manolo Meléndez MD [address] [place] [address] [email or web address] PCP - General Rheumatology 03/21/23 03/25/23 Manolo Tamayo MD [address] [place] [address] [email or web address] PCP - General Internal Medicine 03/26/2311/02/23 Aleja Madrid NP [address] [place] [id number] PCP - General Nurse Practitioner 11/03/23 Jovanna London MD [address] [place] [address] Family Medicine 03/21/23 documented as of this encounter Additional Source Comments The information contained in this document represents components of the legal health record. It is not the complete legal health record.[facility]
[2025-03-03 02:34] LABS: Alanine Aminotransferase < 6 U/L (0-40); Albumin Level 4.0 g/dL (3.5-5.0); Alkaline Phosphatase 80 U/L (39-117); Anion Gap 13 (12-20); Aspartate Amino Transferase 17 U/L (5-37); Blood Urea Nitrogen 14 mg/dL (9-16); Calcium 8.9 mg/dL (8.4-10.2); Carbon Dioxide 23 mmol/L (22-29); Chloride 105 mmol/L (96-108); Creatinine Clr Calc Pharmacy 97.5; Estimated Glomerular Filt Rate > 60; Potassium 4.1 mmol/L (3.3-5.1); Sodium 137 mmol/L (135-145); Total Protein 6.6 g/dL (6.5-8.0)
--- NOTE | 2025-03-03 02:35 | PC.NURSE ---
pt barb from [facility], a&ox2 dementia at baseline. per ems, staff states pt hemaglobin of 6.4, pt appears pale at this time. on arrival pt offers no complaints, TARSHA Cruz at bedside. vss
--- NOTE | 2025-03-03 02:55 | PC.NURSE ---
report given to Mirta AMANDA at [facility]
[2025-03-03 03:26] VITALS: BP 111/57; PULSE 85; RESP 17; TEMP 36.8; O2SAT 98
== END 2025-03-03 03:36 | disposition home or self-care (01) ==
PROVIDERS: Physician Assistant; Emergency Provider Emergency Medicine; PCP Internal Medicine
DX: R00.0 Tachycardia, unspecified (principal); D64.9 Anemia, unspecified; F03.90 Unspecified dementia, unspecified severity, without behavioral disturbance, psychotic disturbance, mood disturbance, and anxiety; E11.9 Type 2 diabetes mellitus without complications; R79.89 Other specified abnormal findings of blood chemistry; Z86.718 Personal history of other venous thrombosis and embolism; Z13.0 Encounter for screening for diseases of the blood and blood-forming organs and certain disorders involving the immune mechanism; Z79.899 Other long term (current) drug therapy; Z79.4 Long term (current) use of insulin; Z79.01 Long term (current) use of anticoagulants
CPT/HCPCS: 36415; 80053; 85025; 86850; 86870; 86880; 86885; 86900; 86901; 99284

== ENCOUNTER 2025-03-21 18:37 | Inpatient (IN) | payer MEDICARE, MEDICAID, SELFPAY ==
[2025-03-21] VITALS (10 sets, daily range): BP systolic 84–120; BP diastolic 30–68; PULSE 76–120; RESP 14–29; TEMP 36.8–39.2; O2SAT 94–100; BMI 36.4
--- NOTE | ~2025-03-21 | XR_ITS ---
CLINICAL HISTORY: dyspnea 1 view chest x-ray Comparison: None provided Findings: Moderate to severe bilateral pulmonary opacities nonspecific and may reflect multifocal pneumonia. Edema and superimposed edema also considered. Mild cardiomegaly and tortuosity thoracic aorta accentuated by AP magnification. Question small right pleural effusion. No pneumothorax in this portable image. 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 IMPRESSION: Bilateral pulmonary opacities nonspecific and concerning for multifocal pneumonia. This document has been electronically signed by: Drew Delacruz MD on 03/21/2025 19:55:36
--- NOTE | 2025-03-21 19:00 | ED.GENADULT ---
HPI - General Adult General Chief complaint: Upper Respiratory Symptoms Stated complaint: SOB 95% 2L Time Seen by Provider: 03/21/25 18:54 Source: patient Mode of arrival: ambulatory Limitations: no limitations History of Present Illness ED Provider: Dr. Chong HPI narrative: 79-year-old male presented from [facility]. Patient has been coughing for past 4 days. Patient is noted to be hypoxic for the past 4 hours. Patient has a history of hypothyroidism, diabetes, hyperlipidemia, history is limited due to patient's current mentation. Patient appears to be sepsis. He has a fever with a signs of tachycardia. Sepsis alert was activated for the patient. Related Data Home Medications ?Medication ?Instructions ?Recorded ?Confirmed apixaban 5 mg tablet (Eliquis) 5 mg PO BID 08/22/24 atorvastatin 20 mg tablet 20 mg PO DAILY 08/22/24 doxycycline hyclate 100 mg tablet 100 mg PO BID 08/22/24 duloxetine 20 mg capsule,delayed 20 mg PO BID 08/22/24 release insulin glargine 100 unit/mL unit subcut 08/22/24 subcutaneous solution (Lantus U-100 Insulin) insulin lispro 100 unit/mL subcut 08/22/24 subcutaneous pen (Humalog KwikPen (U-100) Insulin) levothyroxine 137 mcg tablet 137 mcg PO DAILY 08/22/24 metformin 1,000 mg tablet 1,000 mg PO BID 08/22/24 tamsulosin 0.4 mg capsule mg PO 08/22/24 topiramate 25 mg tablet 25 mg PO BID 08/22/24 venlafaxine 37.5 mg mg PO 08/22/24 capsule,extended release 24 hr Allergies Allergy/AdvReac Type Severity Reaction Status Date / Time benzalkonium Allergy Mild Unknown Verified 03/21/25 18:52 brimonidine Allergy Mild Unknown Verified 03/21/25 18:52 clindamycin Allergy Mild Unknown Verified 03/21/25 18:52 dorzolamide (From Trusopt) Allergy Mild Unknown Verified 03/21/25 18:52 gabapentin Allergy Mild Unknown Verified 03/21/25 18:52 heparin Allergy Mild Unknown Verified 03/21/25 18:52 ketoconazole (From Nizoral) Allergy Mild unknown Verified 03/21/25 18:52 lamotrigine Allergy Mild Unknown Verified 03/21/25 18:52 penicillin G Allergy Mild Unknown Verified 03/21/25 18:52 prednisone Allergy Mild Unknown Verified 03/21/25 18:52 pyridoxine Allergy Mild Unknown Verified 03/21/25 18:52 rivaroxaban Allergy Mild Unknown Verified 03/21/25 18:52 sulfamethoxazole (From Allergy Mild Unknown Verified 03/21/25 18:52 Sulfamethoxazole-Trimethoprim) timolol Allergy Mild Unknown Verified 03/21/25 18:52 travoprost (From Travatan Z) Allergy Mild Unknown Verified 03/21/25 18:52 trimethoprim (From Allergy Mild Unknown Verified 03/21/25 18:52 Sulfamethoxazole-Trimethoprim) vancomycin Allergy Mild Unknown Verified 03/21/25 18:52 Review of Systems Review of Systems: Review of systems limited due to the patient's presentation PMFSH [facility] Narrative: Medical history as mentioned in HPI Medical History Venous thrombosis and embolism Edema Anemia PTSD (post-traumatic stress disorder) Hypercholesteremia Hypothyroidism Diabetes Social History Social History Unable to assess alcohol history related to: Unable to respond and Unknown Smoked in Last 30 Days: No Use of substances other than those prescribed or required for medical reasons: Unknown Advance Directives: Yes Advance Directives on File: Yes Advance Directives Date on File: 02/21/25 Do you have a plan to hurt others: No Plan Physical Exam ED Exam Exam: General: Patient appears to be ill and diaphoretic on exam Head: Normacephalic, atraumatic ENT: oral mucosa moist, neck supple, no tracheal deviation Cardiovascular: Tachycardic rate, regular rhythm, no murmurs, rubbing, gallops Respiratory: Bilateral rales on exam Extremities: Venous stasis changes with a chronic ulcer in the lower extremity bilaterally. There has pitting edema bilaterally. Neurological: Awake and alert, no facial droop noted Skin: Warm and dry Psychiatric: Appears encephalopathic Vital Signs: Vital Signs - 24 hr 03/21/25 18:46 03/21/25 19:16 03/21/25 19:20 Temperature 102.5 F H Pulse Rate 107 H 102 H 120 H Respiratory Rate 20 14 25 H Blood Pressure 94/40 L 115/45 L Pulse Oximetry 94 95 Oxygen Delivery Method Room Air Oxygen Flow Rate 03/21/25 20:34 03/21/25 20:57 03/21/25 21:07 Temperature 100.2 F 99.7 F 99.5 F Pulse Rate 85 86 82 Respiratory Rate 19 29 H 21 H Blood Pressure 84/30 L 104/50 L 110/41 L Pulse Oximetry 100 100 99 Oxygen Delivery Method Room Air Nasal Cannula Aerosol Mask Nasal Cannula Aerosol Mask Oxygen Flow Rate 7 03/21/25 21:39 03/21/25 22:20 03/21/25 23:22 Temperature 99.1 F 98.6 F 98.2 F Pulse Rate 81 77 76 Respiratory Rate 20 17 24 H Blood Pressure 110/53 L 99/48 L 115/51 L Pulse Oximetry 99 95 97 Oxygen Delivery Method Nasal Cannula Aerosol Mask Nasal Cannula Oxymask Oxygen Flow Rate 3 4 BMI result Body Mass Index 36.4 Medications Administered Discontinued Medications Generic Name Dose Route Start Last Admin Trade Name Freq PRN Reason Stop Dose Admin Acetaminophen 1,000 mg in 100 mls @ 400 mls/hr 03/21/25 18:57 03/21/25 20:10 Ofirmev IV 03/21/25 19:11 Infused ONCE ONE Infusion Sodium Chloride 1,000 mls @ 999 mls/hr 03/21/25 19:00 03/21/25 20:56 Ns IV 03/21/25 20:00 Infused .Q1H1M MARTA Infusion Levofloxacin 750 mg in 150 mls @ 100 mls/hr 03/21/25 21:09 03/21/25 23:01 Levaquin IV 03/21/25 22:38 Infused ONCE ONE Infusion Lactated Ringer's 1,000 mls @ 999 mls/hr 03/21/25 23:00 03/21/25 23:06 Lr IV 03/22/25 00:00 999 mls/hr .Q1H1M MARTA Administration Levalbuterol HCl 3.75 mg 03/21/25 19:16 03/21/25 19:22 Levalbuterol Hcl 1.25 Mg/3 Ml Vial.Neb INHALE 03/21/25 19:17 3.75 mg ONCE ONE Administration Medical Decision Making Medical Decision Making MDM Narrative: This is a 79-year-old male presented hospital today for evaluation of hypoxia cough sepsis. I have high suspicion for pneumonia in the patient. Sepsis lab work were obtained from the patient. Including CBC CMP blood culture lactic acid. Chest x-ray was obtained. Patient does have leukocytosis 20.3. Patient has bands of 19. COVID flu and RSV swab was negative. Chest x-ray shows bilateral pulmonary opacities. Patient's received 2 L IV fluid, Full 30 cc/kg not given due to risk of fluid overload and signs of leg edema. IV Levaquin initiated. Patient will be admitted to the hospital for sepsis secondary to pneumonia. Differential Diagnosis Differential Diagnoses: The differential diagnosis associated with the presentation includes Sepsis, pneumonia, CHF, UTI Lab Data MDM Lab Attestation statement: I reviewed the patient's lab results. 03/21/25 19:09 03/21/25 19:09 Labs: Lab Results 03/21/25 Range/Units 19:09 WBC 20.3 H (4.8-10.8) X10*3/uL RBC 3.36 L (4.60-5.80) X10*6/uL Hgb 8.6 L (14.0-18.0) g/dl Hct 26.8 L (42.0-52.0) % MCV 79.8 L (80.0-98.0) fL MCH 25.6 L (27.0-33.0) pg MCHC 32.1 (31.0-36.0) g/dl RDW 20.3 H (11.0-16.0) % Plt Count 166 D (160-400) X10*3/uL MPV 10.9 (9.4-12.4) fL Immature Gran % (Auto) Cancelled Neut % (Auto) Cancelled Lymph % (Auto) Cancelled [place] % (Auto) Cancelled Eos % (Auto) Cancelled Baso % (Auto) Cancelled Lymph # (Auto) Cancelled [place] # (Auto) Cancelled Eos # (Auto) Cancelled Baso # (Auto) Cancelled Abs Immat Gran (auto) Cancelled Absolute Neuts (auto) Cancelled Absolute Nucleated RBC 0.030 H (0.0-0.012) X10*3/uL Nucleated RBC % (auto) 0.1 (0.0-0.2) /100WBC Neutrophils % (Manual) 67 (45-73) % Band Neutrophils % 19 H (3-5) % Lymphocytes % (Manual) 2 L (20-40) % Atypical Lymphs % (Man) 1 (0-6) % Monocytes % (Manual) 11 (2-11) % Abs Neuts (Manual) 17.5 H (2.0-8.3) X10*3/uL Lymphocytes # (Manual) 0.4 L (1.2-4.9) X10*3/uL Atyp Lymphs # (Manual) 0.2 x10*3/uL Monocytes # (Manual) 2.2 H (0.1-1.2) X10*3/uL Toxic Vacuolation PRESENT Platelet Estimate NORMAL (NORMAL) Large Platelets PRESENT Plt Morphology Comment NORMAL RBC Morphology NOTED Microcytosis 1+ (5-14) /OIF Reva Cells 2+ (3-5) /OIF Sodium 132 L (135-145) mmol/L Potassium 3.3 (3.3-5.1) mmol/L Chloride 100 (96-108) mmol/L Carbon Dioxide 20 L (22-29) mmol/L Anion Gap 15 (12-20) BUN 14 (9-16) mg/dL Creatinine 1.11 (0.5-1.4) mg/dL Estim Creat Clear Calc 65.5 Estimated GFR > 60 POC Glucose 131 H (60-115) mg/dL Random Glucose 121 H (60-115) mg/dL Lactic Acid 1.5 (0.5-2.0) mmol/L Calcium 9.2 (8.4-10.2) mg/dL Total Bilirubin 0.9 (0.0-1.0) mg/dL AST 57 H (5-37) U/L ALT 19 (0-40) U/L Alkaline Phosphatase 134 H (39-117) U/L Troponin I High Sens 45.0 H (<3.5-35.0) ng/L NT-Pro-B Natriuret Pep 1939.3 H (<300) pg/mL Total Protein 6.7 (6.5-8.0) g/dL Albumin 3.7 (3.5-5.0) g/dL Influenza Type A (PCR) NEGATIVE (Negative) Influenza Type B (PCR) NEGATIVE (Negative) RSV RNA Qual (PCR) NEGATIVE (Negative) SARS-CoV-2 RNA (RT-PCR) NEGATIVE (Negative) Independent Interpretation I performed an independent interpretation of an: Plain X-Ray Radiology Impression Discussion of test interpretation with radiology: I have reviewed the radiologist's reading. Critical Care Time Critical Care Time Critical Care Time: Yes Total Critical Care Time: 50 Attestation: Time is exclusive of separately billable procedures. Time includes: direct patient care, patient reassessment, coordination of patient care, interpretation of data (laboratory data, pulse oximetry, arterial blood gases and chest xrays), review of patient's medical records, medical consultation and documentation of patient care. Procedures excluded from critical care time: central intravenous line placement and electrocardiography. Discharge Plan Discharge Clinical Impression: Acute hypoxic respiratory failure Sepsis Qualifiers: Sepsis type: sepsis due to unspecified organism Sepsis acute organ dysfunction status: with acute organ dysfunction Severe sepsis acute organ dysfunction type: unspecified Severe sepsis shock status: without septic shock Qualified Code(s): A41.9 - Sepsis, unspecified organism Pneumonia Qualifiers: Pneumonia type: due to unspecified organism Laterality: bilateral Lung location: unspecified part of lung Qualified Code(s): J18.9 - Pneumonia, unspecified organism Patient Disposition: Admitted As Inpatient Print Language: Tristanian
[2025-03-21 19:13] LABS: Glucose, Whole Blood 131 mg/dL (60-115)
--- OUTSIDE RECORDS SUMMARY | 2025-03-21 19:18 | XMS_ITS | Encounter Summary ---
Author Organization [facility] Address [address] [employer] [facility] [address] [place] [address] Phone Care Team Providers Care Waste Water Operator Name Role Phone Jovanna London MD Unavailable [phone] Aleja Madrid NP Primary Care Provider [phone] Encounter Details Date Type Department Care Team (Latest Contact Info) Description 11/10/2023 Transcribe Orders [facility] Specimen Processing [address] [place] [address] Yamileth [email or web address] Type 2 diabetes mellitus with hyperosmolarity [...] 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 Not on file Not on file documented as of this encounter Plan of Treatment Not on file documented as of this encounter Results * (ABNORMAL) Hemoglobin A1c (11/10/2023 7:14 AM EDT) HEMOGLOBIN A1C 11.0(H) 4.3 - 5.8 % [facility] Blood 11/10/2023 7:14 AM EDT 11/10/2023 9:50 AM EDT Felicia Zepeda MD LAB BLOOD BKR ORDERABLES Final Result [facility] [address] [place] [address] * (ABNORMAL) CBC (11/10/2023 7:14 AM EDT) WBC 2.49(L) 4.00 - 11.00 K/uL [facility] RBC 3.61(L) 3.90 - 5.69 M/uL [facility] HGB 10.7(L) 12.4 - 17.3 g/dL [facility] HCT 32.7(L) 37.0 - 51.0 % [facility] PLT 156 140 - 430 K/uL [facility] MCV 90.6 78.0 - 97.0 fL [facility] MCH 29.6 25.0 - 33.0 pg [facility] MCHC 32.7 32.0 - 36.0 g/dL [facility] RDW 16.5(H) 11.0 - 15.0 % [facility] MPV 10.9 8.4 - 12.8 fl [facility] Blood 11/10/2023 7:14 AM EDT 11/10/2023 9:50 AM EDT us Felicia Zepeda MD LAB BLOOD BKR ORDERABLES Final Result [facility] [address] [place] [address] * (ABNORMAL) Comprehensive metabolic panel (11/10/2023 7:14 AM EDT) SODIUM 137 133 - 146 mmol/L [facility] POTASSIUM 4.3 3.3 - 5.1 mmol/L [facility] CHLORIDE 101 96 - 108 mmol/L [facility] CO2 26 21 - 35 mmol/L [facility] BUN 15 6 - 19 mg/dL [facility] CREATININE 0.70 0.5 - 1.5 mg/dL [facility] GLUCOSE 141(H) 70 - 99 mg/dL [facility] ALBUMIN 3.6(L) 3.9 - 4.8 g/dL [facility] TOTAL PROTEIN 5.8(L) 6.5 - 8.0 g/dL [facility] CALCIUM 9.0 8.4 - 10.3 mg/dL [facility] ALKALINE PHOSPHATASE 86 39 - 117 U/L [facility] TOTAL BILIRUBIN 0.6 0.0 - 1.2 mg/dL [facility] AST 9 0 - 37 U/L [facility] ALT <5 0 - 40 U/L [facility] GLOBULIN 2.2 1 - 4.8 g/dL [facility] EGFR 95 >59 mL/min/1.7 3m2 [facility] Comment:Estimated glomerular filtration rate calculated using the CKD-EPI refit equation. ANION GAP 14 10 - 20 mmol/L [facility] Blood 11/10/2023 7:14 AM EDT 11/10/2023 9:50 AM EDT Felicia Zepeda MD LAB BLOOD BKR ORDERABLES Final Result [address] [address] documented in this encounter Visit Diagnoses Diagnosis Type 2 diabetes mellitus with hyperosmolarity without coma, without long-term current use of insulin- Primary Weakness generalized Other malaise and fatigue documented in this encounter Care Teams Waste Water Operator Relationship Specialty Start Date End Date Aleja Madrid NP [address] [address] PCP - General Nurse Practitioner 11/03/23 Jovanna London MD [facility] [place] [address] Family Medicine 03/21/23 documented as of this encounter Additional Source Comments The information contained in this document represents components of the legal health record. It is not the complete legal health record.[facility]
--- OUTSIDE RECORDS SUMMARY | 2025-03-21 19:18 | XMS_ITS | Encounter Summary ---
Author Organization [facility] Address [address] [facility] [address] [place] [address] Phone Care Team Providers Care Aquatic Scientist Name Role Phone Jovanna London MD Unavailable [phone] Manolo Meléndez MD Primary Care Provider + Manolo Tamayo MD Primary Care Provider [phone] Aleja Madrid NP Primary Care Provider [phone] Encounter Details Date Type Department Care Team (Late st Contact Info) Description 03/21/2023 Procedure Pass [facility], Ct Scan - [facility] [address] [place] [address] Social History Tobacco Use Types Packs/Day Years [...] 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 Not on file Not on file documented as of this encounter Functional Status * Calculated C-SSRS Risk Score (Lifetime/Recent) Answer Date of Assessment Author No Risk Indicated 03/21/2023 4:24 AM Emerald Damian RN * [place] Suicide Severity Rating Scale (Screener/Recent Self-Report) Question [...] documented as of this encounter Care Teams Aquatic Scientist Relationship Specialty Start Date End Date Manolo Meléndez MD [address] [place] [address] [email or web address] PCP - General Rheumatology 03/21/23 03/25/23 Manolo Tamayo MD [address] [address] [email or web address] PCP - General Internal Medicine 03/26/2311/02/23 Aleja Madrid NP [address] [id number] PCP - General Nurse Practitioner 11/03/23 Jovanna London MD [address] [place] [address] Family Medicine 03/21/23 documented as of this encounter Additional Source Comments The information contained in this document represents components of the legal health record. It is not the complete legal health record.[facility]
--- OUTSIDE RECORDS SUMMARY | 2025-03-21 19:18 | XMS_ITS | Encounter Summary ---
Author Organization [facility] Address [address] [employer] [address] [address] Phone Care Team Providers Care Overhead Garage Door Hanger Name Role Phone Jovanna London MD Primary Care Provider [phone] Jovanna London MD Unavailable [phone] Manolo Meléndez MD Primary Care Provider + Manolo Tamayo MD Primary Care Provider [phone] Aleja Madrid NP Primary Care Provider [phone] Encounter Details Date Type Department Care Team (Late st Contact Info) Description 07/24/2022 Transcribe Orders [address] [address] Jovanna London MD [address] [place] [address] Dysuria Social History Tobacco Use Types Packs/Day [...] 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 Not on file Not on file documented as of this encounter Plan of Treatment Not on file documented as of this encounter Results * (ABNORMAL) Urinalysis w/reflex Urine Culture (07/24/2022 12:25 PM EDT) COLOR Yellow Yellow [facility] CLARITY Clear [facility] GLUCOSE 1+(A) Negative [facility] BILI Negative Negative [facility] KETONES Negative Negative [facility] SPECIFIC GRAVITY 1.015 1.005 - 1.030 [facility] BLOOD Negative Negative [facility] PH 5.5 5.0 - 8.0 [facility] Protein-UA Negative Negative [facility] NITRITE Negative Negative [facility] Leukocyte esterase, ur Negative Negative [facility] Urine (Urine) 07/24/2022 12: 25 PM EDT 07/24/2022 12:27 PM EDT Jovanna London MD LAB URINE ORDERABLES Final Result Performing Organization Address [facility] Co de Phone Number [address] [address] * Urine culture (07/24/2022 12:25 PM EDT) Special Requests None 07/24/2022 12:25 PM EDT [facility] Urine Culture NO GROWTH 48HRS 07/26/2022 8:03 AM EDT [facility] Urine (Urine) 07/24/2022 12: 25 PM EDT 07/24/2022 12:26 PM EDT Comment:URINE Jovanna London MD LAB MICROBIOLOGY CULTURE O RDERABLES Final Result Performing Organization Address City/[facility]/ZIP Co de Phone Number [address] [address] documented in this encounter Visit Diagnoses Diagnosis Dysuria documented in this encounter Additional Health Concerns Infection Onset Date Last Indicated Resolved Time CoV-Risk Comment:Neg covid 03/21/2023 03/21/2023 03/26/2023 6:[address] CoV-Risk 04/06/2023 04/06/2023 04/06/2023 5:27 PM EST COVID-19 04/06/2023 04/06/2023 04/27/2023 1:22 AM EST CoV-Risk 10/31/2023 10/31/2023 11/01/2023 11:2 1 AM EDT documented as of this encounter Care Teams Overhead Garage Door Hanger Relationship Specialty Start Date End Date Jovanna London MD [address] [place] [address] PCP - General Family Medicine 09/30/18 03/20/23 Manolo Meléndez MD [address] [place] [address] [email or web address] PCP - General Rheumatology 03/21/23 03/25/23 Manolo Tamayo MD [address] [place] [address] [email or web address] PCP - General Internal Medicine 03/26/2311/02/23 Aleja Madrid NP [address] [id number] PCP - General Nurse Practitioner 11/03/23 Jovanna London MD [address] [place] [address] Family Medicine 03/21/23 documented as of this encounter Additional Source Comments The information contained in this document represents components of the legal health record. It is not the complete legal health record.[facility]
--- OUTSIDE RECORDS SUMMARY | 2025-03-21 19:18 | XMS_ITS | Encounter Summary ---
Author Organization [facility] Address [address] [address] Phone Care Team Providers Care Credit Director Name Role Phone Mirna Sanchez Primary Care Provider Arnaud Spence NP Primary Care Provide r Jovanna London MD Primary Care Provider [phone] Jovanna London MD Unavailable Manolo Meléndez MD Primary Care Provider + Manolo Tamayo MD Primary Care Provider [phone] Aleja Madrid NP Primary Care Provider Encounter Details Date Type Department Care Team (Late st Contact Info) Description 07/07/2017 Transcribe Orders Non-Invasive Cardiology [address] [place] [address] Ricardo Watson MD [address] [facility], [address] [place] [address] [email or web address] Social History Tobacco Use Types Packs/Day Years [...] documented as of this encounter Care Teams Credit Director Relationship Specialty Start Date End Date Mirna Sanchez DO [address] [place] [address] PCP - General Internal Medicine 03/05/17 01/02/18 Arnaud Spence NP [address] [place] [address] PCP - General Family Medicine 01/03/18 09/29/18 Jovanna London MD [address] [place] [address] PCP - General Family Medicine 09/30/18 03/20/23 Manolo Meléndez MD [address] [place] [address] [email or web address] PCP - General Rheumatology 03/21/23 03/25/23 Manolo Tamayo MD [address] [place] [address] [email or web address] PCP - General Internal Medicine 03/26/2311/02/23 lAeja Madrid NP [address] [address] PCP - General Nurse Practitioner 11/03/23 Jovanna London MD [address] [place] [address] Family Medicine 03/21/23 documented as of this encounter Additional Source Comments The information contained in this document represents components of the legal health record. It is not the complete legal health record.[facility]
--- OUTSIDE RECORDS SUMMARY | 2025-03-21 19:18 | XMS_ITS | Encounter Summary ---
Author Organization [facility] Address [address] [employer] [facility] [address] [place] [address] Phone Care Team Providers Care Hi Low Truck Driver Name Role Phone Jovanna London MD Unavailable [phone] Manolo Tamayo MD Primary Care Provider [phone] Aleja Madrid NP Primary Care Provider [phone] Encounter Details Date Type Department Care Team (Late st Contact Info) Description 10/31/2023 Procedure Pass [facility], Ct Scan - [address] [id number] Social History Tobacco Use Types Packs/Day Years [...] 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 Not on file Not on file documented as of this encounter Functional Status * Calculated C-SSRS Risk Score (Lifetime/Recent) Answer Date of Assessment Author No Risk Indicated 10/31/2023 1:02 AM EDT Aure Caro RN * [place] Suicide Severity Rating Scale (Screener/Recent Self-Report) Question [...] documented as of this encounter Care Teams Hi Low Truck Driver Relationship Specialty Start Date End Date Manolo Tamayo MD [address] [place] [phone] [email or web address] PCP - General Internal Medicine 03/26/2311/02/23 Aleja Madrid NP [address] [address] PCP - General Nurse Practitioner 11/03/23 Jovanna Lonodn MD [facility] [address] Family Medicine 03/21/23 documented as of this encounter Additional Source Comments The information contained in this document represents components of the legal health record. It is not the complete legal health record.[facility]
--- OUTSIDE RECORDS SUMMARY | 2025-03-21 19:18 | XMS_ITS | Encounter Summary ---
Author Organization [facility] Address [address] [address] Phone Care Team Providers Care Board Hammer Operator Name Role Phone Mirna Sanchez Primary Care Provider Arnaud Spence NP Primary Care Provide r Jovanna London MD Primary Care Provider + [phone] Jovanna London MD Unavailable [phone] Manolo Meléndez MD Primary Care Provider + Manolo Tamayo MD Primary Care Provider [phone] Aleja Madrid NP Primary Care Provider Reason for Referral * Cardiac Rehab (Elective) - Closed Specialty Diagnoses / Procedures Referred By Contac t Referred To Contact Cardiac Rehabilitation Diagnoses Dyspnea on exertion Carlos Patel MD Phone: tel: fax: [address] [address] Phone: tel: Referral ID Status Reason Start Date Expiration Date Visits Re quested Visits Authorized [id number] Closed 05/13/2017 08/23/2017 36 36 Encounter Details Date Type Department Care Team (Latest Contact Info) Description 05/13/2017 Transcribe Orders Virtual Department 30 [place] [address] Carlos Patel MD [address] [place] [address] Dyspnea on exertion (Primary Dx) Social History [...] Associated Diagnoses Order Schedule Ambulatory referral to [facility] Cardiac Rehab Outpatient Referral Routine Dyspnea [...] documented as of this encounter Care Teams Board Hammer Operator Relationship Specialty Start Date End Date Mirna Sanchez DO [address] [place] [address] PCP - General Internal Medicine 03/05/17 01/02/18 Arnaud Spence NP [address] [place] [address] PCP - General Family Medicine 01/03/18 09/29/18 Jovanna London MD [address] [place] [address] PCP - General Family Medicine 09/30/18 03/20/23 Manolo Meléndez MD [address] [place] [address] [email or web address] PCP - General Rheumatology 03/21/23 03/25/23 Manolo Tamayo MD [address] [place] [address] [email or web address] PCP - General Internal Medicine 03/26/2311/02/23 Aleja Madrid NP [address] [address] PCP - General Nurse Practitioner 11/03/23 Jovanna London MD [address] [place] [address] Family Medicine 03/21/23 documented as of this encounter Additional Source Comments The information contained in this document represents components of the legal health record. It is not the complete legal health record.[facility]
--- OUTSIDE RECORDS SUMMARY | 2025-03-21 19:18 | XMS_ITS | Encounter Summary ---
Author Organization [facility] Address [address] 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 Not on file Not on file documented as of this encounter Plan of Treatment Not on file documented as of this encounter Visit Diagnoses Not on filedocumented in this encounter Additional Health Concerns Infection Onset Date Last Indicated Resolved Time CoV-Risk 10/31/2023 10/31/2023 11/01/2023 11:2 1 AM EDT documented as of this encounter Care Teams Insurance Underwriting Assistant Relationship Specialty Start Date End Date Manolo Tamayo MD [address] [place] [address] [email or web address] PCP - General Internal Medicine 03/26/2311/02/23 Aleja Madrid NP [address] [address] PCP - General Nurse Practitioner 11/03/23 Jovanna London MD [address] [place] [address] Family Medicine 03/21/23 documented as of this encounter Additional Source Comments The information contained in this document represents components of the legal health record. It is not the complete legal health record.[facility]
--- OUTSIDE RECORDS SUMMARY | 2025-03-21 19:18 | XMS_ITS | Encounter Summary ---
Author Organization [facility] Address [address] 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 Wish to be (Past 1 Month) No 02/14/2024 4:56 PM EDT Sarah Ridley RN 2. Non-Specific Active Suici will Thoughts (Past 1 Month) No 02/14/2024 4:56 PM EDT Sarai Ridley RN 6. Suicidal Behavior (Lifetime) No 4:56 PM EDT Sahrlene Ridley RN documented as of this encounter Plan of Treatment Not on file documented as of this encounter Visit Diagnoses Not on filedocumented in this encounter Care Teams Email Administrator Relationship Specialty Start Date End Date Aleja Madrid NP [address] [address] PCP - General Nurse Practitioner 11/03/23 Joavnna London MD [address] [place] [address] Family Medicine 03/21/23 documented as of this encounter Additional Source Comments The information contained in this document represents components of the legal health record. It is not the complete legal health record.[facility]
--- OUTSIDE RECORDS SUMMARY | 2025-03-21 19:18 | XMS_ITS | Clinical Summary ---
Author Organization [facility] Address [address] [employer] [address] [address] Phone Care Team Providers Care Business Segment Manager Name Role Phone Jovanna London MD Unavailable Aleja Madrid EQUIPMENT APPLICATION SPECIALIST Primary Care Provider [phone] Allergies Active Allergy Reactions Criticality Noted Date [...] monitoring POC. Lantus increased to 30 units moevmls76/25, with further increased to 35 units on 02/19. Continuing low-dose insulin sliding scale with [id number] testing. -Consistent carb/cardiac diet -Hold metformin -Hgb [...] 2:51 PM EST): Initially transferred back to [facility] for case management/placement, however he is much [...] evaluation for venous disease Completed antibiotics 07/04/2022 Curlew issue at this point is wound healing. [...] AM EDT): Concerning thoughts expressed to the boat hand, regarding the patient's sister, which was communicated to the nurse. Social work team now involved with BHR consult requested. Sister is afar in [place] with no urgent threat. Generalized weakness 12/01/2021 [...] units of blood in the ED at [facility] and over the course of his hospitalization at [facility] received 3 more units. He was evaluated [...] units of platelets between the ED at [facility] and [facility]. -Eliquis on hold for now, may be able to resume at [place] -Thrombocytopenia likely secondary to Bactrim, now improving [...] due to prior VTE history, with elevated [id number] score of 2. 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 ANION GAP 16 10 - 20 mmol/L [facility] Blood 02/22/2024 6:03 AM EDT 02/22/2024 6:24 AM EDT us Liv Abreu Aguilar DO LAB BLOOD BKR ORDERABLES F inal Result Performing Organization Address [facility]/ZIP Co de Phone Number [address] [address] * (ABNORMAL) Hemoglobin A1c (02/18/2024 6:16 AM EDT) HEMOGLOBIN A1C 8.6(H) 4.3 - 5.8 % [facility] 02/18/2024 6:16 AM EDT 02/18/2024 6:39 AM EDT us Chandrika Collieralexei Gaviria EQUIPMENT APPLICATION SPECIALIST LAB BLOOD BKR ORDERABLES Final Result Performing Organization Address [facility] Co de Phone Number [address] [address] * TSH with reflex (02/16/2024 6:13 AM EDT) TSH 2.23 0.27 - 4.20 uIU/mL [facility] Blood 02/16/2024 6:13 AM EDT 02/16/2024 6:17 AM EDT us Chandrika Greenvel EQUIPMENT APPLICATION SPECIALIST LAB BLOOD BKR ORDERABLES Final Result Performing Organization Address [facility] Co de Phone Number [address] [address] from Last 3 Months or Most Recently Relevant to Health Maintenance Insurance [facility] GENERIC MEDICARE [place] [address] [place] [address] GENERIC MEDICARE REPLACEMENT [facility] GENERIC MEDICARE [place] [address] [place] [address] [place] [address] GENERIC MEDICARE REPLACEMENT [facility] GENERIC MEDICARE [place] [address] [address] GENERIC MEDICARE [place] [address] [address] Advance Directives For more information, please contact: [phone] (9AM - 5PM [place], Wednesday-Wednesday) Documents on File Type Date Recorded Patient Coastal Tug Mate Expl anation Healthcare Proxy 01/03/2021 4:55 PM [...] Agent (Proxy form on file) Care Teams Business Segment Manager Relationship Specialty Start Date End Date Aleja Madrid NP [address] [address] PCP - General Nurse Practitioner 11/03/23 Jovanna London MD [address] [place] [address] Family Medicine 03/21/23 Additional Source Comments The information contained in this document represents components of the legal health record. It is not the complete legal health record.[facility]
--- OUTSIDE RECORDS SUMMARY | 2025-03-21 19:18 | XMS_ITS | Encounter Summary ---
Author Organization [facility] Address [address] [address] Phone Care Team Providers Care Repair Technician Name Role Phone Arnaud Spence NP Primary Care Provide r Jovanna London MD Primary Care Provider [phone] Jovanna London MD Unavailable Manolo Meléndez MD Primary Care Provider + Manolo Tamayo MD Primary Care Provider [phone] Aleja Madrid BRUSH FILLER HAND Primary Care Provider Encounter Details Date Type Department Care Team (Latest Contact Info) Description 01/03/2018 Transcribe Orders Virtual Department 30 [place] [address] Destiny Jain MD [address] [place] [address] [email or web address] Encounter for cardiac rehabilitation (Primary [...] BPM [facility] Atrial Rate 89 BPM [facility] ID Interval 170 ms [facility] QRS Duration 90 ms [facility] QT Interval 350 ms [facility] QTC Interval 425 ms [facility] P Bowers 51 degrees [facility] R Wave Bowers 6 degrees [facility] T Wave Bowers 20 degrees [facility] 01/03/2018 2:51 PM EDT [...] documented as of this encounter Care Teams Repair Technician Relationship Specialty Start Date End Date Arnaud Spence NP [address] [place] [address] PCP - General Family Medicine 01/03/18 09/29/18 Jovanna London MD [address] [place] [address] PCP - General Family Medicine 09/30/18 03/20/23 Manolo Meléndez MD [address] [place] [address] [email or web address] PCP - General Rheumatology 03/21/23 03/25/23 Manolo Tamayo MD [address] [place] [address] [email or web address] PCP - General Internal Medicine 03/26/2311/02/23 Aleja Madrid NP [address] [address] PCP - General Nurse Practitioner 11/03/23 Jovanna London MD [address] [place] [address] Family Medicine 03/21/23 documented as of this encounter Additional Source Comments The information contained in this document represents components of the legal health record. It is not the complete legal health record.[facility]
--- OUTSIDE RECORDS SUMMARY | 2025-03-21 19:18 | XMS_ITS | Encounter Summary ---
Author Organization [facility] Address [address] [address] Phone Care Team Providers Care Programs Director Name Role Phone Mirna Sanchez Primary Care Provider [phone] Arnaud Spence NP Primary Care Provide r Jovanna London MD Primary Care Provider + [phone] Jovanna London MD Unavailable [phone] Manolo Meléndez MD Primary Care Provider + Manolo Tamayo MD Primary Care Provider [phone] Aleja Madrid NP Primary Care Provider [phone] Reason for Referral * Consultation (Routine) - Closed Specialty Diagnoses / Procedures Referred By Contalbina t Referred To Contact Cardiac Rehabilitation Diagnoses Calf pain, unspecified laterality Carlos Patel MD Phone: tel: fax: [address] [address] Phone: tel: Referral ID Status Reason Start Date Expiration Date Visits Re quested Visits Authorized [id number] Closed 12/09/2017 05/26/2018 36 36 Encounter Details Date Type Department Care Team (Latest Contact Info) Description 12/31/2017 Transcribe Orders Virtual Department 30 [place] [address] Carlos Patel MD [address] [place] [address] Calf pain, unspecified laterality (Primary Dx) Social [...] Diagnoses Orde r Schedule Ambulatory referral to [facility] Cardiac Rehab Outpatient Referral Routine [...] documented as of this encounter Care Teams Programs Director Relationship Specialty Start Date End Date Mirna Sanchez DO [address] [place] [address] PCP - General Internal Medicine 03/05/17 01/02/18 Arnaud Spence NP [address] [place] [address] PCP - General Family Medicine 01/03/18 09/29/18 Jovanna London MD [address] [place] [address] PCP - General Family Medicine 09/30/18 03/20/23 Manolo Meléndez MD [address] [place] [address] [email or web address] PCP - General Rheumatology 03/21/23 03/25/23 Manolo Tamayo MD [address] [place] [address] [email or web address] PCP - General Internal Medicine 03/26/2311/02/23 Aleja Madrid, ABHIJIT [address] [address] PCP - General Nurse Practitioner 11/03/23 Jovanna London MD [address] [place] [address] (work) Family Medicine 03/21/23 documented as of this encounter Additional Source Comments The information contained in this document represents components of the legal health record. It is not the complete legal health record.[facility]
--- OUTSIDE RECORDS SUMMARY | 2025-03-21 19:19 | XMS_ITS | Encounter Summary ---
Author Organization [facility] Address 399 [facility] [address] [place] [address] Phone Care Team Providers Care Cash Applications Manager Name Role Phone Jovanna London MD Primary Care Provider [phone] Jovanna London MD Unavailable [phone] Manolo Meléndez MD Primary Care Provider + Manolo Tamayo MD Primary Care Provider [phone] Aleja Madrid NP Primary Care Provider [phone] Encounter Details Date Type Department Care Team (Late st Contact Info) Description 12/30/2020 Procedure Pass [facility] [address] [place] [address] Social History Tobacco Use Types Packs/Day Years [...] documented as of this encounter Care Teams Cash Applications Manager Relationship Specialty Start Date End Date Jovanna London MD [address] [place] [address] PCP - General Family Medicine 09/30/18 03/20/23 Manolo Meléndez MD [address] [place] [address] [email or web address] PCP - General Rheumatology 03/21/23 03/25/23 Manolo Tamayo MD [address] [place] [address] [email or web address] PCP - General Internal Medicine 03/26/2311/02/23 Aleja Madrid NP [address] [address] PCP - General Nurse Practitioner 11/03/23 Jovanna London MD [address] [place] [address] Family Medicine 03/21/23 documented as of this encounter Additional Source Comments The information contained in this document represents components of the legal health record. It is not the complete legal health record.[facility]
--- OUTSIDE RECORDS SUMMARY | 2025-03-21 19:19 | XMS_ITS | Encounter Summary ---
Author Organization [facility] Address [address] [employer] [address] [address] Phone Care Team Providers Care Senior Cost Accountant Name Role Phone Jovanna London MD Primary Care Provider [phone] Jovanna London MD Unavailable Manolo Meléndez MD Primary Care Provider + Manolo Tamayo MD Primary Care Provider [phone] Aleja Madrid NP Primary Care Provider [phone] Encounter Details Date Type Department Care Team (Late st Contact Info) Description 07/01/2022 Procedure Pass [place] Admitting Dept - Virtual Department 30 [place] [address] Social History Tobacco Use Types Packs/Day Years [...] Job 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 Not on file Not [...] documented as of this encounter Care Teams Senior Cost Accountant Relationship Specialty Start Date End Date Jovanna London MD [address] [place] [address] PCP - General Family Medicine 09/30/18 03/20/23 Manolo Meléndez MD [address] [place] [address] [email or web address] PCP - General Rheumatology 03/21/23 03/25/23 Manolo Tamayo MD [address] [place] [address] [email or web address] PCP - General Internal Medicine 03/26/2311/02/23 Aleja Madrid NP [address] [address] PCP - General Nurse Practitioner 11/03/23 Jovanna London MD [address] [place] [address] Family Medicine 03/21/23 documented as of this encounter Additional Source Comments The information contained in this document represents components of the legal health record. It is not the complete legal health record.[facility]
--- OUTSIDE RECORDS SUMMARY | 2025-03-21 19:19 | XMS_ITS | Encounter Summary ---
Author Organization [facility] Address 399 [employer] [facility] [address] [place] [address] Phone Care Team Providers Care Administration Specialist Name Role Phone Jovanna London MD Primary Care Provider [phone] Jovanna London MD Unavailable Manolo Meléndez MD Primary Care Provider + Manolo Tamayo MD Primary Care Provider [phone] Aleja Madrid NP Primary Care Provider [phone] Encounter Details Date Type Department Care Team (Late st Contact Info) Description 12/14/2019 Procedure Pass [facility], Ct Scan - [address] [address] Social History Tobacco Use Types Packs/Day Years [...] documented as of this encounter Care Teams Administration Specialist Relationship Specialty Start Date End Date Jovanna London MD [address] [place] [address] PCP - General Family Medicine 09/30/18 03/20/23 Manolo Meléndez MD [address] [place] [address] [email or web address] PCP - General Rheumatology 03/21/23 03/25/23 Manolo Tamayo MD [address] [address] [email or web address] PCP - General Internal Medicine 03/26/2311/02/23 Aleja Madrid NP [address] [address] PCP - General Nurse Practitioner 11/03/23 Jovanna London MD [address] [place] [address] Family Medicine 03/21/23 documented as of this encounter Additional Source Comments The information contained in this document represents components of the legal health record. It is not the complete legal health record.[facility]
--- OUTSIDE RECORDS SUMMARY | 2025-03-21 19:19 | XMS_ITS | Encounter Summary ---
Author Organization [facility] Address 399 [employer] [facility] [address] [place] [address] Phone Care Team Providers Care Uke Driver Name Role Phone Jovanna London MD Primary Care Provider [phone] Jovanna London MD Unavailable Manolo Meléndez MD Primary Care Provider + Manolo Tamayo MD Primary Care Provider [phone] Aleja Madrid NP Primary Care Provider [phone] Encounter Details Date Type Department Care Team (Late st Contact Info) Description 12/29/2020 Procedure Pass [facility], Ct Scan - [address] [address] Social History Tobacco Use Types Packs/Day Years [...] 7:34 PM EDT Jerardo Prado RN * [place] Suicide Severity Rating Scale (Screener/Recent Self-Report) Question [...] documented as of this encounter Care Teams Uke Driver Relationship Specialty Start Date End Date Jovanna London MD [address] [place] [address] PCP - General Family Medicine 09/30/18 03/20/23 Manolo Meléndez MD [address] [place] [address] [email or web address] PCP - General Rheumatology 03/21/23 03/25/23 Manolo Tamayo MD [address] [place] [address] [email or web address] PCP - General Internal Medicine 03/26/2311/02/23 Aleja Madrid NP [address] [address] PCP - General Nurse Practitioner 11/03/23 Jovanna London MD [address] [place] [address] Family Medicine 03/21/23 documented as of this encounter Additional Source Comments The information contained in this document represents components of the legal health record. It is not the complete legal health record.[facility]
--- OUTSIDE RECORDS SUMMARY | 2025-03-21 19:19 | XMS_ITS | Encounter Summary ---
Author Organization [facility] Address 399 [employer] [facility] [address] [place] [address] Phone Care Team Providers Care Professional Healthcare Representative Name Role Phone Jovanna London MD Primary Care Provider [phone] Jovanna London MD Unavailable Manolo Meléndez MD Primary Care Provider + Manolo Tamayo MD Primary Care Provider [phone] Aleja Madrid NP Primary Care Provider [phone] Encounter Details Date Type Department Care Team (Late st Contact Info) Description 11/16/2021 Procedure Pass [facility], Ct Scan - [address] [address] Social History Tobacco Use Types Packs/Day Years [...] 7:49 AM EDT Rylan Herrera RN * [place] Suicide Severity Rating Scale (Screener/Recent Self-Report) Question [...] documented as of this encounter Care Teams Professional Healthcare Representative Relationship Specialty Start Date End Date Jovanna London MD [address] [place] [address] PCP - General Family Medicine 09/30/18 03/20/23 Manolo Meléndez MD [address] [place] [address] [email or web address] PCP - General Rheumatology 03/21/23 03/25/23 Manolo Tamayo MD [address] [address] [email or web address] PCP - General Internal Medicine 03/26/2311/02/23 Aleja Madrid NP [address] [address] PCP - General Nurse Practitioner 11/03/23 Jovanna London MD [address] [place] [address] Family Medicine 03/21/23 documented as of this encounter Additional Source Comments The information contained in this document represents components of the legal health record. It is not the complete legal health record.[facility]
--- OUTSIDE RECORDS SUMMARY | 2025-03-21 19:19 | XMS_ITS | Encounter Summary ---
Author Organization [facility] Address [address] [facility] [address] [place] [address] Phone Care Team Providers Care Chairman Of The Board Name Role Phone Jovanna London MD Primary Care Provider [phone] Jovanna London MD Unavailable [phone] Manolo Meléndez MD Primary Care Provider + Manolo Tamayo MD Primary Care Provider [phone] Aleja Madrid NP Primary Care Provider [phone] Encounter Details Date Type Department Care Team (Late st Contact Info) Description 12/01/2021 Procedure Pass [facility], Ct Scan - [address] [address] Social History Tobacco Use Types Packs/Day Years [...] 3:20 PM EDT Gaston Fontanez CNP * [place] Suicide Severity Rating Scale (Screener/Recent Self-Report) Question [...] documented as of this encounter Care Teams Chairman Of The Board Relationship Specialty Start Date End Date Jovanna London MD [address] [place] [address] PCP - General Family Medicine 09/30/18 03/20/23 Manolo Meléndez MD [address] [place] [address] [email or web address] PCP - General Rheumatology 03/21/23 03/25/23 Manolo Tamayo MD [address] [address] [email or web address] PCP - General Internal Medicine 03/26/2311/02/23 Aleja Madrid NP [address] [id number] PCP - General Nurse Practitioner 11/03/23 Jovanna London MD [address] [place] [address] Family Medicine 03/21/23 documented as of this encounter Additional Source Comments The information contained in this document represents components of the legal health record. It is not the complete legal health record.[facility]
--- OUTSIDE RECORDS SUMMARY | 2025-03-21 19:19 | XMS_ITS | Encounter Summary ---
Author Organization [facility] Address [address] [employer] [facility] [address] [place] [address] Phone Care Team Providers Care Life Science Taxonomist Name Role Phone Jovanna London MD Primary Care Provider [phone] Jovanna London MD Unavailable [phone] Manolo Meléndez MD Primary Care Provider + Manolo Tamayo MD Primary Care Provider [phone] Aleja Madrid NP Primary Care Provider [phone] Encounter Details Date Type Department Care Team (Late st Contact Info) Description 12/01/2021 Procedure Pass [facility], Ct Scan - [address] [address] Social History Tobacco Use Types Packs/Day Years [...] 3:20 PM EDT Gaston Fontanez CNP * [place] Suicide Severity Rating Scale (Screener/Recent Self-Report) Question [...] documented as of this encounter Care Teams Life Science Taxonomist Relationship Specialty Start Date End Date Jovanna London MD [address] [place] [address] PCP - General Family Medicine 09/30/18 03/20/23 Manolo Meléndez MD [address] [place] [address] [email or web address] PCP - General Rheumatology 03/21/23 03/25/23 Manolo Tamayo MD [address] [place] [address] [address] [email or web address] PCP - General Internal Medicine 03/26/2311/02/23 Aleja Madrid NP [address] [id number] PCP - General Nurse Practitioner 11/03/23 Jovanna London MD [address] [place] [address] Family Medicine 03/21/23 documented as of this encounter Additional Source Comments The information contained in this document represents components of the legal health record. It is not the complete legal health record.[facility]
--- OUTSIDE RECORDS SUMMARY | 2025-03-21 19:19 | XMS_ITS | Encounter Summary ---
Author Organization [facility] Address [address] [address] Phone Care Team Providers Care Control Clerk Subassembly Name Role Phone Jovanna London MD Primary Care Provider [phone] Jovanna London MD Unavailable [phone] Manolo Meléndez MD Primary Care Provider + Manolo Tamayo MD Primary Care Provider [phone] Aleja Madrid NP Primary Care Provider [phone] Encounter Details Date Type Department Care Team (Late st Contact Info) Description 12/20/2018 Ancillary Orders [address] [address] Ryan Bullard DO [address] [place] [address] Orthopedics & Sports Medicine, [place] [address] [email or web address] Right shoulder pain, unspecified chronicity Social History [...] documented as of this encounter Care Teams Control Clerk Subassembly Relationship Specialty Start Date End Date Jovanna London MD [address] [place] [address] PCP - General Family Medicine 09/30/18 03/20/23 Manolo Meléndez MD [address] [place] [address] [email or web address] PCP - General Rheumatology 03/21/23 03/25/23 Manolo Tamayo MD [address] [place] [address] [email or web address] PCP - General Internal Medicine 03/26/2311/02/23 Aleja Madrid NP [address] [id number] PCP - General Nurse Practitioner 11/03/23 Jovanna London MD [address] [place] [address] Family Medicine 03/21/23 documented as of this encounter Additional Source Comments The information contained in this document represents components of the legal health record. It is not the complete legal health record.[facility]
--- OUTSIDE RECORDS SUMMARY | 2025-03-21 19:19 | XMS_ITS | Encounter Summary ---
Author Organization [facility] Address [address] [facility] [address] [place] [address] Phone Care Team Providers Care Fabric Worker Name Role Phone Jovanna London MD Primary Care Provider [phone] Jovanna London MD Unavailable [phone] Manolo Meléndez MD Primary Care Provider + Manolo Tamayo MD Primary Care Provider [phone] Aleja Madrid NP Primary Care Provider [phone] Encounter Details Date Type Department Care Team (Late st Contact Info) Description 12/02/2021 Procedure Pass [facility] [address] [place] [address] Social History Tobacco Use Types Packs/Day Years [...] documented as of this encounter Care Teams Fabric Worker Relationship Specialty Start Date End Date Jovanna London MD [address] [place] [address] PCP - General Family Medicine 09/30/18 03/20/23 Manolo Meléndez MD [address] [place] [address] [email or web address] PCP - General Rheumatology 03/21/23 03/25/23 Manolo Tamayo MD [address] [place] [address] [email or web address] PCP - General Internal Medicine 03/26/2311/02/23 Aleja Madrid NP [address] [address] PCP - General Nurse Practitioner 11/03/23 Jovanna London MD [address] [place] [address] Family Medicine 03/21/23 documented as of this encounter Additional Source Comments The information contained in this document represents components of the legal health record. It is not the complete legal health record.[facility]
--- OUTSIDE RECORDS SUMMARY | 2025-03-21 19:19 | XMS_ITS | Clinical Summary ---
Author Organization [facility] Address [address] [place] [address] Care Team Providers Care Safe And Vault Mechanic Name Role Phone Karin London MD Primary Care Provider [phone] Allergies Active Allergy Reactions Criticality Noted Date [...] Years Used Date Smoking Tobacco: Never Assessed [facility] Utilities Answer Date Recorded In the past 12 months has [employer], oil, or water [employer] threatened to shut off services in your [...] place to sleep or slept in a fci (including now)? No 03/22/2023 Sex and Gender [...] performed. <5.7 % 03/21/2023 9:33 PM EST [facility] Estimated Average Glucose Specimen clotted. Test not performed. mg/dL 03/21/2023 9:33 PM EST [facility] Blood specimen (specimen) Blood specimen / Unknown 03/21/2023 8:21 PM EST 03/21/2023 9:17 PM EST [facility] BLOOD ORDERABLES Evie gonzalez Result [facility] [address] [place] [address], [facility] [address] [place] [address] from Last 3 Months or Most Recently Relevant to Health Maintenance Insurance [facility] MEDICARE PART A & B [facility] [place]IC[facility] [place] [address] [facility] Advance Directives Documents on File Type Date Recorded 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 Health Care Represent ative Care Teams Safe And Vault Mechanic Relationship Specialty Start Date End Date Karin London MD [address] [place] [address] PCP - General Family Medicine 03/21/23
--- OUTSIDE RECORDS SUMMARY | 2025-03-21 19:19 | XMS_ITS | Encounter Summary ---
Author Organization [facility] Address [address] [address] Phone Care Team Providers Care Lease Buyer Name Role Phone Jovanna London MD Primary Care Provider [phone] Jovanna London MD Unavailable Manolo Meléndez MD Primary Care Provider + Manolo Tamayo MD Primary Care Provider [phone] Aleja Madrid NP Primary Care Provider [phone] Encounter Details Date Type Department Care Team (Late st Contact Info) Description 12/20/2018 Ancillary Orders [facility] Orthopedics & Sports Medicine [address] [place] [address] Ryan Bullard DO 4 [facility] Orthopedics & Sports Medicine, [facility] [place] [address] [email or web address] Social History Tobacco Use Types Packs/Day Years [...] documented as of this encounter Care Teams Lease Buyer Relationship Specialty Start Date End Date Jovanna London MD [address] [place] [facility] [place] [address] PCP - General Family Medicine 09/30/18 03/20/23 Manolo Meléndez MD [address] [place] [facility] [place] [address] [email or web address] PCP - General Rheumatology 03/21/23 03/25/23 Manolo Tamayo MD [address] [place] [address] [email or web address] PCP - General Internal Medicine 03/26/2311/02/23 Aleja Madrid NP [address] [address] PCP - General Nurse Practitioner 11/03/23 Jovanna London MD [address] [place] [address] Family Medicine 03/21/23 documented as of this encounter Additional Source Comments The information contained in this document represents components of the legal health record. It is not the complete legal health record.[facility]
--- OUTSIDE RECORDS SUMMARY | 2025-03-21 19:19 | XMS_ITS | Encounter Summary ---
Author Organization [facility] Address [address] [facility] [address] [place] [address] Phone Care Team Providers Care Puppy Trainer Name Role Phone Jovanna London MD Primary Care Provider [phone] Jovanna London MD Unavailable [phone] Manolo Meléndez MD Primary Care Provider + Manolo Tamayo MD Primary Care Provider [phone] Aleja Madrid NP Primary Care Provider [phone] Encounter Details Date Type Department Care Team (Late st Contact Info) Description 12/12/2022 Procedure Pass [facility], Ct Scan - [address] [address] Social History Tobacco Use Types Packs/Day Years [...] Job Start Date Job End Date 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 Not on file Not on file Not on file documented as of this encounter Functional Status * Calculated C-SSRS Risk Score (Lifetime/Recent) Answer Date of Assessment Author No Risk Indicated 12/12/2022 9:07 PM EDT Maria Bell RN * [place] Suicide Severity Rating Scale (Screener/Recent Self-Report) Question [...] documented as of this encounter Care Teams Puppy Trainer Relationship Specialty Start Date End Date Jovanna London MD [address] [place] [address] PCP - General Family Medicine 09/30/18 03/20/23 Manolo Meléndez MD [address] [place] [address] [email or web address] PCP - General Rheumatology 03/21/23 03/25/23 Manolo Tamayo MD [address] [place] [address] [email or web address] PCP - General Internal Medicine 03/26/2311/02/23 Aleja Madrid NP [address] [address] PCP - General Nurse Practitioner 11/03/23 Jovanna London MD [address] [place] [address] Family Medicine 03/21/23 documented as of this encounter Additional Source Comments The information contained in this document represents components of the legal health record. It is not the complete legal health record.[facility]
--- OUTSIDE RECORDS SUMMARY | 2025-03-21 19:19 | XMS_ITS | Encounter Summary ---
Author Organization [facility] Address [address] [employer] [facility] [address] [place] [address] Phone Care Team Providers Care Enrollment Nurse Name Role Phone Jovanna London MD Primary Care Provider [phone] Jovanna London MD Unavailable Manolo Meléndez MD Primary Care Provider + Manolo Tamayo MD Primary Care Provider [phone] Aleja Madrid NP Primary Care Provider [phone] Encounter Details Date Type Department Care Team (Late st Contact Info) Description 12/03/2021 Procedure Pass [facility] [address] [place] [address] Social History Tobacco Use Types Packs/Day Years [...] documented as of this encounter Care Teams Enrollment Nurse Relationship Specialty Start Date End Date Jovanna London MD [address] [place] [address] PCP - General Family Medicine 09/30/18 03/20/23 Manolo Meléndez MD [address] [place] [address] [email or web address] PCP - General Rheumatology 03/21/23 03/25/23 Manolo Tamayo MD [address] [place] [address] [email or web address] PCP - General Internal Medicine 03/26/2311/02/23 Aleja Madrid NP [address] [address] PCP - General Nurse Practitioner 11/03/23 Jovanna London MD [address] [place] [address] Family Medicine 03/21/23 documented as of this encounter Additional Source Comments The information contained in this document represents components of the legal health record. It is not the complete legal health record.[facility]
[2025-03-21 19:33] LABS: Alanine Aminotransferase 19 U/L (0-40); Albumin Level 3.7 g/dL (3.5-5.0); Alkaline Phosphatase 134 U/L (39-117); Anion Gap 15 (12-20); Aspartate Amino Transferase 57 U/L (5-37); Blood Urea Nitrogen 14 mg/dL (9-16); Calcium 9.2 mg/dL (8.4-10.2); Carbon Dioxide 20 mmol/L (22-29); Chloride 100 mmol/L (96-108); Creatinine Clr Calc Pharmacy 65.5; Estimated Glomerular Filt Rate > 60; Potassium 3.3 mmol/L (3.3-5.1); Sodium 132 mmol/L (135-145); Total Protein 6.7 g/dL (6.5-8.0)
[2025-03-21 19:42] LABS: NT Pro B Type Natriuretic Pept 1939.3 pg/mL (<300); Troponin-I High Sensitivity 45.0 ng/L (<3.5-35.0)
[2025-03-21 19:52] LABS: Hematocrit 26.8 % (42.0-52.0); Hemoglobin 8.6 g/dl (14.0-18.0); Mean Corpuscular HGB Conc 32.1 g/dl (31.0-36.0); Mean Corpuscular Hemoglobin 25.6 pg (27.0-33.0); Mean Corpuscular Volume 79.8 fL (80.0-98.0); NRBC Abs Auto 0.030 X10*3/uL (0.0-0.012); NRBC Pct Auto 0.1 /100WBC (0.0-0.2); Platelet Count 166 X10*3/uL (160-400); Red Blood Count 3.36 X10*6/uL (4.60-5.80); White Blood Count 20.3 X10*3/uL (4.8-10.8)
[2025-03-21 19:56] LABS: Resp Syncy Virus RNA Qual PCR NEGATIVE (Negative); SARS COV2 PCR INHOUSE NEGATIVE (Negative)
--- NOTE | 2025-03-21 20:18 | PC.NURSE ---
delay in IV i nfusion as pts IV access that was done by ems dislodged upon arrival. New access had to be obtained. Once fluids started infusing new IV access stopped flushing so RN had to flush IV and begin infusion again.
[2025-03-21 20:20] LABS: Neutrophils Percent Manual 67 % (45-73)
[2025-03-21 20:22] LABS: Atypical Lymph Absolute Manual 0.2 x10*3/uL; Atypical Lymphs Percent Manual 1 % (0-6); Band Neutrophils Percent 19 % (3-5); Lymphocytes Absolute Manual 0.4 X10*3/uL (1.2-4.9); Lymphocytes Percent Manual 2 % (20-40); Monocytes Absolute Manual 2.2 X10*3/uL (0.1-1.2); Monocytes Percent Manual 11 % (2-11); Neutrophils Absolute Manual 17.5 X10*3/uL (2.0-8.3)
[2025-03-21 20:23] LABS: Microcytosis 1+ (5-14) /OIF; RBC Morphology NOTED
[2025-03-21 20:24] LABS: Burr Cells 2+ (3-5) /OIF
[2025-03-21 20:25] LABS: Large Platelet PRESENT; Toxic Vacuolation PRESENT
--- NOTE | 2025-03-21 21:23 | PC.NURSE ---
Antibiotics administered late (per sepsis protocal) as MD placed order late. Currently infusing at this time.
[2025-03-21] MEDS: Lactated Ringers 1,000 ML 999 ML IV (23:06)
--- NOTE | 2025-03-21 23:28 | PC.NURSE ---
pt is now axox2. He requested somehtign to drink. He is unaware of why he is here or how he got here. Pts vitals are currently wnl. call maldonado within reach, bed at lowest position. pt able to make needs known.
[2025-03-22] VITALS (15 sets, daily range): BP systolic 93–122; BP diastolic 39–71; PULSE 71–93; RESP 15–24; TEMP 36.3–36.8; O2SAT 93–99; BMI 36.2
--- NOTE | 2025-03-22 00:29 | P.HPHOSP_ITS ---
History of Present Illness Date of Service: 03/22/25 Attending physician on admission: Marylin Daniel Chief Complaint: Shortness of breath Arnaud Sanders is a 79 years old man with past medical history significant for type 2 diabetes mellitus on metformin and insulin, hypothyroidism, hyperlipidemia and VTE on Eliquis was brought to the ED from [facility] after he was found to have low O2 sats. The patient has been coughing for the last 4 days. The patient is a poor historian but reported some shortness on breath. He denied any chest pain. He did not report any acute gastrointestinal or genitourinary symptoms. In the ED, he was found to have fever 102.5, sinus tachycardia, tachypnea and low BP (lowest 84/30). Last blood pressure is 115/51. He is currently on 4 L/min via OxyMask. Blood workup was remarkable for leukocytosis of 20.3, hemoglobin 8.6 and platelets 166. There is bandemia of 19%. There is no lactic acidosis. There is mild hyponatremia, glucose 131. BUN is 14 and creatinine 1.11. Total bilirubin 0.9, AST 57, ALT 19, alk-phos 134, troponin 45.0 and pro BNP 1939.3. Albumin is 3.7. Serology for COVID-19, influenza RSV is negative. CXR showed bilateral pulmonary opacities nonspecific and concerning for multifocal pneumonia. ED tx: Levaquin 750 mg IV, LR 2 L bolus, Tylenol 1 g IV, levalbuterol 3.75 mg Review of Systems 2 Review of Systems: Limited, pt is a vague history and confused at times [facility] Medical History Venous thrombosis and embolism Edema Anemia PTSD (post-traumatic stress disorder) Hypercholesteremia Hypothyroidism Diabetes Social History Unable to assess alcohol history related to: Unable to respond and Unknown Smoked in Last 30 Days: No Use of substances other than those prescribed or required for medical reasons: Unknown Advance Directives: Yes Advance Directives on File: Yes Advance Directives Date on File: 02/21/25 Do you have a plan to hurt others: No Plan Meds Allergies Allergy/AdvReac Type Severity Reaction Status Date / Time benzalkonium Allergy Mild Unknown Verified 03/21/25 18:52 brimonidine Allergy Mild Unknown Verified 03/21/25 18:52 clindamycin Allergy Mild Unknown Verified 03/21/25 18:52 dorzolamide (From Trusopt) Allergy Mild Unknown Verified 03/21/25 18:52 gabapentin Allergy Mild Unknown Verified 03/21/25 18:52 heparin Allergy Mild Unknown Verified 03/21/25 18:52 ketoconazole (From Nizoral) Allergy Mild unknown Verified 03/21/25 18:52 lamotrigine Allergy Mild Unknown Verified 03/21/25 18:52 penicillin G Allergy Mild Unknown Verified 03/21/25 18:52 prednisone Allergy Mild Unknown Verified 03/21/25 18:52 pyridoxine Allergy Mild Unknown Verified 03/21/25 18:52 rivaroxaban Allergy Mild Unknown Verified 03/21/25 18:52 sulfamethoxazole (From Allergy Mild Unknown Verified 03/21/25 18:52 Sulfamethoxazole-Trimethoprim) timolol Allergy Mild Unknown Verified 03/21/25 18:52 travoprost (From Travatan Z) Allergy Mild Unknown Verified 03/21/25 18:52 trimethoprim (From Allergy Mild Unknown Verified 03/21/25 18:52 Sulfamethoxazole-Trimethoprim) vancomycin Allergy Mild Unknown Verified 03/21/25 18:52 Active Medications: Current Medications Albuterol/Ipratropium (Albuterol/Iprat 2.5/0.5mg 3 Ml Ampul.Neb) 3 ml INHALE ONCE STA Stop: 03/22/25 00:23 Methylprednisolone Sodium Succinate (Methylprednisolone Sod Succ 125 Mg/2 Ml Vial) 80 mg IVPUSH ONCE STA Stop: 03/22/25 00:23 Home Medications ?Medication ?Instructions ?Recorded ?Confirmed ?Last Taken ?Type apixaban 5 mg tablet (Eliquis) 5 mg PO BID 08/22/24 U nknown History atorvastatin 20 mg tablet 20 mg PO DAILY 08/22/24 Unk nown History doxycycline hyclate 100 mg tablet 100 mg PO BID Unknown History duloxetine 20 mg capsule,delayed 20 mg PO BID 08/22/24 Unknown History release insulin glargine 100 unit/mL unit subcut 08/22/24 Unk nown History subcutaneous solution (Lantus U-100 Insulin) insulin lispro 100 unit/mL subcut 08/22/24 Unknown Hi story subcutaneous pen (Humalog KwikPen (U-100) Insulin) levothyroxine 137 mcg tablet 137 mcg PO DAILY 08/22/24 Unknown History metformin 1,000 mg tablet 1,000 mg PO BID 08/22/24 Un known History tamsulosin 0.4 mg capsule mg PO 08/22/24 Unknown Hist ory topiramate 25 mg tablet 25 mg PO BID 08/22/24 Unkno wn History venlafaxine 37.5 mg mg PO 08/22/24 Unknown Hist ory capsule,extended release 24 hr Physical Exam 2 Vital Signs and Narrative: Vital Signs: Last Vital Signs Temp 98.2 F 03/21/25 23:22 Pulse 76 03/21/25 23:22 Resp 24 H 03/21/25 23:22 BP 115/51 L 03/21/25 23:22 Pulse Ox 97 03/21/25 23:22 O2 Del Method Oxymask 03/21/25 23:22 O2 Flow Rate 4 03/21/25 23:22 BMI result Body Mass Index 36.4 General: Alert, oriented, in mild acute distress due to shortness on breath. Well nourished and cooperative. Febrile. OxyMask in place. Constantly coughing. HEENT: Head normocephalic, atraumatic. PER, EOMI. Sclerae anicteric, conjunctiva clear. Mucous membranes dry. Neck: Supple, no lymphadenopathy, or JVD. Heart: RRR, no murmurs, rubs or gallops. Lungs: Tachypnea. Bilateral end expiratory wheezes. Normal respiratory effort. Abdomen: Soft, non tenderness, nondistended, normoactive bowel sounds. No hepatosplenomegaly, masses or masses. Extremities: No calf tenderness bilaterally, no swelling Musculoskeletal: Full range of motion. No joint swelling, deformity, or tenderness. Normal muscle tone and strength. Skin: Warm/Dry. No pallor. No jaundice. Neurologic: Alert & oriented x4. Moving all extremities spontaneously. Normal speech. Psychological: Normal mood and affect. Thought process coherent. Results Labs 03/21/25 19:09 03/21/25 19:09 Labs: Laboratory Results - last 24 hr 03/21/25 19:09 MCV 79.8 L MCH 25.6 L MCHC 32.1 RDW 20.3 H Plt Count 166 D MPV 10.9 Immature Gran % (Auto) Cancelled Neut % (Auto) Cancelled Lymph % (Auto) Cancelled [place] % (Auto) Cancelled Eos % (Auto) Cancelled Baso % (Auto) Cancelled Lymph # (Auto) Cancelled [place] # (Auto) Cancelled Eos # (Auto) Cancelled Baso # (Auto) Cancelled Abs Immat Gran (auto) Cancelled Absolute Neuts (auto) Cancelled Absolute Nucleated RBC 0.030 H Nucleated RBC % (auto) 0.1 Neutrophils % (Manual) 67 Band Neutrophils % 19 H Lymphocytes % (Manual) 2 L Atypical Lymphs % (Man) 1 Monocytes % (Manual) 11 Abs Neuts (Manual) 17.5 H Lymphocytes # (Manual) 0.4 L Atyp Lymphs # (Manual) 0.2 Monocytes # (Manual) 2.2 H Toxic Vacuolation PRESENT Platelet Estimate NORMAL Large Platelets PRESENT Plt Morphology Comment NORMAL RBC Morphology NOTED Microcytosis 1+ (5-14) Reva Cells 2+ (3-5) Anion Gap 15 Estim Creat Clear Calc 65.5 Estimated GFR > 60 POC Glucose 131 H Random Glucose 121 H Lactic Acid 1.5 Calcium 9.2 Total Bilirubin 0.9 AST 57 H ALT 19 Alkaline Phosphatase 134 H Troponin I High Sens 45.0 H NT-Pro-B Natriuret Pep 1939.3 H Total Protein 6.7 Albumin 3.7 Influenza Type A (PCR) NEGATIVE Influenza Type B (PCR) NEGATIVE RSV RNA Qual (PCR) NEGATIVE SARS-CoV-2 RNA (RT-PCR) NEGATIVE Assessment and Plan (1) Acute hypoxic respiratory failure: Status: Acute (2) Multifocal pneumonia: Status: Acute (3) Severe sepsis: Status: Acute Plan Arnaud Sanders is a 79 y/o man who presents with: Acute hypoxic respiratory failure secondary to multifocal pneumonia and bronchospasm. Telemetry. Pulse oximetry. Supplemental O2 to keep O2 sats > 90%. Continue bronchodilator therapy and empiric IV antibiotic therapy with Levaquin (pt has multiple allergies to meds). Start IV steroids. Severe sepsis: Leukocytosis, fever, tachycardia, bandemia + SBP < 90; due to multifocal pneumonia. Will complete 30 mL/kg LR. Continue empiric IV antibiotic therapy with Levaquin. Elevated troponin, likely demand ischemia secondary to tachycardia. Recheck troponin. Type 2 diabetes mellitus. BG checks before meals at bedtime. Insulin sliding scale and glargine. Hold metformin. Diabetic diet. Hypothyroidism. Continue levothyroxine. Hx VTE. Continue Eliquis. Hyperlipidemia. Continue statin. Chronic anemia. Continue to monitor. Mood disorder. Continue duloxetine. Code status: Full DVT prophylaxis: On Eliquis med rec pending Patient will need hospitalization for at least 2 midnights for acute hypoxic respiratory failure secondary to multifocal pneumonia and bronchospasms therapy with IV antibiotic therapy, supplemental oxygen, bronchodilator therapy and IV steroids. This documentation was generated using dictation software; minor spreading or hospitalist medical director errors may be present. Quality Stroke Does the patient have a stroke diagnosis?: No VTE Prior VTE?: No VTE Risk Level:: Medical - moderate - high VTE Device Contraindication: Treatment Not Indicated VTE Drug Contraindication: N/A - Med Ordered
[2025-03-22] MEDS: Albuterol/Iprat 2.5/0.5MG 3 ML AMPUL.NEB INHALE ×4 (00:54→19:58)
[2025-03-22] MEDS: Lactated Ringers 1,000 ML 999 ML IV (01:08)
--- NOTE | 2025-03-22 02:11 | HO.NURTONUR ---
Addendum entered by Shantell Barrientos RN 03/22/25 07:41: Care of Pt assumed at change of shift. Pt rests quietly in stretcher. Intermittent coughing noted. O2 @ 2L via NC. Pt shows little interest in breakfast but does eat his banana and coffee. Pt offered toast, but declines. VSS Awaiting inpatient bed assignment. Addendum entered by Concepcion Walker RN 03/22/25 05:23: pt has had no success with male purewick; keeps attempting to get out of bed. RN informed MD that pt has not urinated. MD to place order for bladder scan and straight cath. Addendum entered by Concepcion Walker RN 03/22/25 03:20: pt was unable to use bed howell or urinal. placed on male purewick. pt request to drink every so often. Pt prefers to sit up as much as possible. Pt does try to remove oxymask often, RN reminds him that he needs the mask as it provides him with O2. pt verbalizes understanding. Original Note: pt was BIBA from [facility] around 1845. Pt is DNR/DNI. Pt was brought in d/t a cough. With EMS pt had a low O2 stating in the 80-90% range. Pt was placed on 2L NC and began stating around 94%. Upon arrival, rectal temp was obtained as pt was very diaphoretic. Pt had a temp of 102.5. Sepsis workup began immediately. cxr was + for pneumonia. Pressures were soft upon arrival and improved after 2 L bolus of fluids. Pt has a #22 on the left wrist. Pt is AxOx2. He has dementia and is forgetful at times. Pt is able to use bedpan but came in with pullups. Pt is currently on 3L oxymask and has a DM diet.
[2025-03-22] MEDS: Lactated Ringers 500 ML 999 ML IV (03:27)
--- NOTE | 2025-03-22 03:40 | HO.NURTONUR ---
*late entry* pt came in with bilat. acevedo.
[2025-03-22 04:40] LABS: PLT CLUMP 1
[2025-03-22 04:42] LABS: Hematocrit 24.8 % (42.0-52.0); Hemoglobin 7.8 g/dl (14.0-18.0); Mean Corpuscular HGB Conc 31.5 g/dl (31.0-36.0); Mean Corpuscular Hemoglobin 25.9 pg (27.0-33.0); Mean Corpuscular Volume 82.4 fL (80.0-98.0); NRBC Abs Auto 0.020 X10*3/uL (0.0-0.012); NRBC Pct Auto 0.1 /100WBC (0.0-0.2); Red Blood Count 3.01 X10*6/uL (4.60-5.80)
[2025-03-22 04:53] LABS: Anion Gap 18 (12-20); Blood Urea Nitrogen 16 mg/dL (9-16); Calcium 8.7 mg/dL (8.4-10.2); Carbon Dioxide 19 mmol/L (22-29); Chloride 100 mmol/L (96-108); Creatinine Clr Calc Pharmacy 72.0; Estimated Glomerular Filt Rate > 60; Magnesium 1.6 mg/dL (1.6-2.6); Potassium 3.8 mmol/L (3.3-5.1); Sodium 133 mmol/L (135-145)
[2025-03-22 05:02] LABS: Troponin-I High Sensitivity 29.1 ng/L (<3.5-35.0)
[2025-03-22 05:05] LABS: Platelet Count 135 X10*3/uL (160-400); White Blood Count 16.7 X10*3/uL (4.8-10.8)
[2025-03-22 05:08] LABS: Band Neutrophils Percent 6 % (3-5); Lymphocytes Absolute Manual 0.3 X10*3/uL (1.2-4.9); Lymphocytes Percent Manual 2 % (20-40); Metamyelocytes Absolute 0.2 X10*3/uL; Metamyelocytes Percent 1 %; Monocytes Absolute Manual 1.0 X10*3/uL (0.1-1.2); Monocytes Percent Manual 6 % (2-11); Myelocytes Absolute 0.3 X10*/uL; Myelocytes Percent 2 %; Neutrophils Absolute Manual 14.9 X10*3/uL (2.0-8.3); Neutrophils Percent Manual 83 % (45-73)
[2025-03-22 05:09] LABS: Large Platelet PRESENT; Microcytosis 1+ (5-14) /OIF; RBC Morphology NORMAL
[2025-03-22 05:11] LABS: Ovalocytes 1+ (5-14) /OIF; Tear Drop Cells 1+ (0-2) /OIF
[2025-03-22 05:13] LABS: Burr Cells 3+ (>5) /OIF; Dohle Bodies PRES
[2025-03-22 05:14] LABS: Polychromasia 1+ (0-2) /OIF
--- NOTE | 2025-03-22 06:12 | HO.NURTONUR ---
pt was bladder scanned and it showed over 300mLs of urine. RN straight cath pt per order; 730mLs output. UA sent to lab. made aware. Pt stated he felt much better.
[2025-03-22 06:20] LABS: Appearance Urine Clear; Glucose Urine UA Negative (Negative); PH 5.5 (5.0-9.0); Specific Gravity - Urine 1.015 (1.005-1.025); UMIC TRIGGER UACC YES
[2025-03-22 06:44] LABS: Glucose, Whole Blood 193 mg/dL (60-115)
[2025-03-22] MEDS: 0.9 % Sodium Chloride Flush 3 ML SYRINGE IVFLUSH ×2 (07:07→20:34)
[2025-03-22 08:09] LABS: Reticulocytes Absolute 0.049 X10*6/uL (0.026-0.095)
[2025-03-22 08:19] LABS: Iron 19 mcg/dL (45-160); Percent Iron Saturation 8 % (15-50); Total Iron Binding Capacity 229 mcg/dL (228-428); Unsaturated Iron Binding 210 ug/dL
[2025-03-22 08:33] LABS: Ferritin 320 ng/mL (20-250); Procalcitonin 1.26 ng/mL
[2025-03-22 12:20] LABS: Chlamydia pneumoniae PCR Not Detected (Not Detect.); Coronavirus 229E PCR Not Detected (Not Detect.); Coronavirus HKU1 PCR Not Detected (Not Detect.); Coronavirus NL63 PCR Not Detected (Not Detect.); Coronavirus OC43 PCR Not Detected (Not Detect.); RSV PCR Not Detected (Not Detect.); Rhino/Enterovirus PCR Not Detected (Not Detect.)
[2025-03-22 12:27] LABS: MRSA Nasal PCR NEGATIVE (Negative); SA Nasal PCR POSITIVE (Negative)
[2025-03-22 12:52] LABS: Influenza A H1 PCR Not Detected (Not Detect.); Influenza A H1-2009 PCR Not Detected (Not Detect.); Influenza A H3 PCR Not Detected (Not Detect.); SARS-CoV-2 PCR Not Detected (Not Detect.)
[2025-03-22 13:41] LABS: Glucose, Whole Blood 250 mg/dL (60-115)
--- NOTE | 2025-03-22 13:53 | PHA.MEDREC ---
Pharmacy Consult ? Medication Reconciliation Pharmacy has completed the medication reconciliation.Med rec complete, called and reviewed medications with RN at [facility]
--- NOTE | 2025-03-22 13:54 | HO.PM.IMPN ---
Subjective Subjective Date of Service: 03/22/25 Interval History: BP improved, O2 requirement decreased very tired, minimally verbal, coughing Review of Systems Review of Systems: Yes Unobtainable due to mental status Physical Exam Vital Signs: Vital Signs: Last Vital Signs Temp 98.1 F 03/22/25 13:32 Pulse 81 03/22/25 13:32 Resp 18 03/22/25 13:32 BP 108/53 L 03/22/25 13:32 Pulse Ox 93 03/22/25 13:32 O2 Del Method Nasal Cannula 03/22/25 13:32 O2 Flow Rate 2 03/22/25 13:32 Oxygen Flow Rate 2 03/22/25 10:19 BMI result Body Mass Index 36.4 Gen: ill-appearing, weak, pale HEENT: sclera anicteric, moist mucus membranes Neck: supple Lungs: bilateral inspiratory crackles Heart: regular rate and rhythm, no murmurs Abd: soft, non-tender, non-distended Ext: no edema Skin: warm/well-perfused Neuro: alert and oriented x3, no focal findings Psych: appropriate affect Objective Data Active Medications Acetaminophen (Acetaminophen 325 Mg Tablet) 975 mg PO Q6H PRN PRN Reason: Pain, Mild 1-3,fever,headache Albuterol Sulfate (Albuterol Sulfate (0.083%) 2.5 Mg/3 Ml Vial.Neb) 2.5 mg INHALE Q2H PRN PRN Reason: Shortness of Breath/Wheezing Albuterol/Ipratropium (Albuterol/Iprat 2.5/0.5mg 3 Ml Ampul.Neb) 3 ml INHALE RQ4H WHILE AWAKE [facility] Last Admin: 03/22/25 11:03 Dose: Not Given Documented By: ZACH Non-Admin Reason: Patient Asleep Calcium Carbonate (Calcium Carbonate 750 Mg Tab.Chew) 750 mg PO Q4H PRN PRN Reason: Heartburn Dextrose (Dextrose 50 % 25 Gm/50 Ml Syringe) 25 gm IVPUSH Q15M PRN; Protocol PRN Reason: per Hypoglycemia Standing Ord. Glucose (Glucose Gel 15 Gm Gel..Gram.) 15 gm PO Q15M PRN; Protocol PRN Reason: per Hypoglycemia Standing Ord. Levofloxacin (Levaquin) 750 mg in 150 mls @ 100 mls/hr IV BEDTIME [facility] Insulin Human Lispro (Insulin Lispro 100 Unit/Ml 3 Ml Vial) 0 unit SUBCUT QIDACHS [facility]; Protocol Last Admin: 03/22/25 07:08 Dose: 2 unit Documented By: TARCEY Magnesium Hydroxide (Milk Of Magnesia 30 Ml Oral.Susp) 30 ml PO DAILY PRN PRN Reason: Constipation Methylprednisolone Sodium Succinate (Methylprednisolone Sod Succ 40 Mg/Ml Vial) 40 mg IVPUSH Q12H [facility] Last Admin: 03/22/25 08:54 Dose: 40 mg Documented By: TRACEY Sodium Chloride (0.9 % Sodium Chloride Flush 3 Ml Syringe) 3 ml IVFLUSH QSHIFT [facility] Last Admin: 03/22/25 07:07 Dose: 3 ml Documented By: TRACEY Labs 03/22/25 04:34 03/22/25 04:34 Labs: Laboratory Results - last 24 hr 03/21/25 03/22/25 03/22/25 19:09 01:04 04:34 MCV 79.8 L 82.4 MCH 25.6 L 25.9 L MCHC 32.1 31.5 RDW 20.3 H 20.2 H Plt Count 166 D 135 L MPV 10.9 10.4 Immature Gran % (Auto) Cancelled Cancelled Neut % (Auto) Cancelled Cancelled Lymph % (Auto) Cancelled Cancelled [place] % (Auto) Cancelled Cancelled Eos % (Auto) Cancelled Cancelled Baso % (Auto) Cancelled Cancelled Lymph # (Auto) Cancelled Cancelled [place] # (Auto) Cancelled Cancelled Eos # (Auto) Cancelled Cancelled Baso # (Auto) Cancelled Cancelled Abs Immat Gran (auto) Cancelled Cancelled Absolute Neuts (auto) Cancelled Cancelled Absolute Nucleated RBC 0.030 H 0.020 H Nucleated RBC % (auto) 0.1 0.1 Neutrophils % (Manual) 67 83 H Band Neutrophils % 19 H 6 H Lymphocytes % (Manual) 2 L 2 L Atypical Lymphs % (Man) 1 Monocytes % (Manual) 11 6 Metamyelocytes % 1 Myelocytes % 2 Abs Neuts (Manual) 17.5 H 14.9 H Lymphocytes # (Manual) 0.4 L 0.3 L Atyp Lymphs # (Manual) 0.2 Monocytes # (Manual) 2.2 H 1.0 Metamyelocytes # 0.2 Myelocytes # 0.3 Toxic Vacuolation PRESENT Dohle Bodies PRES Platelet Estimate NORMAL SLIGHTLY DECREASED Large Platelets PRESENT PRESENT Plt Morphology Comment NORMAL NOTED RBC Morphology NOTED NORMAL Polychromasia 1+ (0-2) Microcytosis 1+ (5-14) 1+ (5-14) Tear Drop Cells 1+ (0-2) Ovalocytes 1+ (5-14) [place] Cells 2+ (3-5) 3+ (>5) Absolute Retic 0.049 Percent Retic 1.6 Immature Retic Fraction 27.1 H Retic Hgb Equivalent 23.6 L Anion Gap 15 18 Estim Creat Clear Calc 65.5 72.0 Estimated GFR > 60 > 60 POC Glucose 131 H Random Glucose 121 H 192 H Lactic Acid 1.5 1.6 Calcium 9.2 8.7 Magnesium 1.6 Iron 19 L TIBC 229 % Saturation 8 L Unsat Iron Binding 210 Ferritin 320 H Total Bilirubin 0.9 AST 57 H ALT 19 Alkaline Phosphatase 134 H Lactate Dehydrogenase 297 H Troponin I High Sens 45.0 H 29.1 NT-Pro-B Natriuret Pep 1939.3 H Total Protein 6.7 Albumin 3.7 Procalcitonin 1.26 Urine Color Urine Appearance Urine pH Ur Specific [place] Urine Protein Urine Glucose (UA) Urine Ketones Urine Blood Urine Nitrite Ur Leukocyte Esterase Urine RBC Urine WBC Ur Squamous Epith Cells Calcium Oxalate Crystal Urine Bacteria Hyaline Casts Nasal Screen MRSA (PCR) Nasal S. aureus Screen Nasal MRSA/S.aureus Interp Respiratory Panel [place] Adenovirus (Rapid PCR) B.pert (TEM-PCR) B.parapertussis DNA PCR C. pneumoniae DNA (PCR) Coronavirus OC43 (PCR) Coronavirus HKU1 (PCR) Coronavirus 229E (PCR) Coronavirus NL63 (PCR) Human Metapneumovir PCR Influenza A (RT-PCR) Influenza A (H1) PCR Influ A (H1/09) PCR Influenza A (H3) PCR Influenza Type A (PCR) NEGATIVE Influenza B (RT-PCR) Influenza Type B (PCR) NEGATIVE M. pneumoniae (PCR) Parainfluenza 1 (PCR) Parainfluenza 2 (PCR) Parainfluenza 3 (PCR) Parainfluenza 4 (PCR) RSV (PCR) RSV RNA Qual (PCR) NEGATIVE Entero/Rhino (PCR) SARS-CoV-2 RNA (RT-PCR) NEGATIVE 03/22/25 03/22/25 03/22/25 06:10 06:39 11:15 MCV MCH MCHC RDW Plt Count MPV Immature Gran % (Auto) Neut % (Auto) Lymph % (Auto) [place] % (Auto) Eos % (Auto) Baso % (Auto) Lymph # (Auto) [place] # (Auto) Eos # (Auto) Baso # (Auto) Abs Immat Gran (auto) Absolute Neuts (auto) Absolute Nucleated RBC Nucleated RBC % (auto) Neutrophils % (Manual) Band Neutrophils % Lymphocytes % (Manual) Atypical Lymphs % (Man) Monocytes % (Manual) Metamyelocytes % Myelocytes % Abs Neuts (Manual) Lymphocytes # (Manual) Atyp Lymphs # (Manual) Monocytes # (Manual) Metamyelocytes # Myelocytes # Toxic Vacuolation Dohle Bodies Platelet Estimate Large Platelets Plt Morphology Comment RBC Morphology Polychromasia Microcytosis Tear Drop Cells Ovalocytes [place] Cells Absolute Retic Percent Retic Immature Retic Fraction Retic Hgb Equivalent Anion Gap Estim Creat Clear Calc Estimated GFR POC Glucose 193 H Random Glucose Lactic Acid Calcium Magnesium Iron TIBC % Saturation Unsat Iron Binding Ferritin Total Bilirubin AST ALT Alkaline Phosphatase Lactate Dehydrogenase Troponin I High Sens NT-Pro-B Natriuret Pep Total Protein Albumin Procalcitonin Urine Color Dark Yellow Urine Appearance Clear Urine pH 5.5 Ur Specific [place] 1.015 Urine Protein Trace Urine Glucose (UA) Negative Urine Ketones Trace Urine Blood Trace H Urine Nitrite Negative Ur Leukocyte Esterase Negative Urine RBC 6-10 H Urine WBC 0-5 Ur Squamous Epith Cells 3-5 Calcium Oxalate Crystal Present Urine Bacteria None Seen Hyaline Casts 11-20 Nasal Screen MRSA (PCR) NEGATIVE Nasal S. aureus Screen POSITIVE A Nasal MRSA/S.aureus Interp SEE NOTE Respiratory Panel [place] See Note Adenovirus (Rapid PCR) Not Detected B.pert (TEM-PCR) Not Detected B.parapertussis DNA PCR Not Detected C. pneumoniae DNA (PCR) Not Detected Coronavirus OC43 (PCR) Not Detected Coronavirus HKU1 (PCR) Not Detected Coronavirus 229E (PCR) Not Detected Coronavirus NL63 (PCR) Not Detected Human Metapneumovir PCR Not Detected Influenza A (RT-PCR) Not Detected Influenza A (H1) PCR Not Detected Influ A (H1/09) PCR Not Detected Influenza A (H3) PCR Not Detected Influenza Type A (PCR) Influenza B (RT-PCR) Not Detected Influenza Type B (PCR) M. pneumoniae (PCR) Not Detected Parainfluenza 1 (PCR) Not Detected Parainfluenza 2 (PCR) Not Detected Parainfluenza 3 (PCR) Not Detected Parainfluenza 4 (PCR) Not Detected RSV (PCR) Not Detected RSV RNA Qual (PCR) Entero/Rhino (PCR) Not Detected SARS-CoV-2 RNA (RT-PCR) Not Detected 03/22/25 13:35 MCV MCH MCHC RDW Plt Count MPV Immature Gran % (Auto) Neut % (Auto) Lymph % (Auto) [place] % (Auto) Eos % (Auto) Baso % (Auto) Lymph # (Auto) [place] # (Auto) Eos # (Auto) Baso # (Auto) Abs Immat Gran (auto) Absolute Neuts (auto) Absolute Nucleated RBC Nucleated RBC % (auto) Neutrophils % (Manual) Band Neutrophils % Lymphocytes % (Manual) Atypical Lymphs % (Man) Monocytes % (Manual) Metamyelocytes % Myelocytes % Abs Neuts (Manual) Lymphocytes # (Manual) Atyp Lymphs # (Manual) Monocytes # (Manual) Metamyelocytes # Myelocytes # Toxic Vacuolation Dohle Bodies Platelet Estimate Large Platelets Plt Morphology Comment RBC Morphology Polychromasia Microcytosis Tear Drop Cells Ovalocytes [place] Cells Absolute Retic Percent Retic Immature Retic Fraction Retic Hgb Equivalent Anion Gap Estim Creat Clear Calc Estimated GFR POC Glucose 250 H Random Glucose Lactic Acid Calcium Magnesium Iron TIBC % Saturation Unsat Iron Binding Ferritin Total Bilirubin AST ALT Alkaline Phosphatase Lactate Dehydrogenase Troponin I High Sens NT-Pro-B Natriuret Pep Total Protein Albumin Procalcitonin Urine Color Urine Appearance Urine pH Ur Specific [place] Urine Protein Urine Glucose (UA) Urine Ketones Urine Blood Urine Nitrite Ur Leukocyte Esterase Urine RBC Urine WBC Ur Squamous Epith Cells Calcium Oxalate Crystal Urine Bacteria Hyaline Casts Nasal Screen MRSA (PCR) Nasal S. aureus Screen Nasal MRSA/S.aureus Interp Respiratory Panel [place] Adenovirus (Rapid PCR) B.pert (TEM-PCR) B.parapertussis DNA PCR C. pneumoniae DNA (PCR) Coronavirus OC43 (PCR) Coronavirus HKU1 (PCR) Coronavirus 229E (PCR) Coronavirus NL63 (PCR) Human Metapneumovir PCR Influenza A (RT-PCR) Influenza A (H1) PCR Influ A (H1) PCR Influenza A (H3) PCR Influenza Type A (PCR) Influenza B (RT-PCR) Influenza Type B (PCR) M. pneumoniae (PCR) Parainfluenza 1 (PCR) Parainfluenza 2 (PCR) Parainfluenza 3 (PCR) Parainfluenza 4 (PCR) RSV (PCR) RSV RNA Qual (PCR) Entero/Rhino (PCR) SARS-CoV-2 RNA (RT-PCR) Assessment and Plan (1) Severe sepsis: Status: Acute Plan d1, 79yo M with DM2, HLD, hypothyroidism sent in from LTC with cough and hypoxia, found to have severe sepsis acute hypoxic respiratory failure and severe sepsis due to multifocal PNA - levofloxacin 03/21-, add linezolid 03/22- given MRSA swab positive, follow BCx, trend PCT, send urinary antigens for Legionella and pneumococcus, continue IV methylprednisolone - supplemental O2, wean as tolerated; currently on 2L via NC acute encephalopathy due to infection - NPO pending swallow evalution troponin elevation - likely demand ischemia from sepsis; improved on recheck DM2: basal-bolus insulin BEKAH: replete Fe after bacterial infection controlled hx VTE: apixaban hypothyroidism: LT4 HLD: statin mood disorder: duloxetine VTE ppx: apixaban dispo: LTC In my clinical judgment, the patient requires continued inpatient hospitalization for the following reasons: IV ABX, hypoxia Total time managing care of this patient today: 45 minutes. Quality Stroke Does the patient have a stroke diagnosis?: No VTE Prior VTE?: No VTE Risk Level:: Medical - moderate - high VTE Device Contraindication: Treatment Not Indicated VTE Drug Contraindication: N/A - Med Ordered
[2025-03-22 16:09] LABS: Glucose, Whole Blood 231 mg/dL (60-115)
[2025-03-22] MEDS: Linezolid/D5W 600 MG/300 ML PIGGYBACK 300 MG IV (16:15)
--- NOTE | 2025-03-22 19:21 | PC.NURSE ---
Patient NPO, bedside swallow test done and patient passed, provider notified, no diet advancement order received. Speech/swallow consult pending. Patient family brought food for patient, family was informed that patient has no diet order and should not have anything PO. Family fed patient stating they do not agree with provider's order and that patient has not have any problem swallowing in the past.
[2025-03-22 20:43] LABS: Glucose, Whole Blood 265 mg/dL (60-115)
[2025-03-22] MEDS: Insulin Glargine,Hum.rec.anlog 100 UNIT/ML 10 ML VIAL 18 UNIT SUBCUT (22:25)
[2025-03-23] VITALS (7 sets, daily range): BP systolic 112–142; BP diastolic 56–62; PULSE 82–91; RESP 18–19; TEMP 36.3–36.8; O2SAT 91–98
[2025-03-23 00:53] LABS: Glucose, Whole Blood 277 mg/dL (60-115)
[2025-03-23] MEDS: Linezolid/D5W 600 MG/300 ML PIGGYBACK 300 MG IV ×2 (03:27→14:14)
[2025-03-23 05:33] LABS: Hematocrit 25.6 % (42.0-52.0); Hemoglobin 7.9 g/dl (14.0-18.0); Mean Corpuscular HGB Conc 30.9 g/dl (31.0-36.0); Mean Corpuscular Hemoglobin 25.4 pg (27.0-33.0); Mean Corpuscular Volume 82.3 fL (80.0-98.0); NRBC Abs Auto 0.040 X10*3/uL (0.0-0.012); NRBC Pct Auto 0.2 /100WBC (0.0-0.2); Platelet Count 151 X10*3/uL (160-400); Red Blood Count 3.11 X10*6/uL (4.60-5.80); White Blood Count 20.3 X10*3/uL (4.8-10.8)
[2025-03-23 05:51] LABS: Anion Gap 16 (12-20); Blood Urea Nitrogen 22 mg/dL (9-16); Calcium 8.9 mg/dL (8.4-10.2); Carbon Dioxide 21 mmol/L (22-29); Chloride 98 mmol/L (96-108); Creatinine Clr Calc Pharmacy 84.3; Estimated Glomerular Filt Rate > 60; Potassium 4.1 mmol/L (3.3-5.1); Sodium 131 mmol/L (135-145)
[2025-03-23 06:23] LABS: Folate 8.3 ng/mL (> or = 4.0); Vitamin B12 731 pg/mL (200-900)
[2025-03-23 07:29] LABS: Glucose, Whole Blood 265 mg/dL (60-115)
[2025-03-23] MEDS: 0.9 % Sodium Chloride Flush 3 ML SYRINGE IVFLUSH ×2 (08:38→15:34)
--- NOTE | 2025-03-23 10:15 | MHC.CM.PN ---
[facility] paced to pts [place] pt is a ltc bed hold
--- NOTE | 2025-03-23 10:45 | P.PNIM_ITS ---
Subjective Subjective Date of Service: 03/23/25 Interval History: coughing, on less O2 awake/alert but doesn't seem to realize he lives at LTC Review of Systems Review of Systems: Yes all other systems are reviewed and are negative Physical Exam 2 Vital Signs: Vital Signs: Last Vital Signs Temp 97.5 F 03/23/25 07:55 Pulse 86 03/23/25 07:55 Resp 18 03/23/25 07:55 BP 127/62 03/23/25 07:55 Pulse Ox 97 03/23/25 07:55 O2 Del Method Nasal Cannula 03/23/25 07:55 O2 Flow Rate 2 03/23/25 07:55 Oxygen Flow Rate 2 03/22/25 10:19 BMI result Body Mass Index 36.2 Gen: NAD HEENT: sclera anicteric, moist mucus membranes Neck: supple Lungs: bilateral inspiratory crackles Heart: regular rate and rhythm, no murmurs Abd: soft, non-tender, non-distended Ext: no edema Skin: warm/well-perfused Neuro: alert and oriented to self/place, no focal findings Psych: appropriate affect Objective Data Active Medications Acetaminophen (Acetaminophen 325 Mg Tablet) 975 mg PO Q6H PRN PRN Reason: Pain, Mild 1-3,fever,headache Albuterol Sulfate (Albuterol Sulfate (0.083%) 2.5 Mg/3 Ml Vial.Neb) 2.5 mg INHALE Q2H PRN PRN Reason: Shortness of Breath/Wheezing Albuterol/Ipratropium (Albuterol/Iprat 2.5/0.5mg 3 Ml Ampul.Neb) 3 ml INHALE RQ4H WHILE AWAKE [facility] Last Admin: 03/23/25 08:13 Dose: Not Given Documented By: ZACH Non-Admin Reason: Patient Refused Apixaban (Apixaban 5 Mg Tablet) 5 mg PO BID [facility] Last Admin: 03/23/25 08:37 Dose: 5 mg Documented By: ANNEMARIE Ascorbic Acid (Ascorbic Acid 500 Mg Tablet) 500 mg PO BID [facility] Last Admin: 03/23/25 08:37 Dose: 500 mg Documented By: ANNEMARIE Atorvastatin Calcium (Atorvastatin Calcium 20 Mg Tablet) 20 mg PO BEDTIME [facility] Last Admin: 03/22/25 20:37 Dose: 20 mg Documented By: VERONICA Calcium Carbonate (Calcium Carbonate 750 Mg Tab.Chew) 750 mg PO Q4H PRN PRN Reason: Heartburn Dextrose (Dextrose 50 % 25 Gm/50 Ml Syringe) 25 gm IVPUSH Q15M PRN; Protocol PRN Reason: per Hypoglycemia Standing Ord. Glucose (Glucose Gel 15 Gm Gel..Gram.) 15 gm PO Q15M PRN; Protocol PRN Reason: per Hypoglycemia Standing Ord. Levofloxacin (Levaquin) 750 mg in 150 mls @ 100 mls/hr IV BEDTIME [facility] Last Infusion: 03/22/25 22:03 Dose: Infused Documented By: VERONICA Linezolid (Zyvox/D5w) 600 mg in 300 mls @ 300 mls/hr IV Q12H [facility] Last Infusion: 03/23/25 04:28 Dose: Infused Documented By: VERONICA Insulin Glargine (Insulin Glargine,Hum.Rec.Anlog 100 Unit/Ml 10 Ml Vial) 18 unit SUBCUT BEDTIME [facility] Last Admin: 03/22/25 22:25 Dose: 18 unit Documented By: VERONICA Insulin Human Lispro (Insulin Lispro 100 Unit/Ml 3 Ml Vial) 0 unit SUBCUT QIDACHS [facility]; Protocol Last Admin: 03/23/25 08:38 Dose: 6 unit Documented By: ANNEMARIE Levothyroxine Sodium (Levothyroxine Sodium 112 Mcg Tablet) 112 mcg PO DAILY@0600 [facility] Last Admin: 03/23/25 05:59 Dose: 112 mcg Documented By: VERONICA Levothyroxine Sodium (Levothyroxine Sodium 25 Mcg Tablet) 25 mcg PO DAILY@0600 [facility] Last Admin: 03/23/25 06:00 Dose: 25 mcg Documented By: VERONICA Magnesium Hydroxide (Milk Of Magnesia 30 Ml Oral.Susp) 30 ml PO DAILY PRN PRN Reason: Constipation Methylprednisolone Sodium Succinate (Methylprednisolone Sod Succ 40 Mg/Ml Vial) 40 mg IVPUSH Q12H [facility] Last Admin: 03/23/25 08:38 Dose: 40 mg Documented By: ANNEMARIE Sodium Chloride (0.9 % Sodium Chloride Flush 3 Ml Syringe) 3 ml IVFLUSH QSHIFT [facility] Last Admin: 03/23/25 08:38 Dose: 3 ml Documented By: ANNEMARIE Tamsulosin HCl (Tamsulosin Hcl 0.4 Mg Capsule) 0.4 mg PO BEDTIME [facility] Last Admin: 03/22/25 20:36 Dose: 0.4 mg Documented By: VERONICA Topiramate (Topiramate 25 Mg Tablet) 50 mg PO DAILY [facility] Last Admin: 03/23/25 08:37 Dose: 50 mg Documented By: ANNEMARIE Topiramate (Topiramate 100 Mg Tablet) 100 mg PO DAILY@1700 [facility] Last Admin: 03/22/25 18:25 Dose: 100 mg Documented By: BROB Labs 03/23/25 05:06 03/23/25 05:06 Labs: Laboratory Results - last 24 hr 03/22/25 03/22/25 03/22/25 11:15 13:35 15:34 MCV MCH MCHC RDW Plt Count MPV Absolute Nucleated RBC Nucleated RBC % (auto) Anion Gap Estim Creat Clear Calc Estimated GFR POC Glucose 250 H 231 H Random Glucose Calcium Vitamin B12 Folate Nasal Screen MRSA (PCR) NEGATIVE Nasal S. aureus Screen POSITIVE A Nasal MRSA/S.aureus Interp SEE NOTE Respiratory Panel Aquino See Note Adenovirus (Rapid PCR) Not Detected B.pert (TEM-PCR) Not Detected B.parapertussis DNA PCR Not Detected C. pneumoniae DNA (PCR) Not Detected Coronavirus OC43 (PCR) Not Detected Coronavirus HKU1 (PCR) Not Detected Coronavirus 229E (PCR) Not Detected Coronavirus NL63 (PCR) Not Detected Human Metapneumovir PCR Not Detected Influenza A (RT-PCR) Not Detected Influenza A (H1) PCR Not Detected Influ A (H1/09) PCR Not Detected Influenza A (H3) PCR Not Detected Influenza B (RT-PCR) Not Detected M. pneumoniae (PCR) Not Detected Parainfluenza 1 (PCR) Not Detected Parainfluenza 2 (PCR) Not Detected Parainfluenza 3 (PCR) Not Detected Parainfluenza 4 (PCR) Not Detected RSV (PCR) Not Detected Entero/Rhino (PCR) Not Detected SARS-CoV-2 RNA (RT-PCR) Not Detected 03/22/25 03/23/25 03/23/25 20:36 00:47 05:06 MCV 82.3 MCH 25.4 L MCHC 30.9 L RDW 20.1 H Plt Count 151 L MPV 10.8 Absolute Nucleated RBC 0.040 H Nucleated RBC % (auto) 0.2 Anion Gap 16 Estim Creat Clear Calc 84.3 Estimated GFR > 60 POC Glucose 265 H 277 H Random Glucose 296 H Calcium 8.9 Vitamin B12 731 Folate 8.3 Nasal Screen MRSA (PCR) Nasal S. aureus Screen Nasal MRSA/S.aureus Interp Respiratory Panel Aquino Adenovirus (Rapid PCR) B.pert (TEM-PCR) B.parapertussis DNA PCR C. pneumoniae DNA (PCR) Coronavirus OC43 (PCR) Coronavirus HKU1 (PCR) Coronavirus 229E (PCR) Coronavirus NL63 (PCR) Human Metapneumovir PCR Influenza A (RT-PCR) Influenza A (H1) PCR Influ A () PCR Influenza A (H3) PCR Influenza B (RT-PCR) M. pneumoniae (PCR) Parainfluenza 1 (PCR) Parainfluenza 2 (PCR) Parainfluenza 3 (PCR) Parainfluenza 4 (PCR) RSV (PCR) Entero/Rhino (PCR) SARS-CoV-2 RNA (RT-PCR) 03/23/25 07:22 MCV MCH MCHC RDW Plt Count MPV Absolute Nucleated RBC Nucleated RBC % (auto) Anion Gap Estim Creat Clear Calc Estimated GFR POC Glucose 265 H Random Glucose Calcium Vitamin B12 Folate Nasal Screen MRSA (PCR) Nasal S. aureus Screen Nasal MRSA/S.aureus Interp Respiratory Panel Aquino Adenovirus (Rapid PCR) B.pert (TEM-PCR) B.parapertussis DNA PCR C. pneumoniae DNA (PCR) Coronavirus OC43 (PCR) Coronavirus HKU1 (PCR) Coronavirus 229E (PCR) Coronavirus NL63 (PCR) Human Metapneumovir PCR Influenza A (RT-PCR) Influenza A (H1) PCR Influ A () PCR Influenza A (H3) PCR Influenza B (RT-PCR) M. pneumoniae (PCR) Parainfluenza 1 (PCR) Parainfluenza 2 (PCR) Parainfluenza 3 (PCR) Parainfluenza 4 (PCR) RSV (PCR) Entero/Rhino (PCR) SARS-CoV-2 RNA (RT-PCR) Microbiology Microbiology Results: Microbiology 03/21/25 19:09 Blood Culture - Preliminary Blood - Venous No growth after 24 hours. 03/21/25 19:09 Blood Culture - Preliminary Blood - Venous No growth after 24 hours. Assessment and Plan (1) Severe sepsis: Status: Acute Plan d2, 79yo M with DM2, HLD, hypothyroidism sent in from LTC with cough and hypoxia, found to have severe sepsis acute hypoxic respiratory failure and severe sepsis due to multifocal PNA - levofloxacin 03/21-, added linezolid 03/22- given MRSA swab positive, follow BCx, trend PCT [1.26 on admission], send urinary antigens for Legionella and pneumococcus, continue IV methylprednisolone - supplemental O2, wean as tolerated; currently on 2L via NC acute encephalopathy due to infection - resolved troponin elevation - likely demand ischemia from sepsis; improved on recheck DM2: basal-bolus insulin BEKAH: replete Fe after bacterial infection controlled, Hb stable around 8 hx VTE: apixaban hypothyroidism: LT4 HLD: statin mood disorder: duloxetine VTE ppx: apixaban dispo: LTC In my clinical judgment, the patient requires continued inpatient hospitalization for the following reasons: IV ABX, hypoxia Total time managing care of this patient today: 35 minutes. Quality Stroke Does the patient have a stroke diagnosis?: No VTE Prior VTE?: No VTE Risk Level:: Medical - moderate - high VTE Device Contraindication: Treatment Not Indicated VTE Drug Contraindication: N/A - Med Ordered
[2025-03-23 11:25] LABS: Glucose, Whole Blood 259 mg/dL (60-115)
[2025-03-23] MEDS: guaiFENesin DM 100/10/5 ML 5 ML SYRUP PO ×2 (11:52→21:05)
--- NOTE | 2025-03-23 13:33 | MHC.SL.SWA ---
Speech Pathologist Impression: Mild oropharyngeal dysphagia Risk of Aspiration Due to: Acute hypoxic respiratory failure and severe sepsis due to multifocal PNA Dysphasia Diet Status: Recommend START diet of NDD3, THIN liquids with intermittent supervision and medications WHOLE with liquids. Liquid Consistency and Strategies for Safe Swallow: Liquid Intake Recommendation: Thin Liquid Intake Strategies: Solid Food Consistency: Dietary Recommendations: Chopped/Advanced (NDD3) Additional Modifications to Solid Foods: Oral Medication Intake: Whole with Liquid Please contact the pharmacy regarding appropriate crushable or liquid drug formulations that are available whenever modified delivery is recommended. Compensatory Strategies and Precautions to be Taken for Safe Swallow: Sit Upright Slow self-feeding rate Small sips/bites Alternate liquids/solids Remain upright after meal (30 minutes) Supervision While Eating and Drinking for Safe Swallow: Intermittent Supervision Foods to Avoid: Swallowing Recommended Treatments: Recommendation for Speech: Inpatient Speech Therapy Comment: Patient presents with mild oropharyngeal dysphagia. Patient with coughing and reporting itchiness in throat with larger bites of sachin cracker. Patient with coughing after bites of large/plain sachin crackers. Patient with no s/sx on small/controlled bites of sachin cracker or softened sachin cracker with applesauce. Patient poor historian but reports no swallowing difficulties. Patient's cough perceived as quick and dry. Patient with no vocal changes before or after coughing. Patient passing RN screening and tolerating thin liquids as well as medication with thin liquids when one at a time. Patient NPO pending SQL SSRS DEVELOPER evaluation. Recommend START diet of NDD3 (chopped/advanced), THIN liquids with intermittent supervision due to confusion and medications one at a time WHOLE with liquids. Recommendations communicated with RN, MD and RD via secure chat. Patient's diet changed in expanse. SQL SSRS DEVELOPER to continue to follow. Frequency/Duration: M-F Daily Date Range for Service Req: Timeline to reassess: Mill Roll Operator Clinican/Clinical Fellow: No Supervisory Statement: I have reviewed and agree with the student/clinical fellow's documentation: No Speech Language Pathologist: Krystal Butler M.A., CCC-SQL SSRS DEVELOPER
[2025-03-23] MEDS: Albuterol/Iprat 2.5/0.5MG 3 ML AMPUL.NEB INHALE (16:03)
[2025-03-23 16:18] LABS: Glucose, Whole Blood 277 mg/dL (60-115)
[2025-03-23 21:27] LABS: Glucose, Whole Blood 310 mg/dL (60-115)
[2025-03-23] MEDS: Insulin Glargine,Hum.rec.anlog 100 UNIT/ML 10 ML VIAL 18 UNIT SUBCUT (21:40)
--- NOTE | 2025-03-23 22:40 | W.PM.IDCN ---
History of Present Illness Data of Consult Service Date: 03/23/25 Requesting physician: Farzad Woodward Primary Care Provider: Lida Jules MD HPI Reason for consult: multifocal pneumonia He presents with dry cough for four days. He has no chest pain at this time and no nausea or vomiting. No one else is ill He has no MRSA on nasal swab just staph aureus. Review of Systems Review of Systems: Yes all other systems are reviewed and are negative PMFSH Past Medical History Medical History Venous thrombosis and embolism Edema Anemia PTSD (post-traumatic stress disorder) Hypercholesteremia Hypothyroidism Diabetes Family History Family history: reviewed and not pertinent Social History Social History Household Members: Other Housing: [facility] Do you presently have visiting nurse or other home services: No Patient Tobacco Use Status: Tobacco use Unknown Advance Directives Date on File: 02/21/25 service: No Meds Allergies Allergy/AdvReac Type Severity Reaction Status Date / Time benzalkonium Allergy Mild Unknown Verified 03/21/25 18:52 brimonidine Allergy Mild Unknown Verified 03/21/25 18:52 clindamycin Allergy Mild Unknown Verified 03/21/25 18:52 dorzolamide (From Trusopt) Allergy Mild Unknown Verified 03/21/25 18:52 gabapentin Allergy Mild Unknown Verified 03/21/25 18:52 heparin Allergy Mild Unknown Verified 03/21/25 18:52 ketoconazole (From Nizoral) Allergy Mild unknown Verified 03/21/25 18:52 lamotrigine Allergy Mild Unknown Verified 03/21/25 18:52 penicillin G Allergy Mild Unknown Verified 03/21/25 18:52 prednisone Allergy Mild Unknown Verified 03/21/25 18:52 pyridoxine Allergy Mild Unknown Verified 03/21/25 18:52 rivaroxaban Allergy Mild Unknown Verified 03/21/25 18:52 sulfamethoxazole (From Allergy Mild Unknown Verified 03/21/25 18:52 Sulfamethoxazole-Trimethoprim) timolol Allergy Mild Unknown Verified 03/21/25 18:52 travoprost (From Travatan Z) Allergy Mild Unknown Verified 03/21/25 18:52 trimethoprim (From Allergy Mild Unknown Verified 03/21/25 18:52 Sulfamethoxazole-Trimethoprim) vancomycin Allergy Mild Unknown Verified 03/21/25 18:52 Active Medications: Current Medications Acetaminophen (Acetaminophen 325 Mg Tablet) 975 mg PO Q6H PRN PRN Reason: Pain, Mild 1-3,fever,headache Albuterol Sulfate (Albuterol Sulfate (0.083%) 2.5 Mg/3 Ml Vial.Neb) 2.5 mg INHALE Q2H PRN PRN Reason: Shortness of Breath/Wheezing Albuterol/Ipratropium (Albuterol/Iprat 2.5/0.5mg 3 Ml Ampul.Neb) 3 ml INHALE RQ4H WHILE AWAKE [facility] Last Admin: 03/23/25 19:39 Dose: Not Given Apixaban (Apixaban 5 Mg Tablet) 5 mg PO BID [facility] Last Admin: 03/23/25 21:03 Dose: 5 mg Ascorbic Acid (Ascorbic Acid 500 Mg Tablet) 500 mg PO BID [facility] Last Admin: 03/23/25 21:03 Dose: 500 mg Atorvastatin Calcium (Atorvastatin Calcium 20 Mg Tablet) 20 mg PO BEDTIME [facility] Last Admin: 03/23/25 21:03 Dose: 20 mg Calcium Carbonate (Calcium Carbonate 750 Mg Tab.Chew) 750 mg PO Q4H PRN PRN Reason: Heartburn Dextrose (Dextrose 50 % 25 Gm/50 Ml Syringe) 25 gm IVPUSH Q15M PRN; Protocol PRN Reason: per Hypoglycemia Standing Ord. Glucose (Glucose Gel 15 Gm Gel..Gram.) 15 gm PO Q15M PRN; Protocol PRN Reason: per Hypoglycemia Standing Ord. Guaifenesin/Dextromethorphan (Guaifenesin Dm 100/10/5 Ml 5 Ml Syrup) 5 ml PO Q4H PRN PRN Reason: Cough Last Admin: 03/23/25 21:05 Dose: 5 ml Levofloxacin (Levaquin) 750 mg in 150 mls @ 100 mls/hr IV BEDTIME [facility] Last Admin: 03/23/25 21:03 Dose: 100 mls/hr Linezolid (Zyvox/D5w) 600 mg in 300 mls @ 300 mls/hr IV Q12H [facility] Last Infusion: 03/23/25 15:36 Dose: Infused Insulin Glargine (Insulin Glargine,Hum.Rec.Anlog 100 Unit/Ml 10 Ml Vial) 18 unit SUBCUT BEDTIME [facility] Last Admin: 03/23/25 21:40 Dose: 18 unit Insulin Human Lispro (Insulin Lispro 100 Unit/Ml 3 Ml Vial) 0 unit SUBCUT QIDACHS [facility]; Protocol Last Admin: 03/23/25 21:40 Dose: 8 unit Levothyroxine Sodium (Levothyroxine Sodium 112 Mcg Tablet) 112 mcg PO DAILY@0600 [facility] Last Admin: 03/23/25 05:59 Dose: 112 mcg Levothyroxine Sodium (Levothyroxine Sodium 25 Mcg Tablet) 25 mcg PO DAILY@0600 [facility] Last Admin: 03/23/25 06:00 Dose: 25 mcg Magnesium Hydroxide (Milk Of Magnesia 30 Ml Oral.Susp) 30 ml PO DAILY PRN PRN Reason: Constipation Methylprednisolone Sodium Succinate (Methylprednisolone Sod Succ 40 Mg/Ml Vial) 40 mg IVPUSH DAILY [facility] Sodium Chloride (0.9 % Sodium Chloride Flush 3 Ml Syringe) 3 ml IVFLUSH QSHIFT [facility] Last Admin: 03/23/25 15:34 Dose: 3 ml Tamsulosin HCl (Tamsulosin Hcl 0.4 Mg Capsule) 0.4 mg PO BEDTIME [facility] Last Admin: 03/23/25 21:03 Dose: 0.4 mg Topiramate (Topiramate 25 Mg Tablet) 50 mg PO DAILY [facility] Last Admin: 03/23/25 08:37 Dose: 50 mg Topiramate (Topiramate 100 Mg Tablet) 100 mg PO DAILY@1700 [facility] Last Admin: 03/23/25 16:56 Dose: 100 mg Home Medications ?Medication ?Instructions ?Recorded ?Confirmed ?Last Taken ?Type apixaban 5 mg tablet (Eliquis) 5 mg PO BID 08/22/24 03/22/25 Unknown History atorvastatin 20 mg tablet 20 mg PO BEDTIME 08/22/24 03/22/25 Unknown History duloxetine 20 mg capsule,delayed 20 mg PO BID 08/22/24 03/22/25 Unknown History release insulin glargine 100 unit/mL 50 unit subcut BEDTIME 08/22/24 03/22/25 Unknown History subcutaneous solution (Lantus U-100 Insulin) levothyroxine 137 mcg tablet 137 mcg PO DAILY 08/22/24 03/22/25 Unknown History metformin 1,000 mg tablet 1,000 mg PO BID 08/22/24 03/22/25 Unknown History tamsulosin 0.4 mg capsule 0.4 mg PO BEDTIME 08/22/24 03/22/25 Unknown History acetaminophen 325 mg tablet 650 mg PO Q6H PRN Pain (Scale 03/22/25 03/22/25 Unknown History Score 1-3) albuterol sulfate 90 mcg/actuation 2 puff inhalation Q6H PRN 03/22/25 03/22/25 Unknown History aerosol inhaler Respiratory Distress ascorbic acid (vitamin C) 500 mg 500 mg PO BID 03/22/25 03/22/25 Unknown History tablet ipratropium 0.5 mg-albuterol 3 mg 3 ml inhalation Q6H PRN 03/22/25 03/22/25 Unknown History (2.5 mg base)/3 mL nebulization Respiratory Distress soln topiramate 100 mg capsule,extended 100 mg PO DAILY@1700 03/22/25 03/22/25 Unknown History release 24 hr (Trokendi XR) topiramate 50 mg capsule,extended 50 mg PO DAILY 03/22/25 03/22/25 Unknown History release 24 hr (Trokendi XR) Physical Exam Vital Signs: Vital Signs: Last Vital Signs Temp 97.5 F 03/23/25 19:20 Pulse 84 03/23/25 19:20 Resp 18 03/23/25 19:20 BP 112/61 03/23/25 19:20 Pulse Ox 96 03/23/25 19:20 O2 Del Method Nasal Cannula 03/23/25 19:20 O2 Flow Rate 2 03/23/25 19:20 Oxygen Flow Rate 2 03/22/25 10:19 BMI result Body Mass Index 36.2 Const: General: cooperative HEENT: Head: Yes normal to inspection Face and sinus: Yes normal facial exam Mouth: Normal oral and palatal mucosa present Teeth and gingiva: dentition normal Eyes: General: appearance normal, both eyes and all related structures Pupils: Equal, round and reactive pupils present Resp: Other: rhonchi bases,wearing oxygen mask,can speak full sentence Cardio: Rate: regular rate Rhythm: regular rhythm GI: Palpation (GI): Soft to palpation and nontender : General: Yes no CVA tenderness Back/Spine/Pelvis: Back: no CVA tenderness Skin: General skin exam: no rashes or lesions noted Neuro: General: moves all extremities Cranial nerves: Yes Equal, round and reactive pupils present Extrem: General: Yes normal to inspection Psych: Appearance: grossly normal Results Labs 03/23/25 05:06 03/23/25 05:06 Labs: Short CBC 03/23/25 Range/Units 05:06 WBC 20.3 H (4.8-10.8) X10*3/uL Hgb 7.9 L (14.0-18.0) g/dl Hct 25.6 L (42.0-52.0) % Plt Count 151 L (160-400) X10*3/uL BMP 03/23/25 05:06 Sodium 131 L Potassium 4.1 Chloride 98 Carbon Dioxide 21 L BUN 22 H Creatinine 0.86 Calcium 8.9 Microbiology Microbiology Results: Microbiology 03/21/25 19:09 Blood - Venous Blood Culture - Preliminary No growth after 48 hours. 03/21/25 19:09 Blood - Venous Blood Culture - Preliminary No growth after 48 hours. Assessment and Plan (1) Sepsis: Qualifiers: Sepsis acute organ dysfunction status: with acute organ dysfunction Sepsis type: sepsis due to unspecified organism Severe sepsis acute organ dysfunction type: unspecified Severe sepsis shock status: without septic shock Qualified Code(s): A41.9 - Sepsis, unspecified organism; R65.20 - Severe sepsis without septic shock Status: Acute (2) Pneumonia: Qualifiers: Laterality: bilateral Lung location: unspecified part of lung Pneumonia type: due to unspecified organism Qualified Code(s): J18.9 - Pneumonia, unspecified organism Status: Acute Plan He has possible atypical organism Possible Legionella species Possible chlamydia pneuomonia,other Possible viral syndrome Would continue Levaquin for 10 days,also covers MSSA. No indication for linezolid at this time.
[2025-03-24] MEDS: guaiFEN/Codeine SF 200/20/10ML 10 ML LIQUID PO (00:16)
[2025-03-24] MEDS: 0.9 % Sodium Chloride Flush 3 ML SYRINGE IVFLUSH ×2 (00:20→08:05)
[2025-03-24] MEDS: Albuterol/Iprat 2.5/0.5MG 3 ML AMPUL.NEB INHALE ×2 (02:10→07:48)
[2025-03-24] MEDS: traZODone HCL 25 MG HALFTAB 12.5 MG PO (02:11)
[2025-03-24 03:07] VITALS: BP 114/60; PULSE 81; RESP 17; TEMP 36.7; O2SAT 93
[2025-03-24] MEDS: Albuterol Sulfate (0.083%) 2.5 MG/3 ML VIAL.NEB INHALE (05:35)
[2025-03-24 06:52] LABS: Hematocrit 26.7 % (42.0-52.0); Hemoglobin 8.3 g/dl (14.0-18.0); Mean Corpuscular HGB Conc 31.1 g/dl (31.0-36.0); Mean Corpuscular Hemoglobin 25.5 pg (27.0-33.0); Mean Corpuscular Volume 81.9 fL (80.0-98.0); NRBC Abs Auto 0.110 X10*3/uL (0.0-0.012); NRBC Pct Auto 0.7 /100WBC (0.0-0.2); Platelet Count 149 X10*3/uL (160-400); Red Blood Count 3.26 X10*6/uL (4.60-5.80); White Blood Count 15.9 X10*3/uL (4.8-10.8)
[2025-03-24 07:02] LABS: Anion Gap 16 (12-20); Blood Urea Nitrogen 25 mg/dL (9-16); Calcium 9.0 mg/dL (8.4-10.2); Carbon Dioxide 22 mmol/L (22-29); Chloride 102 mmol/L (96-108); Creatinine Clr Calc Pharmacy 85.3; Estimated Glomerular Filt Rate > 60; Potassium 3.7 mmol/L (3.3-5.1); Sodium 136 mmol/L (135-145)
[2025-03-24 07:19] LABS: Procalcitonin 0.44 ng/mL
[2025-03-24 07:29] VITALS: BP 113/55; PULSE 84; RESP 20; TEMP 36.8; O2SAT 94
[2025-03-24 07:40] LABS: Glucose, Whole Blood 214 mg/dL (60-115)
[2025-03-24 07:48] VITALS: PULSE 86; RESP 20; O2SAT 94
--- NOTE | 2025-03-24 10:18 | MHC.CM.PN ---
Per MD, Patient is medically cleared for dc to LTC today. Patient will return to LTC @ [facility] via [facility] today at 1PM. CM spoke with invoked HCP/Sister/Ivory @ [phone] and informed her of the dc plan.
--- NOTE | 2025-03-24 11:00 | P.DS_ITS ---
DS: Providers Provider Date of Service: 03/24/25 Date of admission: 03/22/25 00:24 Date of discharge: 03/24/25 Primary care physician: Lida Jules MD Consults: 03/22/25 14:16 Consult to Infectious Diseases Routine Consulting Provider: [facility] Reason for consultation: LINEZOLID 03/22/25 16:57 Consult to Wound Care Routine Consulting Provider: [facility] Wound Care Management Reason for consultation: R arrington abrasion/scabbed, bilat leg redness, swelling, DS: Diagnosis Discharge Diagnosis (1) Pneumonia: Status: Acute (2) Severe sepsis: Status: Acute (3) Acute hypoxic respiratory failure: Status: Acute (4) Acute encephalopathy due to infection: Status: Acute DS: Summary Hospital Course Hospital Course: From the history and physical by the admitting hospitalist, Marylin Daniel MD, 03/22/25: Arnaud Sanders is a 79 years old man with past medical history significant for type 2 diabetes mellitus on metformin and insulin, hypothyroidism, hyperlipidemia and VTE on Eliquis was [facility] after he was found to have low O2 sats. The patient has been coughing for the last 4 days. The patient is a poor historian but reported some shortness on breath. He denied any chest pain. He did not report any acute gastrointestinal or genitourinary symptoms. In the ED, he was found to have fever 102.5, sinus tachycardia, tachypnea and low BP (lowest 84/30). Last blood pressure is 115/51. He is currently on 4 L/min via OxyMask. Blood workup was remarkable for leukocytosis of 20.3, hemoglobin 8.6 and platelets 166. There is bandemia of 19%. There is no lactic acidosis. There is mild hyponatremia, glucose 131. BUN is 14 and creatinine 1.11. Total bilirubin 0.9, AST 57, ALT 19, alk-phos 134, troponin 45.0 and pro BNP 1939.3. Albumin is 3.7. Serology for COVID-19, influenza RSV is negative. CXR showed bilateral pulmonary opacities nonspecific and concerning for multifocal pneumonia. ED tx: Levaquin 750 mg IV, LR 2 L bolus, Tylenol 1 g IV, levalbuterol 3.75 mg 79yo M with DM2, HLD, hypothyroidism sent in from LTC with cough and hypoxia, found to have severe sepsis from multifocal pneumonia and admitted to the telemetry unit. He was treated with levofloxacin and linezolid as well as IV methylprednisolone. MRSA swab negative [though positive for MSSA]. Blood cultures negative, procalcitonin declined appropriately. He was weaned off oxygen and SIRS physiology resolved. He was discharged on levofloxacin for 5 days and dexamethasone for 3 days. Mental status improved to baseline as infection was controlled. Initial mild troponin elevation likely demand ischemia from sepsis; improved on recheck and no chest pain or EKG changes. He was discharged back to long-term care. Time Attestation Discharge Coordination Time (in mins): 40 Quality: Safe Use of Opioids Does Pt have an Active Cancer Diagnosis on the Problem List?: No Quality: Stroke Does the patient have a stroke diagnosis?: No Physical Exam Vital Signs: Vital Signs: Last Vital Signs Temp 98.3 F 03/24/25 07:29 Pulse 86 03/24/25 07:48 Resp 20 03/24/25 07:48 BP 113/55 L 03/24/25 07:29 Pulse Ox 94 03/24/25 07:29 O2 Del Method Nasal Cannula 03/24/25 07:29 O2 Flow Rate 2 03/24/25 07:29 Oxygen Flow Rate 2 03/22/25 10:19 BMI result Body Mass Index 36.2 Gen: NAD HEENT: sclera anicteric, moist mucus membranes Neck: supple Lungs: bilateral inspiratory crackles Heart: regular rate and rhythm, no murmurs Abd: soft, non-tender, non-distended Ext: no edema Skin: warm/well-perfused Neuro: alert and oriented to self/place, no focal findings Psych: appropriate affect DS: Data Data Completed and Pending Completed studies during hospitalization [Text1]: Laboratory Results WBC 15.9 X10*3/uL (4.8-10.8) H 03/24/25 06:32 RBC 3.26 X10*6/uL (4.60-5.80) L 03/24/25 06:32 Hgb 8.3 g/dl (14.0-18.0) L 03/24/25 06:32 Hct 26.7 % (42.0-52.0) L 03/24/25 06:32 MCV 81.9 fL (80.0-98.0) 03/24/25 06:32 MCH 25.5 pg (27.0-33.0) L 03/24/25 06:32 MCHC 31.1 g/dl (31.0-36.0) 03/24/25 06:32 RDW 20.0 % (11.0-16.0) H 03/24/25 06:32 Plt Count 149 X10*3/uL (160-400) L 03/24/25 06:32 MPV 10.3 fL (9.4-12.4) 03/24/25 06:32 Immature Gran % (Auto) Cancelled 03/22/25 04:34 Neut % (Auto) Cancelled 03/22/25 04:34 Lymph % (Auto) Cancelled 03/22/25 04:34 Villalba % (Auto) Cancelled 03/22/25 04:34 Eos % (Auto) Cancelled 03/22/25 04:34 Baso % (Auto) Cancelled 03/22/25 04:34 Lymph # (Auto) Cancelled 03/22/25 04:34 Villalba # (Auto) Cancelled 03/22/25 04:34 Eos # (Auto) Cancelled 03/22/25 04:34 Baso # (Auto) Cancelled 03/22/25 04:34 Abs Immat Gran (auto) Cancelled 03/22/25 04:34 Absolute Neuts (auto) Cancelled 03/22/25 04:34 Absolute Nucleated RBC 0.110 X10*3/uL (0.0-0.012) H 03/24/25 06:32 Nucleated RBC % (auto) 0.7 /100WBC (0.0-0.2) H 03/24/25 06:32 Neutrophils % (Manual) 83 % (45-73) H 03/22/25 04:34 Band Neutrophils % 6 % (3-5) H 03/22/25 04:34 Lymphocytes % (Manual) 2 % (20-40) L 03/22/25 04:34 Atypical Lymphs % (Man) 1 % (0-6) 03/21/25 19:09 Monocytes % (Manual) 6 % (2-11) 03/22/25 04:34 Metamyelocytes % 1 % 03/22/25 04:34 Myelocytes % 2 % 11/27/25 04:34 Abs Neuts (Manual) 14.9 X10*3/uL (2.0-8.3) H 03/22/25 04:34 Lymphocytes # (Manual) 0.3 X10*3/uL (1.2-4.9) L 03/22/25 04:34 Atyp Lymphs # (Manual) 0.2 x10*3/uL 03/21/25 19:09 Monocytes # (Manual) 1.0 X10*3/uL (0.1-1.2) 03/22/25 04:34 Metamyelocytes # 0.2 X10*3/uL 03/22/25 04:34 Myelocytes # 0.3 X10*/uL 03/22/25 04:34 Toxic Vacuolation PRESENT 03/21/25 19:09 Dohle Bodies PRES 03/22/25 04:34 Platelet Estimate SLIGHTLY DECREASED (NORMAL) 03/22/25 04:34 Large Platelets PRESENT 03/22/25 04:34 Plt Morphology Comment NOTED 03/22/25 04:34 RBC Morphology NORMAL 03/22/25 04:34 Polychromasia 1+ (0-2) /OIF 03/22/25 04:34 Microcytosis 1+ (5-14) /OIF 03/22/25 04:34 Tear Drop Cells 1+ (0-2) /OIF 03/22/25 04:34 Ovalocytes 1+ (5-14) /OIF 03/22/25 04:34 Reva Cells 3+ (>5) /OIF 03/22/25 04:34 Absolute Retic 0.049 X10*6/uL (0.026-0.095) 03/22/25 04:34 Percent Retic 1.6 % (0.5-1.8) 03/22/25 04:34 Immature Retic Fraction 27.1 % (2.3-13.4) H 03/22/25 04:34 Retic Hgb Equivalent 23.6 pg (30.0-35.0) L 03/22/25 04:34 Sodium 136 mmol/L (135-145) 03/24/25 06:32 Potassium 3.7 mmol/L (3.3-5.1) 03/24/25 06:32 Chloride 102 mmol/L (96-108) 03/24/25 06:32 Carbon Dioxide 22 mmol/L (22-29) 03/24/25 06:32 Anion Gap 16 (12-20) 03/24/25 06:32 BUN 25 mg/dL (9-16) H 03/24/25 06:32 Creatinine 0.85 mg/dL (0.5-1.4) 03/24/25 06:32 Estim Creat Clear Calc 85.3 03/24/25 06:32 Estimated GFR > 60 03/24/25 06:32 POC Glucose 214 mg/dL (60-115) H 03/24/25 07:35 Random Glucose 207 mg/dL (60-115) H 03/24/25 06:32 Lactic Acid 1.6 mmol/L (0.5-2.0) 03/22/25 01:04 Calcium 9.0 mg/dL (8.4-10.2) 03/24/25 06:32 Magnesium 1.6 mg/dL (1.6-2.6) 03/22/25 04:34 Iron 19 mcg/dL (45-160) L 03/22/25 04:34 TIBC 229 mcg/dL (228-428) 03/22/25 04:34 % Saturation 8 % (15-50) L 03/22/25 04:34 Unsat Iron Binding 210 ug/dL 03/22/25 04:34 Ferritin 320 ng/mL (20-250) H 03/22/25 04:34 Total Bilirubin 0.9 mg/dL (0.0-1.0) 03/21/25 19:09 AST 57 U/L (5-37) H 03/21/25 19:09 ALT 19 U/L (0-40) 03/21/25 19:09 Alkaline Phosphatase 134 U/L (39-117) H 03/21/25 19:09 Lactate Dehydrogenase 297 U/L (118-273) H 03/22/25 04:34 Troponin I High Sens 29.1 ng/L (<3.5-35.0) 03/22/25 04:34 NT-Pro-B Natriuret Pep 1939.3 pg/mL (<300) H 03/21/25 19:09 Total Protein 6.7 g/dL (6.5-8.0) 03/21/25 19:09 Albumin 3.7 g/dL (3.5-5.0) 03/21/25 19:09 Vitamin B12 731 pg/mL (200-900) 03/23/25 05:06 Folate 8.3 ng/mL (> or = 4.0) 03/23/25 05:06 Procalcitonin 0.44 ng/mL 03/24/25 06:32 Urine Color Dark Yellow 03/22/25 06:10 Urine Appearance Clear 03/22/25 06:10 Urine pH 5.5 (5.0-9.0) 03/22/25 06:10 Ur Specific Carter 1.015 (1.005-1.025) 03/22/25 06:10 Urine Protein Trace mg/dL (Neg-Trace) 03/22/25 06:10 Urine Glucose (UA) Negative mg/dL (Negative) 03/22/25 06:10 Urine Ketones Trace mg/dL (Negative) 03/22/25 06:10 Urine Blood Trace (Negative) H 03/22/25 06:10 Urine Nitrite Negative (Negative) 03/22/25 06:10 Ur Leukocyte Esterase Negative (Negative) 03/22/25 06:10 Urine RBC 6-10 /HPF (0-2) H 03/22/25 06:10 Urine WBC 0-5 /HPF (0-5) 03/22/25 06:10 Ur Squamous Epith Cells 3-5 /HPF (0-2) 03/22/25 06:10 Calcium Oxalate Crystal Present 03/22/25 06:10 Urine Bacteria None Seen (None Seen) 03/22/25 06:10 Hyaline Casts 11-20 /LPF (0-2) 03/22/25 06:10 Nasal Screen MRSA (PCR) NEGATIVE (Negative) 03/22/25 11:15 Nasal S. aureus Screen POSITIVE (Negative) A 03/22/25 11:15 Nasal MRSA/S.aureus Interp SEE NOTE 03/22/25 11:15 Respiratory Panel Aquino See Note 03/22/25 11:15 Adenovirus (Rapid PCR) Not Detected (Not Detect.) 03/22/25 11:15 B.pert (TEM-PCR) Not Detected (Not Detect.) 03/22/25 11:15 B.parapertussis DNA PCR Not Detected (Not Detect.) 03/22/25 11:15 C. pneumoniae DNA (PCR) Not Detected (Not Detect.) 03/22/25 11:15 Coronavirus OC43 (PCR) Not Detected (Not Detect.) 03/22/25 11:15 Coronavirus HKU1 (PCR) Not Detected (Not Detect.) 03/22/25 11:15 Coronavirus 229E (PCR) Not Detected (Not Detect.) 03/22/25 11:15 Coronavirus NL63 (PCR) Not Detected (Not Detect.) 03/22/25 11:15 Human Metapneumovir PCR Not Detected (Not Detect.) 03/22/25 11:15 Influenza A (RT-PCR) Not Detected (Not Detect.) 03/22/25 11:15 Influenza A (H1) PCR Not Detected (Not Detect.) 03/22/25 11:15 Influ A (H1/09) PCR Not Detected (Not Detect.) 03/22/25 11:15 Influenza A (H3) PCR Not Detected (Not Detect.) 03/22/25 11:15 Influenza Type A (PCR) NEGATIVE (Negative) 03/21/25 19:09 Influenza B (RT-PCR) Not Detected (Not Detect.) 03/22/25 11:15 Influenza Type B (PCR) NEGATIVE (Negative) 03/21/25 19:09 Ur L.pneumophila Ag Cancelled 03/23/25 Unknown M. pneumoniae (PCR) Not Detected (Not Detect.) 03/22/25 11:15 Parainfluenza 1 (PCR) Not Detected (Not Detect.) 03/22/25 11:15 Parainfluenza 2 (PCR) Not Detected (Not Detect.) 03/22/25 11:15 Parainfluenza 3 (PCR) Not Detected (Not Detect.) 03/22/25 11:15 Parainfluenza 4 (PCR) Not Detected (Not Detect.) 03/22/25 11:15 RSV (PCR) Not Detected (Not Detect.) 03/22/25 11:15 RSV RNA Qual (PCR) NEGATIVE (Negative) 03/21/25 19:09 Entero/Rhino (PCR) Not Detected (Not Detect.) 03/22/25 11:15 SARS-CoV-2 RNA (RT-PCR) Not Detected (Not Detect.) 03/22/25 11:15 Ur Strep pneumoniae Ag Cancelled 03/23/25 Unknown CXR 03/21/25 Bilateral pulmonary opacities nonspecific and concerning for multifocal pneumonia. Discharge Plan Discharge Patient Disposition: [facility] Discharge Diagnosis: sepsis and hypoxia due to pneumonia Referrals: [facility] [Outside] - 1 Week Lida Jules MD [Primary Care Provider, Internal Medicine] - 1 Week Discharge Medications: New dexamethasone 6 mg tablet 6 mg PO DAILY Qty: 3 0RF levofloxacin 750 mg tablet 750 mg PO DAILY Qty: 5 0RF Continued acetaminophen 325 mg Tablet 650 mg PO Q6H PRN (Reason: Pain (Scale Score 1-3)) albuterol sulfate 90 mcg/actuation Hfa Aerosol Inhaler 2 puff INHALATION Q6H PRN (Reason: Respiratory Distress) ascorbic acid (vitamin C) 500 mg Tablet 500 mg PO BID topiramate [Trokendi XR] 100 mg Capsule,Extended Release 24hr 100 mg PO DAILY@1700 topiramate [Trokendi XR] 50 mg Capsule,Extended Release 24hr 50 mg PO DAILY ipratropium-albuterol 0.5 mg-3 mg(2.5 mg base)/3 mL Solution For Nebulization 3 ml INHALATION Q6H PRN (Reason: Respiratory Distress) Eliquis 5 mg tablet 5 mg PO BID duloxetine 20 mg capsule,delayed release(DR/EC) 20 mg PO BID atorvastatin 20 mg tablet 20 mg PO BEDTIME insulin glargine [Lantus U-100 Insulin] 100 unit/mL solution 50 unit subcut BEDTIME tamsulosin 0.4 mg capsule 0.4 mg PO BEDTIME metformin 1,000 mg tablet 1,000 mg PO BID levothyroxine 137 mcg tablet 137 mcg PO DAILY Discharge Orders: Discharge Order (Routine); Ordered 03/24/25 Ordered By: Farzad Woodward Diet: Diabetic diet Activity on Discharge: As tolerated Stand Alone Forms: Patient Portal Discharge page Print Language: Kazakh Care Plan Goals: recover from pneumonia Health Concerns: sepsis and hypoxia due to pneumonia Plan of Treatment: levofloxacin 750 mg daily for 5 days dexamethasone 6 mg daily for 3 days Please follow up with your primary care doctor within 1 week. Return to the hospital if you experience recurrent or worsening symptoms. Assessment: See Discharge Summary.
[2025-03-24 11:45] LABS: Glucose, Whole Blood 248 mg/dL (60-115)
[2025-03-28 00:54] LABS: Strep Pneumo Ag urine Not Detected (Not Detected)
== END 2025-03-24 13:16 | DRG 871 ==
LOC: HO.ED 23:56 → HO.EDOVER 03-22 00:34 → HO.IMC 03-22 11:45
PROVIDERS: Admitting Provider Internal Medicine; Emergency Provider Student in an Organized Health Care Education/Training Program; PCP Internal Medicine; Visit Provider Family Medicine
DX: A41.9 Sepsis, unspecified organism (principal); J18.9 Pneumonia, unspecified organism; J96.01 Acute respiratory failure with hypoxia; G93.49 Other encephalopathy; R65.20 Severe sepsis without septic shock; D50.9 Iron deficiency anemia, unspecified; E03.9 Hypothyroidism, unspecified; E11.9 Type 2 diabetes mellitus without complications; E78.5 Hyperlipidemia, unspecified; Z20.822 Contact with and (suspected) exposure to COVID-19; Z79.01 Long term (current) use of anticoagulants; Z79.84 Long term (current) use of oral hypoglycemic drugs; Z79.890 Hormone replacement therapy; Z79.899 Other long term (current) drug therapy
CPT/HCPCS: 36415; 71045; 80048; 80053; 81001; 82607; 82728; 82746; 82947; 83540; 83605; 83615; 83735; 83880; 84145; 84484; 85007; 85025; 85027; 85045; 87040; 87449; 87633; 87637; 87640; 87641; 87899; 92610; 94640; 99285; J0131; J1956; J2020; J2270; J2919; J7120

== ENCOUNTER → 2025-03-21 18:57 | Outpatient (BNV) | payer MEDICARE, MEDICAID, SELFPAY | PROVIDERS: Emergency Provider Student in an Organized Health Care Education/Training Program; PCP Internal Medicine; Visit Provider Radiology Neuroradiology | DX: R06.00 Dyspnea, unspecified (principal) | CPT/HCPCS: 71045 ==

== ENCOUNTER → 2025-03-22 00:24 | Outpatient (BNV) | payer MEDICARE, MEDICAID, SELFPAY | PROVIDERS: Admitting Provider Internal Medicine; Emergency Provider Student in an Organized Health Care Education/Training Program; PCP Internal Medicine; Visit Provider Internal Medicine | DX: A41.9 Sepsis, unspecified organism (principal); R65.20 Severe sepsis without septic shock | CPT/HCPCS: 99232 ==

== ENCOUNTER → 2025-03-22 00:24 | Outpatient (BNV) | payer MEDICARE, MEDICAID, SELFPAY | PROVIDERS: Admitting Provider Internal Medicine; Emergency Provider Student in an Organized Health Care Education/Training Program; PCP Internal Medicine; Visit Provider Internal Medicine | DX: A41.9 Sepsis, unspecified organism (principal); R65.20 Severe sepsis without septic shock; J18.9 Pneumonia, unspecified organism | CPT/HCPCS: 99222 ==